=== PATIENT | female | born 1955 | race Caucasian/White ===

== ENCOUNTER 2020-06-16 14:06 | Outpatient (REF) | payer OTHER, SELFPAY | END 2020-06-16 14:07 | disposition home or self-care (01) | LOC: HO.LAB 14:06 | PROVIDERS: PCP Internal Medicine; Visit Provider Internal Medicine | DX: Z20.828 Contact with and (suspected) exposure to other viral communicable diseases (principal) | CPT/HCPCS: 36415; 87635 ==

== ENCOUNTER → 2020-08-11 10:35 | Outpatient (BNVA) | payer OTHER, SELFPAY | PROVIDERS: PCP Internal Medicine; Referring Provider Internal Medicine; Visit Provider Internal Medicine Endocrinology, Diabetes & Metabolism | DX: Z76.89 Persons encountering health services in other specified circumstances (principal) ==

== ENCOUNTER 2020-08-12 09:41 | Outpatient (REF) | payer OTHER, SELFPAY | END 2020-08-12 09:42 | disposition home or self-care (01) | LOC: HO.LAB 09:41 | PROVIDERS: Visit Provider Internal Medicine | DX: Z20.828 Contact with and (suspected) exposure to other viral communicable diseases (principal) | CPT/HCPCS: C9803; U0003 ==

== ENCOUNTER 2020-08-16 08:46 | Outpatient (REF) | payer OTHER, SELFPAY ==
[2020-08-16 09:26] LABS: MANUAL DIFF FLAG NO
[2020-08-16 09:32] LABS: Basophils Absolute Auto 0.1 X10*3/uL (0.0-0.2); Basophils Percent Auto 0.6 % (0-2); Eosinophils Absolute Auto 0.4 X10*3/uL (0.0-0.4); Eosinophils Percent Auto 4.7 % (0-4); Hematocrit 40.2 % (37-47); Hemoglobin 13.1 g/dl (12.0-16.0); Imm Gran Abs Auto 0.02 X10*3/uL (0.00-0.03); Imm Gran Pct Auto 0.2 % (0.0-0.4); Lymphocytes Absolute Auto 3.5 X10*3/uL (1.2-4.9); Lymphocytes Percent Auto 39.8 % (20-40); Mean Corpuscular HGB Conc 32.6 g/dl (31.0-35.0); Mean Corpuscular Hemoglobin 29.8 pg (27.0-33.0); Mean Corpuscular Volume 91.4 fL (80-98); Mean Platelet Volume 12.5 fL (9.4-12.3); Monocytes Absolute Auto 0.8 X10*3/uL (0.1-1.2); Monocytes Percent Auto 8.9 % (2-11); Neutrophils Absolute Auto 4.1 X10*3/uL (2.0-8.3); Neutrophils Percent Auto 45.8 % (45-73); Platelet Count 199 X10*3/uL (160-400); Red Cell Distribution Width 14.3 % (11.0-16.0); White Blood Count 8.9 X10*3/uL (4.8-10.8)
[2020-08-16 09:58] LABS: Alanine Aminotransferase 27 U/L (0-31); Albumin Level 4.1 g/dL (3.5-5.0); Alkaline Phosphatase 86 U/L (39-117); Anion Gap 13 (12-20); Aspartate Amino Transferase 28 U/L (5-31); Bilirubin Total 0.5 mg/dL (0.0-1.0); Blood Urea Nitrogen 10 mg/dL (9-16); Calcium 9.1 mg/dL (8.4-10.2); Carbon Dioxide 27 mmol/L (22-29); Chloride 106 mmol/L (96-108); Cholesterol 179 mg/dL; Estimated Glomerular Filt Rate > 60; Glucose Fasting 118 mg/dL (60-99); HDL Cholesterol 44 mg/dL; LDL Cholesterol Calculated 114 mg/dl; Potassium 4.6 mmol/l (3.3-5.1); Sodium 141 mmol/L (135-145); Total Protein 7.1 g/dL (6.5-8.0); Triglycerides 106 mg/dL
[2020-08-16 10:18] LABS: Free T4 (Free Thyroxine) 0.88 ng/dL (0.71-1.85)
[2020-08-16 10:21] LABS: TSH reflex Free T4 2.71 mIU/mL (0.32-4.0)
== END 2020-08-16 08:47 | disposition home or self-care (01) ==
LOC: HO.LAB 08:46
PROVIDERS: Absent Provider Internal Medicine Endocrinology, Diabetes & Metabolism; PCP Internal Medicine; Visit Provider Internal Medicine
DX: E78.00 Pure hypercholesterolemia, unspecified (principal); K21.9 Gastro-esophageal reflux disease without esophagitis; E06.3 Autoimmune thyroiditis; E03.8 Other specified hypothyroidism
CPT/HCPCS: 36415; 80053; 80061; 84439; 84443; 85025

== ENCOUNTER → 2020-08-21 12:40 | Outpatient (BNVA) | payer OTHER, SELFPAY | PROVIDERS: PCP Internal Medicine; Referring Provider Internal Medicine; Visit Provider Nurse Practitioner | DX: K21.9 Gastro-esophageal reflux disease without esophagitis (principal); K29.70 Gastritis, unspecified, without bleeding; R43.2 Parageusia; K59.00 Constipation, unspecified; F17.210 Nicotine dependence, cigarettes, uncomplicated; Z79.899 Other long term (current) drug therapy | CPT/HCPCS: 99212 ==

== ENCOUNTER → 2020-10-02 13:03 | Outpatient (BNVA) | payer MEDICARE, MEDICAID, SELFPAY | PROVIDERS: PCP Internal Medicine; Visit Provider Nurse Practitioner | DX: K21.9 Gastro-esophageal reflux disease without esophagitis (principal); K29.70 Gastritis, unspecified, without bleeding; R43.2 Parageusia; K59.00 Constipation, unspecified | CPT/HCPCS: Q3014 ==

== ENCOUNTER 2020-10-11 08:39 | Outpatient (REF) | payer MEDICARE, MEDICAID, SELFPAY ==
[2020-10-11 09:32] LABS: Alanine Aminotransferase 40 U/L (0-31); Albumin Level 4.4 g/dL (3.5-5.0); Alkaline Phosphatase 100 U/L (39-117); Anion Gap 14 (12-20); Aspartate Amino Transferase 34 U/L (5-31); Bilirubin Total 0.5 mg/dL (0.0-1.0); Blood Urea Nitrogen 14 mg/dL (9-16); Calcium 9.5 mg/dL (8.4-10.2); Carbon Dioxide 28 mmol/L (22-29); Chloride 104 mmol/L (96-108); Estimated Glomerular Filt Rate > 60; Glucose Fasting 123 mg/dL (60-99); Potassium 5.1 mmol/L (3.3-5.1); Sodium 141 mmol/L (135-145); Total Protein 7.6 g/dL (6.5-8.0)
== END 2020-10-11 08:40 | disposition home or self-care (01) ==
LOC: HO.LAB 08:39
PROVIDERS: Visit Provider Internal Medicine
DX: E78.00 Pure hypercholesterolemia, unspecified (principal)
CPT/HCPCS: 36415; 80053

== ENCOUNTER → 2020-10-15 14:17 | Outpatient (BNVA) | payer MEDICARE, MEDICAID, SELFPAY | PROVIDERS: PCP Internal Medicine; Visit Provider Nurse Practitioner | DX: Z13.89 Encounter for screening for other disorder (principal) | CPT/HCPCS: 99212 ==

== ENCOUNTER → 2021-01-14 13:55 | Outpatient (BNVA) | payer MEDICARE, MEDICAID, SELFPAY | PROVIDERS: PCP Internal Medicine; Referring Provider Internal Medicine; Visit Provider Nurse Practitioner | DX: K59.00 Constipation, unspecified (principal); K29.70 Gastritis, unspecified, without bleeding; K21.9 Gastro-esophageal reflux disease without esophagitis; R10.13 Epigastric pain; R68.81 Early satiety | CPT/HCPCS: 99212 ==

== ENCOUNTER 2021-01-15 10:20 | Outpatient (REF) | payer MEDICARE, MEDICAID, SELFPAY | END 2021-01-15 10:21 | disposition home or self-care (01) | LOC: HO.LNP 10:20 | PROVIDERS: Visit Provider Nurse Practitioner | DX: R10.13 Epigastric pain (principal); R68.81 Early satiety; Z11.2 Encounter for screening for other bacterial diseases | CPT/HCPCS: 87338 ==

== ENCOUNTER 2021-02-07 08:18 | Outpatient (REF) | payer MEDICARE, MEDICAID, SELFPAY ==
[2021-02-07 09:34] LABS: Alanine Aminotransferase 44 U/L (0-31); Albumin Level 4.5 g/dL (3.5-5.0); Alkaline Phosphatase 110 U/L (39-117); Anion Gap 15 (12-20); Aspartate Amino Transferase 35 U/L (5-31); Bilirubin Total 0.3 mg/dL (0.0-1.0); Blood Urea Nitrogen 11 mg/dL (9-16); Calcium 9.7 mg/dL (8.4-10.2); Carbon Dioxide 26 mmol/L (22-29); Chloride 105 mmol/L (96-108); Cholesterol 213 mg/dL; Estimated Glomerular Filt Rate > 60; Glucose Fasting 113 mg/dL (60-99); HDL Cholesterol 48 mg/dL; LDL Cholesterol Calculated 137 mg/dl; Potassium 4.8 mmol/L (3.3-5.1); Sodium 141 mmol/L (135-145); Triglycerides 142 mg/dL
[2021-02-07 09:48] LABS: Free T4 (Free Thyroxine) 0.96 ng/dL (0.71-1.85); Thyroid Stimulating Hormone 1.92 uIU/mL (0.32-4.0)
== END 2021-02-07 08:19 | disposition home or self-care (01) ==
LOC: HO.LAB 08:18
PROVIDERS: PCP Internal Medicine; Visit Provider Internal Medicine Endocrinology, Diabetes & Metabolism
DX: E03.8 Other specified hypothyroidism (principal); E06.3 Autoimmune thyroiditis; E78.5 Hyperlipidemia, unspecified; R73.02 Impaired glucose tolerance (oral)
CPT/HCPCS: 36415; 80053; 80061; 84439; 84443

== ENCOUNTER → 2021-02-10 10:01 | Outpatient (BNVA) | payer MEDICARE, MEDICAID, SELFPAY | PROVIDERS: PCP Internal Medicine; Visit Provider Internal Medicine Endocrinology, Diabetes & Metabolism | DX: E89.0 Postprocedural hypothyroidism (principal) | CPT/HCPCS: 99212 ==

== ENCOUNTER → 2021-03-31 15:14 | Outpatient (BNVA) | payer MEDICARE, MEDICAID, SELFPAY | PROVIDERS: Referring Provider Internal Medicine; Visit Provider Nurse Practitioner | DX: K21.9 Gastro-esophageal reflux disease without esophagitis (principal); R10.13 Epigastric pain; R68.81 Early satiety | CPT/HCPCS: 99212 ==

== ENCOUNTER → 2021-04-13 08:26 | Outpatient (REF) | payer MEDICARE, MEDICAID, SELFPAY ==
--- NOTE | ~2021-04-13 | NM_ITS ---
EXAMINATION: NM RADIONUCLIDE SOLID FOOD GASTRIC EMPTYING 4-HOUR STUDY CLINICAL INFORMATION: Epigastric pain COMPARISON: None TECHNIQUE: A standard meal consisting of 4 oz of Egg Beaters brand tagged with 1.0 microcuries Tc-99m Sulfur Colloid, 8 oz water and 2 slices of toast with jelly was administered orally to the patient. Images were obtained using a dual head gamma camera in the anterior and posterior projections over of the stomach immediately post ingestion and at hourly intervals up to 4 hours post ingestion. The anterior and posterior counts at each time interval were averaged using the geometric mean and expressed as percentage of the immediate post ingestion counts. FINDINGS: There is good visualization of activity in the stomach immediately post ingestion. As the study progresses, there is good clearance of activity from the stomach and visualization of progressively increasing small bowel activity. By the end of the study, there is almost no retention noted in the stomach. Retention in the stomach at each time interval was: 1 hour 66% (normal 37%-90%) 2 hours 33% (normal 30%-60%) 3 hours 10% 4 hours 4% (normal 0%-10%) NM/NM gastric emptying study IMPRESSION: Normal 4-hour solid food gastric emptying study.
== END ==
LOC: HO.NUCMED 08:26
PROVIDERS: Visit Provider Nurse Practitioner
DX: R10.13 Epigastric pain (principal); R68.81 Early satiety
CPT/HCPCS: 78264; A9541

== ENCOUNTER → 2021-04-28 11:27 | Outpatient (BNVA) | payer MEDICARE, MEDICAID, SELFPAY | PROVIDERS: PCP Internal Medicine; Referring Provider Internal Medicine; Visit Provider Nurse Practitioner | DX: K21.9 Gastro-esophageal reflux disease without esophagitis (principal); R10.13 Epigastric pain; R68.81 Early satiety; K59.00 Constipation, unspecified; R14.0 Abdominal distension (gaseous); R43.2 Parageusia; K29.70 Gastritis, unspecified, without bleeding | CPT/HCPCS: 99212 ==

== ENCOUNTER 2021-05-07 10:43 | Outpatient (REF) | payer MEDICARE, MEDICAID, SELFPAY ==
--- NOTE | ~2021-05-07 | XR_ITS ---
EXAMINATION: XR CHEST CLINICAL INFORMATION: Dyspnea COMPARISON: Previous chest x-rays most recent November 2018 TECHNIQUE: 2 views of the chest were obtained. FINDINGS: The cardiac silhouette is upper normal in size. There are increased central bronchovascular markings.. The lungs are otherwise clear. There is no pleural effusion or pneumothorax. There are degenerative changes of the spine. XR/XR chest 2V IMPRESSION: Increased central bronchovascular markings questionable for pulmonary venous redistribution versus airways disease.
== END 2021-05-07 10:44 | disposition home or self-care (01) ==
LOC: HO.XRAY 10:43
PROVIDERS: PCP Internal Medicine; Visit Provider Internal Medicine
DX: R06.00 Dyspnea, unspecified (principal)
CPT/HCPCS: 71046

== ENCOUNTER → 2021-05-26 13:55 | Outpatient (BNVA) | payer MEDICARE, MEDICAID, SELFPAY | PROVIDERS: PCP Internal Medicine; Visit Provider Nurse Practitioner | DX: K59.00 Constipation, unspecified (principal); K21.9 Gastro-esophageal reflux disease without esophagitis; R14.0 Abdominal distension (gaseous); R68.81 Early satiety; R10.13 Epigastric pain | CPT/HCPCS: Q3014 ==

== ENCOUNTER 2021-09-26 09:42 | Outpatient (REF) | payer MEDICARE, MEDICAID, SELFPAY ==
[2021-09-26 10:28] LABS: Alanine Aminotransferase 33 U/L (0-31); Albumin Level 4.2 g/dL (3.5-5.0); Alkaline Phosphatase 100 U/L (39-117); Anion Gap 11 (12-20); Aspartate Amino Transferase 25 U/L (5-31); Bilirubin Total 0.3 mg/dL (0.0-1.0); Blood Urea Nitrogen 12 mg/dL (9-16); Calcium 10.1 mg/dL (8.4-10.2); Carbon Dioxide 30 mmol/L (22-29); Chloride 104 mmol/L (96-108); Cholesterol 217 mg/dL; Estimated Glomerular Filt Rate > 60; Glucose Fasting 136 mg/dL (60-99); HDL Cholesterol 38 mg/dL; LDL Cholesterol Calculated 140 mg/dl; Sodium 140 mmol/L (135-145); Total Protein 7.8 g/dL (6.5-8.0); Triglycerides 195 mg/dL
[2021-09-26 10:50] LABS: Free T4 (Free Thyroxine) 0.85 ng/dL (0.71-1.85); Thyroid Stimulating Hormone 5.95 uIU/mL (0.32-4.0)
[2021-10-01 19:16] LABS: Vitamin D 25-OH, D2 <4 ng/mL; Vitamin D 25-OH, D3 23 ng/mL; Vitamin D 25-OH, Total 23 ng/mL (30-100)
== END 2021-09-26 09:43 | disposition home or self-care (01) ==
LOC: HO.LAB 09:42
PROVIDERS: PCP Internal Medicine; Visit Provider Internal Medicine
DX: E06.3 Autoimmune thyroiditis (principal); E55.9 Vitamin D deficiency, unspecified; E78.5 Hyperlipidemia, unspecified; R73.02 Impaired glucose tolerance (oral)
CPT/HCPCS: 36415; 80053; 80061; 82306; 84439; 84443

== ENCOUNTER 2021-09-30 13:15 | Outpatient (REF) | payer MEDICARE, MEDICAID, SELFPAY ==
--- NOTE | ~2021-09-30 | MM_ITS ---
EXAMINATION: MM SCREENING DIGITAL BREAST TOMOSYNTHESIS, BILATERAL CLINICAL INFORMATION: Screening. Asymptomatic. The lifetime risk of breast cancer based on the Tyrer-Cuzick Model is 3%. COMPARISON: Mammography: 05/24/2018, 04/06/2017, 04/02/2016 TECHNIQUE: Digital breast tomosynthesis is performed in both the craniocaudal and mediolateral oblique views along with computer-aided detection (CAD). Synthesized 2D images are generated from the tomosynthesis. Additional right MLO view is provided. FINDINGS: There are scattered areas of fibroglandular density (ACR BI-RADS breast composition Category b). There are no significant masses, abnormal calcifications, or other abnormalities. Parenchymal pattern is similar to prior studies. There is no developing density or architectural abnormality. The axilla and skin contours are unremarkable. No significant changes. MM/MM tomosynthesis screening BI IMPRESSION: No mammographic evidence of malignancy. ASSESSMENT: BI-RADS 1: Negative RECOMMENDATION: Routine annual mammography screening. This patient's information was entered into a reminder system with a target due date for their next mammogram.
--- NOTE | ~2021-09-30 | MM_ITS ---
EXAMINATION: BONE DENSITOMETRY CLINICAL INDICATION: Asymptomatic menopausal state. COMPARISON: None (current study represents initial baseline exam). TECHNIQUE: Using a Invisible Connect DXA System (software version: 13.1) manufactured by [employer], dual-energy x-ray absorptiometry was performed of the lumbar spine and left hip. The images are of good technical quality. Summary results are attached. FINDINGS: AP SPINE L2-L3 (excluding L1 and L4): The data of L1-L4 has been changed to exclude the L1 and L4 vertebral bodies, because degenerative changes at these levels may cause overestimation of lumbar spine density. BMD 1.263 g/cm2, Z-score 1.8, T-score 0.5, normal. LEFT FEMUR, NECK: BMD 0.768 g/cm2, Z-score -0.7, T-score -1.9, osteopenia. LEFT FEMUR, TOTAL: BMD 0.921 g/cm2, Z-score 0.3, T-score -0.7, normal. IDENTIFIED RISK FACTORS: Early menopause, secondary osteoporosis, hysterectomy, tobacco use (current smoker). HISTORY OF FRACTURE: None listed. MEDICATIONS: Multivitamin. MM/XR DEXA axial skeleton IMPRESSION: 1. DIAGNOSIS: Osteopenia based on the lowest T-score value of -1.9 in the femoral neck applying World Health Organization criteria. 2. 10-YEAR FRACTURE RISK PREDICTION, FRAX: Major osteoporotic fracture (clinical spine, forearm, hip or shoulder) 5.9%. Hip fracture 1.4%. 3. Treatment Recommendations: NOF guidelines recommend consideration for treatment in postmenopausal women and men age 50 and older presenting with the following: -A hip or vertebral (clinical or morphometric) fracture. -T-score less than or equal to -2.5 at the femoral neck or spine after appropriate evaluation to exclude secondary causes. -Low bone mass at the hip or spine and a 10-year fracture probability by FRAX of greater than or equal to 3% for hip fracture or greater than or equal to 20% for major osteoporotic fracture based on the [place] adapted WHO algorithm. 4. Other Recommendations: All treatment decisions require clinical judgment and consideration of individual patient factors, including patient preferences, comorbidities, previous drug use, risk factors not captured in the FRAX model (e.g. frailty, falls, vitamin D deficiency, increased bone turnover, interval significant decline in bone density) and possible under or overestimation of fracture risk by FRAX. Additional medical evaluation for secondary cause of low bone mineral density may be appropriate. FUTURE SCAN RECOMMENDATION: People with diagnosed cases of osteoporosis or at high risk for fracture should have regular bone mineral density tests. For patients eligible for Medicare, routine testing is allowed once every 2 years. The testing frequency can be increased to one year for patients who have rapidly progressing disease, those who are receiving or discontinuing medical therapy to restore bone mass, or have additional risk factors.
== END 2021-09-30 13:16 | disposition home or self-care (01) ==
LOC: HO.MAMMO 13:15
PROVIDERS: PCP Internal Medicine; Visit Provider Nurse Practitioner Family
DX: Z12.31 Encounter for screening mammogram for malignant neoplasm of breast (principal); Z13.820 Encounter for screening for osteoporosis; Z78.0 Asymptomatic menopausal state
CPT/HCPCS: 77063; 77067; 77080

== ENCOUNTER → 2021-10-30 08:01 | Outpatient (BNVA) | payer MEDICARE, MEDICAID, SELFPAY | PROVIDERS: PCP Internal Medicine; Referring Provider Internal Medicine; Visit Provider Nurse Practitioner | DX: K59.00 Constipation, unspecified (principal); K21.9 Gastro-esophageal reflux disease without esophagitis; R10.13 Epigastric pain; R68.81 Early satiety | CPT/HCPCS: 99212 ==

== ENCOUNTER 2022-01-29 07:17 | Outpatient (REF) | payer MEDICARE, MEDICAID, SELFPAY ==
--- NOTE | ~2022-01-29 | XR_ITS ---
EXAMINATION: XR PELVIS XR HIP-RIGHT CLINICAL INFORMATION: Right hip pain. COMPARISON: None TECHNIQUE: Single frontal view of the pelvis and 2 views of the right hip were obtained. FINDINGS: Pelvis: Mild diffuse osteopenia is noted. Mild osteitis pubis is seen. The visualized part of the lower lumbosacral spine shows degenerative spondylosis. The soft tissues are unremarkable. Right hip: Mild osteoarthrosis is present at the right hip. The bony alignments are intact. Mild osteopenia is noted. Soft tissues are unremarkable. XR/XR pelvis 1-2V IMPRESSION: 1. Mild diffuse osteopenia. 2. Osteitis pubis. 3. Mild osteoarthrosis of the right hip. 4. The visualized lower lumbosacral spine shows degenerative spondylosis.
--- NOTE | ~2022-01-29 | XR_ITS ---
EXAMINATION: XR PELVIS XR HIP-RIGHT CLINICAL INFORMATION: Right hip pain. COMPARISON: None TECHNIQUE: Single frontal view of the pelvis and 2 views of the right hip were obtained. FINDINGS: Pelvis: Mild diffuse osteopenia is noted. Mild osteitis pubis is seen. The visualized part of the lower lumbosacral spine shows degenerative spondylosis. The soft tissues are unremarkable. Right hip: Mild osteoarthrosis is present at the right hip. The bony alignments are intact. Mild osteopenia is noted. Soft tissues are unremarkable. XR/XR hip RT min 2V IMPRESSION: 1. Mild diffuse osteopenia. 2. Osteitis pubis. 3. Mild osteoarthrosis of the right hip. 4. The visualized lower lumbosacral spine shows degenerative spondylosis.
== END 2022-01-29 07:18 | disposition home or self-care (01) ==
LOC: HO.HOSX 07:17
PROVIDERS: Visit Provider Physician Assistant
DX: M70.61 Trochanteric bursitis, right hip (principal); M53.3 Sacrococcygeal disorders, not elsewhere classified; G89.29 Other chronic pain
CPT/HCPCS: 72170; 73502; 99202

== ENCOUNTER 2022-02-15 10:15 | Outpatient (REF) | payer MEDICARE, MEDICAID, SELFPAY ==
[2022-02-15 12:31] LABS: Thyroid Stimulating Hormone 1.82 uIU/mL (0.32-4.0)
== END 2022-02-15 10:16 | disposition home or self-care (01) ==
LOC: HO.LAB 10:15
PROVIDERS: PCP Internal Medicine; Visit Provider Internal Medicine Endocrinology, Diabetes & Metabolism
DX: E03.9 Hypothyroidism, unspecified (principal)
CPT/HCPCS: 36415; 84439; 84443

== ENCOUNTER → 2022-02-17 07:57 | Outpatient (BNVA) | payer MEDICARE, MEDICAID, SELFPAY | PROVIDERS: PCP Internal Medicine; Visit Provider Internal Medicine Endocrinology, Diabetes & Metabolism | DX: E89.0 Postprocedural hypothyroidism (principal) | CPT/HCPCS: 99212 ==

== ENCOUNTER 2022-03-02 06:51 | Outpatient (REF) | payer MEDICARE, MEDICAID, SELFPAY ==
[2022-03-02 07:55] LABS: Alanine Aminotransferase 49 U/L (0-31); Albumin Level 4.2 g/dL (3.5-5.0); Alkaline Phosphatase 88 U/L (39-117); Anion Gap 13 (12-20); Aspartate Amino Transferase 33 U/L (5-31); Bilirubin Total 0.5 mg/dL (0.0-1.0); Blood Urea Nitrogen 13 mg/dL (9-16); Calcium 9.7 mg/dL (8.4-10.2); Carbon Dioxide 28 mmol/L (22-29); Chloride 105 mmol/L (96-108); Estimated Glomerular Filt Rate 55; Glucose Fasting 127 mg/dL (60-99); Sodium 141 mmol/L (135-145); Total Protein 7.6 g/dL (6.5-8.0)
[2022-03-02 08:18] LABS: Thyroid Stimulating Hormone 1.94 uIU/mL (0.32-4.0)
== END 2022-03-02 06:52 | disposition home or self-care (01) ==
LOC: HO.LAB 06:51
PROVIDERS: PCP Internal Medicine; Visit Provider Internal Medicine
DX: R73.02 Impaired glucose tolerance (oral) (principal); E06.3 Autoimmune thyroiditis
CPT/HCPCS: 36415; 80053; 84443

== ENCOUNTER 2022-05-12 11:00 | Outpatient (RCR) | payer MEDICARE, MEDICAID, SELFPAY ==
--- NOTE | 2022-03-08 12:59 | MHC.PT.EP ---
[facility] [place] Office [place] Office [place] Office [address] Shanell Jones [address] [phone] F: [phone] F: [phone] F: [phone] F: [phone] Physical Therapy Plan of Care Date of Evaluation: Date of Surgery: N/A Diagnosis: sacrococcygeal disorder and right hip trochanteric bursitis Assessment: Diana is a 66 yo F referred to PT for sacrococcygeal disorder and right hip trochanteric bursitis. Upon exam she presents with tissue tension and posture abnormalities leading pain in her low back. She performs all ADls but with pain and modification. Her impairments include gross B limitation in hip ROM and strength, along with decrease lumbar ROM. Diana will benefit from skilled PT to treat the aforementioned impairments along with receiving postural education and soft tissue release. Frequency and Duration: The patient will be seen 2/week for 5 weeks Short Term Goals: Patient will demonstrate a 50% increase in ROM to help her dress her lower body in 3 weeks. Patient will demonstrate postural awareness to decrease tissue strain and pain in 3 weeks. 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 Patient will demonstrate an improved neuromuscluar control of B LE and lumbar stabs which will help her walk at least for 30 mins in 5 weeks Patient will demonstrate a 50% decrease in pain that will allow her to return to walking and PLOF in 5 weeks. Treatment Plan: Modalities to reduce pain, spasms and effusion. Manual therapy to restore motion and function. Therapeutic exercise to improve strength and flexibility. Neuromuscular re-education for posture and balance. Therapeutic activities to return to functional activities of daily living. Electronically signed by: Rosario Moses PT DPT Please sign and return to therapist. Thank you for your referral.
--- NOTE | 2022-06-09 08:32 | MHC.PT.DC ---
[facility] [place] Office [place] Office [place] Office [address] Shanell Jones 140 [facility] [phone] F: [phone] F: [phone] F: [phone] F: [phone] Physical Therapy Discharge Report Diagnosis: sacrococcygeal disorder and right hip trochanteric bursitis Date of Surgery: N/A Date of Evaluation: 03/08/22 Date of Discharge: 06/09/22 Treatments to Date: 9 Cancellations to Date: 1 No Shows to Date: Discharge Status: Achieved Goals Improved Function Independent with HEP Discharge Summary: Diana completed 9 PT visits and achieved all goals set for her. She is independent with her HEP as well. She is therefore being d/c from PT. Electronically signed by: Rosario Moses, PT DPT Please sign and return to therapist. Thank you for your referral.
== END 2022-06-09 08:32 | disposition home or self-care (01) ==
LOC: HO.PT 11:00
PROVIDERS: PCP Internal Medicine; Visit Provider Orthopaedic Surgery
DX: M53.3 Sacrococcygeal disorders, not elsewhere classified (principal); M70.61 Trochanteric bursitis, right hip; G89.29 Other chronic pain
CPT/HCPCS: 97110; 97140; 97161

== ENCOUNTER 2022-06-07 08:12 | Outpatient (REF) | payer MEDICARE, MEDICAID, SELFPAY ==
[2022-06-07 09:08] LABS: Alanine Aminotransferase 68 U/L (0-31); Albumin Level 4.3 g/dL (3.5-5.0); Alkaline Phosphatase 120 U/L (39-117); Anion Gap 17 (12-20); Aspartate Amino Transferase 43 U/L (5-31); Bilirubin Total 0.2 mg/dL (0.0-1.0); Blood Urea Nitrogen 10 mg/dL (9-16); Calcium 9.7 mg/dL (8.4-10.2); Carbon Dioxide 27 mmol/L (22-29); Chloride 104 mmol/L (96-108); Cholesterol 220 mg/dL; Estimated Glomerular Filt Rate > 60; Glucose Fasting 126 mg/dL (60-99); HDL Cholesterol 41 mg/dL; LDL Cholesterol Calculated 139 mg/dl; Potassium 5.5 mmol/L (3.3-5.1); Sodium 142 mmol/L (135-145); Total Protein 7.6 g/dL (6.5-8.0); Triglycerides 201 mg/dL
== END 2022-06-07 08:13 | disposition home or self-care (01) ==
LOC: HO.LAB 08:12
PROVIDERS: PCP Internal Medicine; Visit Provider Internal Medicine
DX: E78.5 Hyperlipidemia, unspecified (principal); E06.3 Autoimmune thyroiditis; R73.02 Impaired glucose tolerance (oral)
CPT/HCPCS: 36415; 80053; 80061; 84443

== ENCOUNTER 2022-07-14 | Outpatient (REF) | payer MEDICARE, MEDICAID, SELFPAY ==
--- NOTE | ~2022-07-14 | XR_ITS ---
EXAMINATION: XR knee standing BI, XR knee LT 2V, XR knee RT 2V CLINICAL INFORMATION: Reason for Exam M25.561 - Pain in right knee COMPARISON: Knee radiographs 01/05/2017 TECHNIQUE: Two views of the right knee in the left knee and one view of the bilateral knees standing FINDINGS: No acute fracture or dislocation. Advanced degenerative changes of the bilateral knees progressed from prior with tricompartmental osteophytes and near complete loss of medial compartment joint space. No joint effusion or soft tissue abnormality. XR/XR knee RT 2V IMPRESSION: Advanced degenerative changes of the bilateral knees progressed from prior with near complete loss of medial compartment joint space.
--- NOTE | ~2022-07-14 | XR_ITS ---
EXAMINATION: XR knee standing BI, XR knee LT 2V, XR knee RT 2V CLINICAL INFORMATION: Reason for Exam M25.561 - Pain in right knee COMPARISON: Knee radiographs 01/05/2017 TECHNIQUE: Two views of the right knee in the left knee and one view of the bilateral knees standing FINDINGS: No acute fracture or dislocation. Advanced degenerative changes of the bilateral knees progressed from prior with tricompartmental osteophytes and near complete loss of medial compartment joint space. No joint effusion or soft tissue abnormality. XR/XR knee LT 2V IMPRESSION: Advanced degenerative changes of the bilateral knees progressed from prior with near complete loss of medial compartment joint space.
--- NOTE | ~2022-07-14 | XR_ITS ---
EXAMINATION: XR knee standing BI, XR knee LT 2V, XR knee RT 2V CLINICAL INFORMATION: Reason for Exam M25.561 - Pain in right knee COMPARISON: Knee radiographs 01/05/2017 TECHNIQUE: Two views of the right knee in the left knee and one view of the bilateral knees standing FINDINGS: No acute fracture or dislocation. Advanced degenerative changes of the bilateral knees progressed from prior with tricompartmental osteophytes and near complete loss of medial compartment joint space. No joint effusion or soft tissue abnormality. XR/XR knee standing BI IMPRESSION: Advanced degenerative changes of the bilateral knees progressed from prior with near complete loss of medial compartment joint space.
== END 2022-07-14 00:01 | disposition home or self-care (01) ==
LOC: HO.HOSX
PROVIDERS: Visit Provider Physician Assistant
DX: M17.0 Bilateral primary osteoarthritis of knee (principal); M25.561 Pain in right knee; M25.562 Pain in left knee
CPT/HCPCS: 20610; 73560; 73565; 99212; J1020

== ENCOUNTER → 2022-08-03 13:18 | Outpatient (BNVA) | payer MEDICARE, MEDICAID, SELFPAY | PROVIDERS: PCP Internal Medicine; Visit Provider Nurse Practitioner | DX: Z01.818 Encounter for other preprocedural examination (principal); R10.13 Epigastric pain; R14.0 Abdominal distension (gaseous); K21.9 Gastro-esophageal reflux disease without esophagitis; K59.00 Constipation, unspecified; Z80.0 Family history of malignant neoplasm of digestive organs | CPT/HCPCS: 99212 ==

== ENCOUNTER 2022-08-23 08:00 | Outpatient (REF) | payer MEDICARE, MEDICAID, SELFPAY ==
[2022-08-23 09:20] LABS: Potassium 4.8 mmol/L (3.3-5.1); Thyroid Stimulating Hormone 1.44 uIU/mL (0.32-4.0)
== END 2022-08-23 08:01 | disposition home or self-care (01) ==
LOC: HO.LAB 08:00
PROVIDERS: PCP Internal Medicine; Visit Provider Internal Medicine
DX: E89.0 Postprocedural hypothyroidism (principal); E87.5 Hyperkalemia
CPT/HCPCS: 36415; 84132; 84443

== ENCOUNTER 2022-10-06 13:48 | Outpatient (REF) | payer MEDICARE, MEDICAID, SELFPAY ==
--- NOTE | ~2022-10-06 | MM_ITS ---
EXAMINATION: MM SCREENING DIGITAL BREAST TOMOSYNTHESIS, BILATERAL CLINICAL INFORMATION: Screening. Asymptomatic. The lifetime risk of breast cancer based on the Tyrer-Cuzick Model is 4%. COMPARISON: Mammography: 09/30/2021, 05/24/2018, 04/06/2017 TECHNIQUE: Digital breast tomosynthesis is performed in both the craniocaudal and mediolateral oblique views along with computer-aided detection (CAD). Synthesized 2D images are generated from the tomosynthesis. FINDINGS: There are scattered areas of fibroglandular density (ACR BI-RADS breast composition Category b). There are no significant masses, abnormal calcifications, or other abnormalities. There are no significant changes from prior studies. No developing density. Skin contours are smooth. Axillary nodes are unremarkable. MM/MM tomosynthesis screening BI IMPRESSION: No mammographic evidence of malignancy. ASSESSMENT: BI-RADS 1: Negative RECOMMENDATION: Routine annual mammography screening. This patient's information was entered into a reminder system with a target due date for their next mammogram.
== END 2022-10-06 13:49 | disposition home or self-care (01) ==
LOC: HO.MAMMO 13:48
PROVIDERS: PCP Internal Medicine; Visit Provider Internal Medicine
DX: Z12.31 Encounter for screening mammogram for malignant neoplasm of breast (principal)
CPT/HCPCS: 77063; 77067

== ENCOUNTER 2022-10-09 07:45 | Outpatient (REF) | payer MEDICARE, SELFPAY ==
[2022-10-09 09:02] LABS: Alanine Aminotransferase 65 U/L (0-31); Alkaline Phosphatase 118 U/L (39-117); Anion Gap 13 (12-20); Aspartate Amino Transferase 48 U/L (5-31); Bilirubin Total 0.3 mg/dL (0.0-1.0); Blood Urea Nitrogen 12 mg/dL (9-16); Calcium 9.7 mg/dL (8.4-10.2); Carbon Dioxide 27 mmol/L (22-29); Chloride 104 mmol/L (96-108); Cholesterol 201 mg/dL; Estimated Glomerular Filt Rate > 60; Glucose Fasting 147 mg/dL (60-99); HDL Cholesterol 40 mg/dL; LDL Cholesterol Calculated 133 mg/dl; Potassium 4.4 mmol/L (3.3-5.1); Sodium 140 mmol/L (135-145); Total Protein 7.1 g/dL (6.5-8.0); Triglycerides 142 mg/dL
== END 2022-10-09 07:46 | disposition home or self-care (01) ==
LOC: HO.LAB 07:45
PROVIDERS: PCP Internal Medicine; Visit Provider Internal Medicine
DX: E78.00 Pure hypercholesterolemia, unspecified (principal); E78.5 Hyperlipidemia, unspecified
CPT/HCPCS: 36415; 80053; 80061

== ENCOUNTER → 2022-10-14 12:48 | Outpatient (BNVA) | payer MEDICARE, MEDICAID, SELFPAY | PROVIDERS: PCP Internal Medicine; Visit Provider Orthopaedic Surgery | DX: M17.0 Bilateral primary osteoarthritis of knee (principal) | CPT/HCPCS: 99212 ==

== ENCOUNTER → 2022-11-30 13:01 | Outpatient (REF) | payer MEDICARE, MEDICAID, SELFPAY ==
--- NOTE | 2022-11-30 14:07 | ECG_ITS ---
Test Reason : PREOP Blood Pressure : / mmHG Vent. Rate : 102 BPM Atrial Rate : 102 BPM P-R Int : 210 ms QRS Dur : 072 ms QT Int : 330 ms P-R-T Axes : 026 016 015 degrees QTc Int : 430 ms Sinus tachycardia with 1st degree A-V block Otherwise normal ECG When compared with ECG of 08-MAR-2016 23:06, Vent. rate has increased BY 44 BPM Nonspecific T wave abnormality, improved in Inferior leads Nonspecific T wave abnormality no longer evident in Anterolateral leads Referred By: German Trejo Electronically Signed By:KIP MAK MD
== END ==
LOC: HO.CARD 13:01
PROVIDERS: PCP Internal Medicine; Visit Provider Orthopaedic Surgery
DX: Z01.810 Encounter for preprocedural cardiovascular examination (principal)
CPT/HCPCS: 93005

== ENCOUNTER 2022-12-13 14:16 | Outpatient (REF) | payer OTHER, SELFPAY ==
[2022-12-13 14:25] LABS: MANUAL DIFF FLAG NO
[2022-12-13 14:49] LABS: Basophils Absolute Auto 0.1 X10*3/uL (0.0-0.2); Basophils Percent Auto 0.7 % (0-2); Eosinophils Absolute Auto 0.2 X10*3/uL (0.0-0.4); Eosinophils Percent Auto 1.5 % (0-4); Hematocrit 41.1 % (37.0-47.0); Hemoglobin 13.8 g/dl (12.0-16.0); Imm Gran Abs Auto 0.05 X10*3/uL (0.00-0.03); Imm Gran Pct Auto 0.5 % (0.0-0.4); Lymphocytes Absolute Auto 3.4 X10*3/uL (1.2-4.9); Lymphocytes Percent Auto 31.9 % (20-40); Mean Corpuscular HGB Conc 33.6 g/dl (31.0-35.0); Mean Corpuscular Hemoglobin 30.6 pg (27.0-33.0); Mean Corpuscular Volume 91.1 fL (80.0-98.0); Mean Platelet Volume 12.6 fL (9.4-12.3); Monocytes Absolute Auto 1.1 X10*3/uL (0.1-1.2); Monocytes Percent Auto 10.3 % (2-11); Neutrophils Absolute Auto 5.9 x10*3/uL (2.0-8.3); Neutrophils Percent Auto 55.1 % (45-73); Platelet Count 208 X10*3/uL (160-400); Red Blood Count 4.51 X10*6/uL (4.20-5.50); Red Cell Distribution Width 13.5 % (11.0-16.0); White Blood Count 10.6 X10*3/uL (4.8-10.8)
[2022-12-13 14:53] LABS: INTERNATIONAL NORM RATIO 1.1 (0.9-1.1); Prothrombin Time 12.3 SEC (10.0-13.1)
[2022-12-13 16:50] LABS: Alanine Aminotransferase 65 U/L (0-31); Albumin Level 4.1 g/dL (3.5-5.0); Alkaline Phosphatase 97 U/L (39-117); Anion Gap 14 (12-20); Aspartate Amino Transferase 59 U/L (5-31); Bilirubin Total 0.5 mg/dL (0.0-1.0); Blood Urea Nitrogen 9 mg/dL (9-16); Calcium 9.8 mg/dL (8.4-10.2); Carbon Dioxide 25 mmol/L (22-29); Chloride 104 mmol/L (96-108); Estimated Glomerular Filt Rate > 60; Glucose Random 100 mg/dL (60-115); Potassium 4.5 mmol/L (3.3-5.1); Sodium 138 mmol/L (135-145); Total Protein 7.4 g/dL (6.5-8.0)
[2022-12-13 17:36] LABS: TSH reflex Free T4 0.47 uIU/mL (0.32-4.0)
== END 2022-12-13 14:17 | disposition home or self-care (01) ==
LOC: HO.LAB 14:16
PROVIDERS: PCP Internal Medicine; Visit Provider Nurse Practitioner Family
DX: Z01.812 Encounter for preprocedural laboratory examination (principal); Z13.29 Encounter for screening for other suspected endocrine disorder; Z13.0 Encounter for screening for diseases of the blood and blood-forming organs and certain disorders involving the immune mechanism
CPT/HCPCS: 36415; 80053; 84443; 85025; 85610

== ENCOUNTER → 2022-12-30 13:20 | Outpatient (BNVA) | payer OTHER, MEDICAID, SELFPAY | PROVIDERS: PCP Internal Medicine; Visit Provider Physician Assistant | DX: Z01.818 Encounter for other preprocedural examination (principal); M17.11 Unilateral primary osteoarthritis, right knee; M25.561 Pain in right knee | CPT/HCPCS: 99212 ==

== ENCOUNTER 2023-01-04 07:13 | Day surgery (SDC) | payer OTHER, MEDICAID, SELFPAY ==
[2022-12-21 12:23] VITALS: BP 112/59; PULSE 80; RESP 20; O2SAT 95; BMI 37.3
--- NOTE | 2022-12-21 12:56 | HO.ANESPROP2 ---
Documented by User: Soraya Braswell NP 12/23/22 13:46 HPI - Anesthesia Eval Consult details Narrative: 67yo F for Right Knee Replacement Total 01/04/23 PCP cleared PMFSH Active Problems Active Problems: All Active Problems (Updated 12/21/22 @ 12:13 by Sosa Hurt, ELAINE) Gastritis (Acute) Taste sense altered (Acute) Constipation (Acute) Epigastric pain (Acute) Early satiety (Acute) Abdominal bloating (Acute) Post-menopausal (Acute) Screening for breast cancer (Acute) Screening for diabetes mellitus (Acute) Screening for colon cancer (Acute) Adult general medical exam (Acute) Trochanteric bursitis of right hip (Acute) Chronic SI joint pain (Acute) Muscle spasm (Acute) Osteoarthritis of right hip (Acute) Hyperkalemia (Acute) Bilateral knee pain (Acute) Osteoarthritis of knees, bilateral (Acute) Family history of colon cancer (Acute) Pre-op examination (Acute) Impaired glucose tolerance (Acute) Osteoarthritis of right knee (Acute) Urge urinary incontinence (Acute) Dyspnea (Acute) Impaired glucose tolerance (Acute) Hypothyroidism (Acute) Autoimmune thyroiditis (Acute) Pure hypercholesterolemia (Acute) GERD (gastroesophageal reflux disease) (Acute) Past Medical History Medical History Autoimmune thyroiditis Difficulty swallowing Dyspnea GERD (gastroesophageal reflux disease) Hypothyroidism Impaired glucose tolerance Osteoporosis Pure hypercholesterolemia Urge urinary incontinence Family History Family History Father Prostate cancer Mother Diabetes mellitus Sister Heart problem Family history of problems with anesthesia: No Surgical History Surgical History History of appendectomy History of esophagogastroduodenoscopy (EGD) History of partial hysterectomy Hx of colonoscopy Hx of thyroidectomy Hx of tubal ligation HX: benign breast biopsy History of Problems with Anesthesia: No Social History Social History Housing: Apartment Are you a primary interior plant caretaker to a significant other at home: No Do you presently have visiting nurse or other home services: No Alcohol intake: never Patient Tobacco Use Status: Current everyday Tobacco user Tobacco use type: Cigarette Cigarette Packs Per Day: 10 Cigarettes Per Day: 10 Years Smoked: 40 e-Cigarette/Vaping Use: Never Used Patient Interested in Nicotine Replacement: Yes Second Hand Smoke Exposure: No Use of substances other than those prescribed or required for medical reasons: No Have you been hit, kicked, punched, or otherwise hurt by someone within the past year? If so, by whom?: No Are you DNR?: No Advance Directives Information Provided: Yes (states has HCP form at home-will bring in DOS) Advance Directives on File: No Recently lost weight without trying: No Nutrition Risks: No Nutritional Risk Poor oral hygiene: No (upper & lower dentures) service: No Current occupational status: unemployed Current occupational exposures/hazards: No Cognitive needs: No Hearing needs: No Vision needs: Yes Narrative Narrative: No recent illness No CP/SOB with housework, walking Meds Allergies Allergy/AdvReac Type Severity Reaction Status Date / Time adhesive tape Allergy Intermediate Blister Verified 12/30/22 13:27 Home Medications Medication Instructions Recorded Confirmed Last Taken Type dexlansoprazole 60 mg 60 mg PO QAM 12/21/22 12/30/22 01/04/23 History capsule,biphase delayed release (Dexilant) levothyroxine 100 mcg tablet 100 mcg PO QAM 12/21/22 12/30/22 01/04/23 History Exam Exam Date and Time: December 21, 2022 1256 Height,Weight and Vital Signs: Height 4 ft 11 in Weight 83.915 kg Last Vital Signs Pulse 80 12/21/22 12:23 Resp 20 12/21/22 12:23 BP 112/59 L 12/21/22 12:23 Pulse Ox 95 12/21/22 12:23 O2 Del Method Room Air 12/21/22 12:23 Pertinent Lab Results Pertinent Lab Results: Laboratory Tests 12/13/22 12/13/22 14:23 14:23 WBC 10.6 Hgb 13.8 Hct 41.1 Plt Count 208 Sodium 138 Potassium 4.5 Chloride 104 Carbon Dioxide 25 BUN 9 Creatinine 0.77 Narrative Narrative: EKG 11/2022 Vent. Rate : 102 BPM ? ? Atrial Rate : 102 BPM ?? P-R Int : 210 ms? QRS Dur : 072 ms ? ? QT Int : 330 ms ? ? ? P-R-T Axes : 026 016 015 degrees ?? QTc Int : 430 ms ? Sinus tachycardia with 1st degree A-V block Otherwise normal ECG When compared with ECG of 08-MAR-2016 23:06, Vent. rate has increased BY? 44 BPM Nonspecific T wave abnormality, improved in Inferior leads Nonspecific T wave abnormality no longer evident in Anterolateral leads Airway Mallampati Class: I TM Dist: >3cm Neck ROM: Full Denture: Upper and Lower Heart: RRR Lungs: CTAB Assessment and Plan Assessment Anesthesia Assessment: Anesthesia Plan Discussed, Smoking Cess. Discussed and PAT Visit Final Anesthetic Review Family History of Problems with Anesthesia: No History of Problems with Anesthesia: No Documented by User: Kady Silverio MD 01/04/23 09:35 PMFSH Past Medical History Medical History Autoimmune thyroiditis Difficulty swallowing Dyspnea GERD (gastroesophageal reflux disease) Hypothyroidism Impaired glucose tolerance Osteoporosis Pure hypercholesterolemia Urge urinary incontinence Family History Family History Father Prostate cancer Mother Diabetes mellitus Sister Heart problem Surgical History Surgical History History of appendectomy History of esophagogastroduodenoscopy (EGD) History of partial hysterectomy Hx of colonoscopy Hx of thyroidectomy Hx of tubal ligation HX: benign breast biopsy Social History Social History Housing: Apartment Are you a primary interior plant caretaker to a significant other at home: No Do you presently have visiting nurse or other home services: No Alcohol intake: never Patient Tobacco Use Status: Current everyday Tobacco user Tobacco use type: Cigarette Cigarette Packs Per Day: 10 Cigarettes Per Day: 10 Years Smoked: 40 e-Cigarette/Vaping Use: Never Used Patient Interested in Nicotine Replacement: Yes Second Hand Smoke Exposure: No Use of substances other than those prescribed or required for medical reasons: No Have you been hit, kicked, punched, or otherwise hurt by someone within the past year? If so, by whom?: No Are you DNR?: No Advance Directives Information Provided: Yes (states has HCP form at home-will bring in DOS) Advance Directives on File: No Recently lost weight without trying: No Nutrition Risks: No Nutritional Risk Poor oral hygiene: No (upper & lower dentures) service: No Current occupational status: unemployed Current occupational exposures/hazards: No Cognitive needs: No Hearing needs: No Vision needs: Yes Meds Allergies Allergy/AdvReac Type Severity Reaction Status Date / Time adhesive tape Allergy Intermediate Blister Verified 12/30/22 13:27 Home Medications Medication Instructions Recorded Confirmed Last Taken Type dexlansoprazole 60 mg 60 mg PO QAM 12/21/22 12/30/22 01/04/23 History capsule,biphase delayed release (Dexilant) levothyroxine 100 mcg tablet 100 mcg PO QAM 12/21/22 12/30/22 01/04/23 History Assessment and Plan Final Anesthetic Review NPO: Yes ASA Class: III Final Preanesthetic Review: No Changes in Pt Med Stat, Meds/Allgs Chart Reviewed, Consent Obtained/Reviewed and Anes Risks/Benef Reviewed Patient Risk: Intermediate Procedure Risk: Intermediate Anesthetic Plan Anesthetic Plan: Spinal and Regional Block Disposition: Standard PACU
[2022-12-21 14:45] LABS: MRSA Nasal PCR NEGATIVE (Negative); SA Nasal PCR NEGATIVE (Negative)
[2023-01-04] VITALS (13 sets, daily range): BP systolic 86–152; BP diastolic 43–70; PULSE 66–97; RESP 16–21; TEMP 36–36.6; O2SAT 93–98; BMI 42.6; BMI 41.8
--- NOTE | ~2023-01-04 | XR_ITS ---
EXAMINATION: XR KNEE, RIGHT CLINICAL INFORMATION: Postop COMPARISON: 07/14/2022 TECHNIQUE: AP and lateral views of the right knee. FINDINGS: Prosthetic components of the right total knee arthroplasty are appropriately aligned. No periprosthetic fracture. Gas from recent surgery is present in the joint and surrounding soft tissues. A joint effusion is present. XR/XR knee RT 2V IMPRESSION: Appropriate alignment of the right total knee arthroplasty.
[2023-01-04 07:53] LABS: Hematocrit 42.8 % (37.0-47.0); Hemoglobin 14.2 g/dl (12.0-16.0)
[2023-01-04 07:56] LABS: COVID-19 Test Negative (Negative); IDNOW Serial# BCCEAD1C
[2023-01-04] MEDS: Lactated Ringers 1,000 ML 100 ML IVCONT ×3 (08:05→20:44)
--- NOTE | 2023-01-04 08:46 | MHC.SHP ---
Pre-Procedural Eval Section A Date of Service: 01/04/23 The patient is an INPATIENT: No Changes since office visit: No Cold of Flu in the past 2 weeks, No New Medical Problems, No Changes in Medication and No Patient answered all questions The History & Physical has been completed within 30 days and I have reviewed it.: Yes Section B Chief Complaint: Unilateral primary osteoarthritis, right knee Allergies: Allergies Allergy/AdvReac Type Severity Reaction Status Date / Time adhesive tape Allergy Intermediate Blister Verified 12/30/22 13:27 Plan I have reviewed the history and physical and performed a pertinent physical examination on my patient. No changes have occurred unless specified. Time Spent With Patient Time: Total time managing care of this patient today ____ minutes.
--- NOTE | 2023-01-04 10:18 | PM.OP ---
Brief Operative Note Date of Service: 01/04/23 Pre-op diagnosis: Right knee OA Procedure: Right TKA Implants: Stephen Triathlon press fit cruciate retaining 10/15/09 Surgeon: German Trejo MD Anesthesia: regional and spinal Was an Maintenance Of Way Clerk used for this Procedure?: Yes Maintenance Of Way Clerk: Shital Rdz Estimated blood loss (mL): 150 IV fluids (mL): 1,000 Pathology: other Condition: stable Disposition: PACU
--- NOTE | 2023-01-04 10:29 | PHA.MEDREC ---
Pharmacy Consult ? Medication Reconciliation Pharmacy has completed the medication reconciliation. Reviewed med rec done by nursing
[2023-01-04] MEDS: ceFAZolin Sodium/Dextrose,Iso 2 GM/50 ML PIGGYBACK IV (14:40)
[2023-01-04] MEDS: oxyCODONE HCl Immed Release 5 MG TABLET 10 MG PO ×2 (14:45→23:45)
--- NOTE | 2023-01-04 18:02 | HO.PM.IMCN ---
History of Present Illness Data of Consult Service Date: 01/04/23 Primary Care Provider: Christina Lara MD HPI 67 female with pat medical history as noted below who underwent elective right TKR today and is doing welll post operatively, she has already participated in physical therapy today. Her pain is reasonably Review of Systems Review of Systems: Gen: no fever Resp: no sob, no cough CV: no chest, no FINK, no leg edema GI: No n/v, no abd pain Neuro: No confusion mild knee pain Yes all other systems are reviewed and are negative [facility] Medical History Autoimmune thyroiditis Difficulty swallowing Dyspnea GERD (gastroesophageal reflux disease) Hypothyroidism Impaired glucose tolerance Osteoporosis Pure hypercholesterolemia Urge urinary incontinence Family History Father Prostate cancer Mother Diabetes mellitus Sister Heart problem Surgical History History of appendectomy History of esophagogastroduodenoscopy (EGD) History of partial hysterectomy Hx of colonoscopy Hx of thyroidectomy Hx of tubal ligation HX: benign breast biopsy Social History Household Members: Children Housing: Apartment Are you a primary director of home care hospice to a significant other at home: No Do you presently have visiting nurse or other home services: No Alcohol intake: never Patient Tobacco Use Status: Current everyday Tobacco user Tobacco use type: Cigarette Cigarette Packs Per Day: 10 Cigarettes Per Day: 10 Years Smoked: 40 e-Cigarette/Vaping Use: Never Used Patient Interested in Nicotine Replacement: Yes Second Hand Smoke Exposure: No Use of substances other than those prescribed or required for medical reasons: No Currently Displaying Signs/Symptoms of Drug Intoxication Withdrawal: No Have you been hit, kicked, punched, or otherwise hurt by someone within the past year? If so, by whom?: No Do you feel safe in your current relationship?: No Current Relationship Is there a partner from a previous relationship who is making you feel unsafe now?: No Are you made to feel afraid or neglected: No Are you DNR?: No Advance Directives Information Provided: Yes (states has HCP form at home-will bring in DOS) Advance Directives on File: No Do you have thoughts of harming others: None Do you have a plan to hurt others: No Plan Recently lost weight without trying: No Eating poorly because of decreased appetite: No Nutrition Risks: No Nutritional Risk Patient : No : No Poor oral hygiene: No service: No Current occupational status: unemployed Current occupational exposures/hazards: No Cognitive needs: No Hearing needs: No Vision needs: Yes Meds Allergies Allergy/AdvReac Type Severity Reaction Status Date / Time adhesive tape Allergy Intermediate Blister Verified 12/30/22 13:27 Active Medications: Current Medications Acetaminophen (Acetaminophen 325 Mg Tablet) 650 mg PO Q6H PRN PRN Reason: Pain, Mild (Pain Scale 1-3) Aspirin (Aspirin 325 Mg Tablet) 325 mg PO BID [facility] Celecoxib (Celecoxib 200 Mg Capsule) 200 mg PO BID [facility] Docusate Sodium (Docusate Sodium 100 Mg Capsule) 100 mg PO BID [facility] Hydromorphone HCl (Hydromorphone Hcl 0.5 Mg/0.5 Ml Syringe) 0.25 mg IVPUSH Q4H PRN; Protocol PRN Reason: Pain, Severe (Pain Scale 7-10) Lactated Ringer's (Lr) 1,000 mls @ 100 mls/hr IVCONT .Q10H [facility] Stop: 01/05/23 10:54 Last Admin: 01/04/23 11:01 Dose: 100 mls/hr Levothyroxine Sodium (Levothyroxine Sodium 100 Mcg Tablet) 100 mcg PO DAILY@0600 [facility] Omeprazole (Omeprazole 40 Mg Capsule.Dr) 40 mg PO DAILY@0630 [facility] Ondansetron HCl (Ondansetron Hcl 4 Mg/2 Ml Vial) 4 mg IVPUSH Q8H PRN PRN Reason: Nausea and Vomiting Oxycodone HCl (Oxycodone Hcl Immed Release 5 Mg Tablet) 10 mg PO Q4H PRN PRN Reason: Pain, Moderate (Pain Scale 4-6 Last Admin: 01/04/23 14:45 Dose: 10 mg Oxycodone HCl (Oxycodone Hcl Er 10 Mg Tab.Er.12h) 10 mg PO BID [facility] Sodium Chloride (0.9 % Sodium Chloride Flush 3 Ml Syringe) 3 ml IVFLUSH QSHIFT [facility] Last Admin: 01/04/23 15:45 Dose: Not Given Home Medications Medication Instructions Recorded Confirmed Last Taken Type dexlansoprazole 60 mg 60 mg PO QAM 12/21/22 12/30/22 01/04/23 History capsule,biphase delayed release (Dexilant) levothyroxine 100 mcg tablet 100 mcg PO DAILY@0600 12/21/22 01/04/23 01/04/23 History Physical Exam Vital Signs and Narrative: Vital Signs: Last Vital Signs Temp 96.8 F 01/04/23 15:38 Pulse 67 01/04/23 15:38 Resp 18 01/04/23 15:38 BP 152/70 H 01/04/23 15:38 Pulse Ox 97 01/04/23 15:38 O2 Del Method Room Air 01/04/23 15:38 O2 Flow Rate 2 01/04/23 12:54 BMI result Body Mass Index 41.8 Const: Other: General: AO X 3, no acute distress Resp: CTA bilateral CVS: S1,S2,RRR GI: +BS, NT, no distention Skin: No rash, knee dressing in place Neuro: motor grossly intact Psych: appropriate affect Results Labs 01/04/23 07:46 Labs: Laboratory Results - last 24 hr 01/04/23 07:36 COVID-19 ([facility]) Negative COVID-19 Clin Com See Note Imaging Radiologist's Impressions: Impressions Knee X-Ray 01/04/23 15:44 IMPRESSION: Appropriate alignment of the right total knee arthroplasty. Assessment and Plan (1) Bilateral knee pain: Status: Acute (2) Hypothyroidism: Qualifiers: Hypothyroidism type: postablative Qualified Code(s): E89.0 - Postprocedural hypothyroidism Status: Acute (3) GERD (gastroesophageal reflux disease): Qualifiers: Esophagitis presence: esophagitis presence not specified Qualified Code(s): K21.9 - Gastro-esophageal reflux disease without esophagitis Status: Acute Plan s/p right TKR management per ortho Hypothyroidism, GERD, continue home meds. Given no acute issue, will sign off and follow on PRN basis Time Spent With Patient Time: Total time managing care of this patient today ____ minutes.
[2023-01-04] MEDS: oxyCODONE HCl ER 10 MG TAB.ER.12H PO (20:43)
[2023-01-04] MEDS: Celecoxib 200 MG CAPSULE PO (20:43)
[2023-01-04] MEDS: Docusate Sodium 100 MG CAPSULE PO (20:43)
[2023-01-04] MEDS: 0.9 % Sodium Chloride Flush 3 ML SYRINGE IVFLUSH (20:44)
[2023-01-05 03:05] VITALS: BP 140/65; PULSE 83; RESP 16; TEMP 36.4; O2SAT 93
--- NOTE | 2023-01-05 05:52 | P.PNOP_ITS ---
Subjective Subjective Date of Service: 01/05/23 Interval history: POD 1 s/p RT TKA Physical Exam Vital Signs: Vital Signs: Last Vital Signs Temp 97.6 F 01/05/23 03:05 Pulse 83 01/05/23 03:05 Resp 16 01/05/23 03:05 BP 140/65 H 01/05/23 03:05 Pulse Ox 93 01/05/23 03:05 O2 Del Method Room Air 01/05/23 03:05 O2 Flow Rate 2 01/04/23 12:54 BMI result Body Mass Index 41.8 Const: General: cooperative, healthy appearing and no acute distress Resp: Effort & Inspection: normal respiratory effort and able to speak in complete sentences Cardio: Rate: regular rate Peripheral pulses: Peripheral pulses 2+ throughout GI: Palpation (GI): Soft to palpation Skin: General skin exam: no rashes or lesions noted Extrem: Other: bandage clean dry and intact. [place] intact. No erythema or joint effusion. Calf supple nontender. Ankle and Foot ROM intact. Neurovascularly intact. Progress Note: A&P Assessment and plan (1) Status post total right knee replacement: Status: Acute Assessment and Plan: * Continue pain mgmnt * Begin Aspirin for dvt ppx * begin PT for RT TKA * Dispo planning-Pending PT eval, pain mgmnt Time Spent With Patient Time: Total time managing care of this patient today ____ minutes.
[2023-01-05] MEDS: Omeprazole 40 MG CAPSULE.DR PO (05:58)
[2023-01-05] MEDS: Levothyroxine Sodium 100 MCG TABLET PO (05:58)
[2023-01-05] MEDS: Lactated Ringers 1,000 ML 100 ML IVCONT (05:59)
--- NOTE | 2023-01-05 07:14 | PM.PNORT ---
Subjective Subjective Date of Service: 01/05/23 Interval history: POD1 s/p RTKA. Patient sleeping in bed comfortably. No overnight events. Pain appears to be managed. Allowed to sleep Physical Exam Vital Signs: Vital Signs: Last Vital Signs Temp 97.6 F 01/05/23 03:05 Pulse 83 01/05/23 03:05 Resp 16 01/05/23 03:05 BP 140/65 H 01/05/23 03:05 Pulse Ox 93 01/05/23 03:05 O2 Del Method Room Air 01/05/23 03:05 O2 Flow Rate 2 01/04/23 12:54 BMI result Body Mass Index 41.8 Const: General: cooperative, healthy appearing and no acute distress Resp: Effort & Inspection: normal respiratory effort and able to speak in complete sentences Cardio: Rate: regular rate Peripheral pulses: Peripheral pulses 2+ throughout GI: Palpation (GI): Soft to palpation Skin: Lesions: no lesions Rashes: no rashes Extrem: Other: Right knee Aquacel is c/d/i. Procedures Date of Service Date of Service: 01/05/23 Progress Note: A&P Assessment and plan (1) Status post total right knee replacement: Status: Acute Assessment and Plan: Continue pain mgmnt Begin Lovenox for dvt ppx begin PT for RTKA Dispo planning-Pending PT eval, pain mgmnt Time Spent With Patient Time: Total time managing care of this patient today ____ minutes. Quality Stroke Does the patient have a stroke diagnosis?: No VTE Prior VTE?: No VTE Risk Level:: Medical - moderate - high VTE Device Contraindication: N/A - Device Ordered VTE Drug Contraindication: N/A - Med Ordered
[2023-01-05 07:21] LABS: Anion Gap 11 (12-20); Blood Urea Nitrogen 9 mg/dL (9-16); Carbon Dioxide 31 mmol/L (22-29); Chloride 104 mmol/L (96-108); Creatinine Clr Calc Pharmacy 79.3; Estimated Glomerular Filt Rate > 60; Glucose Fasting 136 mg/dL (60-99); Potassium 4.9 mmol/L (3.3-5.1); Sodium 141 mmol/L (135-145)
[2023-01-05 07:22] LABS: Basophils Percent Auto 0.2 % (0-2); Eosinophils Percent Auto 0.1 % (0-4); Hematocrit 39.1 % (37.0-47.0); Hemoglobin 13.6 g/dl (12.0-16.0); Imm Gran Abs Auto 0.07 X10*3/uL (0.00-0.03); Imm Gran Pct Auto 0.4 % (0.0-0.4); Lymphocytes Absolute Auto 2.9 X10*3/uL (1.2-4.9); Lymphocytes Percent Auto 15.2 % (20-40); MANUAL DIFF FLAG SCAN; Mean Corpuscular HGB Conc 34.8 g/dl (31.0-35.0); Mean Corpuscular Hemoglobin 31.6 pg (27.0-33.0); Mean Corpuscular Volume 90.9 fL (80.0-98.0); Mean Platelet Volume 12.4 fL (9.4-12.3); Monocytes Absolute Auto 1.9 X10*3/uL (0.1-1.2); Monocytes Percent Auto 9.8 % (2-11); Neutrophils Absolute Auto 14.1 x10*3/uL (2.0-8.3); Neutrophils Percent Auto 74.3 % (45-73); Platelet Count 180 X10*3/uL (160-400); Red Cell Distribution Width 13.9 % (11.0-16.0); SCAN SMEAR FLAG 1
[2023-01-05] MEDS: Docusate Sodium 100 MG CAPSULE PO ×2 (07:45→20:09)
[2023-01-05] MEDS: Celecoxib 200 MG CAPSULE PO ×2 (07:45→20:10)
[2023-01-05] MEDS: Aspirin 325 MG TABLET PO ×2 (07:45→20:09)
[2023-01-05 07:51] VITALS: BP 140/65; PULSE 83; RESP 16; TEMP 36.7; O2SAT 95
[2023-01-05 08:33] LABS: SLIDE REVIEW VERIFIED
[2023-01-05] MEDS: oxyCODONE HCl ER 10 MG TAB.ER.12H PO ×2 (09:00→20:09)
[2023-01-05] MEDS: oxyCODONE HCl Immed Release 5 MG TABLET 10 MG PO ×4 (10:26→23:55)
[2023-01-05] MEDS: Acetaminophen 325 MG TABLET 650 MG PO (10:26)
[2023-01-05 11:00] VITALS: BP 164/72; PULSE 80; RESP 18; TEMP 36.4; O2SAT 95
--- NOTE | 2023-01-05 11:44 | MHC.CM.PN ---
pt lives w/ 3children has no services pt is zackary odomx x 5 physical therapy has recommended home pt referral made has own ride home
--- NOTE | 2023-01-05 12:40 | HO.POSTANES ---
Post Anesthesia Evaluation Post Anesthesia Evaluation Vital Signs: Vital Signs Temp Pulse Resp BP Pulse Ox O2 Del Method 01/05/23 11:00 97.5 F 80 18 164/72 H 95 Room Air 01/05/23 07:51 98.1 F 83 16 140/65 H 95 Room Air 01/05/23 03:05 97.6 F 83 16 140/65 H 93 Room Air Anesthesia: Spinal and Nerve Block Mental Status: Awake Pain Control: Satisfactory Nausea/Vomiting: None Hydration: Adequate Anesthesia-Related Issues: No Anes. Related Issues
[2023-01-05 15:00] VITALS: BP 173/74; PULSE 85; RESP 18; TEMP 36.2; O2SAT 98
[2023-01-05 19:00] VITALS: BP 157/72; PULSE 88; RESP 18; TEMP 36.2; O2SAT 98
[2023-01-05 23:32] VITALS: BP 111/55; PULSE 89; RESP 16; TEMP 36.7; O2SAT 97
[2023-01-05] MEDS: 0.9 % Sodium Chloride Flush 3 ML SYRINGE IVFLUSH (23:33)
[2023-01-06 04:10] VITALS: BP 112/55; PULSE 92; RESP 16; TEMP 36.1; O2SAT 93
[2023-01-06] MEDS: Omeprazole 40 MG CAPSULE.DR PO (05:52)
[2023-01-06] MEDS: Levothyroxine Sodium 100 MCG TABLET PO (05:52)
[2023-01-06 07:02] LABS: Basophils Absolute Auto 0.1 X10*3/uL (0.0-0.2); Basophils Percent Auto 0.5 % (0-2); Eosinophils Absolute Auto 0.3 X10*3/uL (0.0-0.4); Imm Gran Abs Auto 0.05 X10*3/uL (0.00-0.03); Imm Gran Pct Auto 0.3 % (0.0-0.4); Lymphocytes Absolute Auto 4.7 X10*3/uL (1.2-4.9); MANUAL DIFF FLAG SCAN; Mean Corpuscular HGB Conc 32.5 g/dl (31.0-35.0); Mean Corpuscular Hemoglobin 30.2 pg (27.0-33.0); Mean Corpuscular Volume 92.8 fL (80.0-98.0); Mean Platelet Volume 12.9 fL (9.4-12.3); Monocytes Absolute Auto 1.5 X10*3/uL (0.1-1.2); Neutrophils Absolute Auto 8.6 x10*3/uL (2.0-8.3); Neutrophils Percent Auto 56.2 % (45-73); Platelet Count 178 X10*3/uL (160-400); Red Blood Count 4.31 X10*6/uL (4.20-5.50); Red Cell Distribution Width 14.3 % (11.0-16.0); SCAN SMEAR FLAG 1; White Blood Count 15.3 X10*3/uL (4.8-10.8)
[2023-01-06 07:18] LABS: Anion Gap 15 (12-20); Blood Urea Nitrogen 10 mg/dL (9-16); Calcium 9.2 mg/dL (8.4-10.2); Carbon Dioxide 30 mmol/L (22-29); Chloride 103 mmol/L (96-108); Creatinine Clr Calc Pharmacy 78.2; Estimated Glomerular Filt Rate > 60; Glucose Fasting 116 mg/dL (60-99); Potassium 4.9 mmol/L (3.3-5.1); Sodium 143 mmol/L (135-145)
[2023-01-06 07:41] VITALS: BP 103/53; PULSE 84; RESP 16; TEMP 36.1; O2SAT 95
[2023-01-06 07:49] LABS: SLIDE REVIEW VERIFIED
--- NOTE | 2023-01-06 08:57 | P.DS_ITS ---
DS: Providers Provider Date of Service: 01/06/23 Primary care physician: Christina Lara MD Consults: 01/04/23 12:54 Consult to Hospitalist Routine Comment: Consulting Provider: Hospitalist Reason For Exam: medical managment DS: Diagnosis Discharge Diagnosis (1) Status post total right knee replacement: Status: Acute DS: Summary Hospital Course Hospital Course: POD2 s/p RTKA. Patient resting in bed comfortably eating breakfast. No overnight events. Pain is well managed. No additional complaints. Time Spent with Patient Time attestation: Total time managing care of this patient today ____ minutes. Discharge coordination time: Less than 30 minutes Quality: Safe Use of Opioids Does Pt have an Active Cancer Diagnosis on the Problem List?: No Quality: Stroke Does the patient have a stroke diagnosis?: No Physical Exam Vital Signs: Vital Signs: Last Vital Signs Temp 96.9 F 01/06/23 07:41 Pulse 84 01/06/23 07:41 Resp 16 01/06/23 07:41 BP 103/53 L 01/06/23 07:41 Pulse Ox 95 01/06/23 07:41 O2 Del Method Room Air 01/06/23 07:41 O2 Flow Rate 2 01/04/23 12:54 BMI result Body Mass Index 41.8 Const: General: cooperative, healthy appearing and no acute distress Resp: Effort & Inspection: normal respiratory effort and able to speak in complete sentences Cardio: Rate: regular rate Peripheral pulses: Peripheral pulses 2+ throughout GI: Palpation (GI): Soft to palpation Skin: Lesions: no lesions Rashes: no rashes Extrem: Other: Right knee Aquacel is c/d/i. Able to dorsi/ plantar flex. [place] intact. No signs of infection. NVI. DS: Data Data Completed and Pending Pending studies at discharge: Pending at discharge 01/04/23 10:02 Surgical [PTH] Routine Labs on day of discharge: Laboratory Results - last 24 hr 01/06/23 01/06/23 06:05 06:05 WBC 15.3 H RBC 4.31 Hgb 13.0 Hct 40.0 MCV 92.8 MCH 30.2 MCHC 32.5 RDW 14.3 Plt Count 178 MPV 12.9 H Immature Gran % (Auto) 0.3 Neut % (Auto) 56.2 Lymph % (Auto) 31.0 [place] % (Auto) 10.0 Eos % (Auto) 2.0 Baso % (Auto) 0.5 Lymph # (Auto) 4.7 [place] # (Auto) 1.5 H Eos # (Auto) 0.3 Baso # (Auto) 0.1 Abs Immat Gran (auto) 0.05 H Absolute Neuts (auto) 8.6 H Absolute Nucleated RBC 0.000 Nucleated RBC % (auto) 0.0 Smear Tech's Comments VERIFIED Sodium 143 Potassium 4.9 Chloride 103 Carbon Dioxide 30 H Anion Gap 15 BUN 10 Creatinine 0.70 Estim Creat Clear Calc 78.2 Estimated GFR > 60 Fasting Glucose 116 H Calcium 9.2 Discharge Plan Discharge Patient Disposition: Home, Self-Care Referrals: Christina Fischer MD [Primary Care Provider] - 1 Week Discharge Medications: New celecoxib 200 mg Capsule 200 mg PO BID 30 Days Qty: 60 0RF acetaminophen 325 mg Tablet 650 mg PO Q6H PRN (Reason: Pain, Mild (Pain Scale 1-3)) 30 Days Qty: 240 0RF aspirin 325 mg Tablet 325 mg PO BID 42 Days Qty: 84 0RF docusate sodium 100 mg Capsule 100 mg PO BID 30 Days Qty: 60 0RF oxycodone 5 mg Tablet 10 mg PO Q4H PRN (Reason: Pain, Moderate (Pain Scale 4-6) 7 Days Qty: 42 0RF Rx Instructions: Partial Fill upon patient request. Continued Tab-A-Mana Multivitamin w-iron 15 mg iron- 400 mcg tablet 1 tab PO DAILY Qty: 30 0RF cholecalciferol (vitamin D3) 25 mcg (1,000 unit) capsule 25 mcg PO DAILY 90 Days Qty: 90 3RF (DME) walker Misc See Rx Instructions .MEDSUPPLY Qty: 1 0RF Rx Instructions: Folding Front wheeled walker levothyroxine 100 mcg tablet 100 mcg PO DAILY@0600 dexlansoprazole [Dexilant] 60 mg capsule,biphase delayed releas 60 mg PO QAM Discharge Orders: Discharge Order (Routine); Ordered 01/06/23 Ordered By: Joelle Penaloza Diet: Advance to usual diet Activity on Discharge: Use cane or walker Activity Restrictions/Additional Instructions: Physical Therapy for ROM 0-120, quad strength, gait training. Use walker for ambulation Limit stair climbing, No shower, No tub bath, No driving Continue anticoagulant Keep Aquacel dressing clean, dry and intact. Follow up with orthopedics in 2 weeks
--- NOTE | 2023-01-06 09:07 | MHC.CM.PN ---
Addendum entered by Jocelin Torres 01/06/23 10:57: CORRECTION: PT WILL GO HOME WITH [facility] FOR HOME PT REFERRAL MADE TO [facility] CONFIRMED THEY WILL PROVIDE SERVICES DAUGHTER TO TRANSPORT Original Note: PT WILL DC HOME TODAY WITH NO SERVICES VIA PRIVATE TRANSPORT
[2023-01-06] MEDS: 0.9 % Sodium Chloride Flush 3 ML SYRINGE IVFLUSH (09:19)
[2023-01-06] MEDS: Docusate Sodium 100 MG CAPSULE PO (09:20)
[2023-01-06] MEDS: Celecoxib 200 MG CAPSULE PO (09:20)
[2023-01-06] MEDS: Aspirin 325 MG TABLET PO (09:20)
[2023-01-06] MEDS: oxyCODONE HCl ER 10 MG TAB.ER.12H PO (09:20)
--- NOTE | 2023-01-11 07:34 | W.PM.OPN ---
Operative Note Operative Note Date of Service: 01/04/23 Narrative: Date of Service: 01/04/23 Pre-op diagnosis: Right knee OA Procedure: Right TKA Implants: Frederick Triathlon press fit cruciate retaining 10/15/09 Surgeon: German Trejo MD Anesthesia: regional and spinal Was an Tubular Stock Glass Bulb Machine Former used for this Procedure?: Yes Tubular Stock Glass Bulb Machine Former: Shital Rdz Estimated blood loss (mL): 150 IV fluids (mL): 1,000 Pathology: other Condition: stable Disposition: PACU Procedure in detail: The patient was brought to the operating room and prepped and draped in standard sterile fashion. A time-out was called to identify proper site proper procedure proper surgeon and IV antibiotics were administered. 1 g of IV tranexamic acid was administered. I began by making a midline incision to the retinaculum and performed a medial parapatellar arthrotomy. The patella was translated laterally and the knee was flexed up. There was tricompartmental disease. I performed a small medial peel and resected the infrapatellar fat pad. [place]'s line was then used to drill my intramedullary femoral guide and my distal femur cut of 10mm was made in 5 degrees of valgus while protecting the soft tissues. I then measured a # 2 femur and placed my cutting guide in 3 deg of ER and made my anterior posterior and chamfer cuts protecting the soft tissues at all times. Once I was satisfied with my cuts I turned my attention to the tibia. I removed the meniscus medially and laterally and , using an external cutting guide, in line with the tibial crest and the third ray, I made my distal tibial cut in 3 deg slope of while protecting the PCL the posterior soft tissues at all times. An extension block was used to confirm appropriate amount of bony resection. I then sized a #3 tibia and once I was satisfied that there was complete tibial coverage I placed my trial and with the trial femur in place took the knee through range of motion. I was satisfied with the extension and flexion as well as the stability and balance at 0, 30 and 90 degrees. I then turned my attention to the patella where I removed 1 cm from the undersurface of the patella and then trialed a 32a patellar button. Again the knee was taken through range of motion I was satisfied with the tracking. I then returned to the femur and drilled my femoral lug holes and prepared the tibia. A femoral bone plug was placed and the knee was irrigated copiously. I then press fit the patella, tibia and femur in standard fashion. I trialed different inserts until I selected a #10 insert. The final insert was placed and a 3 minutes iodine soak with local TXA was performed. A Werewolf cautery wand was used to maintain hemostasis over the capsule and meniscal beds, the gutters and peripatellar soft tissues. The knee was then closed with a running Quill suture, a 3 0 Vicryl and christian on the skin. Patient was then placed in sterile dressing and brought to recovery room in stable condition there were no known complications.
== END 2023-01-06 11:49 | disposition home health service (06) ==
LOC: HO.SSS 07:13 → HO.S3 12:23
PROVIDERS: Physician Assistant; PCP Internal Medicine; Visit Provider Orthopaedic Surgery
PROC: (CPT 27447; principal; 2023-01-04 09:40)
DX: M25.561 Pain in right knee (principal); M17.11 Unilateral primary osteoarthritis, right knee; R26.2 Difficulty in walking, not elsewhere classified; R26.89 Other abnormalities of gait and mobility; E06.3 Autoimmune thyroiditis; E89.0 Postprocedural hypothyroidism; R73.02 Impaired glucose tolerance (oral); E78.00 Pure hypercholesterolemia, unspecified; M81.0 Age-related osteoporosis without current pathological fracture; K21.9 Gastro-esophageal reflux disease without esophagitis; Z79.899 Other long term (current) drug therapy; Z91.040 Latex allergy status; F17.210 Nicotine dependence, cigarettes, uncomplicated
CPT/HCPCS: 27447; 36415; 73560; 80048; 85014; 85018; 85025; 86850; 86900; 86901; 87635; 87640; 87641; 88305; 88311; 97110; 97116; 97161; C1776; J0690; J1100; J2250; J2370; J2405

== ENCOUNTER → 2023-01-10 15:53 | Outpatient (BNVA) | payer OTHER, MEDICAID, SELFPAY | PROVIDERS: PCP Internal Medicine; Visit Provider Orthopaedic Surgery ==

== ENCOUNTER 2023-01-13 20:46 | Emergency (ER) | payer OTHER, MEDICAID, SELFPAY ==
[2023-01-13 20:56] VITALS: BP 132/60; PULSE 80; RESP 18; TEMP 36.4; O2SAT 94; BMI 36.4
--- NOTE | 2023-01-13 22:07 | ED_ITS ---
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 Patient had a recent total right knee replacement with Dr. German Bernal 01/04/2023 patient was seen at the office in follow-up 3 days ago and had been is trained because it was draining quite a bit the daughter states that it seemed to be bloody discharge they do not have another follow-up with Orthopedics until next the patient is currently undergoing home physical therapy she presents to ER today for worsening drainage from the wound that is beginning to seep out of the bandage that was applied denies any fevers, chills Related Data Home Medications Medication Instructions Recorded Confirmed dexlansoprazole 60 mg 60 mg PO QAM 12/21/22 01/12/23 capsule,biphase delayed release (Dexilant) levothyroxine 100 mcg tablet 100 mcg PO DAILY@0600 12/21/22 01/12/23 Previous Rx's Medication Instructions Recorded multivitamin-iron sulfate 15 1 tab PO DAILY #30 tabs 07/09/22 mg-folic acid 400 mcg tablet (Tab-A-Mana Multivitamin w-iron) cholecalciferol (vitamin D3) 25 25 mcg PO DAILY 90 days #90 caps 09/07/22 mcg (1,000 unit) capsule acetaminophen 325 mg tablet 650 mg PO Q6H PRN Pain, Mild (Pain 01/06/23 Scale 1-3) 30 days #240 tabs aspirin 325 mg tablet 325 mg PO BID 42 days #84 tabs 01/06/23 celecoxib 200 mg capsule 200 mg PO BID 30 days #60 caps 01/06/23 docusate sodium 100 mg capsule 100 mg PO BID 30 days #60 caps 01/06/23 oxycodone 5 mg tablet 10 mg PO Q4H PRN Pain, Moderate 01/06/23 (Pain Scale 4-6 7 days #42 tabs walker #1 ea 01/06/23 Shower Chair #1 ea 01/12/23 Allergies Allergy/AdvReac Type Severity Reaction Status Date / Time adhesive tape Allergy Intermediate Blister Verified 01/13/23 21:02 Review of Systems Constitutional: Constitutional: Reports as per HPI, Denies chills, Denies fatigue and Denies fever(s) Cardiovascular: Cardiovascular: Denies chest pain and Denies dyspnea Respiratory: Respiratory: Denies cough and Denies dyspnea Musculoskeletal: Musculoskeletal: Reports arthralgias and Reports joint swelling Neurologic: Denies focal weakness Endocrine: Endocrine: Denies fatigue PMFSH Past Medical History Medical History Autoimmune thyroiditis Bilateral knee pain Difficulty swallowing Dyspnea GERD (gastroesophageal reflux disease) Hypothyroidism Impaired glucose tolerance Osteoporosis Pure hypercholesterolemia Urge urinary incontinence Surgical History History of appendectomy History of esophagogastroduodenoscopy (EGD) History of partial hysterectomy History of right knee surgery Hx of colonoscopy Hx of thyroidectomy Hx of tubal ligation HX: benign breast biopsy Family History Family History Father Prostate cancer Mother Diabetes mellitus Sister Heart problem Social History Social History Household Members: Children Housing: Apartment Are you a primary career agent to a significant other at home: No Do you presently have visiting nurse or other home services: No Alcohol intake: never Patient Tobacco Use Status: Former Tobacco user Tobacco use type: Cigarette Cigarette Packs Per Day: 10 Cigarettes Per Day: 10 Years Smoked: 40 e-Cigarette/Vaping Use: Never Used Second Hand Smoke Exposure: Yes Advance Directives: No Advance Directives Information Provided: Yes service: No Current occupational status: unemployed Current occupational exposures/hazards: No Cognitive needs: No Hearing needs: No Vision needs: Yes Physical Exam ED Vital Signs: Vital Signs - 24 hr 01/13/23 20:56 Temperature 97.6 F Pulse Rate 80 Respiratory Rate 18 Blood Pressure 132/60 Pulse Oximetry 94 Oxygen Delivery Method Room Air BMI result Body Mass Index 36.4 Const General: healthy appearing, comfortable, no acute distress, alert and awake Nutritional Appearance: well nourished Orientation/consciousness: patient oriented x3 Resp Effort & Inspection: normal respiratory effort, able to speak in complete sentences and not labored Skin General skin exam: no rashes or lesions noted and elasticity normal Neuro General: patient oriented x3 Cranial nerves: Yes CN's II-XII intact bilaterally and Yes Bilaterally intact EOM present Cognition (Neuro): normal cognition Extrem Other: patient has a bandage in place to the right anterior knee. There is a significant amount of reddish brown drainage beginning to seep out of the dressing. I removed the dressing to evaluate the wound. [facility] surgical christian remain in place, there is trace surrounding erythematous skin changes but no significant increased warmth. No purulence. The drainage is serosanguineous Medical Decision Making Medical Decision Making MDM Narrative: 67-year-old female presents for evaluation of a postop wound check. Given the amount of drainage I removed the wound to assess for signs of infection. There is no significant beefy red erythema, the patient denies fevers, and the drainage is serosanguineous. This is consistent with postop changes. The surgical christian remain in place, no significant gaping wounds or dehiscence. Will reapply sterile dressing and the patient can be discharged home to follow- up with orthopedics Differential Diagnosis wound check Knee replacement Postop abscess Cellulitis Discharge Plan Discharge Clinical Impression: Visit for wound check Patient Disposition: Home, Self-Care Instructions: Precautions after Total Joint Replacement Surgery (ED) Additional Instructions: on exam, the wound appears to be healing appropriately. there is no evidence of infection you may continue taking the aspirin follow-up with your orthopedic provider at your next scheduled appointment return if he develops severe pain, fevers or foul-smelling drainage Prescriptions: No Action Tab-A-Mana Multivitamin w-iron 15 mg iron- 400 mcg tablet 1 tab PO DAILY Qty: 30 0RF cholecalciferol (vitamin D3) 25 mcg (1,000 unit) capsule 25 mcg PO DAILY 90 Days Qty: 90 3RF (DME) walker Misc See Rx Instructions .MEDSUPPLY Qty: 1 0RF Rx Instructions: Folding Front wheeled walker levothyroxine 100 mcg tablet 100 mcg PO DAILY@0600 dexlansoprazole [Dexilant] 60 mg capsule,biphase delayed releas 60 mg PO QAM celecoxib 200 mg Capsule 200 mg PO BID 30 Days Qty: 60 0RF acetaminophen 325 mg Tablet 650 mg PO Q6H PRN (Reason: Pain, Mild (Pain Scale 1-3)) 30 Days Qty: 240 0RF aspirin 325 mg Tablet 325 mg PO BID 42 Days Qty: 84 0RF docusate sodium 100 mg Capsule 100 mg PO BID 30 Days Qty: 60 0RF oxycodone 5 mg Tablet 10 mg PO Q4H PRN (Reason: Pain, Moderate (Pain Scale 4-6) 7 Days Qty: 42 0RF Rx Instructions: Partial Fill upon patient request. (DME) Shower Chair Misc See Rx Instructions .Route Qty: 1 0RF Rx Instructions: As directed Referrals: German Trejo MD [Physician] -
== END 2023-01-13 23:11 | disposition home or self-care (01) ==
PROVIDERS: Emergency Provider Student in an Organized Health Care Education/Training Program; PCP Internal Medicine
DX: M25.561 Pain in right knee (principal); Z48.01 Encounter for change or removal of surgical wound dressing; Z96.651 Presence of right artificial knee joint; E78.00 Pure hypercholesterolemia, unspecified; Z79.82 Long term (current) use of aspirin; Z79.899 Other long term (current) drug therapy; Z87.891 Personal history of nicotine dependence
CPT/HCPCS: 99282

== ENCOUNTER → 2023-01-14 10:43 | Outpatient (BNVA) | payer OTHER, MEDICAID, SELFPAY | PROVIDERS: PCP Internal Medicine; Visit Provider Orthopaedic Surgery | DX: Z09 Encounter for follow-up examination after completed treatment for conditions other than malignant neoplasm (principal); E06.3 Autoimmune thyroiditis; E78.00 Pure hypercholesterolemia, unspecified; E55.9 Vitamin D deficiency, unspecified; Z96.651 Presence of right artificial knee joint | CPT/HCPCS: 99212 ==

== ENCOUNTER → 2023-01-20 12:59 | Outpatient (BNVA) | payer OTHER, SELFPAY | PROVIDERS: PCP Internal Medicine; Visit Provider Physician Assistant | DX: Z96.651 Presence of right artificial knee joint (principal) | CPT/HCPCS: 99212 ==

== ENCOUNTER 2023-02-10 08:42 | Outpatient (REF) | payer OTHER, SELFPAY ==
[2023-02-10 10:52] LABS: Alanine Aminotransferase 38 U/L (0-31); Alkaline Phosphatase 153 U/L (39-117); Anion Gap 14 (12-20); Aspartate Amino Transferase 31 U/L (5-31); Bilirubin Total 0.4 mg/dL (0.0-1.0); Blood Urea Nitrogen 16 mg/dL (9-16); Calcium 9.8 mg/dL (8.4-10.2); Carbon Dioxide 28 mmol/L (22-29); Chloride 104 mmol/L (96-108); Cholesterol 188 mg/dL; Estimated Glomerular Filt Rate > 60; Glucose Fasting 143 mg/dL (60-99); HDL Cholesterol 41 mg/dL; LDL Cholesterol Calculated 115 mg/dl; Potassium 4.9 mmol/L (3.3-5.1); Sodium 141 mmol/L (135-145); Total Protein 7.6 g/dL (6.5-8.0); Triglycerides 162 mg/dL
[2023-02-10 10:53] LABS: Thyroid Stimulating Hormone 0.07 uIU/mL (0.32-4.0); Vitamin D 25-OH Total 28.4 ng/mL (>30)
== END 2023-02-10 08:43 | disposition home or self-care (01) ==
LOC: HO.LAB 08:42
PROVIDERS: PCP Internal Medicine; Visit Provider Internal Medicine
DX: E06.3 Autoimmune thyroiditis (principal); E78.00 Pure hypercholesterolemia, unspecified; E55.9 Vitamin D deficiency, unspecified; E78.5 Hyperlipidemia, unspecified
CPT/HCPCS: 36415; 80053; 80061; 82306; 84443

== ENCOUNTER → 2023-02-17 15:21 | Outpatient (BNVA) | payer OTHER, SELFPAY | PROVIDERS: PCP Internal Medicine; Visit Provider Physician Assistant | DX: Z47.1 Aftercare following joint replacement surgery (principal); Z96.651 Presence of right artificial knee joint | CPT/HCPCS: 99212 ==

== ENCOUNTER 2023-03-11 10:11 | Outpatient (REF) | payer OTHER, SELFPAY ==
[2023-03-11 10:23] LABS: MANUAL DIFF FLAG NO
[2023-03-11 10:52] LABS: Basophils Absolute Auto 0.1 X10*3/uL (0.0-0.2); Basophils Percent Auto 0.6 % (0-2); Eosinophils Absolute Auto 0.4 X10*3/uL (0.0-0.4); Eosinophils Percent Auto 3.4 % (0-4); Hematocrit 42.6 % (37.0-47.0); Hemoglobin 13.9 g/dl (12.0-16.0); Imm Gran Abs Auto 0.03 X10*3/uL (0.00-0.03); Imm Gran Pct Auto 0.3 % (0.0-0.4); Lymphocytes Absolute Auto 3.9 X10*3/uL (1.2-4.9); Lymphocytes Percent Auto 37.8 % (20-40); Mean Corpuscular HGB Conc 32.6 g/dl (31.0-35.0); Mean Corpuscular Hemoglobin 29.5 pg (27.0-33.0); Mean Corpuscular Volume 90.4 fL (80.0-98.0); Mean Platelet Volume 12.6 fL (9.4-12.3); Monocytes Absolute Auto 1.1 X10*3/uL (0.1-1.2); Monocytes Percent Auto 10.4 % (2-11); Neutrophils Absolute Auto 4.9 x10*3/uL (2.0-8.3); Neutrophils Percent Auto 47.5 % (45-73); Platelet Count 207 X10*3/uL (160-400); Red Blood Count 4.71 X10*6/uL (4.20-5.50); Red Cell Distribution Width 13.9 % (11.0-16.0); White Blood Count 10.3 X10*3/uL (4.8-10.8)
[2023-03-11 12:33] LABS: Alanine Aminotransferase 28 U/L (0-31); Alkaline Phosphatase 110 U/L (39-117); Anion Gap 15 (12-20); Aspartate Amino Transferase 27 U/L (5-31); Bilirubin Total 0.4 mg/dL (0.0-1.0); Blood Urea Nitrogen 16 mg/dL (9-16); Calcium 9.9 mg/dL (8.4-10.2); Carbon Dioxide 25 mmol/L (22-29); Chloride 102 mmol/L (96-108); Cholesterol 192 mg/dL; Estimated Glomerular Filt Rate > 60; Glucose Fasting 128 mg/dL (60-99); Glucose Random 128 mg/dL (60-115); HDL Cholesterol 42 mg/dL; LDL Cholesterol Calculated 123 mg/dl; Potassium 3.6 mmol/L (3.3-5.1); Sodium 138 mmol/L (135-145); Total Protein 7.9 g/dL (6.5-8.0); Triglycerides 135 mg/dL
[2023-03-11 12:39] LABS: Thyroid Stimulating Hormone 3.57 uIU/mL (0.32-4.0)
== END 2023-03-11 10:12 | disposition home or self-care (01) ==
LOC: HO.LAB 10:11
PROVIDERS: Orthopaedic Surgery; PCP Internal Medicine; Visit Provider Internal Medicine
DX: Z01.812 Encounter for preprocedural laboratory examination (principal); E06.3 Autoimmune thyroiditis; K29.70 Gastritis, unspecified, without bleeding; E78.5 Hyperlipidemia, unspecified
CPT/HCPCS: 36415; 80048; 80053; 80061; 84443; 85025

== ENCOUNTER 2023-03-31 11:00 | Outpatient (REF) | payer OTHER, SELFPAY ==
--- NOTE | ~2023-03-31 | XR_ITS ---
Examination: Right knee AP weightbearing bilateral knees COMPARISON: 01/04/2023 INDICATIONS: Pain TECHNIQUE: AP bilateral weightbearing and right knee lateral the uterus. FINDINGS: There is status post total knee replacement on the right with patellar resurfacing and with well positioned prosthesis. There is no joint effusion. There is no loosening of prosthesis. Left knee single view revealed narrowing of the medial compartment of left knee joint with varus deformity XR/XR knee RT 2V IMPRESSION: Well-positioned right knee prosthesis.
--- NOTE | ~2023-03-31 | XR_ITS ---
Examination: Right knee AP weightbearing bilateral knees COMPARISON: 01/04/2023 INDICATIONS: Pain TECHNIQUE: AP bilateral weightbearing and right knee lateral the uterus. FINDINGS: There is status post total knee replacement on the right with patellar resurfacing and with well positioned prosthesis. There is no joint effusion. There is no loosening of prosthesis. Left knee single view revealed narrowing of the medial compartment of left knee joint with varus deformity XR/XR knee standing BI IMPRESSION: Well-positioned right knee prosthesis.
== END 2023-03-31 11:01 | disposition home or self-care (01) ==
LOC: HO.HOSX 11:00
PROVIDERS: Visit Provider Orthopaedic Surgery
DX: Z47.1 Aftercare following joint replacement surgery (principal); Z96.651 Presence of right artificial knee joint
CPT/HCPCS: 73560; 73565

== ENCOUNTER 2023-03-31 13:30 | Outpatient (AMB) | payer OTHER, SELFPAY ==
--- NOTE | 2023-03-31 13:39 | A.OFFVIS_ITS ---
Intake Intake Visit Reasons: PO - RT TKA 01/04/23 Intake Note: Diana is a 67 year old female who presents today for a post operative right TKA, 01/04/23 NE Allergies adhesive tape Allergy (Intermediate, Verified 02/17/23 15:26) Blister HPI PO - RT TKA 01/04/23 HPI Details Diana is a 67 year old woman who presents ~3 months S/P right TKA She says she is doing better than she was before. She has been working with PT. She continues to take Percocets BID and walks with a cane [facility] Medical History Autoimmune thyroiditis Bilateral knee pain Difficulty swallowing Dyspnea GERD (gastroesophageal reflux disease) Hypothyroidism Impaired glucose tolerance Osteoporosis Pure hypercholesterolemia Urge urinary incontinence Surgical History History of appendectomy History of esophagogastroduodenoscopy (EGD) History of partial hysterectomy History of right knee surgery Hx of colonoscopy Hx of thyroidectomy Hx of tubal ligation HX: benign breast biopsy Family History Father Prostate cancer Mother Diabetes mellitus Sister Heart problem Social History Household Members: Children Housing: Apartment Are you a primary child care center assistant director to a significant other at home: No Do you presently have visiting nurse or other home services: No Alcohol intake: never Patient Tobacco Use Status: Former Tobacco user Tobacco use type: Cigarette Cigarettes Per Day: 5 Years Smoked: 40 e-Cigarette/Vaping Use: Never Used Second Hand Smoke Exposure: Yes service: No Current occupational status: unemployed Current occupational exposures/hazards: No Cognitive needs: No Hearing needs: No Vision needs: Yes Review of Systems Const All systems reviewed & are unremarkable except as noted in HPI and below Physical Exam Const General: no acute distress and alert Orientation/consciousness: patient oriented x3 Neuro General: patient oriented x3 Extrem Other: Right Knee: Well-healed incision 0-120 degrees ROM Psych Appearance: grossly normal Affect: normal affect Attitude: cooperative Results Reviewed Results Reviewed: I personally reviewed relevant radiographs. Right total knee arthroplasty in expected post operative position with no hardware complications or evidence of loosening Assessment & Plan Assessment & Plan (1) Status post total right knee replacement: Code(s): Z96.651 - Presence of right artificial knee joint Plan: This is a 67 year old woman S/P right TKA, DOS: 01/04/23. She says she is doing well and has been improving with PT. She continues to take Percocets BID and ambulates with an assistive cane. She is going to discontinue her PT at this time, and continue with at-home strengthening exercises. I provided a refill of her oxycodone. We are weeaning her down to one/day. This is her last rx. She will follow up in 3 months. Plan Scribed for German Trejo MD by Rafa Chacko, coroner/medical examiner, on 03/31/23 at 1:45 PM, EST. Orders: Orders XR knee RT 2V Today M25.569 - Pain in unspecified knee XR knee standing BI Today M25.569 - Pain in unspecified knee Medications: Changed From oxycodone-acetaminophen 5-325 mg (Percocet) Partial Fill upon patient request. 1 tab PO Q12H 7 days PRN 14 tabs 0RF pain Z96.651 - Presence of right artificial knee joint To oxycodone-acetaminophen 5-325 mg (Percocet) Partial Fill upon patient request. 1 tab PO DAILY 30 days PRN 30 tabs 0RF pain Z96.651 - Presence of right artificial knee joint Discontinued levothyroxine 100 mcg PO DAILY 90 days 90 tabs 1RF E06.3 - Autoimmune thyroiditis simethicone 180 mg PO TID 90 caps 6RF R14.0 - Abdominal distension (gaseous) dexlansoprazole 60 mg PO DAILY 30 caps 6RF Coding Level of Care Code Global (06991) Diagnoses Status post total right knee replacement Z96.651
== END 2023-03-31 16:32 | disposition home or self-care (01) ==
PROVIDERS: PCP Internal Medicine; Visit Provider Orthopaedic Surgery
DX: Z96.651 Presence of right artificial knee joint (principal)
CPT/HCPCS: 99024

== ENCOUNTER 2023-04-04 09:00 | Outpatient (RCR) | payer OTHER, SELFPAY ==
--- NOTE | 2023-01-20 14:05 | MHC.PT.EP ---
[facility] [place] Office [place] Office [place] Office [address] Shanell Jones [address] [phone] F: [phone] F: [phone] F: [phone] F: [phone] Physical Therapy Plan of Care Date of Evaluation: Date of Surgery: 01/04/23 Diagnosis: S/P Rt TKA Assessment: 67 YO FEMALE REF TO PT S/P Rt TKR ON 01/04/23 - SHE RESIDES W HER SPOUSE IN AN APARTMENT AND IS CURRENTLY AMB W A W/WALKER . OBJECTIVE FINDINGS: LIMITED AROM Rt KNEE, TIGHT PSOAS MM ELISA AND DECR ANKLE DF ELISA; DECR STRENGTH IN PROX / LUMBOPELVIC AND Rt LE, POST-OP PAIN IN RIGHT KNEE ,AND HEALING ANT Rt KNEE INCISION. FUNCTIONALLY, Pt IS AMB W A W/WALKER- SHE HAS COMPENSATORY GAIT, MODIFIED STAIR MGMT, DECR STANDING, SLEEPING, AND DECR KESHA TO ADLs REQ Rt KNEE FLEX. Pt IS A GOOD PT CANDIDATE TO GUIDE HER IN HER POST-OP TKR COURSE, ADDRESSING THE ABOVE FINDINGS, PAIN MGMT, AND MAXIMIZING FUNCTIONAL INDEPENDENCE. Frequency and Duration: The patient will be seen 2 x WK x 10 WKS Short Term Goals: *Pt'S RIGHT KNEE PAIN DECR TO 2-3/10 *Pt INCREASE Rt KNEE ROM -> 0* EXTEN AND PROGRESSIVELY TO 120* FLEX *INCR FLEXINB IN PSOAS/ CALF MM TO IMPROVE EFFICIENCY OF GAIT ON LEVEL AND STAIRS *REDUCE Rt LE EDEMA AND MONITOR/ ADDRESS SCAR MOB NEEDED Jumpbasting Armhole Baster Goals: Pt INDEP W HEP PROGRESSION AND SELF-SX MGMT STRATEGIES IN 10 WKS Pt RESUME REG ADLs EVIDENT W IMPROVED LEFI SCORE BY 8-10 POINTS (AT EVAL ) IN 10 WKS Pt INCR Rt LE/ LUMBOPELVIC STRENGTH BY 1 GRADE IN 10 WKS Treatment Plan: Modalities to reduce pain, spasms and effusion. Manual therapy to restore motion and function. Therapeutic exercise to improve strength and flexibility. Neuromuscular re-education for posture and balance. Therapeutic activities to return to functional activities of daily living. Electronically signed by: RICHARD HASTINGS,PT Please sign and return to therapist. Thank you for your referral.
--- NOTE | 2023-05-12 07:40 | MHC.PT.DC ---
[facility] [place] Office [place] Office [place] Office [address] Shanell Jones 140 [facility] [phone] F: [phone] F: [phone] F: [phone] F: [phone] Physical Therapy Discharge Report Diagnosis: S/P Rt TKA Date of Surgery: 01/04/23 Date of Evaluation: 01/20/23 Date of Discharge: 05/12/23 Treatments to Date: 20 Cancellations to Date: 1 No Shows to Date: 0 Discharge Status: Achieved Goals Improved Function Independent with HEP Patient Elected to Stop Discharge Summary: THE Pt PROGRESSED WELL IN PT- SHE HAS A THOROUGH HEP TO FURTHER ADDRESS STRENGTH AND FUNCTION- HER PT GOALS HAVE BEEN MET AT THIS TIME- Electronically signed by: RICHARD HASTINGS,PT Please sign and return to therapist. Thank you for your referral.
== END 2023-05-12 07:40 | disposition home or self-care (01) ==
LOC: HO.PT 09:00
PROVIDERS: Visit Provider Physician Assistant
DX: M17.0 Bilateral primary osteoarthritis of knee (principal); Z96.651 Presence of right artificial knee joint
CPT/HCPCS: 97110; 97116; 97140; 97162; 97530

== ENCOUNTER 2023-06-07 12:17 | Outpatient (AMB) | payer OTHER, SELFPAY ==
--- NOTE | 2023-06-07 12:21 | A.OFFVIS_ITS ---
Intake Vital Signs 06/07/23 12:22 Height 4 ft 11 in Weight 179 lb 7.3 oz BMI 36.2 BP 123/53 L Blood Pressure Location Rt brachial Position Sitting Pulse 76 Intake Visit Reasons: Gastroesophageal reflux disease (GERD) Intake Note: Patient presents to in office visit today in follow up of GERD. CC: Patient c/o epigastric burning sensation. She continues to take Dexilant but states it helps a little bit . Denies other GI concerns today. Inspector Sheet Metal Parts Required: Yes Accompanied by: Self / Same As Patient Allergies adhesive tape Allergy (Intermediate, Verified 02/17/23 15:26) Blister HPI Gastroesophageal reflux disease (GERD) HPI Details Assessment & Plan (1) Epigastric pain: Code(s): R10.13 - Epigastric pain Plan: Indian #[id number] She continues to do well on her Dexilant and simethicone. She is quite happy with this regimen. She says [place] and she has a family history of colon cancer in her sister. With this information she should not be going more than 5 years without a colonoscopy so I tell her she is due for re- screening and she is agreeable to this. There are no prior problems with anesthesia or sedation. She denies any cardiac or respiratory problems. There are no infectious disease problems. Her sister had colorectal cancer. I will see her back after the colonoscopy (2) GERD (gastroesophageal reflux diseas e): Code(s): K21.9 - Gastro-esophageal reflux disease without esophagitis Qualifiers: Esophagitis presence: esophagitis presence not specified Qualified Code(s): K21.9 - Gastro-esophageal reflux disease without esophagitis (3) Constipation: Code(s): K59.00 - Constipation, unspecified (4) Family history of colon cancer: Comment: sister Code(s): Z80.0 - Family history of malignant neoplasm of digestive organs (5) Pre-op examination: Code(s): Z01.818 - Encounter for other preprocedural examination Medications: New peg 3350-electroly pj 236-22.74-6.74 -5.86 gram (Golyt janice) until feca l effluent is dora r; do not exceed a total volume of 2 ,000 mL 240 mL PO Q10M 1 day 4,000 mL 0RF Z12.11 - Encounter for screening for malignant neoplas m of colon Refilled dexlansoprazole (D exilant) 60 mg PO DAILY 30 caps 6RF simethicone 180 mg PO TID 90 caps 6RF R14.0 - Abdominal distension (gaseou COLONOSCOPY SHe is on a wait list for this. BIOPSY TODAY'S VISIT Indian #Lynn Live She ran out of her Dexilant a couple of weeks ago, puzzling to me as I had refilled it 05/19. ? if we need to do a PA via insurance. She is no longer taking simethicone and does not feel she needs it. I will have my staff check into the PA status. She is apparently on a wait list for colonoscopy. I will send a note to the schedulers to verify that this is the case to make sure there actually is a plan to get her scheduled. ROV 6 mos. [facility] Medical History (Updated 06/07/23 @ 15:45 by GABE Haddad) GERD (gastroesophageal reflux disease) Osteoporosis Difficulty swallowing Bilateral knee pain Urge urinary incontinence Dyspnea Impaired glucose tolerance Hypothyroidism Autoimmune thyroiditis Pure hypercholesterolemia Surgical History History of right knee surgery History of esophagogastroduodenoscopy (EGD) Hx of colonoscopy History of appendectomy History of partial hysterectomy Hx of tubal ligation HX: benign breast biopsy Hx of thyroidectomy Family History Father Prostate cancer Mother Diabetes mellitus Sister Heart problem Social History Household Members: Children Housing: Apartment Are you a primary care director to a significant other at home: No Do you presently have visiting nurse or other home services: No Alcohol intake: never Patient Tobacco Use Status: Former Tobacco user Tobacco use type: Cigarette Cigarettes Per Day: 5 Years Smoked: 40 e-Cigarette/Vaping Use: Never Used Second Hand Smoke Exposure: Yes service: No Current occupational status: unemployed Current occupational exposures/hazards: No Cognitive needs: No Hearing needs: No Vision needs: Yes Review of Systems Const Details: glasses Denies fatigue, Denies fever(s), Denies night sweats, Denies poor appetite and Denies weight loss ENT Reports Normal hearing present, Denies dental pain, Denies dysphagia, Denies hearing loss, Denies mouth pain, Denies odynophagia, Denies throat swelling, Denies tongue swelling and Reports other (Dentition adequate) Card Reports no additional complaints Resp Reports no additional complaints GI Denies abdominal pain, Denies melena, Denies bloating, Denies hematochezia, Denies constipation, Denies GI cramping, Denies dysphagia, Denies excessive flatus, Denies early satiety, Reports heartburn, Denies diarrhea, Denies nausea, Denies odynophagia, Denies vomiting and Denies hematemesis Skin/Breast Denies pruritus, Denies lesions, Denies rash and Denies jaundice Neuro Reports Normal hearing present and Denies Abnormal speech present Endo Denies fatigue Aller/Immun Denies throat swelling and Denies tongue swelling Physical Exam Vital Signs: Last Vital Signs Pulse 76 06/07/23 12:22 BP 123/53 L 06/07/23 12:22 BMI result Body Mass Index 36.2 Const General: cooperative, no acute distress, well developed and well groomed Nutritional Appearance: well nourished and obese Orientation/consciousness: oriented to person, oriented to place and oriented to time Limitations: language barrier HEENT Head: Yes normocephalic and Yes atraumatic Eyes General: appearance normal, both eyes and all related structures Pupils: Equal, round and reactive pupils present Neck Neck: Yes normal visual inspection and Yes no lymphadenopathy Thyroid: Thyroid normal Resp Effort & Inspection: normal respiratory effort and able to speak in complete sentences Auscultation: clear to auscultation bilaterally Cardio Rate: regular rate Rhythm: regular rhythm Heart sounds: Normal, physiologic split S2 sound present Peripheral pulses: radial pulses present and posterior tibial pulses present GI Inspection: No distended, Yes Abdominal panniculus present and Yes obesity Palpation (GI): Soft to palpation, nontender, no guarding, not rigid and No hepatosplenomegaly present Percussion: Yes normal to percussion Auscultation: normal bowel sounds Rectal Exam - Female: deferred Skin General skin exam: no rashes or lesions noted, turgor normal, skin not dry, no jaundice, No spider nevi and no striae Rashes: no rashes Nails: normal Neuro General: oriented to person, oriented to place and oriented to time Cranial nerves: Yes Equal, round and reactive pupils present and Yes Normal hearing present Speech: No Abnormal speech present Extrem General: Yes normal to inspection, No clubbing, No cyanosis and No edema Psych Appearance: grossly normal and well kempt Mental Status: mental status grossly normal Speech and movement: Normal speech and movement present Affect: normal affect Attitude: cooperative Thought process: Normal thought process present and not confabulating Thought content: Normal thought content present Insight: Limited insight present (Psych) Judgement: Limited judgement present (Psych) Assessment & Plan Assessment & Plan (1) GERD (gastroesophageal reflux disease): Code(s): K21.9 - Gastro-esophageal reflux disease without esophagitis Qualifiers: Esophagitis presence: esophagitis presence not specified Qualified Code(s): K21.9 - Gastro-esophageal reflux disease without esophagitis Plan: Indian #Lynn Live She ran out of her Dexilant a couple of weeks ago, puzzling to me as I had refilled it 05/19. ? if we need to do a PA via insurance. She is no longer taking simethicone and does not feel she needs it. I will have my staff check into the PA status. She is apparently on a wait list for colonoscopy. I will send a note to the schedulers to verify that this is the case to make sure there actually is a plan to get her scheduled. ROV 6 mos. COLONOSCOPY SHe is on a wait list for this. BIOPSY (2) Epigastric pain: Code(s): R10.13 - Epigastric pain (3) Early satiety: Comment: 2020-gastric emptying study normal but she was taking Reglan at the time., this seems to have resolved Code(s): R68.81 - Early satiety (4) Constipation: Comment: Received to have resolved Code(s): K59.00 - Constipation, unspecified Medications: Changed From dexlansoprazole (Dexilant) 60 mg PO QAM 30 caps 2RF K59.00 - Constipation, unspecified To dexlansoprazole (Dexilant) 60 mg PO QAM 90 days 90 caps 1RF K59.00 - Constipation, unspecified Coding Level of Care Code Est Pt Level 3 (54901) Diagnoses Gastroesophageal reflux disease, unspecified whether esophagitis present K21.9 Esophagitis presence: esophagitis presence not specified Epigastric pain R10.13 Early satiety R68.81 Constipation K59.00
[2023-06-07 12:22] VITALS: BP 123/53; PULSE 76; BMI 36.2
== END 2023-06-07 13:18 | disposition home or self-care (01) ==
PROVIDERS: PCP Internal Medicine; Visit Provider Nurse Practitioner
DX: K21.9 Gastro-esophageal reflux disease without esophagitis (principal); R10.13 Epigastric pain; R68.81 Early satiety; K59.00 Constipation, unspecified
CPT/HCPCS: 99213

== ENCOUNTER → 2023-06-07 12:17 | Outpatient (BNVA) | payer OTHER, SELFPAY | PROVIDERS: PCP Internal Medicine; Visit Provider Nurse Practitioner | DX: K21.9 Gastro-esophageal reflux disease without esophagitis (principal); K59.00 Constipation, unspecified; R10.13 Epigastric pain; R68.81 Early satiety | CPT/HCPCS: 99212 ==

== ENCOUNTER 2023-06-20 09:02 | Outpatient (REF) | payer OTHER, SELFPAY ==
[2023-06-20 10:08] LABS: Alanine Aminotransferase 33 U/L (0-31); Alkaline Phosphatase 102 U/L (39-117); Anion Gap 16 (12-20); Aspartate Amino Transferase 29 U/L (5-31); Bilirubin Total 0.4 mg/dL (0.0-1.0); Blood Urea Nitrogen 12 mg/dL (9-16); Calcium 9.8 mg/dL (8.4-10.2); Carbon Dioxide 26 mmol/L (22-29); Chloride 104 mmol/L (96-108); Cholesterol 183 mg/dL (<200); Estimated Glomerular Filt Rate > 60; Glucose Fasting 143 mg/dL (60-99); HDL Cholesterol 43 mg/dL (>40); LDL Cholesterol Calculated 115 mg/dL (<100); Potassium 4.6 mmol/L (3.3-5.1); Sodium 141 mmol/L (135-145); Total Protein 7.7 g/dL (6.5-8.0); Triglycerides 129 mg/dL (<150)
[2023-06-20 10:24] LABS: Thyroid Stimulating Hormone 1.96 uIU/mL (0.32-4.0); Vitamin D 25-OH Total 37.2 ng/mL (>30)
== END 2023-06-20 09:03 | disposition home or self-care (01) ==
LOC: HO.LAB 09:02
PROVIDERS: PCP Internal Medicine; Visit Provider Internal Medicine
DX: E78.00 Pure hypercholesterolemia, unspecified (principal); E55.9 Vitamin D deficiency, unspecified; E06.3 Autoimmune thyroiditis
CPT/HCPCS: 36415; 80053; 80061; 82306; 84443

== ENCOUNTER 2023-06-22 16:21 | Outpatient (AMB) | payer OTHER, SELFPAY ==
[2023-06-22 16:30] VITALS: BP 108/60; PULSE 85; O2SAT 95; BMI 35.7
--- NOTE | 2023-06-22 16:30 | A.OFFPC_ITS ---
Vital Signs 06/22/23 16:30 Height 4 ft 11 in Weight 177 lb BMI 35.7 BP 108/60 Blood Pressure Location Lt brachial Position Sitting Pulse 85 Pulse Source Pulse Oximeter Pulse Oximetry (%) 95 Oxygen Delivery Method Room Air Intake Visit Reasons: dm,thyroid Intake Note: Patient here for a follow up DM, thyroid [employer] Required: No Accompanied by: Self / Same As Patient Allergies adhesive tape Allergy (Intermediate, Verified 06/22/23 16:47) Blister Medication List - Last Reconciled 06/22/23 by Christina Lara MD acetaminophen 650 mg (2 x 325 mg) PO Q6H PRN 30 days aspirin 325 mg PO BID 42 days blood sugar diagnostic As directed Once per day blood sugar diagnostic (Beat.noTouch Ultra Test strips) test daily blood-glucose meter (ImageBriefuch Ultra2 Meter) test daily blood-glucose meter As directed celecoxib 200 mg PO BID 30 days cholecalciferol (vitamin D3) (Vitamin D3) 25 mcg PO DAILY dexlansoprazole (Dexilant) 60 mg PO QAM 90 days lancets (ImageBriefuch UltraSoft 2 Lancet) test daily lancets As directed Once per day levothyroxine 88 mcg PO DAILY 90 days Shower Chair As directed walker Folding Front wheeled walker Tobacco use date assessed: 02/14/23 Fall risk assessment: No Falls in past year Last assessed Fall Risk: 06/22/23 Dental Screening Dental Screen Date: 06/22/23 Did you have a dental visit in the last 12 months?: No Did you have a dental problem in the last 6 months where you did not have access to dental care?: No Was dental information given to patient?: Patient has dentist HPI HPI Comments History of Present Illness Details This is a 67-year-old female with diabetes mellitus type 2, GERD, autoimmune thyroiditis and hyperlipidemia comes today for follow-up on recent labs. A1c elevated and I will start her on metformin. Patient was advised and metformin can cause abdominal discomfort and diarrhea. GERD stable with Dexilant. TSH normal. LDL not on goal and I will start her on statins at bedtime. No chest pain or shortness of breath. [facility] Medical History (Updated 06/22/23 @ 19:42 by Christina Lara MD) GERD (gastroesophageal reflux disease) Osteoporosis Difficulty swallowing Bilateral knee pain Urge urinary incontinence Dyspnea Impaired glucose tolerance Hypothyroidism Autoimmune thyroiditis Pure hypercholesterolemia Surgical History History of right knee surgery History of esophagogastroduodenoscopy (EGD) Hx of colonoscopy History of appendectomy History of partial hysterectomy Hx of tubal ligation HX: benign breast biopsy Hx of thyroidectomy Family History Father Prostate cancer Mother Diabetes mellitus Sister Heart problem Social History Household Members: Children Housing: Apartment Are you a primary personal care home administrator to a significant other at home: No Do you presently have visiting nurse or other home services: No Alcohol intake: never Patient Tobacco Use Status: Former Tobacco user Tobacco use type: Cigarette Cigarettes Per Day: 5 Years Smoked: 40 Packs per year/per ci.00 e-Cigarette/Vaping Use: Never Used Second Hand Smoke Exposure: Yes service: No Current occupational status: unemployed Current occupational exposures/hazards: No Cognitive needs: No Hearing needs: No Vision needs: Yes Questionnaire Thrive Questionnaire Date Thrive assessed: 10/12/22 JUAN-7 AMB Questionnaire JUAN-7 Date JUAN - 7 assessed: 10/12/22 Source: Developed by Drs. Jermaine Yanes, Xenia Monsivais, Pan Liu and colleagues, with an educational claude from [employer]. Review of Systems Const All systems reviewed & are unremarkable except as noted in HPI and below Eyes Reports no additional complaints, Denies change in vision and Denies other visual disturbances Card Denies chest pain at rest, Denies chest pain with activity, Denies edema, Denies irregular heart rhythm, Denies claudication, Denies dyspnea, Denies dyspnea on exertion, Denies orthopnea, Denies paroxysmal nocturnal dyspnea and Denies slow heart rate Resp Denies cough, Denies dyspnea and Denies dyspnea on exertion GI Denies abdominal pain, Denies change in bowel habits, Denies excessive flatus, Denies nausea and Denies vomiting Denies urinary incontinence, Denies urinary hesitancy and Denies urinary urgency Musc Denies abnormal gait, Denies atrophy, Denies deformity and Denies limited range of motion Skin/Breast Denies bleeding lesions, Denies changing lesions and Denies rash Neuro Denies abnormal gait and Denies lack of coordination Physical exam (Primary Care) Vital Signs: Last Vital Signs Pulse 85 06/22/23 16:30 BP 108/60 06/22/23 16:30 Pulse Ox 95 06/22/23 16:30 Oxygen Delivery Method Room Air 06/22/23 16:30 BMI result Body Mass Index 35.7 Tobacco/Smoking Status: Tobacco use Status Tobacco use date assessed 02/14/23 06/22/23 16:37 Patient Tobacco Use Status Former Tobacco user 06/22/23 16:37 Tobacco use type Cigarette 06/22/23 16:37 e-Cigarette/Vaping Use Never Used 06/22/23 16:37 Thrive Assessment: Date of Thrive Assessment Date Thrive assessed 10/12/22 06/22/23 16:37 Eyes General: appearance normal, both eyes and all related structures Eyelids: Yes eyelids normal Conjunctivae: conjunctivae normal Neck Neck: Yes normal visual inspection and Yes supple Resp Effort & Inspection: normal respiratory effort Auscultation: clear to auscultation bilaterally Cardio Jugular venous distension: no JVD Rate: regular rate Rhythm: regular rhythm Heart sounds: S1 normal heart sound present and S2 normal heart sound present Extrem General: Yes full ROM Office Procedures Flu Questionnaire Does the patient have a severe egg allergy?: No Results AMB Hemoglobin A1c AMB Hemoglobin A1c 7.2 % Last Edit by CORINNA Sales on 06/22/23 16:3 8 Immunizations flu vacc [id number] 6mos up(PF) 60 mcg(15 mcgx4)/0.5 mL IM syringe Performing Provider: Christina Lara MD [facility] Documented (not given) by: CORINNA Sales on 06/22/23 16:58 Reason Not Given: Not Given Results Reviewed Results Reviewed: Laboratory Last Values Hgb A1c (Clinic) 7.2 % (4.0-6.0) H 06/22/23 16:38 Assessment and Plan Assessment & Plan (1) Diabetes mellitus: Code(s): E11.9 - Type 2 diabetes mellitus without complications Plan: Start metformin. A1c goal is equal or less than 7%. (2) GERD (gastroesophageal reflux disease): Code(s): K21.9 - Gastro-esophageal reflux disease without esophagitis Qualifiers: Esophagitis presence: esophagitis presence not specified Qualified Code(s): K21.9 - Gastro-esophageal reflux disease without esophagitis Plan: Continue Dexilant. (3) Autoimmune thyroiditis: Code(s): E06.3 - Autoimmune thyroiditis Plan: Continue levothyroxine (4) Hyperlipidemia LDL goal <70: Code(s): E78.5 - Hyperlipidemia, unspecified Plan: Start statins. LDL goal is less than 70. Orders: Orders Influenza [id number] Immunization Today Z23 - Encounter for immunization XR chest 2V Today R05.9 - Cough, unspecified AMB Hemoglobin A1c Today E11.9 - Type 2 diabetes mellitus without complications T Spot TB Today Z11.1 - Encounter for screening for respiratory tuberculosis Medications: New metformin 500 mg PO BID 180 tabs 1RF 90 days E11.9 - Type 2 diabetes mellitus without complications rosuvastatin 10 mg PO DAILY 90 tabs 0RF 90 days Ventolin HFA 90 mcg/actuation (albuterol sulfate) 2 puffs inhalation Q6H PRN 18 grams 1RF shortness of breath or wheezing 30 days NS Refilled blood sugar diagnostic (OneTouch Ultra Test strips) test daily 100 ea 3RF E11.9 - Type 2 diabetes mellitus without complications blood-glucose meter (OneTouch Ultra2 Meter) test daily 1 ea 0RF E11.9 - Type 2 diabetes mellitus without complications lancets (Beat.noTouch UltraSoft 2 Lancet) test daily 100 ea 3RF E11.9 - Type 2 diabetes mellitus without complications Coding Level of Care Code Est Pt Level 4 (82911) Diagnoses Diabetes mellitus E11.9 Gastroesophageal reflux disease, unspecified whether esophagitis present K21.9 Esophagitis presence: esophagitis presence not specified Autoimmune thyroiditis E06.3 Hyperlipidemia LDL goal <70 E78.5 Time Spent (min) 24
== END 2023-06-22 16:57 | disposition home or self-care (01) ==
PROVIDERS: PCP Internal Medicine; Visit Provider Internal Medicine
DX: E11.9 Type 2 diabetes mellitus without complications (principal); K21.9 Gastro-esophageal reflux disease without esophagitis; E06.3 Autoimmune thyroiditis; E78.5 Hyperlipidemia, unspecified
CPT/HCPCS: 83036; 99214

== ENCOUNTER 2023-07-18 12:45 | Outpatient (AMB) | payer OTHER, SELFPAY ==
--- NOTE | 2023-07-18 12:46 | A.OFFVIS_ITS ---
Intake Intake Visit Reasons: ov- S/p - RT TKA 01/04/23 Intake Note: Diana is a 67 year old female who presents today for a follow up of her right knee s/p Right TKA 01/04/23. Patient reports that she has continued pain in the right knee. She reports that she is dong home exercises with no changes in her symptoms Allergies adhesive tape Allergy (Intermediate, Verified 06/22/23 16:47) Blister HPI ov- S/p - RT TKA 01/04/23 HPI Details Diana is a 67 year old woman who presents ~6 months S/P right TKA She states that she still has some right knee pain. There is some numbness over the lateral aspect of her knee and some soreness in her distal thigh. She walks regularly and she uses the stairs. She does use a cane. She denies fevers chills. [facility] Medical History GERD (gastroesophageal reflux disease) Osteoporosis Difficulty swallowing Bilateral knee pain Urge urinary incontinence Dyspnea Impaired glucose tolerance Hypothyroidism Autoimmune thyroiditis Pure hypercholesterolemia Surgical History History of right knee surgery History of esophagogastroduodenoscopy (EGD) Hx of colonoscopy History of appendectomy History of partial hysterectomy Hx of tubal ligation HX: benign breast biopsy Hx of thyroidectomy Family History Father Prostate cancer Mother Diabetes mellitus Sister Heart problem Social History Household Members: Children Housing: Apartment Are you a primary patient care provider to a significant other at home: No Do you presently have visiting nurse or other home services: No Alcohol intake: never Patient Tobacco Use Status: Former Tobacco user Tobacco use type: Cigarette Cigarettes Per Day: 5 Years Smoked: 40 e-Cigarette/Vaping Use: Never Used Second Hand Smoke Exposure: Yes service: No Current occupational status: unemployed Current occupational exposures/hazards: No Cognitive needs: No Hearing needs: No Vision needs: Yes Review of Systems Const All systems reviewed & are unremarkable except as noted in HPI and below Physical Exam Const General: no acute distress and alert Orientation/consciousness: patient oriented x3 HEENT Head: Yes normocephalic and Yes atraumatic Eyes EOM: EOMs intact bilaterally Resp Effort & Inspection: normal respiratory effort and able to speak in complete sentences Cardio Jugular venous distension: no JVD Skin General skin exam: turgor normal Rashes: no rashes Neuro General: patient oriented x3 Extrem Other: Right Knee: Well-healed incision 0-130 degrees ROM No effusion stable to varus and stress Psych Appearance: grossly normal Affect: normal affect Attitude: cooperative Assessment & Plan Assessment & Plan (1) Status post total right knee replacement: Code(s): Z96.651 - Presence of right artificial knee joint Plan: This is a 67 year old woman S/P right TKA, DOS: 01/04/23. Overall her motion is excellent and looks good and she has minimal effusion no pain. I described some of the numbness is pretty normal after the surgery and recommendation is that she focus strengthening. She is pretty hesitant to do this but I did show par ticular quad strengthening exercises such straight leg raise and wall sits which I think she would benefit. She can follow-up her year time she is doing. Plan Scribed for German Trejo MD by Rafa Chacko, medical detail representative, on 07/18/23 at 12:55 PM, EST. Coding Level of Care Code Est Pt Level 3 (71557) Diagnoses Status post total right knee replacement Z96.651
== END 2023-07-18 13:13 | disposition home or self-care (01) ==
PROVIDERS: PCP Internal Medicine; Visit Provider Orthopaedic Surgery
DX: Z47.1 Aftercare following joint replacement surgery (principal); Z96.651 Presence of right artificial knee joint
CPT/HCPCS: 99213

== ENCOUNTER → 2023-07-18 12:45 | Outpatient (BNVA) | payer OTHER, SELFPAY | PROVIDERS: PCP Internal Medicine; Visit Provider Orthopaedic Surgery | DX: Z47.1 Aftercare following joint replacement surgery (principal); Z96.651 Presence of right artificial knee joint | CPT/HCPCS: 99212 ==

== ENCOUNTER 2023-07-26 09:07 | Day surgery (SDC) | payer OTHER, SELFPAY ==
[2023-07-22 14:52] VITALS: BMI 35.7
--- NOTE | 2023-07-25 11:45 | P.CONAN_ITS ---
Documented by User: Soraya Braswell NP 07/25/23 11:48 HPI - Anesthesia Eval Consult details Narrative: 67yo F for Colonoscopy s/p TKA 12/2022 with spinal / block PMFSH Active Problems Active Problems: All Active Problems (Updated 07/22/23 @ 14:54 by Sosa Hurt RN) Mild persistent asthma in adult without complication (Acute) Hyperlipidemia LDL goal <70 (Acute) Cough (Acute) Diabetes mellitus (Acute) Leukocytosis (Acute) Status post total right knee replacement (Acute) Osteoarthritis of right knee (Acute) Pre-op examination (Acute) Family history of colon cancer (Acute) Osteoarthritis of knees, bilateral (Acute) Hyperkalemia (Acute) Osteoarthritis of right hip (Acute) Muscle spasm (Acute) Chronic SI joint pain (Acute) Trochanteric bursitis of right hip (Acute) Adult general medical exam (Acute) Screening for colon cancer (Acute) Screening for diabetes mellitus (Acute) Screening for breast cancer (Acute) Post-menopausal (Acute) Abdominal bloating (Acute) Early satiety (Acute) Epigastric pain (Acute) Constipation (Acute) Taste sense altered (Acute) Gastritis (Acute) GERD (gastroesophageal reflux disease) (Acute) Urge urinary incontinence (Acute) Dyspnea (Acute) Autoimmune thyroiditis (Acute) Pure hypercholesterolemia (Acute) Past Medical History Medical History Diabetes Osteoporosis Difficulty swallowing Bilateral knee pain Urge urinary incontinence Dyspnea Impaired glucose tolerance Hypothyroidism Autoimmune thyroiditis Pure hypercholesterolemia GERD (gastroesophageal reflux disease) Family History Family History Father Prostate cancer Mother Diabetes mellitus Sister Heart problem Family history of problems with anesthesia: No Surgical History Surgical History History of right knee surgery History of esophagogastroduodenoscopy (EGD) Hx of colonoscopy History of appendectomy History of partial hysterectomy Hx of tubal ligation HX: benign breast biopsy Hx of thyroidectomy History of Problems with Anesthesia: No Social History Social History Household Members: Children Housing: Apartment Are you a primary vocational childcare teacher to a significant other at home: No Do you presently have visiting nurse or other home services: No Alcohol intake: never Patient Tobacco Use Status: Former Tobacco user Tobacco use type: Cigarette Cigarettes Per Day: 5 Years Smoked: 40 e-Cigarette/Vaping Use: Never Used Second Hand Smoke Exposure: Yes Advance Directives: No Advance Directives Information Provided: Yes service: No Current occupational status: unemployed Current occupational exposures/hazards: No Cognitive needs: No Hearing needs: No Vision needs: Yes Meds Allergies Allergy/AdvReac Type Severity Reaction Status Date / Time adhesive tape Allergy Intermediate Blister Verified 06/22/23 16:47 Home Medications Medication Instructions Recorded Confirmed Last Taken Type cholecalciferol (vitamin D3) 25 25 mcg PO DAILY 06/07/23 07/22/23 Unknown History mcg (1,000 unit) capsule (Vitamin D3) Exam Exam Date and Time: July 25, 2023 1145 Height,Weight and Vital Signs: Height 4 ft 11 in Weight 80.286 kg Pertinent Lab Results Pertinent Lab Results: Laboratory Tests 03/11/23 06/20/23 10:22 09:22 WBC 10.3 Hgb 13.9 Hct 42.6 Plt Count 207 Sodium 141 Potassium 4.6 D Chloride 104 Carbon Dioxide 26 BUN 12 Creatinine 0.73 Narrative Narrative: EKG 12/2022 Vent. Rate : 102 BPM Atrial Rate : 102 BPM P-R Int : 210 ms QRS Dur : 072 ms QT Int : 330 ms P-R-T Axes : 026 016 015 degrees QTc Int : 430 ms Sinus tachycardia with 1st degree A-V block Otherwise normal ECG When compared with ECG of 08-MAR-2016 23:06, Vent. rate has increased BY 44 BPM Nonspecific T wave abnormality, improved in Inferior leads Nonspecific T wave abnormality no longer evident in Anterolateral leads Assessment and Plan Assessment Anesthesia Assessment: Chart Reviewed Final Anesthetic Review Family History of Problems with Anesthesia: No History of Problems with Anesthesia: No Documented by User: Nury Owens MD 07/26/23 10:12 [facility] Past Medical History Medical History Diabetes Osteoporosis Difficulty swallowing Bilateral knee pain Urge urinary incontinence Dyspnea Impaired glucose tolerance Hypothyroidism Autoimmune thyroiditis Pure hypercholesterolemia GERD (gastroesophageal reflux disease) Family History Family History Father Prostate cancer Mother Diabetes mellitus Sister Heart problem Surgical History Surgical History History of right knee surgery History of esophagogastroduodenoscopy (EGD) Hx of colonoscopy History of appendectomy History of partial hysterectomy Hx of tubal ligation HX: benign breast biopsy Hx of thyroidectomy Social History Social History Household Members: Children Housing: Apartment Are you a primary vocational childcare teacher to a significant other at home: No Do you presently have visiting nurse or other home services: No Alcohol intake: never Patient Tobacco Use Status: Former Tobacco user Tobacco use type: Cigarette Cigarettes Per Day: 5 Years Smoked: 40 e-Cigarette/Vaping Use: Never Used Second Hand Smoke Exposure: Yes Advance Directives: No Advance Directives Information Provided: Yes service: No Current occupational status: unemployed Current occupational exposures/hazards: No Cognitive needs: No Hearing needs: No Vision needs: Yes Meds Allergies Allergy/AdvReac Type Severity Reaction Status Date / Time adhesive tape Allergy Intermediate Blister Verified 06/22/23 16:47 Home Medications Medication Instructions Recorded Confirmed Last Taken Type cholecalciferol (vitamin D3) 25 25 mcg PO DAILY 06/07/23 07/22/23 Unknown History mcg (1,000 unit) capsule (Vitamin D3) Exam Airway Mallampati Class: II (edentulous) TM Dist: >3cm Neck ROM: Full Denture: Upper and Lower Loose/Missing/Broken Teeth: Yes, Upper and Lower Heart: RRR Lungs: CTA Assessment and Plan Assessment Anesthesia Assessment: Anesthesia Plan Discussed Final Anesthetic Review NPO: Yes ASA Class: III Final Preanesthetic Review: Meds/Allgs Chart Reviewed, Consent Obtained/Reviewed and Anes Risks/Benef Reviewed Patient Risk: Intermediate Procedure Risk: Low Anesthetic Plan Anesthetic Plan: MAC: Disposition: Standard PACU
[2023-07-26 09:33] VITALS: BP 117/71; PULSE 113; RESP 20; TEMP 36.6; O2SAT 93
[2023-07-26 09:34] LABS: Glucose, Whole Blood 152 mg/dL (60-115)
--- NOTE | 2023-07-26 10:06 | MHC.SHP ---
Pre-Procedural Eval Section A Date of Service: 07/26/23 Section B Chief Complaint: Constipation, Relevant Family History (Specify if Yes): Yes Relevant Social History: Tobacco Use Present Medications: see Short Stay Collaborative assessment Medical History: Significant History (GERD (gastroesophageal reflux disease) Osteoporosis Difficulty swallowing Bilateral knee pain Urge urinary incontinence Dyspnea Impaired glucose tolerance Hypothyroidism Autoimmune thyroiditis Pure hypercholesterolemia) History of Previous Operations: Relevant previous surgery/procedure and date(s) (History of right knee surgery History of esophagogastroduodenoscopy (EGD) Hx of colonoscopy History of appendectomy History of partial hysterectomy Hx of tubal ligation HX: benign breast biopsy Hx of thyroidectomy) Allergies: Allergies Allergy/AdvReac Type Severity Reaction Status Date / Time adhesive tape Allergy Intermediate Blister Verified 06/22/23 16:47 Review of Systems Sugical H&P ROS: Negative: Constitution, Cardiovascular, Respiratory, Neurological, Psychiatric, Hem-Onc, Allergic/Immunologic, Gastrointestinal, Genitourinary, Musculoskeletal, Integumentary, Endocrine and Eyes/Ears/Nose/Throat Exam Surgical H&P Exam: Normal: HEENT, Normal: Heart, Normal: Lungs, Normal: Extremities, Normal: Abdomen, Normal: Skin and Normal: Neurological Plan Diagnosis/Plan: Unchanged I have reviewed the history and physical and performed a pertinent physical examination on my patient. No changes have occurred unless specified. Time Spent With Patient Time: Total time managing care of this patient today ____ minutes.
--- NOTE | 2023-07-26 10:20 | W.PM.OPN ---
Operative Note Operative Note Date of Service: 07/26/23 Narrative: Operative Information Procedure Description: Colonoscopy Indication: screening Anesthesia: MAC COLONOSCOPY Instrument: Olympus variable stiffness pediatric scope 190L Colonoscopy Monitoring: Vital signs and clinical assessment, continuous EKG monitoring, Pulse oximetry, Carbon Dioxide monitoring and blood pressure monitoring were done throughout the procedure. Colon withdrawal time was 7 minutes. Procedure: The patient was placed in the left lateral decubitis position and pre-procedure medications were administered. After a digital rectal examination of the ano-rectum, the video colonoscope was inserted into the rectum and advanced through the colon to the cecum/TI. The colonoscope was slowly withdrawn in a retrograde panoramic fashion and the colon mucosa was carefully examined including a retroflexed view of the rectum. Findings and interventions are described below. Procedure Difficulty: moderate Findings: Terminal Ileum- superficially intubated and normal Cecum: 5-6 mm sessile polyp removed with cold forceps Ascending Colon: normal Transverse Colon -normal Descending Colon:normal Sigmoid Colon: normal Rectum: Retroflexion with small internal hemorrhoids, grade I Anorectum - normal Colon preparation: [place] Bowel Preparation Scale Right colon; 1-2 Transverse colon: 2 Left colon; 1-2 (0 = Unprepared colon segment with mucosa not seen due to solid stool that cannot be cleared. 1 = Portion of mucosa of the colon segment seen, but other areas of the colon segment not well seen due to staining, residual stool and/or opaque liquid. 2 = Minor amount of residual staining, small fragments of stool and/or opaque liquid, but mucosa of colon segment seen well. 3 = Entire mucosa of colon segment seen well with no residual staining, small fragments of stool or opaque liquid) Impression and Post Procedure Diagnosis: polyp internal hemorrhoids Plan: High fiber diet leaflet Avoid straining at stool, epsom salts and sitz bath, anusol supps or cream Repeat Colonoscopy in 2-3 years due to fair prep in some areas or earlier if clinically indicated Above findings were reviewed with the patient and relevant handouts were provided if indicated.
[2023-07-26 10:40] VITALS: BP 91/58; PULSE 79; RESP 18; TEMP 37.2; O2SAT 97
[2023-07-26 10:55] VITALS: BP 118/73; PULSE 86; RESP 18; TEMP 37.2; O2SAT 97
== END 2023-07-26 11:34 | disposition home or self-care (01) ==
PROVIDERS: PCP Internal Medicine; Visit Provider Internal Medicine Gastroenterology
PROC: 0DJD8ZZ Inspection of Lower Intestinal Tract, Via Natural or Artificial Opening Endoscopic (ICD-10-PCS; CPT 45378; principal; 2023-07-26 10:30)
DX: Z12.11 Encounter for screening for malignant neoplasm of colon (principal); Z80.0 Family history of malignant neoplasm of digestive organs; D12.0 Benign neoplasm of cecum; K64.0 First degree hemorrhoids; K59.00 Constipation, unspecified; K21.9 Gastro-esophageal reflux disease without esophagitis; E78.00 Pure hypercholesterolemia, unspecified; M81.0 Age-related osteoporosis without current pathological fracture; E06.3 Autoimmune thyroiditis; E03.9 Hypothyroidism, unspecified; E11.9 Type 2 diabetes mellitus without complications; R10.13 Epigastric pain; J45.30 Mild persistent asthma, uncomplicated; Z79.899 Other long term (current) drug therapy; L23.1 Allergic contact dermatitis due to adhesives; Z98.890 Other specified postprocedural states; Z87.891 Personal history of nicotine dependence
CPT/HCPCS: 45380; 82947; 88305; J2704

== ENCOUNTER → 2023-07-26 09:07 | Outpatient (BNV) | payer OTHER, SELFPAY | PROVIDERS: PCP Internal Medicine; Visit Provider Internal Medicine Gastroenterology | DX: Z12.11 Encounter for screening for malignant neoplasm of colon (principal); D12.0 Benign neoplasm of cecum; K64.0 First degree hemorrhoids | CPT/HCPCS: 45380 ==

== ENCOUNTER 2023-08-22 08:32 | Outpatient (REF) | payer OTHER, SELFPAY ==
--- NOTE | ~2023-08-22 | XR_ITS ---
EXAMINATION: XR CHEST CLINICAL INFORMATION: Reason for Exam R05.9 - Cough, unspecified COMPARISON: Chest radiograph 05/07/2021 TECHNIQUE: 2 views of the chest FINDINGS: Lines and tubes: None. Clear lungs. No pleural effusion. No pneumothorax. Unchanged cardiomediastinal silhouette. XR/XR chest 2V IMPRESSION: * Clear lungs.
[2023-08-22 09:14] LABS: MANUAL DIFF FLAG NO
[2023-08-22 10:05] LABS: Basophils Absolute Auto 0.1 X10*3/uL (0.0-0.2); Basophils Percent Auto 0.6 % (0-2); Eosinophils Absolute Auto 0.5 X10*3/uL (0.0-0.4); Eosinophils Percent Auto 3.9 % (0-4); Hematocrit 42.5 % (37.0-47.0); Hemoglobin 13.7 g/dl (12.0-16.0); Imm Gran Abs Auto 0.03 X10*3/uL (0.00-0.03); Imm Gran Pct Auto 0.2 % (0.0-0.4); Lymphocytes Absolute Auto 4.5 X10*3/uL (1.2-4.9); Lymphocytes Percent Auto 35.8 % (20-40); Mean Corpuscular HGB Conc 32.2 g/dl (31.0-35.0); Mean Corpuscular Hemoglobin 30.2 pg (27.0-33.0); Mean Corpuscular Volume 93.6 fL (80.0-98.0); Mean Platelet Volume 12.8 fL (9.4-12.3); Monocytes Percent Auto 8.3 % (2-11); Neutrophils Absolute Auto 6.4 x10*3/uL (2.0-8.3); Neutrophils Percent Auto 51.2 % (45-73); Platelet Count 188 X10*3/uL (160-400); Red Blood Count 4.54 X10*6/uL (4.20-5.50); Red Cell Distribution Width 14.2 % (11.0-16.0); White Blood Count 12.5 X10*3/uL (4.8-10.8)
[2023-08-25 07:54] LABS: TS Negative Control Passed; TS Panel A 0; TS Panel B 0; TS Positive Control Passed; TSpotTB Negative (Negative)
== END 2023-08-22 08:33 | disposition home or self-care (01) ==
LOC: HO.XRAY 08:32
PROVIDERS: PCP Internal Medicine; Visit Provider Internal Medicine
DX: Z11.1 Encounter for screening for respiratory tuberculosis (principal); R05.9 Cough, unspecified; D72.829 Elevated white blood cell count, unspecified
CPT/HCPCS: 36415; 71046; 85025; 86481

== ENCOUNTER 2023-08-24 08:17 | Outpatient (AMB) | payer OTHER, MEDICAID, SELFPAY ==
--- NOTE | 2023-08-24 08:34 | A.OFFVIS_ITS ---
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 Accompanied by: Self / Same As Patient Allergies adhesive tape Allergy (Intermediate, Verified 08/24/23 08:50) Blister Medication List - Last Reconciled 08/24/23 by Christina Lara MD blood sugar diagnostic As directed Once per day blood sugar diagnostic (OneTouch Ultra Test strips) test daily blood-glucose meter As directed blood-glucose meter (OneTouch Ultra2 Meter) test daily cholecalciferol (vitamin D3) (Vitamin D3) 25 mcg PO DAILY dexlansoprazole (Dexilant) 60 mg PO QAM 90 days lancets As directed Once per day lancets (OneTouch UltraSoft 2 Lancet) test daily levothyroxine 88 mcg PO DAILY 90 days metformin 500 mg PO BID 90 days rosuvastatin 10 mg PO DAILY 90 days Shower Chair As directed walker Folding Front wheeled walker HPI HPI Comments History of Present Illness Details This is a 67-year-old female with diabetes mellitus type 2 that comes for her Medicare wellness exam. Last A1c was not on goal and I will increase metformin. Colonoscopy done 2022. Mammogram done September 2022. Diabetic eye exam up-to-date. PPP handed to patient. Walks with a cane for gait stability. Needs to hold amrest to stand up from chair. Pneumonia vaccine done at 65 years old. MOLST completed today. [facility] Medical History (Updated 08/24/23 @ 09:20 by Christina Lara MD) Diabetes Osteoporosis Difficulty swallowing Bilateral knee pain Urge urinary incontinence Dyspnea Impaired glucose tolerance Hypothyroidism Autoimmune thyroiditis Pure hypercholesterolemia GERD (gastroesophageal reflux disease) Surgical History History of right knee surgery History of esophagogastroduodenoscopy (EGD) Hx of colonoscopy History of appendectomy History of partial hysterectomy Hx of tubal ligation HX: benign breast biopsy Hx of thyroidectomy Family History Father Prostate cancer Mother Diabetes mellitus Sister Heart problem Social History (Updated 12/13/23 @ 08:55 by Christina Lara MD) Household Members: Children Housing: Apartment Are you a primary health care / medical job titles to a significant other at home: No Do you presently have visiting nurse or other home services: No Alcohol intake: never Patient Tobacco Use Status: Current everyday Tobacco user Tobacco use type: Cigarette Cigarettes Per Day: 10 Years Smoked: 40 e-Cigarette/Vaping Use: Never Used Second Hand Smoke Exposure: Yes service: No Current occupational status: unemployed Current occupational exposures/hazards: No Cognitive needs: No Hearing needs: No Vision needs: Yes Questionnaire Medicare Wellness Checkup What [age] 65-69 What gender do you identify with?: female During the past 4 weeks, how much have you been bothered by emotional problems such as feeling anxious, depressed, irritable, sad or downhearted, and blue?: slightly During the past 4 weeks, has your physical & emotional health limited your social activities with family, friends, neighbors, or groups?: not at all During the past 4 weeks, how much bodily pain have you generally had?: moderate pain During the past 4 weeks, was someone available to help you if you needed & wanted help?: yes, some During the past 4 weeks, what was the hardest physical activity you could do for at least 2 minutes?: moderate Can you get to places out of walking distance without help? (For eg., can you travel alone on buses, taxis or drive your car?): No Can you go shopping for groceries or clothes without someone's help?: No Can you prepare your own meals?: Yes Can you do your housework without help?: Yes Because of any health problems, do you need the help of another person with your personal care needs such as eating, bathing, dressing or getting around the house?: No Can you handle your own money without help?: Yes During the past 4 weeks, how would you rate your health in general?: fair During the past 4 weeks how have things been going for you?: good & bad parts about equal Are you having difficulties driving your car?: not applicable, I don't use a car Do you always fasten your seat belt when you are in a car?: yes, usually During past 4 weeks, have you been bothered by the following: never: Sexual problems?, Trouble eating well?, Teeth or denture problems? and Problems using the telephone? and sometimes: Falling or dizzy when standing up and Tiredness or fatigue? Have you fallen 2 or more times in the past year?: No Are you afraid of falling?: Yes Are you a smoker?: yes, and I might quit During the past 4 weeks, how many drinks of wine, beer, or other alcoholic beverages did you have?: no alcohol at all Do you exercise for about 20 minutes 3 or more times a week?: yes, all the time Have you been given information to help with the following?: yes: Keeping track of your medications? and no: Hazards in your house that might hurt you? How often do you have trouble taking medicines the way you have been told to take them?: I always take medicine as prescribed How confident are you that you can control & manage most of your health problems?: very confident What is your race?: or origin or descent Mini Mental State Exam (MMSE) Orientation What is the (year) (season) (date) (day) (month)?: year, season, date, day and month Where are we (state) (county) (town or city) (hospital) (floor)?: state, county, town or city, hospital/clinic and floor Registration Name of 3 unrelated objects clearly and slowly, then ask patient to repeat all 3 of them. (1st repeat determines score. Make sure they can repeat all three): object 1, object 2 and object 3 Attention & Calculation (CHOOSE ONE) Spell WORLD backwards (DLROW): 5 letters Recall Ask patient to repeat the 3 items from question #3.: object 1, object 2 and object 3 Language Show patient a wristwatch & ask what it is. Repeat for pencil.: watch and pencil Ask the patient to repeat the phrase 'No ifs, ands, or buts' after you.: correct Ask the patient to 'take a piece of paper with their right hand' 'fold paper in half' 'place paper on floor': take paper in right hand, fold paper in half and place paper on floor Print the sentence 'CLOSE YOUR EYES' on a piece. If patient actually closes eyes then score.: followed written direction Give patient a blank piece of paper & ask to write a sentence. Score if it contains a noun & verb.: sentence contains subject and verb Ask patient to copy figure of intersecting pentagons exactly. Score if all 10 angles & 2 intersects are included.: all 10 angles present & 2 are intersected Score Score: 30 Activity of Daily Living Bathing - sponge bath, tub bath or shower: receives no assistance (gets in/out by self, if usual bathing means Dressing - getting clothes from closets & drawers, including inner/outer garments & fasteners.: gets clothes & gets completely dressed without help Toileting - going to the 'toilet room' for urine/bowel elimination & cleaning self/arranging clothes: goes to toilet room, cleans self, arranges clothes without help Transfer: moves in & out of bed and chair without help (may use support object) Continence: has occasional 'accidents' Feeding: feeds self without help Total Score: 0 Information obtained from: patient Using telephone: independent Traveling: dependent Shopping: dependent Preparing meals: independent Housework: dependent Taking medicine: independent Managing money: independent PHQ-9 Over the last 2 weeks, how often have you been bothered by any of the following problems? 1. Little interest or pleasure in doing things: several days 2. Feeling down, depressed, or hopeless: not at all 3. Trouble falling or staying asleep, or sleeping too much: several days 4. Feeling tired or having little energy: not at all 5. Poor appetite or overeating: more than half the days 6. Feeling bad about yourself - or that you are a failure or have let yourself or your family down: several days 7. Trouble concentrating on things, such as reading the newspaper or watching television: several days 8. Moving or speaking so slowly that other people could have noticed. Or the opposite - being so fidgety or restless that you have been moving around a lot more than usual: not at all 9. Thoughts that you would be better off or of hurting yourself in some way: not at all Total score: 6 Depression Screening Interpretation: Positive Depression Screening Follow-up: Existing condition Depression Screening Done: Yes 30750 - PHQ-9 Billing: Yes Source: Developed by Drs. Jermaine Yanes, Xenia Monsivais, Pan Liu and colleagues, with an educational claude from [employer]. JUAN-7 AMB Questionnaire JUAN-7 Date JUAN - 7 assessed: 08/24/23 Feeling nervous, anxious, or on edge: 2 = More than half the days Not being able to stop or control worryin = Several days Worrying too much about different things: 1 = Several days Trouble relaxin = Several days Being so restless that it is hard to sit still: 1 = Several days Becoming easily annoyed or irritable: 1 = Several days Feeling afraid as if something awful might happen: 3 = Nearly every day Total JUAN-7 score (0-4 normal; 5-9 mild; 10-14 moderate; 15-21 severe): 10 Source: Developed by Drs. Jermaine Yanes, Xenia Monsivais, Pan Liu and colleagues, with an educational claude from [employer]. JUAN-7 Assessment Billing JUAN-7 Assessment Tool: JUAN-7 Assessment 73678 Review of Systems Const All systems reviewed & are unremarkable except as noted in HPI and below Eyes Reports no additional complaints, Denies change in vision and Denies other visual disturbances ENT Reports Normal hearing present Card Denies chest pain at rest, Denies chest pain with activity, Denies edema, Denies irregular heart rhythm, Denies claudication, Denies dyspnea, Denies dyspnea on exertion, Denies orthopnea, Denies paroxysmal nocturnal dyspnea and Denies slow heart rate Resp Denies cough, Denies dyspnea and Denies dyspnea on exertion GI Denies abdominal pain, Denies change in bowel habits, Denies excessive flatus, Denies nausea and Denies vomiting Denies urinary incontinence, Denies urinary hesitancy and Denies urinary urgency Musc Denies abnormal gait, Denies atrophy, Denies deformity and Denies limited range of motion Skin/Breast Denies bleeding lesions, Denies changing lesions and Denies rash Neuro Reports Normal hearing present, Denies abnormal gait, Denies behavioral changes and Denies confusion Psych Denies behavioral changes and Denies confusion Physical Exam Vital Signs: Last Vital Signs BP 120/82 08/24/23 08:41 BMI result Body Mass Index 35.3 Const General: No confusion Orientation/consciousness: No confusion Limitations: ambulation with cane Resp Auscultation: clear to auscultation bilaterally Cardio Heart sounds: S1 normal heart sound present and S2 normal heart sound present Neuro General: No confusion Cranial nerves: Yes Normal hearing present Gait exam (Neuro): Normal gait present Romberg Test: Negative Office Procedures Flu Questionnaire Does the patient have a severe egg allergy?: No Does the patient have severe life threatening allergies?: No Does the patient have a fever or illness today?: No Has the patient ever had Guillain-Mylo Syndrome?: No Has the patient ever had any past reaction to a flu shot?: No Immunizations flu vacc [id number] 6mos up(PF) 60 mcg(15 mcgx4)/0.5 mL IM syringe Performing Provider: Christina Lara MD Performing Location: [facility] Administered by: CORINNA Sales on 08/24/23 09:15 Dose Route Admin Location Dispensed Lot Number Expiration Date [employer] Managing Director 0.5 mL IM Left Deltoid 0.5 mL [id number] 03/11/24 32309-456-61 [email or web address] VIS Given Date VIS Provided VIS Publication Date 08/24/23 Single Vaccine 21 Eligibility Eligibility Date Funding Source Not [facility] Eligible 08/24/23 Private Assessment & Plan Assessment & Plan (1) Encounter for Medicare annual wellness exam: Code(s): Z00.00 - Encounter for general adult medical examination without abnormal findings Plan: Repeat in a year. (2) Diabetes mellitus: Code(s): E11.9 - Type 2 diabetes mellitus without complications Qualifiers: Diabetes mellitus type: type 2 Diabetes mellitus intermodal customer service insulin use: without intermodal customer service use Diabetes mellitus complication status: with hyperglycemia Qualified Code(s): E11.65 - Type 2 diabetes mellitus with hyperglycemia Plan: Increase metformin. A1c goal is equal or less than 7%. Orders: Orders Vitamin B12 and Folate 4 Months E53.8 - Deficiency of other specified B group vitamins Comprehensive Olds. Panel Fast 4 Months E11.9 - Type 2 diabetes mellitus without complications Lipid Panel 4 Months E78.5 - Hyperlipidemia, unspecified Microalbumin, Random (w Creat) 4 Months E11.9 - Type 2 diabetes mellitus without complications Vitamin D 25-OH Total 4 Months E55.9 - Vitamin D deficiency, unspecified Thyroid Stimulating Hormone 4 Months E06.3 - Autoimmune thyroiditis Influenza [id number] Immunization Today Z23 - Encounter for immunization Medications: New metformin 850 mg PO BID 90 days 180 tabs 2RF E11.9 - Type 2 diabetes mellitus without complications Discontinued metformin Discontinued Reason: Patient Completed Course 500 mg PO BID 90 days 180 tabs 1RF E11.9 - Type 2 diabetes mellitus without complications Quality Reporting (2019) Depression/Bipolar (159/160/161/177) PHQ-9: Total score: 6 Coding Level of Care Code Medicare Subsequent (G0439) Diagnoses Encounter for Medicare annual wellness exam Z00.00 Type 2 diabetes mellitus with hyperglycemia, without long-term current use of insulin E11.65 Diabetes mellitus type: type 2 Diabetes mellitus intermodal customer service insulin use: without senior care use Diabetes mellitus complication status: with hyperglycemia CPT Codes Advance Care Planning - Time spent: 1-15 minutes, on File ([id number]) Additional Codes JUAN-7 Assessment Billing - JUAN-7 Assessment Tool: JUAN-7 Assessment [id number] ([id number]) Time Spent (min) 38 Advance Care Planning Advance Care Planning discussion: Completed/Scanned Date of discussion: 08/24/23 Who was present: patient and me Forms completed: MOLST Time spent: 1-15 minutes, on File Actual minutes spent: 5
[2023-08-24 08:41] VITALS: BP 120/82; BMI 35.3
== END 2023-08-24 09:13 | disposition home or self-care (01) ==
PROVIDERS: Visit Provider Internal Medicine
DX: Z00.00 Encounter for general adult medical examination without abnormal findings (principal); E11.65 Type 2 diabetes mellitus with hyperglycemia; Z23 Encounter for immunization
CPT/HCPCS: 1123F; 90471; 90686; G0439

== ENCOUNTER 2023-10-12 13:52 | Outpatient (REF) | payer OTHER, SELFPAY ==
--- NOTE | ~2023-10-12 | MM_ITS ---
EXAMINATION: MM SCREENING DIGITAL BREAST TOMOSYNTHESIS, BILATERAL CLINICAL INFORMATION: Screening. Asymptomatic. COMPARISON: Mammography: This study is compared with prior exams dating back to 2018. TECHNIQUE: Digital breast tomosynthesis is performed in both the craniocaudal and mediolateral oblique views along with computer-aided detection (CAD). Synthesized 2D images are generated from the tomosynthesis. FINDINGS: There are scattered areas of fibroglandular density (ACR BI-RADS breast composition Category b). There are no significant masses, abnormal calcifications, or other abnormalities. There are left periareolar changes of scarring from prior benign percutaneous biopsy. MM/MM tomosynthesis screening BI IMPRESSION: No mammographic evidence of malignancy. ASSESSMENT: BI-RADS BI-RADS 2 - Benign Findings RECOMMENDATION: Routine annual mammography screening. 1 year F/U This examination should not preclude the clinical evaluation of a suspicious palpable abnormality. This patient's information was entered into a reminder system with a target due date for their next mammogram.
== END 2023-10-12 13:53 | disposition home or self-care (01) ==
LOC: HO.MAMMO 13:52
PROVIDERS: PCP Internal Medicine; Visit Provider Internal Medicine
DX: Z12.31 Encounter for screening mammogram for malignant neoplasm of breast (principal)
CPT/HCPCS: 77063; 77067

== ENCOUNTER → 2023-10-12 14:00 | Outpatient (BNV) | payer OTHER, SELFPAY | PROVIDERS: PCP Internal Medicine; Visit Provider Radiology Diagnostic Radiology | DX: Z12.31 Encounter for screening mammogram for malignant neoplasm of breast (principal) | CPT/HCPCS: 77063; 77067 ==

== ENCOUNTER 2023-11-10 08:40 | Outpatient (REF) | payer OTHER, SELFPAY ==
[2023-11-10 10:14] LABS: Influenza A PCR NEGATIVE (Negative); Influenza B PCR NEGATIVE (Negative); Resp Syncy Virus RNA Qual PCR NEGATIVE (Negative); SARS COV2 PCR INHOUSE NEGATIVE (Negative)
== END 2023-11-10 08:41 | disposition home or self-care (01) ==
LOC: HO.LAB 08:40
PROVIDERS: Visit Provider Internal Medicine
DX: Z11.52 Encounter for screening for COVID-19 (principal); Z20.822 Contact with and (suspected) exposure to COVID-19; R09.89 Other specified symptoms and signs involving the circulatory and respiratory systems
CPT/HCPCS: 0241U

== ENCOUNTER 2023-12-16 14:53 | Outpatient (AMB) | payer OTHER, SELFPAY ==
[2023-12-16 14:54] VITALS: BP 138/71; PULSE 86; BMI 35.2
--- NOTE | 2023-12-16 14:54 | A.OFFVIS_ITS ---
Intake Vital Signs 12/16/23 14:54 Height 4 ft 11 in Weight 174 lb 2.643 oz BMI 35.2 BP 138/71 Blood Pressure Location Rt brachial Position Sitting Pulse 86 Intake Visit Reasons: s/p colonosocopy Intake Note: Patient in office today in follow up s/p colonoscopy. CC: Patient reports epigastric burning and would like to try a different medication. Denies other GI symptoms today. 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 Accompanied by: Self / Same As Patient Allergies adhesive tape Allergy (Intermediate, Verified 12/16/23 14:57) Blister No Known Drug Allergies Allergy (Unknown, Verified 12/16/23 14:57) none HPI s/p colonosocopy HPI Details Assessment & Plan (1) GERD (gastroesophageal reflux diseas e): Code(s): K21.9 - Gastro-esophageal reflux disease without esophagitis Qualifiers: Esophagitis presence: esophagitis presence not specified Qualified Code(s): K21.9 - Gastro-esophageal reflux disease without esophagitis Plan: Jordanian #Lynn Carrasquillo She ran out of her Dexilant a couple of weeks ago, puzzling to me as I had refil led it 05/19. ? if we need to do a PA via insurance. She is no longer taking simethicone and does not feel she needs it. I will have my staff check into the PA status. She is apparently on a wait list for colonoscopy. I will send a note to the schedulers to verify that this is the case to make sure there actually is a plan to get her scheduled. ROV 6 mos. (2) Epigastric pain: Code(s): R10.13 - Epigastric pain (3) Early satiety: Comment: 2020-gastric emptying study normal but s he was taking Reglan at the time., this seems to have resolved Code(s): R68.81 - Early satiety (4) Constipation: Comment: Received to have resolved Code(s): K59.00 - Constipation, unspecified Medications: Changed From dexlansoprazole (D exilant) 60 mg PO QAM 30 c aps 2RF K59.00 - Constipat ion, unspecified To dexlansoprazole (D exilant) 60 mg PO QAM 90 d ays 90 caps 1RF K59.00 - Constipat ion, unspecified COLONOSCOPY 07/26/23 Findings: Terminal Ileum- superficially intubated and normal Cecum: 5-6 mm sessile polyp removed with cold forceps Ascending Colon: normal Transverse Colon -normal Descending Colon:normal Sigmoid Colon: normal Rectum: Retroflexion with small internal hemorrhoids, grade I Anorectum - normal Impression and Post Procedure Diagnosis: polyp internal hemorrhoids Plan: High fiber diet leaflet Avoid straining at stool, epsom salts and sitz bath, anusol supps or cream Repeat Colonoscopy in 2-3 years due to fair prep in some areas or earlier if clinically indicated BIOPSY Received: 07/26/23 Diagnosis Cecum, polypectomy: Fragments of sessile serrated lesion/polyp; negative for cytologic dysplasia CORRESPONDENCE On 06/07/23 @ 15:30 Nu Baez Wrote To Bear Per pharmacy Pt picked up her Dexilant on 05/27/23. On 06/07/23 @ 13:11 ChemaVelia Wrote To Nu Baez She has not been getting her Dexilant please see if it needs a PA. Th TODAY'S VISIT Jordanian #[id number] Jose E. She is agreeable to a 3 year recall. She denies eating or having any difficulty with the prep. The procedure was well tolerated. The results were explained and the patient is agreeable to the follow-up interval as stated. The bowel pattern has returned to normal. Education was provided to tell any 1st degree relatives about their findings to be sure that they are screened by age 45. Educated that they will be put on a recall list when it is time for their repeat scope but should they move out of state or away from the hospital they will need to remember along with their primary to repeat the procedure in a timely fashion to avoid any adverse complications. She feels that her Dexilant is no longer working well to control her GERD. She denies any other medication changes, weight gain, illness or big diet changes preceding this change in her status. I think will try putting her on the generic for Nexium and go from there with twice a day 40 mg dosing. This of course will also depend on insurance coverage. Return office visit in 8 weeks to evaluate the medication change. [facility] Medical History Gastritis Dyspnea Encounter for Medicare annual wellness exam Hyperlipidemia LDL goal <70 Cough Leukocytosis Osteoarthritis of right knee Hyperkalemia Muscle spasm Adult general medical exam Screening for colon cancer Screening for diabetes mellitus Screening for breast cancer Epigastric pain Constipation Pre-op examination Diabetes Osteoporosis Difficulty swallowing Bilateral knee pain Urge urinary incontinence Impaired glucose tolerance Hypothyroidism Autoimmune thyroiditis Pure hypercholesterolemia GERD (gastroesophageal reflux disease) Surgical History Status post total right knee replacement History of right knee surgery History of esophagogastroduodenoscopy (EGD) Hx of colonoscopy History of appendectomy History of partial hysterectomy Hx of tubal ligation HX: benign breast biopsy Hx of thyroidectomy Family History Father Prostate cancer Mother Diabetes mellitus Sister Heart problem Social History Household Members: Children Housing: Apartment Are you a primary manager wound care to a significant other at home: No Do you presently have visiting nurse or other home services: No Alcohol intake: never Patient Tobacco Use Status: Current everyday Tobacco user Tobacco use type: Cigarette Cigarettes Per Day: 10 Years Smoked: 40 e-Cigarette/Vaping Use: Never Used Second Hand Smoke Exposure: Yes service: No Current occupational status: unemployed Current occupational exposures/hazards: No Cognitive needs: No Hearing needs: No Vision needs: Yes Review of Systems Const Denies fatigue, Denies fever(s), Denies night sweats, Denies poor appetite and Denies weight loss Eyes Details: glasses Reports requires corrective lenses ENT Reports Normal hearing present, Denies dental pain, Denies dysphagia, Denies hearing loss, Denies mouth pain, Denies odynophagia, Denies throat swelling, Denies tongue swelling and Reports other (Dentition adequate) Card Reports no additional complaints Resp Reports no additional complaints GI Details: Denies abdominal pain, Denies melena, Denies bloating, Denies hematochezia, Denies constipation, Denies GI cramping, Denies dysphagia, Denies excessive flatus, Denies early satiety, Reports heartburn, Denies diarrhea, Denies nausea, Denies odynophagia, Denies vomiting and Denies hematemesis Skin/Breast Denies pruritus, Denies lesions, Denies rash and Denies jaundice Neuro Reports Normal hearing present and Denies Abnormal speech present Endo Denies fatigue Aller/Immun Denies throat swelling and Denies tongue swelling Physical Exam Vital Signs: Last Vital Signs Pulse 86 12/16/23 14:54 BP 138/71 12/16/23 14:54 BMI result Body Mass Index 35.2 Const General: cooperative, no acute distress, well developed and well groomed Nutritional Appearance: well nourished and obese Orientation/consciousness: oriented to person, oriented to place and oriented to time Limitations: language barrier and ambulation with cane HEENT Head: Yes normocephalic and Yes atraumatic Eyes General: appearance normal, both eyes and all related structures Pupils: Equal, round and reactive pupils present Neck Neck: Yes normal visual inspection and Yes no lymphadenopathy Thyroid: Thyroid normal Resp Effort & Inspection: normal respiratory effort and able to speak in complete sentences Auscultation: clear to auscultation bilaterally Cardio Rate: regular rate Rhythm: regular rhythm Heart sounds: Normal, physiologic split S2 sound present Peripheral pulses: radial pulses present and posterior tibial pulses present GI Inspection: No distended, Yes Abdominal panniculus present and Yes obesity Palpation (GI): Soft to palpation, nontender, no guarding, not rigid and No hepatosplenomegaly present Percussion: Yes normal to percussion Auscultation: normal bowel sounds Rectal Exam - Female: deferred Skin General skin exam: no rashes or lesions noted, turgor normal, skin not dry, no jaundice, No spider nevi and no striae Rashes: no rashes Nails: normal Neuro General: oriented to person, oriented to place and oriented to time Cranial nerves: Yes Equal, round and reactive pupils present and Yes Normal hearing present Speech: No Abnormal speech present Extrem General: Yes normal to inspection, No clubbing, No cyanosis and No edema Psych Appearance: grossly normal and well kempt Mental Status: mental status grossly normal Speech and movement: Normal speech and movement present Affect: normal affect Attitude: cooperative Thought process: Normal thought process present and not confabulating Thought content: Normal thought content present Insight: Limited insight present (Psych) Judgement: Limited judgement present (Psych) Results Reviewed Results Reviewed: COLONOSCOPY 07/26/23 Findings: Terminal Ileum- superficially intubated and normal Cecum: 5-6 mm sessile polyp removed with cold forceps Ascending Colon: normal Transverse Colon -normal Descending Colon:normal Sigmoid Colon: normal Rectum: Retroflexion with small internal hemorrhoids, grade I Anorectum - normal Impression and Post Procedure Diagnosis: polyp internal hemorrhoids Plan: High fiber diet leaflet Avoid straining at stool, epsom salts and sitz bath, anusol supps or cream Repeat Colonoscopy in 2-3 years due to fair prep in some areas or earlier if clinically indicated BIOPSY Received: 07/26/23 Diagnosis Cecum, polypectomy: Fragments of sessile serrated lesion/polyp; negative for cytologic dysplasia Assessment & Plan Assessment & Plan (1) Family history of colon cancer: Comment: sister 2023 SCOPE= SESSILE SERRATED POLYP REPEAT IN 2-3 YEARS DUE TO FAIR PREP Code(s): Z80.0 - Family history of malignant neoplasm of digestive organs (2) GERD (gastroesophageal reflux disease): Code(s): K21.9 - Gastro-esophageal reflux disease without esophagitis Qualifiers: Esophagitis presence: esophagitis presence not specified Qualified Code(s): K21.9 - Gastro-esophageal reflux disease without esophagitis (3) Tubular adenoma of colon: Comment: 2023 SCOPE= SESSILE SERRATED POLYP REPEAT IN 2-3 YEARS DUE TO FAIR PREP Code(s): D12.6 - Benign neoplasm of colon, unspecified Plan Jordanian #[id number] Jose E. She is agreeable to a 3 year recall. She denies eating or having any difficulty with the prep. The procedure was well tolerated. The results were explained and the patient is agreeable to the follow-up interval as stated. The bowel pattern has returned to normal. Education was provided to tell any 1st degree relatives about their findings to be sure that they are screened by age 45. Educated that they will be put on a recall list when it is time for their repeat scope but should they move out of state or away from the hospital they will need to remember along with their primary to repeat the procedure in a timely fashion to avoid any adverse complications. She feels that her Dexilant is no longer working well to control her GERD. She denies any other medication changes, weight gain, illness or big diet changes preceding this change in her status. I think will try putting her on the generic for Nexium and go from there with twice a day 40 mg dosing. This of course will also depend on insurance coverage. Return office visit in 8 weeks to evaluate the medication change. Medications: New esomeprazole magnesium 40 mg PO BID 60 caps 6RF K21.9 - Gastro-esophageal reflux disease without esophagitis Discontinued dexlansoprazole (Dexilant) Discontinued Reason: Doctor's Order 60 mg PO QAM 90 days 90 caps 1RF K59.00 - Constipation, unspecified Coding Level of Care Code Est Pt Level 3 (01644) Diagnoses Family history of colon cancer Z80.0 Gastroesophageal reflux disease, unspecified whether esophagitis present K21.9 Esophagitis presence: esophagitis presence not specified Tubular adenoma of colon D12.6
== END 2023-12-16 15:42 | disposition home or self-care (01) ==
PROVIDERS: PCP Internal Medicine; Visit Provider Nurse Practitioner
DX: Z80.0 Family history of malignant neoplasm of digestive organs (principal); K21.9 Gastro-esophageal reflux disease without esophagitis; D12.6 Benign neoplasm of colon, unspecified
CPT/HCPCS: 99213

== ENCOUNTER → 2023-12-16 14:53 | Outpatient (BNVA) | payer OTHER, SELFPAY | PROVIDERS: PCP Internal Medicine; Visit Provider Nurse Practitioner | DX: K21.9 Gastro-esophageal reflux disease without esophagitis (principal); D12.6 Benign neoplasm of colon, unspecified; Z80.0 Family history of malignant neoplasm of digestive organs | CPT/HCPCS: 99212 ==

== ENCOUNTER 2023-12-24 08:53 | Outpatient (REF) | payer OTHER, SELFPAY ==
[2023-12-24 10:04] LABS: Alanine Aminotransferase 36 U/L (0-31); Albumin Level 4.2 g/dL (3.5-5.0); Alkaline Phosphatase 91 U/L (39-117); Anion Gap 14 (12-20); Aspartate Amino Transferase 28 U/L (5-31); Bilirubin Total 0.3 mg/dL (0.0-1.0); Blood Urea Nitrogen 23 mg/dL (9-16); Calcium 10.4 mg/dL (8.4-10.2); Carbon Dioxide 27 mmol/L (22-29); Chloride 105 mmol/L (96-108); Cholesterol 141 mg/dL (<200); Estimated Glomerular Filt Rate > 60; Glucose Fasting 132 mg/dL (60-99); HDL Cholesterol 44 mg/dL (>40); LDL Cholesterol Calculated 78 mg/dL (<100); Potassium 4.6 mmol/L (3.3-5.1); Sodium 141 mmol/L (135-145); Total Protein 7.7 g/dL (6.5-8.0); Triglycerides 98 mg/dL (<150)
[2023-12-24 10:20] LABS: Thyroid Stimulating Hormone 2.62 uIU/mL (0.32-4.0); Vitamin D 25-OH Total 42.1 ng/mL (>30)
[2023-12-24 10:24] LABS: Creatinine Urine 153.12 mg/dL; Microalbum/Creatinine Ratio Ur 17.6 ug/mg cr (<30)
[2023-12-24 10:33] LABS: Folate 9.6 ng/mL (> or = 4.0); Vitamin B12 242 pg/mL (200-900)
== END 2023-12-24 08:54 | disposition home or self-care (01) ==
LOC: HO.LAB 08:53
PROVIDERS: PCP Internal Medicine; Visit Provider Internal Medicine
DX: E53.8 Deficiency of other specified B group vitamins (principal); E11.9 Type 2 diabetes mellitus without complications; E06.3 Autoimmune thyroiditis; E55.9 Vitamin D deficiency, unspecified; E78.5 Hyperlipidemia, unspecified
CPT/HCPCS: 36415; 80053; 80061; 82043; 82306; 82570; 82607; 82746; 84443

== ENCOUNTER 2023-12-27 14:02 | Outpatient (AMB) | payer OTHER, MEDICAID, SELFPAY ==
[2023-12-27 14:08] VITALS: BP 130/70; BMI 34.9
--- NOTE | 2023-12-27 14:08 | A.OFFPC_ITS ---
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 Accompanied by: Self / Same As Patient Allergies adhesive tape Allergy (Intermediate, Verified 12/27/23 14:20) Blister No Known Drug Allergies Allergy (Unknown, Verified 12/27/23 14:20) none Medication List - Last Reconciled 12/27/23 by Christina Lara MD albuterol sulfate 90 mcg/actuation (Ventolin HFA) 2 puffs inhalation Q6H PRN 30 days blood sugar diagnostic As directed Once per day blood sugar diagnostic (OneTouch Ultra Test strips) test daily blood-glucose meter (OxagenTouch Ultra2 Meter) test daily blood-glucose meter As directed cholecalciferol (vitamin D3) (Vitamin D3) 25 mcg PO DAILY esomeprazole magnesium 40 mg PO BID Grab bar As directed lancets As directed Once per day lancets (OxagenTouch UltraSoft 2 Lancet) test daily levothyroxine 88 mcg PO DAILY 90 days metformin 850 mg PO BID 90 days rosuvastatin 10 mg PO DAILY 90 days Shower Chair As directed walker Folding Front wheeled walker Tobacco use date assessed: 12/27/23 Fall risk assessment: No Falls in past year Last assessed Fall Risk: 12/27/23 Dental Screening Dental Screen Date: 12/27/23 Did you have a dental visit in the last 12 months?: No Did you have a dental problem in the last 6 months where you did not have access to dental care?: No Was dental information given to patient?: Patient declined HPI HPI Comments History of Present Illness Details This is a 68-year-old female with diabetes mellitus type 2, GERD, autoimmune thyroiditis and pure hypercholesterolemia that comes today complaining of numbness and tingling of feet more prominent at bedtime that has been bothering her for few months. Also complains of persistent headaches which sometimes are on the right side or left side and last few hours. No neurological deficit associated with it. Has some blurry vision when headaches happen. Will order MRI of the brain. Headaches started over a month ago. Frequency is about every other day. A1c within goal. GERD stable. TSH is normal. LDL not on goal but close to. I will increase rosuvastatin from 10 mg to 20 mg. [facility] Medical History (Updated 12/27/23 @ 14:26 by Christina Lara MD) Gastritis Dyspnea Encounter for Medicare annual wellness exam Hyperlipidemia LDL goal <70 Cough Leukocytosis Osteoarthritis of right knee Hyperkalemia Muscle spasm Adult general medical exam Screening for colon cancer Screening for diabetes mellitus Screening for breast cancer Epigastric pain Constipation Pre-op examination Diabetes Osteoporosis Difficulty swallowing Bilateral knee pain Urge urinary incontinence Impaired glucose tolerance Hypothyroidism Autoimmune thyroiditis Pure hypercholesterolemia GERD (gastroesophageal reflux disease) Surgical History Status post total right knee replacement History of right knee surgery History of esophagogastroduodenoscopy (EGD) Hx of colonoscopy History of appendectomy History of partial hysterectomy Hx of tubal ligation HX: benign breast biopsy Hx of thyroidectomy Family History Father Prostate cancer Mother Diabetes mellitus Sister Heart problem Social History Household Members: Children Housing: Apartment Are you a primary healthcare prof to a significant other at home: No Do you presently have visiting nurse or other home services: No Alcohol intake: never Patient Tobacco Use Status: Current everyday Tobacco user Tobacco use type: Cigarette Cigarettes Per Day: 6 Years Smoked: 40 e-Cigarette/Vaping Use: Never Used Second Hand Smoke Exposure: Yes service: No Current occupational status: unemployed Current occupational exposures/hazards: No Cognitive needs: No Hearing needs: No Vision needs: Yes Questionnaire PHQ-9 Over the last 2 weeks, how often have you been bothered by any of the following problems? 1. Little interest or pleasure in doing things: not at all 2. Feeling down, depressed, or hopeless: not at all 3. Trouble falling or staying asleep, or sleeping too much: not at all 4. Feeling tired or having little energy: not at all 5. Poor appetite or overeating: not at all 6. Feeling bad about yourself - or that you are a failure or have let yourself or your family down: not at all 7. Trouble concentrating on things, such as reading the newspaper or watching television: not at all 8. Moving or speaking so slowly that other people could have noticed. Or the opposite - being so fidgety or restless that you have been moving around a lot more than usual: not at all 9. Thoughts that you would be better off or of hurting yourself in some way: not at all Total score: 0 Depression Screening Interpretation: Negative Depression Screening Done: Yes 04953 - PHQ-9 Billing: Yes Source: Developed by Drs. Jermaine Yanes, Xenia Monsivais, Pan Liu and colleagues, with an educational claude from [employer]. Thrive Questionnaire Date Thrive assessed: 12/27/23 I am a: Patient What is your living situation today?: I have a steady place to live Within the past 12 months, did the food you bought not last and you didn't have the money to get more?: Never true Within the past 12 months, did you worry whether your food would run out before you got money to buy more?: Never true Do you have trouble paying for medicines?: No Do you have trouble getting transportation to medical appointments?: No Do you have trouble paying your heating and electricity bill?: No Do you have trouble taking care of your child, family member or friend?: No Do you have trouble with day-to-day activities such as bathing, preparing meals, shopping, managing finances, etc.?: Yes Are you currently unemployed and looking for a job?: No Are you interested in more education?: No Please select the resources that you would like help with: None Currently or been in a relationship where the following occur: no concerns reported THRIVE Score: 0 AUDIT C Alcohol Use Questionnaire (AUDIT-C) 1. How often do you have a drink containing alcohol?: Never Total Score: 0 JUAN-7 AMB Questionnaire JUAN-7 Date JUAN - 7 assessed: 12/27/23 Feeling nervous, anxious, or on edge: 0 = Not at all Not being able to stop or control worryin = Not at all Worrying too much about different things: 0 = Not at all Trouble relaxin = Not at all Being so restless that it is hard to sit still: 0 = Not at all Becoming easily annoyed or irritable: 0 = Not at all Feeling afraid as if something awful might happen: 0 = Not at all Total JUAN-7 score (0-4 normal; 5-9 mild; 10-14 moderate; 15-21 severe): 0 Source: Developed by Drs. Jermaine Yanes, Xenia Monsivais, Pan Liu and colleagues, with an educational claude from [employer]. JUAN-7 Assessment Billing JUAN-7 Assessment Tool: JUAN-7 Assessment 58918 Review of Systems Const All systems reviewed & are unremarkable except as noted in HPI and below Eyes Reports no additional complaints, Denies change in vision and Denies other visual disturbances Card Denies chest pain at rest, Denies chest pain with activity, Denies edema, Denies irregular heart rhythm, Denies claudication, Denies dyspnea, Denies dyspnea on exertion, Denies orthopnea, Denies paroxysmal nocturnal dyspnea and Denies slow heart rate Resp Denies cough, Denies dyspnea and Denies dyspnea on exertion Physical exam (Primary Care) Vital Signs: Last Vital Signs BP 130/70 12/27/23 14:08 BMI result Body Mass Index 34.9 Tobacco/Smoking Status: Tobacco use Status Tobacco use date assessed 12/27/23 12/27/23 14:13 Patient Tobacco Use Status Current everyday Tobacco 12/27/23 14:13 Tobacco use type Cigarette 12/27/23 14:13 e-Cigarette/Vaping Use Never Used 12/27/23 14:13 PHQ-9: PHQ-9 Score PHQ-9: Total score 0 12/27/23 14:21 Depression Screening Interpretation: Negative Thrive Assessment: Date of Thrive Assessment Date Thrive assessed 12/27/23 12/27/23 14:13 Currently or been in a relationship where the following occur: no concerns reported Const Orientation/consciousness: patient oriented x3 Resp Effort & Inspection: normal respiratory effort Auscultation: clear to auscultation bilaterally Cardio Jugular venous distension: no JVD Rate: regular rate Rhythm: regular rhythm Heart sounds: S1 normal heart sound present and S2 normal heart sound present Neuro General: patient oriented x3 and no focal motor deficits Extrem General: Yes full ROM Results AMB Hemoglobin A1c AMB Hemoglobin A1c 6.4 % Last Edit by CORINNA Sales on 12/27/23 14:1 4 Results Reviewed Results Reviewed: Laboratory Last Values Hgb A1c (Clinic) 6.4 % (4.0-6.0) H 12/27/23 14:07 Assessment and Plan Assessment & Plan (1) Diabetes mellitus: Code(s): E11.9 - Type 2 diabetes mellitus without complications Qualifiers: Diabetes mellitus type: type 2 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 A1c goal is equal or less than 7%. (2) Autoimmune thyroiditis: Code(s): E06.3 - Autoimmune thyroiditis Plan: Continue levothyroxine. Monitor TSH. (3) Pure hypercholesterolemia: Code(s): E78.00 - Pure hypercholesterolemia, unspecified Plan: Increase rosuvastatin from 10 mg to 20 mg. LDL goal is less than 70. (4) GERD (gastroesophageal reflux disease): Code(s): K21.9 - Gastro-esophageal reflux disease without esophagitis Qualifiers: Esophagitis presence: esophagitis presence not specified Qualified Code(s): K21.9 - Gastro-esophageal reflux disease without esophagitis Plan: Continue PPIs as needed. (5) Persistent headaches: Code(s): R51.9 - Headache, unspecified Plan: MRI of the brain ordered. (6) Paresthesia of both feet: Code(s): R20.2 - Paresthesia of skin Plan: Nerve conduction study ordered. Start gabapentin. Patient is aware that gabapentin can cause sleepiness and dizziness. Orders: Orders Microalbumin, Random (w Creat) 5 Months E11.9 - Type 2 diabetes mellitus without complications Vitamin D 25-OH Total 5 Months E55.9 - Vitamin D deficiency, unspecified Thyroid Stimulating Hormone 5 Months E06.3 - Autoimmune thyroiditis AMB Hemoglobin A1c Today E11.65 - Type 2 diabetes mellitus with hyperglycemia MR head/brain wo con Today R51.9 - Headache, unspecified NE nerve conduction velocity Today R20.2 - Paresthesia of skin Lipid Panel 5 Months E78.5 - Hyperlipidemia, unspecified Comprehensive [place]. 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
== END 2023-12-27 14:31 | disposition home or self-care (01) ==
PROVIDERS: PCP Internal Medicine; Visit Provider Internal Medicine
DX: E11.65 Type 2 diabetes mellitus with hyperglycemia (principal); E06.3 Autoimmune thyroiditis; E78.00 Pure hypercholesterolemia, unspecified; K21.9 Gastro-esophageal reflux disease without esophagitis; R51.9 Headache, unspecified; R20.2 Paresthesia of skin
CPT/HCPCS: 83036; 99214

== ENCOUNTER 2024-01-10 08:34 | Outpatient (REF) | payer OTHER, SELFPAY ==
--- NOTE | 2024-01-10 08:39 | EMG_ITS ---
Bilateral tibial and peroneal motor studies were performed. Bilateral superficial peroneal, sural and median and lateral plantar mixed studies were performed. Paraspinal muscles were tested with a needle. 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 MD LONNIE Lo/JULEE / [phone]
== END 2024-01-10 08:35 | disposition home or self-care (01) ==
LOC: HO.NEURO 08:34
PROVIDERS: PCP Internal Medicine; Visit Provider Internal Medicine
DX: R20.2 Paresthesia of skin (principal)
CPT/HCPCS: 95886; 95913

== ENCOUNTER 2024-01-11 18:54 | Outpatient (REF) | payer OTHER, SELFPAY ==
--- NOTE | ~2024-01-11 | MR_ITS ---
EXAMINATION: MR BRAIN WITHOUT CONTRAST CLINICAL INFORMATION: Headache COMPARISON: None. TECHNIQUE: MRI of the brain was obtained using routine sequences without contrast. FINDINGS: No acute infarct. No acute intracranial hemorrhage or extra-axial fluid collection. Moderate global cerebral volume loss. Patchy T2 FLAIR hyperintense foci in the subcortical and periventricular white matter, nonspecific but presumably mild chronic microangiopathy. No mass lesion, mass effect, or herniation pattern. Normal intracranial arterial and dural venous sinus flow voids. Normal appearance of the midline structures. The orbits are grossly unremarkable. Dependent retention cyst in the left sphenoid sinus. Trace ethmoid air cell mucosal thickening and mild left maxillary sinus mucosal disease. No mastoid effusion. Incompletely imaged cervical spondylosis. MR/MR head/brain wo con IMPRESSION: No acute intracranial abnormality. Moderate global cerebral volume loss and supratentorial white matter disease likely reflective of mild chronic microangiopathy.
== END 2024-01-11 18:55 | disposition home or self-care (01) ==
LOC: HO.MRI 18:54
PROVIDERS: PCP Internal Medicine; Visit Provider Internal Medicine
DX: R51.9 Headache, unspecified (principal)
CPT/HCPCS: 70551

== ENCOUNTER 2024-01-21 17:09 | Emergency (ER) | payer OTHER, SELFPAY ==
--- NOTE | ~2024-01-21 | XR_ITS ---
EXAMINATION: XR CHEST CLINICAL INFORMATION: Cough for one month COMPARISON: Chest radiograph 08/22/2023. TECHNIQUE: 2 views of the chest were obtained. FINDINGS: Clear lungs. No pleural effusion or pneumothorax. Cardiomediastinal silhouette is unchanged. XR/XR chest 2V IMPRESSION: No acute cardiopulmonary abnormality.
[2024-01-21 18:04] VITALS: BP 168/90; PULSE 90; RESP 20; TEMP 36.8; O2SAT 97; BMI 32.2
--- NOTE | 2024-01-21 18:05 | ED.URI ---
HPI - URI/Sore Throat General Chief Complaint: Upper Respiratory Symptoms Stated Complaint: headache,cough eye drainage Time Seen by Provider: 01/21/24 19:12 Source: patient and family Mode of arrival: ambulatory Limitations: no limitations History of Present Illness HPI Narrative: 68-year-old female with a past medical history of diabetes, asthma presents to the emergency department, with family, frequency urgency 1 month history of cough. She reports over the last 3 days she is also noted sore throat, nasal congestion, headache, and eye drainage. She states she was recently evaluated in her primary care office, just for COVID which was negative, and discharged home. She reports symptoms have not resolved. She denies any fevers, chills, shortness of breath chest pain, abdominal pain, nausea vomiting, diarrhea Pertinent positives and negatives discussed in HPI Related Data Home Medications ?Medication ?Instructions ?Recorded ?Confirmed cholecalciferol (vitamin D3) 25 25 mcg PO DAILY 06/07/23 12/27/23 mcg (1,000 unit) capsule (Vitamin D3) Previous Rx's ?Medication ?Instructions ?Recorded walker #1 ea 01/06/23 Shower Chair #1 ea 01/12/23 blood sugar diagnostic #100 ea 02/25/23 blood-glucose meter #1 ea 02/25/23 lancets 33 gauge #100 ea 02/25/23 blood sugar diagnostic (OneTouch #100 ea 06/22/23 Ultra Test strips) lancets 30 gauge (OneTouch #100 ea 06/22/23 UltraSoft 2 Lancet) levothyroxine 88 mcg tablet 88 mcg PO DAILY 90 days #90 tabs 08/12/23 metformin 850 mg tablet 850 mg PO BID 90 days #180 tabs 08/24/23 albuterol sulfate 90 mcg/actuation 2 puff inhalation Q6H PRN 09/14/23 aerosol inhaler (Ventolin HFA) shortness of breath or wheezing 30 days #8.5 grams Grab bar #1 ea 11/29/23 blood-glucose meter (OneTouch #1 ea 11/29/23 Ultra2 Meter) esomeprazole magnesium 40 mg 40 mg PO BID #60 caps 12/16/23 capsule,delayed release gabapentin 100 mg capsule 100 mg PO BEDTIME 90 days #90 caps 12/27/23 rosuvastatin 20 mg tablet 20 mg PO DAILY 90 days #90 tabs 12/27/23 benzocaine 15 mg-menthol 2.6 mg 1 krystina mucous membrane Q2-4H PRN 01/21/24 lozenges (Cepacol Sore Throat sore throat #16 ea (benzocaine-menthol)) benzocaine 15 mg-menthol 2.6 mg 1 krystina mucous membrane Q2-4H PRN 01/21/24 lozenges (Cepacol Sore Throat sore throat #16 ea (benzocaine-menthol)) erythromycin 5 mg/gram (0.5 %) eye 1 appl ophthalmic (eye) DAILY #3.5 01/21/24 ointment grams guaifenesin 600 mg tablet, 600 mg PO Q12H PRN cough #30 tabs 01/21/24 extended release 12 hr (Mucinex) guaifenesin 600 mg tablet, 600 mg PO Q12H PRN cough #30 tabs 01/21/24 extended release 12 hr (Mucinex) polymyxin B sulfate 10,000 1 drp ophthalmic (eye) Q3H 7 days 01/21/24 unit-trimethoprim 1 mg/mL eye drops #10 mL Allergies Allergy/AdvReac Type Severity Reaction Status Date / Time No Known Drug Allergies Allergy Unknown none Verified 01/21/24 18:06 Review of Systems Review of Systems: Yes all other systems are reviewed and are negative PMFSH Past Medical History Medical History Gastritis Dyspnea Encounter for Medicare annual wellness exam Hyperlipidemia LDL goal <70 Cough Leukocytosis Osteoarthritis of right knee Hyperkalemia Muscle spasm Adult general medical exam Screening for colon cancer Screening for diabetes mellitus Screening for breast cancer Epigastric pain Constipation Pre-op examination Diabetes Osteoporosis Difficulty swallowing Bilateral knee pain Urge urinary incontinence Impaired glucose tolerance Hypothyroidism Autoimmune thyroiditis Pure hypercholesterolemia GERD (gastroesophageal reflux disease) Surgical History Status post total right knee replacement History of right knee surgery History of esophagogastroduodenoscopy (EGD) Hx of colonoscopy History of appendectomy History of partial hysterectomy Hx of tubal ligation HX: benign breast biopsy Hx of thyroidectomy Family History Family History Father Prostate cancer Mother Diabetes mellitus Sister Heart problem Social History Social History Household Members: Children Housing: Apartment Are you a primary child care center assistant director to a significant other at home: No Do you presently have visiting nurse or other home services: No Alcohol intake: never Patient Tobacco Use Status: Current everyday Tobacco user Tobacco use type: Cigarette Cigarettes Per Day: 6 Years Smoked: 40 e-Cigarette/Vaping Use: Never Used Second Hand Smoke Exposure: Yes Advance Directives: No Advance Directives Information Provided: No Do you have a plan to hurt others: No Plan service: No Current occupational status: unemployed Current occupational exposures/hazards: No Cognitive needs: No Hearing needs: No Vision needs: Yes Physical Exam Vital Signs: Vital Signs: Last Vital Signs Temp 98.3 F 01/21/24 18:04 Pulse 90 01/21/24 18:04 Resp 20 01/21/24 18:04 BP 168/90 H 01/21/24 18:04 Pulse Ox 97 01/21/24 18:04 O2 Del Method Room Air 01/21/24 18:04 BMI result Body Mass Index 32.2 Nursing notes and vital signs reviewed. GENERAL APPEARANCE: A&0 x 4, generally well appearing, no acute distress HENMT: Normal to inspection, atraumatic, face symmetrical. Normal external ears, nose, and oropharynx clear. EYE: PERRLA, EOM intact, structures appear normal NECK: Supple without lymphadenopathy. No stiffness or restricted ROM. CHEST: Normal to inspection HEART: Normal rate and regular rhythm, normal S1/S2, no M/R/G LUNGS: LS CTA, moving air well. Able to speak in complete sentences. No crackles, wheezes, or rhonchi auscultated ABDOMEN: Soft, nontender, nondistended. Normal bowel sounds noted BACK: No CVAT, no obvious deformity EXTREMITIES: Moving all extremities without difficulty. No cyanosis, clubbing, or edema. Normal capillary refill. NEUROLOGICAL: Alert and oriented, moving all 4 extremities with equal strength. CN not formally tested but appearing grossly intact. Observed to ambulate with normal gait. Cognition normal SKIN: Warm and dry without any lesions, rash, or visible sores PSYCH: Cooperative, normal affect, normal thought process Medical Decision Making Medical Decision Making MDM Narrative: Old records reviewed for previous imaging, lab studies, ECGs, and notes any additional HPI obtained from family. Patient was assessed the emergency department with no acute distress or toxicity noted. Chest x-ray showing no evidence of acute interpretation. Nasal serology positive for COVID which is consistent with patient's symptoms. Patient's eyes injected with discharge consistent with bacterial conjunctivitis and ointment and eye drops intubation preferred pharmacy for further management in addition to Mucinex and Cepacol for management of sore throat. Patient educated to increase her fluid intake to prevent dehydration. Patient is safe for discharge at this time with plan for [id number] Tylenol and/or NSAID such as ibuprofen or naproxen for fever/discomfort with dosing as per packaging. HPI, PE, diagnostics, and plan discussed with patient and family with no unanswered questions at this time. Strict return precautions given to return to the emergency department with new, worsening, or concerning emergent symptoms. Recommended to follow-up with there primary care provider in 24-48 hours for further treatment and management. Differential Diagnosis Differential Diagnoses: The differential diagnosis associated with the presentation includes But not limited to ACS, PE, CVA, pneumonia, viral syndrome, IO/allergic/bacterial conjunctivitis, sepsis, malignancy Lab Data MDM Lab Attestation statement: I reviewed the patient's lab results. Labs: Lab Results 01/21/24 Range/Units 18:17 Influenza Type A (PCR) NEGATIVE (Negative) Influenza Type B (PCR) NEGATIVE (Negative) RSV RNA Qual (PCR) NEGATIVE (Negative) SARS-CoV-2 RNA (RT-PCR) POSITIVE A (Negative) Independent Interpretation I performed an independent interpretation of an: Plain X-Ray Independent Historian Clinical information obtained from an independent historian. History obtained from or confirmed by: Other family External Record Review External record reviewed: Outpatient record, Prior outpatient labs and Prior outpatient radiology Chronic Conditions Patient?s care impacted by: Diabetes and Hypertension Discharge Plan Discharge Clinical Impression: COVID-19, Conjunctivitis Patient Disposition: Home, Self-Care Instructions: Pharyngitis (ED), Upper Respiratory Infection (DC), COVID-19 (Coronavirus Disease 2019) (ED) Prescriptions: New guaifenesin [Mucinex] 600 mg tablet extended release 12hr 600 mg PO Q12H PRN (Reason: cough) Qty: 30 0RF Cepacol Sore Throat (kiet-men) 15-2.6 mg lozenge 1 krystina mucous membrane Q2-4H PRN (Reason: sore throat) Qty: 16 0RF Cepacol Sore Throat (kiet-men) 15-2.6 mg lozenge 1 krystina mucous membrane Q2-4H PRN (Reason: sore throat) Qty: 16 0RF guaifenesin [Mucinex] 600 mg tablet extended release 12hr 600 mg PO Q12H PRN (Reason: cough) Qty: 30 0RF erythromycin 5 mg/gram (0.5 %) ointment 1 appl ophthalmic (eye) DAILY Qty: 3.5 0RF Rx Instructions: Before bed polymyxin B sulf-trimethoprim 10,000 unit- 1 mg/mL drops 1 drp ophthalmic (eye) Q3H 7 Days Qty: 10 0RF Rx Instructions: while awake; do not exceed 6 doses in 24 hours No Action (DME) walker Misc See Rx Instructions .MEDSUPPLY Qty: 1 0RF Rx Instructions: Folding Front wheeled walker (DME) lancets 33 gauge misc See Rx Instructions .Route Qty: 100 0RF Rx Instructions: As directed Once per day (DME) blood-glucose meter Kit See Rx Instructions .Route Qty: 1 0RF Rx Instructions: As directed (DME) blood sugar diagnostic Strip See Rx Instructions .Route Qty: 100 2RF Rx Instructions: As directed Once per day levothyroxine 88 mcg tablet 88 mcg PO DAILY 90 Days Qty: 90 1RF albuterol sulfate [Ventolin HFA] 90 mcg/actuation HFA aerosol inhaler 2 puff inhalation Q6H PRN (Reason: shortness of breath or wheezing) 30 Days Qty: 8.5 2RF (DME) blood-glucose meter [OneTouch Ultra2 Meter] Misc See Rx Instructions .Route Qty: 1 0RF Rx Instructions: test daily (DME) Grab bar Misc See Rx Instructions .Route Qty: 1 0RF Rx Instructions: As directed (DME) OneTouch Ultra Test Strip See Rx Instructions .Route Qty: 100 3RF Rx Instructions: test daily (DME) lancets [OneTouch UltraSoft 2 Lancet] 30 gauge misc See Rx Instructions .Route Qty: 100 3RF Rx Instructions: test daily metformin 850 mg tablet 850 mg PO BID 90 Days Qty: 180 2RF (DME) Shower Chair Misc See Rx Instructions .Route Qty: 1 0RF Rx Instructions: As directed gabapentin 100 mg capsule 100 mg PO BEDTIME 90 Days Qty: 90 0RF rosuvastatin 20 mg tablet 20 mg PO DAILY 90 Days Qty: 90 1RF cholecalciferol (vitamin D3) [Vitamin D3] 25 mcg (1,000 unit) capsule 25 mcg PO DAILY esomeprazole magnesium 40 mg capsule,delayed release(DR/EC) 40 mg PO BID Qty: 60 6RF Referrals: Christina Fischer MD [Primary Care Provider] - Print Language: Frisian
[2024-01-21 19:06] LABS: Influenza A PCR NEGATIVE (Negative); Influenza B PCR NEGATIVE (Negative); Resp Syncy Virus RNA Qual PCR NEGATIVE (Negative); SARS COV2 PCR INHOUSE POSITIVE (Negative)
[2024-01-21 19:49] VITALS: BP 158/88; PULSE 90; RESP 20; TEMP 37; O2SAT 97
[2024-01-21] MEDS: Lidocaine HCl Viscous 2 % 15 ML SOLUTION MUCOUS MEM (20:00)
[2024-01-21] MEDS: guaiFENesin LA 600 MG TAB.ER.12H PO (20:00)
[2024-01-21 20:03] VITALS: BP 158/88; PULSE 90; RESP 20; TEMP 37; O2SAT 97
== END 2024-01-21 20:04 | disposition home or self-care (01) ==
PROVIDERS: Nurse Practitioner Family; Emergency Provider Emergency Medicine; PCP Internal Medicine
DX: U07.1 COVID-19 (principal); H10.9 Unspecified conjunctivitis; R05.9 Cough, unspecified; J02.9 Acute pharyngitis, unspecified; R09.81 Nasal congestion; R51.9 Headache, unspecified
CPT/HCPCS: 0241U; 71046; 99282; 99284

== ENCOUNTER 2024-02-17 10:23 | Outpatient (AMB) | payer OTHER, SELFPAY ==
[2024-02-17 11:07] VITALS: BP 136/65; PULSE 85; BMI 32.3
--- NOTE | 2024-02-17 11:07 | A.OFFVIS_ITS ---
Vital Signs 02/17/24 11:07 Height 5 ft 1 in Weight 171 lb 1.259 oz BMI 32.3 BP 136/65 Blood Pressure Location Lt brachial Position Sitting Pulse 85 Intake Visit Reasons: Follow up 8 weeks Intake Note: Patient here to f/u GERD. Reports improvement. Taking omeprazole twice daily at 9am and 7pm. Patient c/o: gas, constant burping. Acid reflux before eating. Senior Genetic Counselor Required: Yes Accompanied by: Self / Same As Patient Allergies No Known Drug Allergies Allergy (Unknown, Verified 02/17/24 11:15) none HPI HPI Follow up 8 weeks: Details: Assessment & Plan (1) Family history of colon cancer: Comment: sister 2023 SCOPE= SESSILE SERRATED POLYP REPEAT IN 2-3 YEARS DUE TO FAIR PREP Code(s): Z80.0 - Family history of malignant neoplasm of digestive organs (2) GERD (gastroesophageal reflux disease): Code(s): K21.9 - Gastro-esophageal reflux disease without esophagitis Qualifiers: Esophagitis presence: esophagitis presence not specified Qualified Code(s): K21.9 - Gastro-esophageal reflux disease without esophagitis (3) Tubular adenoma of colon: Comment: 2023 SCOPE= SESSILE SERRATED POLYP REPEAT IN 2-3 YEARS DUE TO FAIR PREP Code(s): D12.6 - Benign neoplasm of colon, unspecified Plan [place] #[id number] Jose E. She is agreeable to a 3 year recall. She denies eating or having any difficulty with the prep. The procedure was well tolerated. The results were explained and the patient is agreeable to the follow-up interval as stated. The bowel pattern has returned to normal. Education was provided to tell any 1st degree relatives about their findings to be sure that they are screened by age 45. Educated that they will be put on a recall list when it is time for their repeat scope but should they move out of state or away from the hospital they will need to remember along with their primary to repeat the procedure in a timely fashion to avoid any adverse complications. She feels that her Dexilant is no longer working well to control her GERD. She denies any other medication changes, weight gain, illness or big diet changes preceding this change in her status. I think will try putting her on the generic for Nexium and go from there with twice a day 40 mg dosing. This of course will also depend on insurance coverage. Return office visit in 8 weeks to evaluate the medication change. Medications: New esomeprazole magnesium 40 mg PO BID 60 caps 6RF K21.9 - Gastro-esophageal reflux disease without esophagitis Discontinued dexlansoprazole (Dexilant) Discontinued Reason: Doctor's Order 60 mg PO QAM 90 days 90 caps 1RF K59.00 - Constipation, unspecified TODAY'S VISIT [place] #[facility] Live She feels she is doing much better on the generic Nexium then she was on the Dexilant. However now she is complaining of having a great deal of gas and bloating. She denies any constipation or diarrhea. Will start her on a trial of Creon and see how this manage his the symptoms. Return office visit in 6 weeks to evaluate her response. [facility] Medical History Gastritis Dyspnea Encounter for Medicare annual wellness exam Hyperlipidemia LDL goal <70 Cough Leukocytosis Osteoarthritis of right knee Hyperkalemia Muscle spasm Adult general medical exam Screening for colon cancer Screening for diabetes mellitus Screening for breast cancer Epigastric pain Constipation Pre-op examination Diabetes Osteoporosis Difficulty swallowing Bilateral knee pain Urge urinary incontinence Impaired glucose tolerance Hypothyroidism Autoimmune thyroiditis Pure hypercholesterolemia GERD (gastroesophageal reflux disease) Surgical History Status post total right knee replacement History of right knee surgery History of esophagogastroduodenoscopy (EGD) Hx of colonoscopy History of appendectomy History of partial hysterectomy Hx of tubal ligation HX: benign breast biopsy Hx of thyroidectomy Family History Father Prostate cancer Mother Diabetes mellitus Sister Heart problem Social History Household Members: Children Housing: Apartment Are you a primary residential caregiver to a significant other at home: No Do you presently have visiting nurse or other home services: No Alcohol intake: never Patient Tobacco Use Status: Current everyday Tobacco user Tobacco use type: Cigarette Cigarettes Per Day: 6 Years Smoked: 40 e-Cigarette/Vaping Use: Never Used Second Hand Smoke Exposure: Yes service: No Current occupational status: unemployed Current occupational exposures/hazards: No Cognitive needs: No Hearing needs: No Vision needs: Yes Review of Systems Const Denies fatigue, Denies fever(s), Denies night sweats, Denies poor appetite and Denies weight loss Eyes Details: glasses Reports requires corrective lenses ENT Reports Normal hearing present, Denies dysphagia, Denies odynophagia, Denies throat swelling and Denies tongue swelling Card Reports no additional complaints Resp Reports no additional complaints GI Details: Denies abdominal pain, Denies melena, Reports bloating, Denies hematochezia, Denies constipation, Denies GI cramping, Denies dysphagia, Reports excessive flatus, Denies early satiety, Reports heartburn, Denies diarrhea, Denies nausea, Denies odynophagia, Denies vomiting and Denies hematemesis Skin/Breast Denies pruritus, Denies lesions, Denies rash and Denies jaundice Neuro Reports Normal hearing present and Denies Abnormal speech present Endo Denies fatigue Aller/Immun Denies throat swelling and Denies tongue swelling Physical Exam Vital Signs: Last Vital Signs Pulse 85 02/17/24 11:07 BP 136/65 02/17/24 11:07 BMI result Body Mass Index 32.3 Const General: cooperative, no acute distress, well developed and well groomed Nutritional Appearance: well nourished and obese Orientation/consciousness: oriented to person, oriented to place and oriented to time Limitations: language barrier and ambulation with cane HEENT Head: Yes normocephalic and Yes atraumatic Eyes General: appearance normal, both eyes and all related structures Pupils: Equal, round and reactive pupils present Neck Neck: Yes normal visual inspection and Yes no lymphadenopathy Thyroid: Thyroid normal Resp Effort & Inspection: normal respiratory effort and able to speak in complete sentences Auscultation: clear to auscultation bilaterally Cardio Rate: regular rate Rhythm: regular rhythm Heart sounds: Normal, physiologic split S2 sound present Peripheral pulses: radial pulses present and posterior tibial pulses present GI Inspection: No distended, Yes Abdominal panniculus present and Yes obesity Palpation (GI): Soft to palpation, nontender, no guarding, not rigid and No hepatosplenomegaly present Percussion: Yes normal to percussion Auscultation: normal bowel sounds Rectal Exam - Female: deferred Skin General skin exam: no rashes or lesions noted, turgor normal, skin not dry, no jaundice, No spider nevi and no striae Rashes: no rashes Nails: normal Neuro General: oriented to person, oriented to place and oriented to time Cranial nerves: Yes Equal, round and reactive pupils present and Yes Normal hearing present Speech: No Abnormal speech present Extrem General: Yes normal to inspection, No clubbing, No cyanosis and No edema Psych Appearance: grossly normal and well kempt Mental Status: mental status grossly normal Speech and movement: Normal speech and movement present Affect: Irritable affect present Attitude: cooperative Thought process: Circumstantial thought process present and not confabulating Thought content: Normal thought content present Insight: Limited insight present (Psych) Judgement: Limited judgement present (Psych) Assessment & Plan Assessment & Plan (1) Abdominal bloating: Code(s): R14.0 - Abdominal distension (gaseous) Category: Medical (2) GERD (gastroesophageal reflux disease): Code(s): K21.9 - Gastro-esophageal reflux disease without esophagitis Category: Medical Qualifiers: Esophagitis presence: esophagitis presence not specified Qualified Code(s): K21.9 - Gastro-esophageal reflux disease without esophagitis Plan [place] #Danial Live She feels she is doing much better on the generic Nexium then she was on the Dexilant. However now she is complaining of having a great deal of gas and bloating. She denies any constipation or diarrhea. Will start her on a trial of Creon and see how this manage his the symptoms. Return office visit in 6 weeks to evaluate her response. Medications: New [id number] 36,000-114,000- 180,000 unit (Creon) administer with meals and/or snacks 2 caps PO BID 120 caps 6RF R14.0 - Abdominal distension (gaseous) Coding Level of Care Code Est Pt Level 3 (38973) Diagnoses Abdominal bloating R14.0 Gastroesophageal reflux disease, unspecified whether esophagitis present K21.9 Esophagitis presence: esophagitis presence not specified
== END 2024-02-17 12:24 | disposition home or self-care (01) ==
LOC: HO.HGI 10:23
PROVIDERS: PCP Internal Medicine; Visit Provider Nurse Practitioner
DX: R14.0 Abdominal distension (gaseous) (principal); K21.9 Gastro-esophageal reflux disease without esophagitis
CPT/HCPCS: 99213

== ENCOUNTER → 2024-02-17 10:23 | Outpatient (BNVA) | payer OTHER, SELFPAY | PROVIDERS: PCP Internal Medicine; Visit Provider Nurse Practitioner | DX: K21.9 Gastro-esophageal reflux disease without esophagitis (principal); R14.0 Abdominal distension (gaseous) | CPT/HCPCS: 99212 ==

== ENCOUNTER 2024-04-06 12:15 | Outpatient (AMB) | payer OTHER, SELFPAY ==
--- NOTE | 2024-04-06 12:26 | A.OFFVIS_ITS ---
Vital Signs 04/06/24 12:40 Height 5 ft 1 in Weight 170 lb BMI 32.1 BP 101/53 L Blood Pressure Location Lt brachial Position Sitting Pulse 77 Intake Visit Reasons: 6 week follow up Intake Note: Patient follow up for GERD. Patient cc: abdominal pain, GERD with burning sensation and some difficulty swallowing, some diarrhea. Medication for gasses is not working for her. Denies any other GI issues. Food Service Hotel Runner Required: Yes Food Service Hotel Runner [place] [facility] [place] Accompanied by: Self / Same As Patient Allergies No Known Drug Allergies Allergy (Unknown, Verified 06/01/24 12:41) none HPI HPI 6 week follow up: Details: Assessment & Plan (1) Abdominal bloating: Code(s): R14.0 - Abdominal distension (gaseous) Category: Medical (2) GERD (gastroesophageal reflux disease): Code(s): K21.9 - Gastro-esophageal reflux disease without esophagitis Category: Medical Qualifiers: Esophagitis presence: esophagitis presence not specified Qualified Code(s): K21.9 - Gastro-esophageal reflux disease without esophagitis Plan [place] #Danial Foreign She feels she is doing much better on the generic Nexium then she was on the Dexilant. However now she is complaining of having a great deal of gas and bloating. She denies any constipation or diarrhea. Will start her on a trial of Creon and see how this manage his the symptoms. Return office visit in 6 weeks to evaluate her response. Medications: New nbribf-wbodtaln-trruwqg 36,000-114,000- 180,000 unit (Creon) administer with meals and/or snacks 2 caps PO BID 120 caps 6RF R14.0 - Abd ominal distension (gaseous) TODAY'S VISIT [place] #Lana lino She has been going for a day program. She continues on her generic Nexium. We stated Creon at the last visit, Despite being at the highest dose and taking it correctly the Creon has not helped. She still has long, loud flatulence that is embarrassing to her. This was of sudden onset about 8 weeks ago and she can not ID any medication changes preceding this including her metformin. She has never tried simthicone so I will send this and give her the FODMAP diet in [place] for her consideration. ROV 8 weeks. PFSH Medical History Gastritis Dyspnea Encounter for Medicare annual wellness exam Hyperlipidemia LDL goal <70 Cough Leukocytosis Osteoarthritis of right knee Hyperkalemia Muscle spasm Adult general medical exam Screening for colon cancer Screening for diabetes mellitus Screening for breast cancer Epigastric pain Constipation Pre-op examination Diabetes Osteoporosis Difficulty swallowing Bilateral knee pain Urge urinary incontinence Impaired glucose tolerance Hypothyroidism Autoimmune thyroiditis Pure hypercholesterolemia GERD (gastroesophageal reflux disease) Surgical History Status post total right knee replacement History of right knee surgery History of esophagogastroduodenoscopy (EGD) Hx of colonoscopy History of appendectomy History of partial hysterectomy Hx of tubal ligation HX: benign breast biopsy Hx of thyroidectomy Family History Father Prostate cancer Mother Diabetes mellitus Sister Heart problem Social History Household Members: Children Housing: Apartment Are you a primary child caregiver private home to a significant other at home: No Do you presently have visiting nurse or other home services: No Alcohol intake: never Patient Tobacco Use Status: Current everyday Tobacco user Tobacco use type: Cigarette Cigarettes Per Day: 6 Years Smoked: 40 e-Cigarette/Vaping Use: Never Used Second Hand Smoke Exposure: Yes service: No Current occupational status: unemployed Current occupational exposures/hazards: No Cognitive needs: No Hearing needs: No Vision needs: Yes Review of Systems Const Denies fatigue, Denies fever(s), Denies night sweats, Denies poor appetite and Denies weight loss Eyes Details: glassees Reports requires corrective lenses ENT Reports Normal hearing present, Denies dental pain, Denies dysphagia, Denies hearing loss, Denies mouth pain, Denies odynophagia, Denies throat swelling, Denies tongue swelling and Reports other (Dentition adequate) Card Reports no additional complaints Resp Reports no additional complaints GI Details: Denies abdominal pain, Denies melena, Reports bloating, Denies hematochezia, Denies constipation, Denies GI cramping, Denies dysphagia, Reports excessive flatus, Denies early satiety, Reports heartburn, Denies diarrhea, Denies nausea, Denies odynophagia, Denies vomiting and Denies hematemesis Skin/Breast Denies pruritus, Denies lesions, Denies rash and Denies jaundice Neuro Reports Normal hearing present and Denies Abnormal speech present Endo Denies fatigue Aller/Immun Denies throat swelling and Denies tongue swelling Physical Exam Vital Signs: Last Vital Signs Pulse 77 04/06/24 12:40 BP 101/53 L 04/06/24 12:40 BMI result Body Mass Index 32.1 Const General: cooperative, no acute distress, well developed and well groomed Nutritional Appearance: well nourished and obese Orientation/consciousness: oriented to person, oriented to place and oriented to time Limitations: language barrier and ambulation with cane HEENT Head: Yes normocephalic and Yes atraumatic Eyes General: appearance normal, both eyes and all related structures Pupils: Equal, round and reactive pupils present Neck Neck: Yes normal visual inspection and Yes no lymphadenopathy Thyroid: Thyroid normal Resp Effort & Inspection: normal respiratory effort and able to speak in complete sentences Auscultation: clear to auscultation bilaterally Cardio Rate: regular rate Rhythm: regular rhythm Heart sounds: Normal, physiologic split S2 sound present Peripheral pulses: radial pulses present and posterior tibial pulses present GI Inspection: No distended, Yes Abdominal panniculus present and Yes obesity Palpation (GI): Soft to palpation, nontender, no guarding, not rigid and No hepatosplenomegaly present Percussion: Yes normal to percussion Auscultation: normal bowel sounds Rectal Exam - Female: deferred Skin General skin exam: no rashes or lesions noted, turgor normal, skin not dry, no jaundice, No spider nevi and no striae Rashes: no rashes Nails: normal Neuro General: oriented to person, oriented to place and oriented to time Cranial nerves: Yes Equal, round and reactive pupils present and Yes Normal hearing present Speech: No Abnormal speech present Extrem General: Yes normal to inspection, No clubbing, No cyanosis and No edema Psych Appearance: grossly normal and well kempt Mental Status: mental status grossly normal Speech and movement: Normal speech and movement present Affect: normal affect Attitude: cooperative Thought process: Normal thought process present and not confabulating Thought content: Normal thought content present Insight: Limited insight present (Psych) Judgement: Limited judgement present (Psych) Assessment & Plan Assessment & Plan (1) Abdominal bloating: Code(s): R14.0 - Abdominal distension (gaseous) Category: Medical (2) GERD (gastroesophageal reflux disease): Code(s): K21.9 - Gastro-esophageal reflux disease without esophagitis Category: Medical Qualifiers: Esophagitis presence: esophagitis presence not specified Qualified Code(s): K21.9 - Gastro-esophageal reflux disease without esophagitis Plan [place] #Lana lino She has been going for a day program. She continues on her generic Nexium. We stated Creon at the last visit, Despite being at the highest dose and taking it correctly the Creon has not helped. She still has long, loud flatulence that is embarrassing to her. This was of sudden onset about 8 weeks ago and she can not ID any medication changes preceding this including her metformin. She has never tried simthicone so I will send this and give her the FODMAP diet in [place] for her co nsideration. ROV 8 weeks. Medications: New simethicone after meals 180 mg PO QID 120 caps 3RF 30 days Discontinued benzocaine-menthol 15-2.6 mg Discontinued Reason: Duplicate 1 krystina mucous membrane Q2-4H PRN 16 ea 0RF sore throat guaifenesin ER Discontinued Reason: Duplicate 600 mg PO Q12H PRN 30 tabs 0RF cough psthei-amjvomke-zzgordc 36,000-114,000- 180,000 unit administer with meals and/or snacks Discontinued Reason: Doctor's Order 2 caps PO BID 120 caps 6RF R14.0 - Abdominal distension (gaseous) Coding Level of Care Code Est Pt Level 3 (18087) Diagnoses Abdominal bloating R14.0 Gastroesophageal reflux disease, unspecified whether esophagitis present K21.9 Esophagitis presence: esophagitis presence not specified
[2024-04-06 12:40] VITALS: BP 101/53; PULSE 77; BMI 32.1
== END 2024-04-06 13:01 | disposition home or self-care (01) ==
PROVIDERS: PCP Internal Medicine; Visit Provider Nurse Practitioner
DX: R14.0 Abdominal distension (gaseous) (principal); K21.9 Gastro-esophageal reflux disease without esophagitis
CPT/HCPCS: 99213

== ENCOUNTER → 2024-04-06 12:15 | Outpatient (BNVA) | payer OTHER, SELFPAY | PROVIDERS: PCP Internal Medicine; Visit Provider Nurse Practitioner | DX: K21.9 Gastro-esophageal reflux disease without esophagitis (principal); R14.0 Abdominal distension (gaseous) | CPT/HCPCS: 99212 ==

== ENCOUNTER 2024-05-25 08:18 | Outpatient (REF) | payer OTHER, SELFPAY ==
[2024-05-25 09:30] LABS: Alanine Aminotransferase 25 U/L (0-31); Albumin Level 4.3 g/dL (3.5-5.0); Alkaline Phosphatase 69 U/L (39-117); Anion Gap 14 (12-20); Aspartate Amino Transferase 23 U/L (5-31); Bilirubin Total 0.2 mg/dL (0.0-1.0); Blood Urea Nitrogen 16 mg/dL (9-16); Calcium 11.2 mg/dL (8.4-10.2); Carbon Dioxide 29 mmol/L (22-29); Chloride 103 mmol/L (96-108); Cholesterol 131 mg/dL (<200); Estimated Glomerular Filt Rate > 60; Glucose Fasting 123 mg/dL (60-99); HDL Cholesterol 46 mg/dL (>40); LDL Cholesterol Calculated 65 mg/dL (<100); Sodium 141 mmol/L (135-145); Total Protein 7.7 g/dL (6.5-8.0); Triglycerides 102 mg/dL (<150)
[2024-05-25 09:47] LABS: Thyroid Stimulating Hormone 0.94 uIU/mL (0.32-4.0); Vitamin D 25-OH Total 38.3 ng/mL (>30)
[2024-05-25 10:05] LABS: Creatinine Urine 106.17 mg/dL; Microalbum/Creatinine Ratio Ur 28.2 ug/mg cr (<30)
[2024-05-28 22:28] LABS: TS Negative Control Passed; TS Panel A 0; TS Panel B 0; TS Positive Control Passed; TSpotTB Negative (Negative)
== END 2024-05-25 08:19 | disposition home or self-care (01) ==
LOC: HO.LAB 08:18
PROVIDERS: PCP Internal Medicine; Visit Provider Internal Medicine
DX: E06.3 Autoimmune thyroiditis (principal); Z11.1 Encounter for screening for respiratory tuberculosis; E11.9 Type 2 diabetes mellitus without complications; E55.9 Vitamin D deficiency, unspecified; E78.5 Hyperlipidemia, unspecified; E11.65 Type 2 diabetes mellitus with hyperglycemia
CPT/HCPCS: 36415; 80053; 80061; 82043; 82306; 82570; 84443; 86481

== ENCOUNTER 2024-05-28 15:05 | Outpatient (AMB) | payer OTHER, SELFPAY ==
--- NOTE | 2024-05-28 15:09 | MHC.PC.OV ---
Vital Signs 05/28/24 15:10 Height 5 ft 1 in Weight 167 lb BMI 31.6 BP 132/70 Blood Pressure Location Lt brachial Position Sitting Intake Visit Reasons: dm Intake Note: Patient here for a follow up DM Data Consultant Required: No Accompanied by: Self / Same As Patient Allergies No Known Drug Allergies Allergy (Unknown, Verified 05/28/24 15:26) none Medication List - Last Reconciled 05/28/24 by Christina Lara MD albuterol sulfate 90 mcg/actuation (Ventolin HFA) 2 puffs inhalation Q6H PRN 30 days blood sugar diagnostic As directed Once per day blood sugar diagnostic (OneTouch Ultra Test strips) test daily blood-glucose meter (DistractifyTouch Ultra2 Meter) test daily blood-glucose meter As directed cholecalciferol (vitamin D3) (Vitamin D3) 25 mcg PO DAILY esomeprazole magnesium 40 mg PO BID gabapentin 100 mg PO BEDTIME 90 days Grab bar As directed lancets As directed Once per day lancets (DistractifyTouch UltraSoft 2 Lancet) test daily levothyroxine 88 mcg PO DAILY 90 days metformin 850 mg PO BID 90 days rosuvastatin 20 mg PO DAILY 90 days Shower Chair As directed simethicone 180 mg PO QID 30 days walker Folding Front wheeled walker Tobacco use date assessed: 12/27/23 Fall risk assessment: No Falls in past year Last assessed Fall Risk: 05/28/24 Dental Screening Dental Screen Date: 12/27/23 HPI HPI Comments History of Present Illness Details This is a 68-year-old female with diabetes mellitus type 2, autoimmune thyroiditis and pure hypercholesterolemia that comes today complaining of left elbow pain and right hip pain that has been present for few weeks. No previous trauma. She also has hypercalcemia and this will be repeated. Was told to hold calcium with vitamin-D for 3 weeks. A1c within goal. Last TSH was normal. And cholesterol well controlled. LDL goal is less than 70. No chest pain or shortness on breath. She is a smoker and would like to quit. Will prescribe patches. [facility] Medical History (Updated 05/28/24 @ 15:37 by Christina Lara MD) Gastritis Dyspnea Encounter for Medicare annual wellness exam Hyperlipidemia LDL goal <70 Cough Leukocytosis Osteoarthritis of right knee Hyperkalemia Muscle spasm Adult general medical exam Screening for colon cancer Screening for diabetes mellitus Screening for breast cancer Epigastric pain Constipation Pre-op examination Diabetes Osteoporosis Difficulty swallowing Bilateral knee pain Urge urinary incontinence Impaired glucose tolerance Hypothyroidism Autoimmune thyroiditis Pure hypercholesterolemia GERD (gastroesophageal reflux disease) Surgical History Status post total right knee replacement History of right knee surgery History of esophagogastroduodenoscopy (EGD) Hx of colonoscopy History of appendectomy History of partial hysterectomy Hx of tubal ligation HX: benign breast biopsy Hx of thyroidectomy Family History Father Prostate cancer Mother Diabetes mellitus Sister Heart problem Social History Household Members: Children Housing: Apartment Are you a primary rn transitional care to a significant other at home: No Do you presently have visiting nurse or other home services: No Alcohol intake: never Patient Tobacco Use Status: Current everyday Tobacco user Tobacco use type: Cigarette Cigarettes Per Day: 6 Years Smoked: 40 e-Cigarette/Vaping Use: Never Used Second Hand Smoke Exposure: Yes service: No Current occupational status: unemployed Current occupational exposures/hazards: No Cognitive needs: No Hearing needs: No Vision needs: Yes Questionnaire Thrive Questionnaire Date Thrive assessed: 12/27/23 Are you currently unemployed and looking for a job?: No JUAN-7 AMB Questionnaire JUAN-7 Date JUAN - 7 assessed: 12/27/23 Source: Developed by Drs. Jermanie Yanes, Xenia Monsivais, Pan Liu and colleagues, with an educational claude from [employer]. Review of Systems Const All systems reviewed & are unremarkable except as noted in HPI and below Card Denies chest pain at rest, Denies chest pain with activity, Denies edema, Denies irregular heart rhythm, Denies claudication, Denies dyspnea, Denies dyspnea on exertion, Denies orthopnea, Denies paroxysmal nocturnal dyspnea and Denies slow heart rate Resp Denies cough, Denies dyspnea and Denies dyspnea on exertion GI Denies abdominal pain, Denies change in bowel habits, Denies excessive flatus, Denies nausea and Denies vomiting Physical exam (Primary Care) Vital Signs: Last Vital Signs BP 132/70 05/28/24 15:10 BMI result Body Mass Index 31.6 BMI Assessment/Plan discussion: High BMI High, discussed plan: lifestyle, weight reduction, dietary and physical activity Tobacco/Smoking Status: Tobacco use Status Tobacco use date assessed 12/27/23 05/28/24 15:18 Patient Tobacco Use Status Current everyday Tobacco 05/28/24 15:18 Tobacco use type Cigarette 05/28/24 15:18 e-Cigarette/Vaping Use Never Used 05/28/24 15:18 Are you ready to quit: Yes Tobacco cessation counseling provided: Yes Items discussed: Nicotine replacement and QuitWorks Relapse Prevention: discussed the importance of a supportive environment, discussed extending NRT, discussed negative mood or depression after quitting, weight gain after smoking is common and discussed dietary, exercise and/or lifestyle changes Number of minutes spent counselin CPT code: 38464 - 4-10 Minutes Thrive Assessment: Date of Thrive Assessment Date Thrive assessed 12/27/23 05/28/24 15:18 Resp Effort & Inspection: normal respiratory effort Auscultation: clear to auscultation bilaterally Cardio Jugular venous distension: no JVD Rate: regular rate Rhythm: regular rhythm Heart sounds: S1 normal heart sound present and S2 normal heart sound present Extrem General: Yes full ROM Results AMB Hemoglobin A1c AMB Hemoglobin A1c 6.7 % Last Edit by CORINNA Sales on 05/28/24 15:32 Results Reviewed Results Reviewed: Laboratory Last Values Hgb A1c (Clinic) 6.7 % (4.0-6.0) H 05/28/24 15:09 Assessment and Plan Assessment & Plan (1) Diabetes mellitus: Code(s): E11.9 - Type 2 diabetes mellitus without complications Qualifiers: Diabetes mellitus type: type 2 Diabetes mellitus detention insulin use: without extermination supervisor use Diabetes mellitus complication status: with hyperglycemia Qualified Code(s): E11.65 - Type 2 diabetes mellitus with hyperglycemia Plan: Continue metformin. A1c goal is equal or less than 7%. (2) Autoimmune thyroiditis: Code(s): E06.3 - Autoimmune thyroiditis Plan: Continue levothyroxine. Monitor TSH. (3) Pure hypercholesterolemia: Code(s): E78.00 - Pure hypercholesterolemia, unspecified Plan: Continue statins. Repeat lipid panel. LDL goal is less than 70. (4) Hypercalcemia: Code(s): E83.52 - Hypercalcemia Plan: Labs ordered. (5) Left elbow pain: Code(s): M25.522 - Pain in left elbow Plan: X-ray ordered. Orders: Orders XR elbow LT 2V Today M25.522 - Pain in left elbow Calcium, Ionized Today E83.52 - Hypercalcemia Calcium, Random Urine Today E83.52 - Hypercalcemia Parathyroid Hormone Intact Today E83.52 - Hypercalcemia Vitamin D 1,25 dihydroxy Today E83.52 - Hypercalcemia AMB Hemoglobin A1c Today E11.65 - Type 2 diabetes mellitus with hyperglycemia XR hip RT min 2V Today M70.61 - Trochanteric bursitis, right hip Phosphorus Today E83.52 - Hypercalcemia Medications: New nicotine 1 patch transdermal DAILY 28 ea 0RF 28 days Changed From gabapentin 100 mg PO BEDTIME 90 days 90 caps 0RF To gabapentin 200 mg (2 x 100 mg) PO BEDTIME 180 caps 1RF 90 days Coding Level of Care Code Est Pt Level 4 (16026) Complex EM visit Add On G2211 Diagnoses Type 2 diabetes mellitus with hyperglycemia, without long-term current use of insulin E11.65 Diabetes mellitus type: type 2 Diabetes mellitus extermination supervisor insulin use: without extermination supervisor use Diabetes mellitus complication status: with hyperglycemia Autoimmune thyroiditis E06.3 Pure hypercholesterolemia E78.00 Hypercalcemia E83.52 Left elbow pain M25.522 Additional Codes Vital Signs *Quality* - CPT code: 15060 - 4-10 Minutes ([id number]) Time Spent (min) 25
[2024-05-28 15:10] VITALS: BP 132/70; BMI 31.6
== END 2024-05-28 15:37 | disposition home or self-care (01) ==
PROVIDERS: PCP Internal Medicine; Visit Provider Internal Medicine
DX: E11.65 Type 2 diabetes mellitus with hyperglycemia (principal); E06.3 Autoimmune thyroiditis; E78.00 Pure hypercholesterolemia, unspecified; E83.52 Hypercalcemia; M25.522 Pain in left elbow

== ENCOUNTER → 2024-05-28 15:05 | Outpatient (BNVA) | payer OTHER, SELFPAY | PROVIDERS: PCP Internal Medicine; Visit Provider Internal Medicine | DX: E11.65 Type 2 diabetes mellitus with hyperglycemia (principal); E06.3 Autoimmune thyroiditis; E78.00 Pure hypercholesterolemia, unspecified; E83.52 Hypercalcemia; M25.522 Pain in left elbow; Z79.84 Long term (current) use of oral hypoglycemic drugs | CPT/HCPCS: 83036; 99212 ==

== ENCOUNTER 2024-06-01 12:33 | Outpatient (AMB) | payer OTHER, SELFPAY ==
[2024-06-01 12:41] VITALS: BP 114/57; PULSE 82; BMI 32.6
--- NOTE | 2024-06-01 12:41 | MHC.OFFVIS ---
Vital Signs 06/01/24 12:41 Height 5 ft Weight 167 lb BMI 32.6 BP 114/57 L Blood Pressure Location Lt brachial Position Sitting Pulse 82 Intake Visit Reasons: 8 week follow up Intake Note: Patient follow up for diarrhea Patient cc: diarrhea, abdominal cramps, gassy, acid reflex with burning sensation and some difficulty swallowing. 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 She continues on her generic Nexium. We stated Creon at the last visit, Despite being at the highest dose and taking it correctly the Creon has not helped. She still has long, loud flatulence that is embarrassing to her. This was of sudden onset about 8 weeks ago and she can not ID any medication changes preceding this including her metformin. She has never tried simthicone so I will send this and give her the FODMAP diet in [place]oc[place] for her consideration. ROV 8 weeks. Assessment & Plan (1) Abdominal bloating: Code(s): R14.0 - Abdominal distension (gaseous) Category: Medical (2) GERD (gastroesophageal reflux disease): Code(s): K21.9 - Gastro-esophageal reflux disease without esophagitis Category: Medical Qualifiers: Esophagitis presence: esophagitis presence not specified Qualified Code(s): K21.9 - Gastro-esophageal reflux disease without esophagitis Medications: New simethicone after meals 180 mg PO QID 30 days 120 caps 3RF Discontinued benzocaine-menthol 15-2.6 mg (Cepacol Sore Throat (benzocaine-menthol)) Discontinued Reason: Duplicate 1 krystina mucous membrane Q2-4H PRN 16 ea 0RF sore throat guaifenesin ER (Mucinex) Discontinued Reason: Duplicate 600 mg PO Q12H PRN 30 tabs 0RF cough utzfqg-jmlweftd-cktnjck 36,000-114,000- 180,000 unit (Creon) administer with meals and/or snacks Discontinued Reason: Doctor's Order 2 caps PO BID 120 caps 6RF R14.0 - Abdominal distension (gaseous) TODAYS VISIT [place] #[place] She has the simethicone and is taking it qid, but her gassiness and flatulence is the same. However, she also developed sudden onset of diarrhea. While there are no known sick contacts, and she has not changed her diet, she did have a recent increase in her gabapentin for her diabetic neuropathy. This can cause diarrhea as a side effect and it could be that her body needs to adjust. I offer her the option of just watching and waiting or doing stool studies and she is not sufficiently bothered by this to do stool studies at this time. It is difficult to tell if we should change any therapy given this new development so will just continue as is for now. She continues on her as omeprazole twice a day as well. Return office visit in 8 weeks. [facility] Medical History Gastritis Dyspnea Encounter for Medicare annual wellness exam Hyperlipidemia LDL goal <70 Cough Leukocytosis Osteoarthritis of right knee Hyperkalemia Muscle spasm Adult general medical exam Screening for colon cancer Screening for diabetes mellitus Screening for breast cancer Epigastric pain Constipation Pre-op examination Diabetes Osteoporosis Difficulty swallowing Bilateral knee pain Urge urinary incontinence Impaired glucose tolerance Hypothyroidism Autoimmune thyroiditis Pure hypercholesterolemia GERD (gastroesophageal reflux disease) Surgical History Status post total right knee replacement History of right knee surgery History of esophagogastroduodenoscopy (EGD) Hx of colonoscopy History of appendectomy History of partial hysterectomy Hx of tubal ligation HX: benign breast biopsy Hx of thyroidectomy Family History Father Prostate cancer Mother Diabetes mellitus Sister Heart problem Social History Household Members: Children Housing: Apartment Are you a primary healthcare economics consultant to a significant other at home: No Do you presently have visiting nurse or other home services: No Alcohol intake: never Patient Tobacco Use Status: Current everyday Tobacco user Tobacco use type: Cigarette Cigarettes Per Day: 6 Years Smoked: 40 e-Cigarette/Vaping Use: Never Used Second Hand Smoke Exposure: Yes service: No Current occupational status: unemployed Current occupational exposures/hazards: No Cognitive needs: No Hearing needs: No Vision needs: Yes Review of Systems Const Denies fatigue, Denies fever(s), Denies night sweats, Denies poor appetite and Denies weight loss Eyes Details: Glasses Reports requires corrective lenses ENT Reports Normal hearing present, Denies dental pain, Denies dysphagia, Denies hearing loss, Denies mouth pain, Denies odynophagia, Denies throat swelling, Denies tongue swelling and Reports other (Dentition adequate) Card Reports no additional complaints Resp Reports no additional complaints GI Details: Denies abdominal pain, Denies melena, Reports bloating, Denies hematochezia, Denies constipation, Denies GI cramping, Denies dysphagia, Reports excessive flatus, Denies early satiety, Reports heartburn, Reports diarrhea, Denies nausea, Denies odynophagia, Denies vomiting and Denies hematemesis Skin/Breast Denies pruritus, Denies lesions, Denies rash and Denies jaundice Neuro Reports Normal hearing present, Denies Abnormal speech present and Reports paresthesias Endo Denies fatigue Aller/Immun Denies throat swelling and Denies tongue swelling Physical Exam Vital Signs: BMI result Body Mass Index 32.6 Const General: cooperative, no acute distress, well developed and well groomed Nutritional Appearance: well nourished and obese morbidly obese Orientation/consciousness: oriented to person, oriented to place and oriented to time Limitations: language barrier HEENT Head: Yes normocephalic and Yes atraumatic Eyes General: appearance normal, both eyes and all related structures Pupils: Equal, round and reactive pupils present Neck Neck: Yes normal visual inspection and Yes no lymphadenopathy Thyroid: Thyroid normal Resp Effort & Inspection: normal respiratory effort and able to speak in complete sentences Auscultation: clear to auscultation bilaterally Cardio Rate: regular rate Rhythm: regular rhythm Heart sounds: Normal, physiologic split S2 sound present Peripheral pulses: radial pulses present and posterior tibial pulses present GI Inspection: No distended, No Abdominal panniculus present and Yes obesity Palpation (GI): Soft to palpation, nontender, no guarding, not rigid and No hepatosplenomegaly present Percussion: Yes normal to percussion Auscultation: normal bowel sounds Rectal Exam - Female: deferred Skin General skin exam: no rashes or lesions noted, turgor normal, skin not dry, no jaundice, No spider nevi and no striae Rashes: no rashes Nails: normal Neuro General: oriented to person, oriented to place and oriented to time Cranial nerves: Yes Equal, round and reactive pupils present and Yes Normal hearing present Speech: No Abnormal speech present Extrem General: Yes normal to inspection, No clubbing, No cyanosis and No edema Psych Appearance: grossly normal and well kempt Mental Status: mental status grossly normal Speech and movement: Normal speech and movement present Affect: normal affect Attitude: cooperative Thought process: Normal thought process present and not confabulating Thought content: Normal thought content present Insight: Limited insight present (Psych) Judgement: Limited judgement present (Psych) Assessment & Plan Assessment & Plan (1) GERD (gastroesophageal reflux disease): Code(s): K21.9 - Gastro-esophageal reflux disease without esophagitis Category: Medical Qualifiers: Esophagitis presence: esophagitis presence not specified Qualified Code(s): K21.9 - Gastro-esophageal reflux disease without esophagitis (2) Abdominal bloating: Code(s): R14.0 - Abdominal distension (gaseous) Category: Medical (3) Acute diarrhea: Code(s): R19.7 - Diarrhea, unspecified Category: Medical Plan [place] #Danial and Flori She has the simethicone and is taking it qid, but her gassiness and flatulence is the same. However, she also developed sudden onset of diarrhea. While there are no known sick contacts, and she has not changed her diet, she did have a recent increase in her gabapentin for her diabetic neuropathy. This can cause diarrhea as a side effect and it could be that her body needs to adjust. I offer her the option of just watching and waiting or doing stool studies and she is not sufficiently bothered by this to do stool studies at this time. It is difficult to tell if we should change any therapy given this new development so will just continue as is for now. She continues on her as omeprazole twice a day as well. Return office visit in 8 weeks. Coding Level of Care Code Est Pt Level 3 (14070) Diagnoses Gastroesophageal reflux disease, unspecified whether esophagitis present K21.9 Esophagitis presence: esophagitis presence not specified Abdominal bloating R14.0 Acute diarrhea R19.7
== END 2024-06-01 13:43 | disposition home or self-care (01) ==
PROVIDERS: PCP Internal Medicine; Visit Provider Nurse Practitioner
DX: K21.9 Gastro-esophageal reflux disease without esophagitis (principal); R14.0 Abdominal distension (gaseous); R19.7 Diarrhea, unspecified
CPT/HCPCS: 99213

== ENCOUNTER → 2024-06-01 12:33 | Outpatient (BNVA) | payer OTHER, SELFPAY | PROVIDERS: PCP Internal Medicine; Visit Provider Nurse Practitioner | DX: K21.9 Gastro-esophageal reflux disease without esophagitis (principal); R14.0 Abdominal distension (gaseous); R19.7 Diarrhea, unspecified | CPT/HCPCS: 99212 ==

== ENCOUNTER 2024-07-26 12:39 | Outpatient (AMB) | payer OTHER, SELFPAY ==
[2024-07-26 12:47] VITALS: BP 138/66; PULSE 72; BMI 32.8
--- NOTE | 2024-07-26 12:47 | A.OFFVIS_ITS ---
Vital Signs 07/26/24 12:47 Height 5 ft Weight 168 lb BMI 32.8 BP 138/66 Blood Pressure Location Rt brachial Position Sitting Pulse 72 Intake Visit Reasons: 8 week follow up Intake Note: Patient presents in follow up of abdominal cramps. CC: Patient states that she stopped the simethicone because it was not helping her with her gas. She c/o loose stools and seeing blood when she wipes and having irritation. She also reports fecal incontinence. 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 Accompanied by: Self / Same As Patient Allergies No Known Drug Allergies Allergy (Unknown, Verified 10/01/24 08:43) none HPI HPI 8 week follow up: Details: Assessment & Plan (1) GERD (gastroesophageal reflux disease): Code(s): K21.9 - Gastro-esophageal reflux disease without esophagitis Category: Medical Qualifiers: Esophagitis presence: esophagitis presence not specified Qualified Code(s): K21.9 - Gastro-esophageal reflux disease without esophagitis (2) Abdominal bloating: Code(s): R14.0 - Abdominal distension (gaseous) Category: Medical (3) Acute diarrhea: Code(s): R19.7 - Diarrhea, unspecified Category: Medical Plan [place] #Danial and Flori She has the simethicone and is taking it qid, but her gassiness and flatulence is the same. However, she also developed sudden onset of diarrhea. While there are no known sick contacts, and she has not changed her diet, she did have a recent increase in her gabapentin for her diabetic neuropathy. This can cause diarrhea as a side effect and it could be that her body needs to adjust. I offer her the option of just watching and waiting or doing stool studies and she is not sufficiently bothered by this to do stool studies at this time. It is difficult to tell if we should change any therapy given this new development so will just continue as is for now. She continues on her as omeprazole twice a day as well. Return office visit in 8 weeks. TODAY'S VISIT [place] #[id number], José Luis She has not been taking the simethicone as it did not work for her, but she is taking an herbal preparation that is helping her somewhat. She continues on her Nexium SHe is experiencing urinary frequency with some leaking. Return office visit in 6 months [facility] Medical History (Updated 10/04/24 @ 12:04 by Christina Lara MD) Pre-op examination COVID-19 Gastritis Dyspnea Encounter for Medicare annual wellness exam Hyperlipidemia LDL goal <70 Cough Leukocytosis Osteoarthritis of right knee Hyperkalemia Muscle spasm Adult general medical exam Screening for colon cancer Screening for diabetes mellitus Screening for breast cancer Epigastric pain Constipation Diabetes Osteoporosis Difficulty swallowing Bilateral knee pain Urge urinary incontinence Impaired glucose tolerance Hypothyroidism Autoimmune thyroiditis Pure hypercholesterolemia GERD (gastroesophageal reflux disease) Surgical History Status post total right knee replacement History of right knee surgery History of esophagogastroduodenoscopy (EGD) Hx of colonoscopy History of appendectomy History of partial hysterectomy Hx of tubal ligation HX: benign breast biopsy Hx of thyroidectomy Family History Father Prostate cancer Mother Diabetes mellitus Sister Heart problem Social History Household Members: Children Housing: Apartment Are you a primary acute care registered nurse to a significant other at home: No Do you presently have visiting nurse or other home services: No Alcohol intake: never Patient Tobacco Use Status: Former Tobacco user Tobacco use type: Cigarette Cigarettes Per Day: 6 Years Smoked: 40 e-Cigarette/Vaping Use: Never Used Second Hand Smoke Exposure: Yes service: No Current occupational status: unemployed Current occupational exposures/hazards: No Cognitive needs: No Hearing needs: No Vision needs: Yes Review of Systems Const Denies fatigue, Denies fever(s), Denies night sweats, Denies poor appetite and Denies weight loss Eyes Details: glasses Reports requires corrective lenses ENT Reports Normal hearing present, Denies dental pain, Denies dysphagia, Denies hearing loss, Denies mouth pain, Denies odynophagia, Denies throat swelling, Denies tongue swelling and Reports other (Dentition adequate) Card Reports no additional complaints Resp Reports no additional complaints GI Details: Denies abdominal pain, Denies melena, Reports bloating, Denies hematochezia, Denies constipation, Denies GI cramping, Denies dysphagia, Denies excessive flatus, Denies early satiety, Reports heartburn, Denies diarrhea, Denies nausea, Denies odynophagia, Denies vomiting and Denies hematemesis Reports urinary incontinence Skin/Breast Denies pruritus, Denies lesions, Denies rash and Denies jaundice Neuro Reports Normal hearing present and Denies Abnormal speech present Endo Denies fatigue Aller/Immun Denies throat swelling and Denies tongue swelling Physical Exam Vital Signs: Last Vital Signs Pulse 72 07/26/24 12:47 BP 138/66 07/26/24 12:47 BMI result Body Mass Index 32.8 Const General: cooperative, no acute distress, well developed and well groomed Nutritional Appearance: well nourished and obese Orientation/consciousness: oriented to person, oriented to place and oriented to time Limitations: language barrier HEENT Head: Yes normocephalic and Yes atraumatic Eyes General: appearance normal, both eyes and all related structures Pupils: Equal, round and reactive pupils present Neck Neck: Yes normal visual inspection and Yes no lymphadenopathy Thyroid: Thyroid normal Resp Effort & Inspection: normal respiratory effort and able to speak in complete sentences Auscultation: clear to auscultation bilaterally Cardio Rate: regular rate Rhythm: regular rhythm Heart sounds: Normal, physiologic split S2 sound present Peripheral pulses: radial pulses present and posterior tibial pulses present GI Inspection: No distended, No Abdominal panniculus present and Yes obesity Palpation (GI): Soft to palpation, nontender, no guarding, not rigid and No hepatosplenomegaly present Percussion: Yes normal to percussion Auscultation: normal bowel sounds Rectal Exam - Female: deferred Skin General skin exam: no rashes or lesions noted, turgor normal, skin not dry, no j aundice, No spider nevi and no striae Rashes: no rashes Nails: normal Neuro General: oriented to person, oriented to place and oriented to time Cranial nerves: Yes Equal, round and reactive pupils present and Yes Normal hearing present Speech: No Abnormal speech present Extrem General: Yes normal to inspection, No clubbing, No cyanosis and No edema Psych Thought process: Normal thought process present and not confabulating Thought content: Normal thought content present Insight: Good insight present (Psych) Judgement: Good judgement present (Psych) Assessment & Plan Assessment & Plan (1) GERD (gastroesophageal reflux disease): Code(s): K21.9 - Gastro-esophageal reflux disease without esophagitis Category: Medical Qualifiers: Esophagitis presence: esophagitis presence not specified Qualified Code(s): K21.9 - Gastro-esophageal reflux disease without esophagitis (2) Dysuria: Code(s): R30.0 - Dysuria Category: Medical Plan [place] #[id number], José Luis She has not been taking the simethicone as it did not work for her, but she is taking an herbal preparation that is helping her somewhat. She continues on her Nexium SHe is experiencing urinary frequency with some leaking. Return office visit in 6 months Orders: Orders UA CC w/rflx Micro + Cult 07/26/24 R30.0 - Dysuria Medications: Refilled esomeprazole magnesium 40 mg PO BID 60 caps 6RF K21.9 - Gastro-esophageal reflux disease without esophagitis Discontinued simethicone after meals Discontinued Reason: Doctor's Order 180 mg PO QID 30 days 120 caps 3RF Coding Level of Care Code Est Pt Level 3 (33344) Diagnoses Gastroesophageal reflux disease, unspecified whether esophagitis present K21.9 Esophagitis presence: esophagitis presence not specified Dysuria R30.0
== END 2024-07-26 13:36 | disposition home or self-care (01) ==
PROVIDERS: PCP Internal Medicine; Visit Provider Nurse Practitioner
DX: K21.9 Gastro-esophageal reflux disease without esophagitis (principal); R30.0 Dysuria
CPT/HCPCS: 99499

== ENCOUNTER 2024-07-26 12:39 | Outpatient (REF) | payer OTHER, SELFPAY ==
[2024-07-26 14:44] LABS: Appearance Urine Clear; Color Urine Yellow; Glucose Urine UA Negative (Negative); Leukocyte Esterase Urine Negative (Negative); Nitrite Urine Negative (Negative); Specific Gravity - Urine 1.015 (1.005-1.025); Urine Blood Negative (Negative); Urine Ketones Negative (Negative); Urine Protein Trace mg/dL (Neg-Trace)
== END 2024-07-26 12:40 | disposition home or self-care (01) ==
LOC: HO.LAB 12:39
PROVIDERS: PCP Internal Medicine; Visit Provider Nurse Practitioner
DX: R30.0 Dysuria (principal)
CPT/HCPCS: 81003

== ENCOUNTER 2024-08-02 13:53 | Outpatient (REF) | payer OTHER, SELFPAY | END 2024-08-02 13:54 | disposition home or self-care (01) | LOC: HO.US 13:53 | PROVIDERS: PCP Internal Medicine; Visit Provider Nurse Practitioner | DX: R32 Unspecified urinary incontinence (principal) | CPT/HCPCS: 76857 ==

== ENCOUNTER 2024-10-01 07:17 | Outpatient (AMB) | payer OTHER, SELFPAY ==
--- NOTE | 2024-10-01 08:27 | A.OFFPC_ITS ---
Vital Signs 10/01/24 08:30 Height 5 ft Weight 170 lb BMI 33.2 BP 130/80 Blood Pressure Location Lt brachial Position Sitting Pulse 88 Pulse Source Pulse Oximeter Pulse Oximetry (%) 96 Oxygen Delivery Method Room Air Intake Visit Reasons: [facility] 10/19 RT eye cataract surgery Histotechnologist Required: Yes Histotechnologist Language: Superintendent Stations Name: Christina Lara MD Information Interpreted: non-clinical & clinical Accompanied by: Self / Same As Patient Allergies No Known Drug Allergies Allergy (Unknown, Verified 10/01/24 08:43) none Medication List - Last Reconciled 10/01/24 by Christina Lara MD albuterol sulfate 90 mcg/actuation (Ventolin HFA) 2 puffs inhalation Q6H PRN 30 days blood sugar diagnostic As directed Once per day blood sugar diagnostic (OneTouch Ultra Test strips) test daily blood-glucose meter (Make It WorkTouch Ultra2 Meter) test daily blood-glucose meter As directed cholecalciferol (vitamin D3) (Vitamin D3) 25 mcg PO DAILY esomeprazole magnesium 40 mg PO BID gabapentin 200 mg (2 x 100 mg) PO BEDTIME 90 days Grab bar As directed lancets As directed Once per day lancets (OneTouch UltraSoft 2 Lancet) test daily levothyroxine 88 mcg PO DAILY 90 days metformin 850 mg PO BID 90 days rosuvastatin 20 mg PO DAILY 90 days Shower Chair As directed walker Folding Front wheeled walker Tobacco use date assessed: 10/01/24 Fall risk assessment: No Falls in past year Last assessed Fall Risk: 10/01/24 Dental Screening Dental Screen Date: 10/01/24 Did you have a dental visit in the last 12 months?: No Did you have a dental problem in the last 6 months where you did not have access to dental care?: No Was dental information given to patient?: Patient has dentist HPI HPI Comments History of Present Illness Details The patient is a 68-year-old female presenting with a need for pre- operative evaluation and clearance for a pending surgical procedure of cataract extraction and intraocular lens implant schedule for October 19. Her relevant medical history includes hypothyroidism, for which she is on Levothyroxine 88 mcg daily following a thyroidectomy performed at the age of 16. She also has a history of Type 2 Diabetes Mellitus, managed with Metformin 850 two times a day, with a well-controlled recent HbA1c level of 6.4%. Additionally, she takes Rosuvastatin for hyperlipidemia and Omeprazole for gastroesophageal reflux disease. She has a previous surgical history of appendectomy, hysterectomy, and bilateral tubal ligation. A prior breast biopsy from the right side was benign. She quit smoking and does not consume alcohol. The patient denies depression, anxiety, chest pain, or dyspnea. The evaluation includes planning for laboratory work and an electrocardiogram to ensure cardiac health pre-operatively. [facility] Medical History COVID-19 Gastritis Dyspnea Encounter for Medicare annual wellness exam Hyperlipidemia LDL goal <70 Cough Leukocytosis Osteoarthritis of right knee Hyperkalemia Muscle spasm Adult general medical exam Screening for colon cancer Screening for diabetes mellitus Screening for breast cancer Epigastric pain Constipation Pre-op examination Diabetes Osteoporosis Difficulty swallowing Bilateral knee pain Urge urinary incontinence Impaired glucose tolerance Hypothyroidism Autoimmune thyroiditis Pure hypercholesterolemia GERD (gastroesophageal reflux disease) Surgical History Status post total right knee replacement History of right knee surgery History of esophagogastroduodenoscopy (EGD) Hx of colonoscopy History of appendectomy History of partial hysterectomy Hx of tubal ligation HX: benign breast biopsy Hx of thyroidectomy Family History Father Prostate cancer Mother Diabetes mellitus Sister Heart problem Social History Household Members: Children Housing: Apartment Are you a primary women's health care nurse practitioner to a significant other at home: No Do you presently have visiting nurse or other home services: No Alcohol intake: never Patient Tobacco Use Status: Former Tobacco user Tobacco use type: Cigarette Cigarettes Per Day: 6 Years Smoked: 40 Packs per year/per ci.00 Smoked in Last 30 Days: No e-Cigarette/Vaping Use: Never Used Second Hand Smoke Exposure: Yes service: No Current occupational status: unemployed Current occupational exposures/hazards: No Cognitive needs: No Hearing needs: No Vision needs: Yes Questionnaire PHQ-9 Over the last 2 weeks, how often have you been bothered by any of the following problems? 1. Little interest or pleasure in doing things: not at all 2. Feeling down, depressed, or hopeless: not at all 3. Trouble falling or staying asleep, or sleeping too much: not at all 4. Feeling tired or having little energy: not at all 5. Poor appetite or overeating: not at all 6. Feeling bad about yourself - or that you are a failure or have let yourself or your family down: not at all 7. Trouble concentrating on things, such as reading the newspaper or watching television: not at all 8. Moving or speaking so slowly that other people could have noticed. Or the opposite - being so fidgety or restless that you have been moving around a lot more than usual: not at all 9. Thoughts that you would be better off or of hurting yourself in some way: not at all Total score: 0 Depression Screening Interpretation: Negative Depression Screening Done: Yes 94506 - PHQ-9 Billing: Yes Source: Developed by Drs. Jermaine Yanes, Xenia Monsivais, Pan Liu and colleagues, with an educational claude from [employer]. Thrive Questionnaire Date Thrive assessed: 10/01/24 I am a: Patient What is your living situation today?: I have a steady place to live Within the past 12 months, did the food you bought not last and you didn't have the money to get more?: Never true Within the past 12 months, did you worry whether your food would run out before you got money to buy more?: Never true Do you have trouble paying for medicines?: No Do you have trouble getting transportation to medical appointments?: No Do you have trouble paying your heating and electricity bill?: No Do you have trouble taking care of your child, family member or friend?: No Do you have trouble with day-to-day activities such as bathing, preparing meals, shopping, managing finances, etc.?: Yes Are you currently unemployed and looking for a job?: No Are you interested in more education?: No Please select the resources that you would like help with: None Currently or been in a relationship where the following occur: No concerns reported THRIVE Score: 0 AUDIT C Alcohol Use Questionnaire (AUDIT-C) 1. How often do you have a drink containing alcohol?: Never Total Score: 0 Score Reviewed/Action Taken: No JUAN-7 AMB Questionnaire JUAN-7 Date JUAN - 7 assessed: 10/01/24 Feeling nervous, anxious, or on edge: 0 = Not at all Not being able to stop or control worryin = Not at all Worrying too much about different things: 0 = Not at all Trouble relaxin = Not at all Being so restless that it is hard to sit still: 0 = Not at all Becoming easily annoyed or irritable: 0 = Not at all Feeling afraid as if something awful might happen: 0 = Not at all Total JUAN-7 score (0-4 normal; 5-9 mild; 10-14 moderate; 15-21 severe): 0 Source: Developed by Drs. Jermaine Yanes, Xenia Monsivais, Pan Liu and colleagues, with an educational claude from [employer]. JUAN-7 Assessment Billing JUAN-7 Assessment Tool: JUAN-7 Assessment 91021 Review of Systems Const All systems reviewed & are unremarkable except as noted in HPI and below Card Denies chest pain at rest, Denies chest pain with activity, Denies edema, Denies irregular heart rhythm, Denies claudication, Denies dyspnea, Denies dyspnea on exertion, Denies orthopnea, Denies paroxysmal nocturnal dyspnea and Denies slow heart rate Resp Denies cough, Denies dyspnea and Denies dyspnea on exertion GI Denies abdominal pain, Denies change in bowel habits, Denies excessive flatus, Denies nausea and Denies vomiting Physical exam (Primary Care) Vital Signs: Last Vital Signs Pulse 88 10/01/24 08:30 BP 130/80 10/01/24 08:30 Pulse Ox 96 10/01/24 08:30 Oxygen Delivery Method Room Air 10/01/24 08:30 BMI result Body Mass Index 33.2 BMI Assessment/Plan discussion: High BMI High, discussed plan: lifestyle, weight reduction, dietary and physical activity Tobacco/Smoking Status: Tobacco use Status Tobacco use date assessed 10/01/24 10/01/24 08:39 Patient Tobacco Use Status Former Tobacco user 10/01/24 08:39 Tobacco use type Cigarette 10/01/24 08:36 e-Cigarette/Vaping Use Never Used 10/01/24 08:36 PHQ-9: PHQ-9 Score PHQ-9: Total score 0 10/01/24 08:29 Depression Screening Interpretation: Negative Thrive Assessment: Date of Thrive Assessment Date Thrive assessed 10/01/24 10/01/24 08:29 Currently or been in a relationship where the following occur: No concerns reported Const General: cooperative and comfortable Limitations: ambulation with cane Resp Effort & Inspection: normal respiratory effort Auscultation: clear to auscultation bilaterally Cardio Jugular venous distension: no JVD Rate: regular rate Rhythm: regular rhythm Heart sounds: S1 normal heart sound present and S2 normal heart sound present Extrem General: Yes full ROM Results AMB Hemoglobin A1c AMB Hemoglobin A1c 6.4 % Last Edit by CORINNA Sales on 10/01/24 08:4 0 Results Reviewed Results Reviewed: Laboratory Last Values Hgb A1c (Clinic) 6.4 % (4.0-6.0) H 10/01/24 08:26 Coding Level of Care Code Est Pt Level 4 (60493) Complex EM visit Add On G2211 Diagnoses Pre-op examination Z01.818 Type 2 diabetes mellitus with hyperglycemia, without long-term current use of insulin E11.65 Diabetes mellitus type: type 2 Diabetes mellitus long term care pharmacist insulin use: without shelter use Diabetes mellitus complication status: with hyperglycemia Gastroesophageal reflux disease, unspecified whether esophagitis present K21.9 Esophagitis presence: esophagitis presence not specified Pure hypercholesterolemia E78.00 Autoimmune thyroiditis E06.3 Additional Codes JUAN-7 Assessment Billing - JUAN-7 Assessment Tool: JUAN-7 Assessment 43882 ([id number]) PHQ-9 - 69294 - PHQ-9 Billing: Yes ([id number]) Time Spent (min) 23 Assessment & Plan Assessment & Plan (1) Pre-op examination: Code(s): Z01.818 - Encounter for other preprocedural examination Category: Medical (2) Diabetes mellitus: Code(s): E11.9 - Type 2 diabetes mellitus without complications Category: Medical Qualifiers: Diabetes mellitus type: type 2 Diabetes mellitus long term care pharmacist insulin use: without long term care pharmacist use Diabetes mellitus complication status: with hyperglycemia Qualified Code(s): E11.65 - Type 2 diabetes mellitus with hyperglycemia (3) GERD (gastroesophageal reflux disease): Code(s): K21.9 - Gastro-esophageal reflux disease without esophagitis Category: Medical Qualifiers: Esophagitis presence: esophagitis presence not specified Qualified Code(s): K21.9 - Gastro-esophageal reflux disease without esophagitis (4) Pure hypercholesterolemia: Code(s): E78.00 - Pure hypercholesterolemia, unspecified Category: Medical (5) Autoimmune thyroiditis: Code(s): E06.3 - Autoimmune thyroiditis Category: Medical Plan - Continue current medication regimen for hypothyroidism, diabetes, hyperlipidemia, and gastroesophageal reflux disease. - Arrange laboratory tests and electrocardiogram to assess cardiac status before surgery. - Ensure fasting state prior to laboratory work. Patient was informed and verbally consented to the use of an ambient scribe for clinic note documentation during this visit. I discussed with the patient the necessity of conducting laboratory tests and an electrocardiogram to evaluate her suitability for the upcoming surgical procedure. The importance of maintaining good control of diabetes and continued management of her current medications was emphasized. No current symptoms indicated additional immediate intervention, and a pre-operative clearance process was initiated. The patient consented to the recommended plan and understands the need for fasting before the laboratory tests. Orders: Orders ECG 12 lead EKG Today Z01.818 - Encounter for other preprocedural examination Vitamin D 25-OH Total Today E55.9 - Vitamin D deficiency, unspecified Comprehensive [place]. Panel Fast Today E11.65 - Type 2 diabetes mellitus with hyperglycemia AMB Hemoglobin A1c Today E11.65 - Type 2 diabetes mellitus with hyperglycemia Lipid Panel Today E78.5 - Hyperlipidemia, unspecified Microalbumin, Random (w Creat) Today E11.65 - Type 2 diabetes mellitus with hyperglycemia, R80.9 - Proteinuria, unspecified Thyroid Stimulating Hormone Today E06.3 - Autoimmune thyroiditis Complete Blood Count Auto Diff Today D72.829 - Elevated white blood cell count, unspecified Patient Instructions: - Continue all current prescribed medications as usual. - Prepare for laboratory tests and EKG by fasting. - Keep a consistent monitoring of blood glucose levels. - Use a cane as required for mobility safety. - Follow up on any new symptoms or concerns immediately.
[2024-10-01 08:30] VITALS: BP 130/80; PULSE 88; O2SAT 96; BMI 33.2
== END 2024-10-01 08:51 | disposition home or self-care (01) ==
PROVIDERS: PCP Internal Medicine; Visit Provider Internal Medicine
DX: Z01.818 Encounter for other preprocedural examination (principal); E11.65 Type 2 diabetes mellitus with hyperglycemia; K21.9 Gastro-esophageal reflux disease without esophagitis; E78.00 Pure hypercholesterolemia, unspecified; E06.3 Autoimmune thyroiditis

== ENCOUNTER → 2024-10-01 07:17 | Outpatient (BNVA) | payer OTHER, SELFPAY | PROVIDERS: PCP Internal Medicine; Visit Provider Internal Medicine | DX: Z01.818 Encounter for other preprocedural examination (principal); E11.65 Type 2 diabetes mellitus with hyperglycemia; K21.9 Gastro-esophageal reflux disease without esophagitis; E78.00 Pure hypercholesterolemia, unspecified; E06.3 Autoimmune thyroiditis | CPT/HCPCS: 83036; 96127; 99212 ==

== ENCOUNTER 2024-10-04 07:39 | Outpatient (REF) | payer OTHER, SELFPAY ==
--- NOTE | 2024-10-04 07:44 | ECG_ITS ---
Test Reason : PRE OP Blood Pressure : */* mmHG Vent. Rate : 79 BPM Atrial Rate : 79 BPM P-R Int : 178 ms QRS Dur : 80 ms QT Int : 366 ms P-R-T Axes : 15 11 21 degrees QTcB Int : 419 ms Sinus rhythm with marked sinus arrhythmia Otherwise normal ECG When compared with ECG of 30-Nov-2022 14:09, ME interval has decreased Referred By: Christina Lara Electronically Signed By: KIP MAK MD
[2024-10-04 07:51] LABS: MANUAL DIFF FLAG NO
[2024-10-04 08:12] LABS: Basophils Absolute Auto 0.1 X10*3/uL (0.0-0.2); Basophils Percent Auto 0.8 % (0-2); Eosinophils Absolute Auto 0.8 X10*3/uL (0.0-0.4); Eosinophils Percent Auto 7.3 % (0-4); Hematocrit 38.1 % (37.0-47.0); Hemoglobin 12.3 g/dl (12.0-16.0); Imm Gran Abs Auto 0.04 X10*3/uL (0.00-0.03); Imm Gran Pct Auto 0.4 % (0.0-0.4); Lymphocytes Absolute Auto 3.6 X10*3/uL (1.2-4.9); Lymphocytes Percent Auto 34.6 % (20-40); Mean Corpuscular HGB Conc 32.3 g/dl (31.0-35.0); Mean Corpuscular Volume 89.9 fL (80.0-98.0); Mean Platelet Volume 12.1 fL (9.4-12.3); Monocytes Percent Auto 9.4 % (2-11); Neutrophils Percent Auto 47.5 % (45-73); Platelet Count 218 X10*3/uL (160-400); Red Blood Count 4.24 X10*6/uL (4.20-5.50); Red Cell Distribution Width 14.3 % (11.0-16.0); White Blood Count 10.5 X10*3/uL (4.8-10.8)
[2024-10-04 08:43] LABS: Alanine Aminotransferase 35 U/L (0-31); Albumin Level 4.2 g/dL (3.5-5.0); Alkaline Phosphatase 67 U/L (39-117); Anion Gap 11 (12-20); Aspartate Amino Transferase 28 U/L (5-31); Bilirubin Total 0.3 mg/dL (0.0-1.0); Blood Urea Nitrogen 13 mg/dL (9-16); Calcium 9.9 mg/dL (8.4-10.2); Carbon Dioxide 30 mmol/L (22-29); Chloride 106 mmol/L (96-108); Cholesterol 127 mg/dL (<200); Estimated Glomerular Filt Rate > 60; Glucose Fasting 134 mg/dL (60-99); HDL Cholesterol 46 mg/dL (>40); LDL Cholesterol Calculated 56 mg/dL (<100); Potassium 4.5 mmol/L (3.3-5.1); Sodium 142 mmol/L (135-145); Total Protein 7.8 g/dL (6.5-8.0); Triglycerides 125 mg/dL (<150)
[2024-10-04 08:58] LABS: Thyroid Stimulating Hormone 1.29 uIU/mL (0.32-4.0); Vitamin D 25-OH Total 31.6 ng/mL (>30)
[2024-10-04 09:14] LABS: Creatinine Urine 128.01 mg/dL; Microalbum/Creatinine Ratio Ur 25.7 ug/mg cr (<30)
== END 2024-10-04 07:40 | disposition home or self-care (01) ==
LOC: HO.LAB 07:39
PROVIDERS: PCP Internal Medicine; Visit Provider Internal Medicine
DX: Z01.818 Encounter for other preprocedural examination (principal); E55.9 Vitamin D deficiency, unspecified; E11.65 Type 2 diabetes mellitus with hyperglycemia; E78.5 Hyperlipidemia, unspecified; R80.9 Proteinuria, unspecified; E06.3 Autoimmune thyroiditis; D72.829 Elevated white blood cell count, unspecified
CPT/HCPCS: 36415; 80053; 80061; 82043; 82306; 82570; 84443; 85025; 93005

== ENCOUNTER → 2024-10-04 07:44 | Outpatient (BNV) | payer OTHER, SELFPAY | PROVIDERS: PCP Internal Medicine; Visit Provider Internal Medicine Cardiovascular Disease | DX: Z01.810 Encounter for preprocedural cardiovascular examination (principal) | CPT/HCPCS: 93010 ==

== ENCOUNTER 2024-10-24 13:58 | Outpatient (REF) | payer OTHER, SELFPAY | END 2024-10-24 13:59 | disposition home or self-care (01) | LOC: HO.MAMMO 13:58 | PROVIDERS: PCP Internal Medicine; Visit Provider Internal Medicine | DX: Z12.31 Encounter for screening mammogram for malignant neoplasm of breast (principal) | CPT/HCPCS: 77063; 77067 ==

== ENCOUNTER → 2024-10-24 14:00 | Outpatient (BNV) | payer OTHER, SELFPAY | PROVIDERS: PCP Internal Medicine; Visit Provider Internal Medicine | DX: Z12.31 Encounter for screening mammogram for malignant neoplasm of breast (principal) | CPT/HCPCS: 77063; 77067 ==

== ENCOUNTER 2024-12-04 11:41 | Outpatient (REF) | payer OTHER, SELFPAY ==
--- NOTE | ~2024-12-04 | MM_ITS ---
EXAMINATION: MM DIAGNOSTIC DIGITAL BREAST TOMOSYNTHESIS, LEFT CLINICAL INFORMATION: Call back from screening for asymmetry in the lateral left breast on CC view. COMPARISON: Mammography: [facility] on PACS. TECHNIQUE: Digital breast tomosynthesis is performed in both the craniocaudal and mediolateral oblique views along with computer-aided detection (CAD). Synthesized 2D images are generated from the tomosynthesis. FINDINGS: There are scattered areas of fibroglandular density (ACR BI-RADS breast composition Category b). The previously seen asymmetry in the lateral left breast on CC view does not persist on additional imaging projections and likely represented overlapping breast tissue. There are no significant masses, abnormal calcifications, or other abnormalities. MM/MM tomosynthesis added views L IMPRESSION: No mammographic evidence of malignancy. ASSESSMENT: BI-RADS BI-RADS 1 - Negative RECOMMENDATION: 1 year F/U Results were provided to the patient at time of visit by the technologist. This patient's information was entered into a reminder system with a target due date for their next mammogram. Electronically signed by: Bhavani Green DO 12/04/2024 12:07 PM EDT
== END 2024-12-04 11:42 | disposition home or self-care (01) ==
LOC: HO.MAMMO 11:41
PROVIDERS: PCP Internal Medicine; Visit Provider Internal Medicine
DX: N64.89 Other specified disorders of breast (principal)
CPT/HCPCS: 77061; 77065

== ENCOUNTER → 2024-12-04 12:00 | Outpatient (BNV) | payer OTHER, SELFPAY | PROVIDERS: PCP Internal Medicine; Visit Provider Internal Medicine | DX: R92.8 Other abnormal and inconclusive findings on diagnostic imaging of breast (principal) | CPT/HCPCS: 77065; G0279 ==

== ENCOUNTER 2025-01-24 12:41 | Outpatient (AMB) | payer OTHER, SELFPAY ==
--- NOTE | 2025-01-24 12:49 | MHC.OFFVIS ---
Vital Signs 01/24/25 12:50 Height 5 ft Weight 171 lb 15.369 oz BMI 33.6 BP 118/55 L Blood Pressure Location Lt brachial Position Sitting Pulse 73 Intake Visit Reasons: 6 month follow up Intake Note: Diana presents in the office as a 6 month follow up. CC: She states that she is not having any new concerns - states she is having some issues with gas. She is having more frequent episodes than she was before. Alternative Medicine Practitioner Required: Yes Allergies No Known Drug Allergies Allergy (Unknown, Verified 01/24/25 12:58) none HPI HPI 6 month follow up: Details: Assessment & Plan (1) GERD (gastroesophageal reflux disease): Code(s): K21.9 - Gastro-esophageal reflux disease without esophagitis Category: Medical Qualifiers: Esophagitis presence: esophagitis presence not specified Qualified Code(s): K21.9 - Gastro-esophageal reflux disease without esophagitis (2) Dysuria: Code(s): R30.0 - Dysuria Category: Medical Plan Palestinian #[id number], José Luis She has not been taking the simethicone as it did not work for her, but she is taking an herbal preparation that is helping her somewhat. She continues on her Nexium SHe is experiencing urinary frequency with some leaking. Return office visit in 6 months Orders: Orders UA CC w/rflx Micro + Cult 07/26/24 R30.0 - Dysuria Medications: Refilled esomeprazole magnesium 40 mg PO BID 60 caps 6RF K21.9 - Gastro-esophageal reflux disease without esophagitis Discontinued simethicone after meals Discontinued Reason: Doctor's Order 180 mg PO QID 30 days 120 caps 3RF LABS 07/26/24-[address]: Christina Fischer MD ORDERED: Ua Clean Catch QUERIES: Source: Urine, Clean Catch Test Result Flag Reference Ur Color Yellow Ur Appear Clear PH 6.0 5.0-9.0 Ur Glu Negative Negative mg/dL Urine Blood Negative Negative Spec [place] Ur 1.015 1.005-1.025 Urine Protein Trace Neg-Trace mg/dL Urine Ketones Negative Negative mg/dL Ur Nitrite Negative Negative Ur Alysha Esterase Negative Negative TODA[facility] VISIT Palestinian #Joe Live She says that her herbal preparation is no longer working for her extreme flatulence. At time this causes rectal smearing. This may be SIBO, so we will try a round of augmentin with a probiotic. She is agreeable to this. She continues on her generic Nexium. ROV 6 weeks. [facility] Medical History Acute diarrhea Dysuria Urinary leakage Pre-op examination COVID-19 Gastritis Dyspnea Encounter for Medicare annual wellness exam Hyperlipidemia LDL goal <70 Cough Leukocytosis Osteoarthritis of right knee Hyperkalemia Muscle spasm Adult general medical exam Screening for colon cancer Screening for diabetes mellitus Screening for breast cancer Epigastric pain Constipation Diabetes Osteoporosis Difficulty swallowing Bilateral knee pain Urge urinary incontinence Impaired glucose tolerance Hypothyroidism Autoimmune thyroiditis Pure hypercholesterolemia GERD (gastroesophageal reflux disease) Surgical History Status post total right knee replacement History of right knee surgery History of esophagogastroduodenoscopy (EGD) Hx of colonoscopy History of appendectomy History of partial hysterectomy Hx of tubal ligation HX: benign breast biopsy Hx of thyroidectomy Family History Father Prostate cancer Mother Diabetes mellitus Sister Heart problem Social History Household Members: Children Housing: Apartment Are you a primary care worker to a significant other at home: No Do you presently have visiting nurse or other home services: No Alcohol intake: never Patient Tobacco Use Status: Former Tobacco user Tobacco use type: Cigarette Cigarettes Per Day: 6 Years Smoked: 40 e-Cigarette/Vaping Use: Never Used Second Hand Smoke Exposure: Yes service: No Current occupational status: unemployed Current occupational exposures/hazards: No Cognitive needs: No Hearing needs: No Vision needs: Yes Review of Systems Const Denies fatigue, Denies fever(s), Denies night sweats, Denies poor appetite and Denies weight loss ENT Reports Normal hearing present, Denies dental pain, Denies dysphagia, Denies hearing loss, Denies mouth pain, Denies odynophagia, Denies throat swelling, Denies tongue swelling and Reports other (Dentition adequate) Card Reports no additional complaints Resp Reports no additional complaints GI Details: Denies abdominal pain, Denies melena, Reports bloating, Denies hematochezia, Denies constipation, Denies GI cramping, Denies dysphagia, Reports excessive flatus, Denies early satiety, Reports heartburn, Denies diarrhea, Denies nausea, Denies odynophagia, Denies vomiting and Denies hematemesis Skin/Breast Denies pruritus, Denies lesions, Denies rash and Denies jaundice Neuro Reports Normal hearing present and Denies Abnormal speech present Endo Denies fatigue Aller/Immun Denies throat swelling and Denies tongue swelling Physical Exam Vital Signs: Last Vital Signs Pulse 73 01/24/25 12:50 BP 118/55 L 01/24/25 12:50 BMI result Body Mass Index 33.6 Const General: cooperative, no acute distress, well developed and well groomed Nutritional Appearance: well nourished and obese Orientation/consciousness: oriented to person, oriented to place and oriented to time Limitations: language barrier HEENT Head: Yes normocephalic and Yes atraumatic Eyes General: appearance normal, both eyes and all related structures Pupils: Equal, round and reactive pupils present Neck Neck: Yes normal visual inspection and Yes no lymphadenopathy Thyroid: Thyroid normal Resp Effort & Inspection: normal respiratory effort and able to speak in complete sentences Auscultation: clear to auscultation bilaterally Cardio Rate: regular rate Rhythm: regular rhythm Heart sounds: Normal, physiologic split S2 sound present Peripheral pulses: radial pulses present and posterior tibial pulses present GI Inspection: Yes distended, Yes Abdominal panniculus present and Yes obesity Palpation (GI): Soft to palpation, nontender, no guarding, not rigid and No hepatosplenomegaly present Percussion: Yes normal to percussion Auscultation: normal bowel sounds Rectal Exam - Female: deferred Skin General skin exam: no rashes or lesions noted, turgor normal, skin not dry, no jaundice, No spider nevi and no striae Rashes: no rashes Nails: normal Neuro General: oriented to person, oriented to place and oriented to time Cranial nerves: Yes Equal, round and reactive pupils present and Yes Normal hearing present Speech: No Abnormal speech present Extrem General: Yes normal to inspection, No clubbing, No cyanosis and No edema Psych Appearance: grossly normal and well kempt Mental Status: mental status grossly normal Speech and movement: Normal speech and movement present Affect: normal affect Attitude: cooperative Thought process: Normal thought process present and not confabulating Thought content: Normal thought content present Insight: Fair insight present (Psych) Judgement: Fair judgement present (Psych) Assessment & Plan Assessment & Plan (1) Small intestinal bacterial overgrowth (SIBO), hydrogen subtype: Code(s): K63.8211 - Small intestinal bacterial overgrowth, hydrogen-subtype Category: Medical (2) GERD (gastroesophageal reflux disease): Code(s): K21.9 - Gastro-esophageal reflux disease without esophagitis Category: Medical Qualifiers: Esophagitis presence: esophagitis presence not specified Qualified Code(s): K21.9 - Gastro-esophageal reflux disease without esophagitis (3) Abdominal bloating: Code(s): R14.0 - Abdominal distension (gaseous) Category: Medical Plan Palestinian #Joe Live She says that her herbal preparation is no longer working for her extreme flatulence. At time this causes rectal smearing. This may be SIBO, so we will try a round of augmentin with a probiotic. She is agreeable to this. She continues on her generic Nexium. ROV 6 weeks. Medications: New amoxicillin-pot clavulanate 875-125 mg 1 tab PO BID 20 tabs 0RF 10 days K63.8211 - Small intestinal bacterial overgrowth, hydrogen-subtype amoxicillin-pot clavulanate 875-125 mg 1 tab PO BID 10 days 20 tabs 0RF K63.8211 - Small intestinal bacterial overgrowth, hydrogen-subtype Refilled esomeprazole magnesium 40 mg PO BID 60 caps 6RF K21.9 - Gastro-esophageal reflux disease without esophagitis Coding Level of Care Code Est Pt Level 3 (26245) Diagnoses Small intestinal bacterial overgrowth (SIBO), hydrogen subtype K63.8211 Gastroesophageal reflux disease, unspecified whether esophagitis present K21.9 Esophagitis presence: esophagitis presence not specified Abdominal bloating R14.0
[2025-01-24 12:50] VITALS: BP 118/55; PULSE 73; BMI 33.6
== END 2025-01-24 13:17 | disposition home or self-care (01) ==
LOC: HO.HGI 12:42
PROVIDERS: PCP Internal Medicine; Visit Provider Nurse Practitioner
DX: K63.8211 Small intestinal bacterial overgrowth, hydrogen-subtype (principal); K21.9 Gastro-esophageal reflux disease without esophagitis; R14.0 Abdominal distension (gaseous)
CPT/HCPCS: 99213

== ENCOUNTER → 2025-01-24 12:41 | Outpatient (BNVA) | payer OTHER, SELFPAY | PROVIDERS: PCP Internal Medicine; Visit Provider Nurse Practitioner | DX: K63.8211 Small intestinal bacterial overgrowth, hydrogen-subtype (principal); K21.9 Gastro-esophageal reflux disease without esophagitis; R14.0 Abdominal distension (gaseous) | CPT/HCPCS: 99212 ==

== ENCOUNTER 2025-02-12 16:06 | Outpatient (AMB) | payer OTHER, SELFPAY ==
--- NOTE | 2025-02-12 16:11 | A.OFFPC_ITS ---
Vital Signs 02/12/25 16:13 Height 5 ft Weight 171 lb BMI 33.4 BP 132/70 Blood Pressure Location Lt brachial Position Sitting Intake Visit Reasons: Annual PE- A1C needed. 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 Accompanied by: Self / Same As Patient Allergies No Known Drug Allergies Allergy (Unknown, Verified 02/12/25 16:25) none Medication List - Last Reconciled 02/12/25 by Christina Lara MD albuterol sulfate 90 mcg/actuation (Ventolin HFA) 2 puffs inhalation Q6H PRN 30 days blood sugar diagnostic As directed Once per day blood sugar diagnostic (OneTouch Ultra Test strips) test daily blood-glucose meter (OneTouch Ultra2 Meter) test daily blood-glucose meter As directed esomeprazole magnesium 40 mg PO BID gabapentin 200 mg (2 x 100 mg) PO BEDTIME 90 days Grab bar As directed lancets (OneTouch UltraSoft 2 Lancet) test daily lancets As directed Once per day levothyroxine 88 mcg PO DAILY 90 days metformin 850 mg PO BID 90 days rosuvastatin 20 mg PO DAILY 90 days Shower Chair As directed walker Folding Front wheeled walker Tobacco use date assessed: 10/01/24 Fall risk assessment: No Falls in past year Last assessed Fall Risk: 02/12/25 Dental Screening Dental Screen Date: 10/01/24 HPI HPI Comments History of Present Illness Details The patient is a 69-year-old female presenting for an annual physical examination with chronic conditions review. She has a history of essential hypertension, monitored regularly with current readings at 132/70 mmHg. Her Type 2 Diabetes Mellitus is well managed with current A1c at 6.6. Hyperlipidemia control is achieved with rosuvastatin, with favorable cholesterol levels remarked in September labs. Additional management includes esomeprazole for Gastroesophageal Reflux Disease and levothyroxine for Hypothyroidism. Previously identified sinus arrhythmia with prolonged MD interval will be further evaluated by cardiology on February 25. Musculoskeletal pain is predominantly noticeable when engaged in routine movements; pharmacological options like muscle relaxants are being considered for relief. The patient is non-alcoholic and a former smoker, having stopped smoking about seven to eight months ago. Her surgical history includes a right knee replacement, appendiceal removal, hysterectomy, thyroid resection, and right breast biopsy. - Recent mammography this year indicated normal results. - Bone densitometry last performed in 20 22, due again next year. - Pneumonia vaccine administered at age 65, not currently needed. - Blood pressure managed at a recent [facility] surement of 132/70. - Diabetes management reflected in A1c o f 6.6. - Thyroid function stated as satisfactor y in recent testing. - Cholesterol levels consistently within desirable range. [facility] Medical History (Updated 02/12/25 @ 19:53 by Christina Lara MD) Muscle spasm Acute diarrhea Dysuria Urinary leakage Pre-op examination COVID-19 Gastritis Dyspnea Encounter for Medicare annual wellness exam Hyperlipidemia LDL goal <70 Cough Leukocytosis Osteoarthritis of right knee Hyperkalemia Adult general medical exam Screening for colon cancer Screening for diabetes mellitus Screening for breast cancer Epigastric pain Constipation Diabetes Osteoporosis Difficulty swallowing Bilateral knee pain Urge urinary incontinence Impaired glucose tolerance Hypothyroidism Autoimmune thyroiditis Pure hypercholesterolemia GERD (gastroesophageal reflux disease) Surgical History Status post total right knee replacement History of right knee surgery History of esophagogastroduodenoscopy (EGD) Hx of colonoscopy History of appendectomy History of partial hysterectomy Hx of tubal ligation HX: benign breast biopsy Hx of thyroidectomy Family History Father Prostate cancer Mother Diabetes mellitus Sister Heart problem Social History Household Members: Children Housing: Apartment Are you a primary care transitions nurse to a significant other at home: No Do you presently have visiting nurse or other home services: No Alcohol intake: never Patient Tobacco Use Status: Former Tobacco user Tobacco use type: Cigarette Cigarettes Per Day: 6 Years Smoked: 40 e-Cigarette/Vaping Use: Never Used Second Hand Smoke Exposure: Yes service: No Current occupational status: unemployed Current occupational exposures/hazards: No Cognitive needs: No Hearing needs: No Vision needs: Yes Questionnaire PHQ-9 Over the last 2 weeks, how often have you been bothered by any of the following problems? 1. Little interest or pleasure in doing things: several days 2. Feeling down, depressed, or hopeless: not at all 3. Trouble falling or staying asleep, or sleeping too much: not at all 4. Feeling tired or having little energy: not at all 5. Poor appetite or overeating: not at all 6. Feeling bad about yourself - or that you are a failure or have let yourself or your family down: not at all 7. Trouble concentrating on things, such as reading the newspaper or watching television: not at all 8. Moving or speaking so slowly that other people could have noticed. Or the opposite - being so fidgety or restless that you have been moving around a lot more than usual: not at all 9. Thoughts that you would be better off or of hurting yourself in some way: not at all Total score: 1 Depression Screening Interpretation: Negative Depression Screening Done: Yes 92010 - PHQ-9 Billing: Yes Source: Developed by Drs. Jermaine Yanes, Xenia Monsivais, Pan Liu and colleagues, with an educational claude from [employer]. Thrive Questionnaire Date Thrive assessed: 02/12/25 I am a: Patient What is your living situation today?: I have a steady place to live Within the past 12 months, did the food you bought not last and you didn't have the money to get more?: I choose not to answer this question Within the past 12 months, did you worry whether your food would run out before you got money to buy more?: I choose not to answer this question Do you have trouble paying for medicines?: I choose not to answer this question Do you have trouble getting transportation to medical appointments?: I choose not to answer this question Do you have trouble paying your heating and electricity bill?: I choose not to answer this question Do you have trouble taking care of your child, family member or friend?: I choose not to answer this question Do you have trouble with day-to-day activities such as bathing, preparing meals, shopping, managing finances, etc.?: I choose not to answer this question Are you currently unemployed and looking for a job?: I choose not to answer this question Are you interested in more education?: I choose not to answer this question Please select the resources that you would like help with: None Currently or been in a relationship where the following occur: I choose not to answer THRIVE Score: 0 AUDIT C Alcohol Use Questionnaire (AUDIT-C) 1. How often do you have a drink containing alcohol?: Never Total Score: 0 Score Reviewed/Action Taken: No JUAN-7 AMB Questionnaire JUAN-7 Date JUAN - 7 assessed: 02/12/25 Feeling nervous, anxious, or on edge: 0 = Not at all Not being able to stop or control worryin = Not at all Worrying too much about different things: 0 = Not at all Trouble relaxin = Not at all Being so restless that it is hard to sit still: 0 = Not at all Becoming easily annoyed or irritable: 0 = Not at all Feeling afraid as if something awful might happen: 0 = Not at all Total JUAN-7 score (0-4 normal; 5-9 mild; 10-14 moderate; 15-21 severe): 0 Source: Developed by Drs. Jermaine Yanes, Xenia Monsivais, Pan Liu and colleagues, with an educational claude from [employer]. JUAN-7 Assessment Billing JUAN-7 Assessment Tool: JUAN-7 Assessment 57470 Review of Systems Const All systems reviewed & are unremarkable except as noted in HPI and below Card Denies chest pain at rest, Denies chest pain with activity, Denies edema, Denies irregular heart rhythm, Denies claudication, Denies dyspnea, Denies dyspnea on exertion, Denies orthopnea, Denies paroxysmal nocturnal dyspnea and Denies slow heart rate Resp Denies cough, Denies dyspnea and Denies dyspnea on exertion GI Denies abdominal pain, Denies change in bowel habits, Denies excessive flatus, Denies nausea and Denies vomiting Denies urinary incontinence, Denies urinary hesitancy and Denies urinary urgency Neuro Denies lack of coordination Physical exam (Primary Care) Vital Signs: Last Vital Signs BP 132/70 02/12/25 16:13 BMI result Body Mass Index 33.4 Tobacco/Smoking Status: Tobacco use Status Tobacco use date assessed 10/01/24 02/12/25 16:20 Patient Tobacco Use Status Former Tobacco user 02/12/25 16:20 Tobacco use type Cigarette 02/12/25 16:20 e-Cigarette/Vaping Use Never Used 02/12/25 16:20 PHQ-9: PHQ-9 Score PHQ-9: Total score 1 02/12/25 16:28 Depression Screening Interpretation: Negative Thrive Assessment: Date of Thrive Assessment Date Thrive assessed 02/12/25 02/12/25 16:20 Currently or been in a relationship where the following occur: I choose not to answer HENMT Head: Yes normal to inspection, Yes normocephalic and Yes atraumatic Ears: external ears normal Eyes General: appearance normal, both eyes and all related structures Eyelids: Yes eyelids normal Conjunctivae: conjunctivae normal Neck Neck: Yes normal visual inspection and Yes supple Resp Effort & Inspection: normal respiratory effort Auscultation: clear to auscultation bilaterally Cardio Jugular venous distension: no JVD Rate: regular rate Rhythm: regular rhythm Heart sounds: S1 normal heart sound present and S2 normal heart sound present GI Inspection: Yes normal to inspection Palpation (GI): Soft to palpation and nontender Auscultation: normal bowel sounds Skin General skin exam: no rashes or lesions noted Neuro General: no focal motor deficits Extrem General: Yes full ROM Psych Appearance: grossly normal Results AMB Hemoglobin A1c AMB Hemoglobin A1c 6.6 % Last Edit by CORINNA Sales on 02/12/25 16:2 3 Results Reviewed Results Reviewed: Laboratory Last Values Hgb A1c (Clinic) 6.6 % (4.0-6.0) H 02/12/25 16:11 Coding Level of Care Code Est Pt Level 3 (03240) Est Pt Prev Care >65y(32353) Diagnoses Physical exam Z00.00 Muscle spasm M62.838 Ear itch L29.9 Type 2 diabetes mellitus with hyperglycemia, without long-term current use of insulin E11.65 Diabetes mellitus type: type 2 Diabetes mellitus buttermaker helper insulin use: without buttermaker helper use Diabetes mellitus complication status: with hyperglycemia Additional Codes JUAN-7 Assessment Billing - JUAN-7 Assessment Tool: JUAN-7 Assessment 12750 ([id number]) PHQ-9 - 23583 - PHQ-9 Billing: Yes ([id number]) Time Spent (min) 34 Assessment & Plan Assessment & Plan (1) Physical exam: Code(s): Z00.00 - Encounter for general adult medical examination without abnormal findings Category: Medical (2) Muscle spasm: Code(s): M62.838 - Other muscle spasm Category: Medical (3) Ear itch: Code(s): L29.9 - Pruritus, unspecified Category: Medical (4) Diabetes mellitus: Code(s): E11.9 - Type 2 diabetes mellitus without complications Category: Medical Qualifiers: Diabetes mellitus type: type 2 Diabetes mellitus buttermaker helper insulin use: without buttermaker helper use Diabetes mellitus complication status: with hyperglycemia Qualified Code(s): E11.65 - Type 2 diabetes mellitus with hyperglycemia Plan Management of the chronic conditions continues as before, with the patient remaining on prescribed medication for her hypertension, hyperlipidemia, Type 2 Diabetes Mellitus, Gastroesophageal Reflux Disease, and Hypothyroidism. The not ed sinus arrhythmia will be further reviewed with a special education aide, and introduction of a muscle relaxant is under consideration for her activity- related pain. Pneumonia vaccination is acknowledged as up-to-date, with evaluation for bone densitometry planned. Smoking cessation is reinforced with continued abstinence encouraged. Patient was informed and verbally consented to the use of an ambient scribe for clinic note documentation during this visit. I discussed with the patient her management of hypertension, diabetes, and hyperlipidemia, noting the efficacy of her current medications. We reviewed her sinus arrhythmia and the significance of her prolonged MD interval on ECG, with a follow-up cardiology appointment scheduled to address these findings. The benefits and potential side effects of muscle relaxants for her musculoskeletal pain were covered. Health maintenance steps such as bone density screening and an achieved normal mammography result were addressed. We acknowledged her successful smoking cessation with no current alcohol use, reinforcing continued lifestyle changes. Orders: Orders AMB Hemoglobin A1c Today E11.65 - Type 2 diabetes mellitus with hyperglycemia Comprehensive [place]. Panel Fast 4 Months E11.65 - Type 2 diabetes mellitus with hyperglycemia Lipid Panel 4 Months E78.5 - Hyperlipidemia, unspecified Microalbumin, Random (w Creat) 4 Months R80.9 - Proteinuria, unspecified Vitamin D 25-OH Total 4 Months E55.9 - Vitamin D deficiency, unspecified Thyroid Stimulating Hormone 4 Months E06.3 - Autoimmune thyroiditis Medications: New semaglutide (Ozempic) for 4 weeks 0.25 mg (0.368 mL) subcut QWEEK 1.472 mL 0RF 4 weeks E11.65 - Type 2 diabetes mellitus with hyperglycemia baclofen 10 mg PO BID PRN 60 tabs 1RF muscle spasm 30 days M62.838 - Other muscle spasm fluocinolone acetonide oil 0.01% (DermOtic Oil) 5 drps otic (ears) BID 20 mL 0RF 7 days L29.9 - Pruritus, unspecified Patient Instructions: - Continue with current medications including Esomeprazole, Gabapentin, Levothyroxine, Metformin, and Rosuvastatin. - Follow up with special education aide on February 25 for continued evaluation of heart rhythm. - Consider starting a muscle relaxant for muscle pain as discussed. - Schedule and complete bone densitometry screening next year. - Maintain lifestyle changes including staying smoke-free and no alcohol use. - Report any new symptoms or worsening of current conditions promptly.
[2025-02-12 16:13] VITALS: BP 132/70; BMI 33.4
== END 2025-02-12 16:39 | disposition home or self-care (01) ==
LOC: HO.HMCH 16:07
PROVIDERS: PCP Internal Medicine; Visit Provider Internal Medicine
DX: Z00.00 Encounter for general adult medical examination without abnormal findings (principal); M62.838 Other muscle spasm; L29.9 Pruritus, unspecified; E11.65 Type 2 diabetes mellitus with hyperglycemia

== ENCOUNTER → 2025-02-12 16:06 | Outpatient (BNVA) | payer OTHER, SELFPAY | PROVIDERS: PCP Internal Medicine; Visit Provider Internal Medicine | DX: Z00.00 Encounter for general adult medical examination without abnormal findings (principal); E11.65 Type 2 diabetes mellitus with hyperglycemia; K21.9 Gastro-esophageal reflux disease without esophagitis; E03.9 Hypothyroidism, unspecified; M62.838 Other muscle spasm; L29.9 Pruritus, unspecified; E78.5 Hyperlipidemia, unspecified; R80.9 Proteinuria, unspecified; E55.9 Vitamin D deficiency, unspecified; E06.3 Autoimmune thyroiditis | CPT/HCPCS: 83036; 96127; 99212; 99397 ==

== ENCOUNTER 2025-02-25 13:58 | Outpatient (AMB) | payer OTHER, SELFPAY ==
[2025-02-25 14:01] VITALS: BP 116/78; PULSE 74; BMI 33.1
--- NOTE | 2025-02-25 14:01 | MHC.OFFVIS ---
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 Intake Note: New patient abnormal ekg feeling good Cigar Head Piercer Required: Yes Cigar Head Piercer Services: Cigar Head Piercer Present Cigar Head Piercer Name: aurea Mello Allergies No Known Drug Allergies Allergy (Unknown, Verified 02/12/25 16:25) none Medication List - Last Reconciled 02/25/25 by Fernando Fields MD albuterol sulfate 90 mcg/actuation (Ventolin HFA) 2 puffs inhalation Q6H PRN 30 days baclofen 10 mg PO BID PRN 30 days blood sugar diagnostic As directed Once per day blood sugar diagnostic (BrainLABTouch Ultra Test strips) test daily blood-glucose meter (BrainLABTouch Ultra2 Meter) test daily blood-glucose meter As directed esomeprazole magnesium 40 mg PO BID fluocinolone acetonide oil 0.01% (DermOtic Oil) 5 drps otic (ears) BID 7 days gabapentin 200 mg (2 x 100 mg) PO BEDTIME 90 days Grab bar As directed lancets (BrainLABTouch UltraSoft 2 Lancet) test daily lancets As directed Once per day levothyroxine 88 mcg PO DAILY 90 days metformin 850 mg PO BID 90 days rosuvastatin 20 mg PO DAILY 90 days semaglutide (Ozempic) 0.25 mg (0.368 mL) subcut QWEEK 4 weeks Shower Chair As directed walker Folding Front wheeled walker HPI Comments Details: Diana was referred here for abnormal EKG that was done before. I reviewed the to EKGs is 1 done in September of 2024 and 1 in November of 2022 both of which look like normal sinus rhythm normal EKG with sinus arrhythmia. Patient has prior history of diabetes and hyperlipidemia. Patient has no obvious cardiac symptoms. No symptoms of palpitations. Patient describes intermittent episodes of sharp chest pain that last for a couple of sec happens randomly without any exercise activity. Symptoms are not bothersome. No associated symptoms associated with it. She denies any exertional chest pain or shortness of breath. She says she has pretty active lifestyle. [facility] Medical History (Updated 02/12/25 @ 19:53 by Christina Lara MD) Muscle spasm Acute diarrhea Dysuria Urinary leakage Pre-op examination COVID-19 Gastritis Dyspnea Encounter for Medicare annual wellness exam Hyperlipidemia LDL goal <70 Cough Leukocytosis Osteoarthritis of right knee Hyperkalemia Adult general medical exam Screening for colon cancer Screening for diabetes mellitus Screening for breast cancer Epigastric pain Constipation Diabetes Osteoporosis Difficulty swallowing Bilateral knee pain Urge urinary incontinence Impaired glucose tolerance Hypothyroidism Autoimmune thyroiditis Pure hypercholesterolemia GERD (gastroesophageal reflux disease) Surgical History Status post total right knee replacement History of right knee surgery History of esophagogastroduodenoscopy (EGD) Hx of colonoscopy History of appendectomy History of partial hysterectomy Hx of tubal ligation HX: benign breast biopsy Hx of thyroidectomy Family History Father Prostate cancer Mother Diabetes mellitus Sister Heart problem Social History Household Members: Children Housing: Apartment Are you a primary career development specialist to a significant other at home: No Do you presently have visiting nurse or other home services: No Alcohol intake: never Patient Tobacco Use Status: Former Tobacco user Tobacco use type: Cigarette Cigarettes Per Day: 6 Years Smoked: 40 e-Cigarette/Vaping Use: Never Used Second Hand Smoke Exposure: Yes service: No Current occupational status: unemployed Current occupational exposures/hazards: No Cognitive needs: No Hearing needs: No Vision needs: Yes Review of Systems Const Denies chills, Denies daytime sleepiness, Denies fatigue, Denies fever(s), Denies frequent falls, Denies poor appetite, Denies snoring, Denies stops breathing during sleep, Denies weakness, Denies weight gain and Denies weight loss Eyes Denies loss of vision ENT Denies dizziness and Denies hearing loss Card Denies chest pain, Denies claudication, Denies leg edema, Denies lightheadedness, Denies palpitations, Denies dyspnea, Denies dyspnea on exertion and Denies orthopnea Resp Denies cough, Denies excessive phlegm production, Denies dyspnea, Denies dyspnea on exertion, Denies snoring and Denies wheezing GI Denies abdominal pain, Denies hematochezia, Denies change in bowel habits, Denies nausea and Denies vomiting Denies urinary frequency and Denies dysuria Musc Denies arthralgias, Denies muscle weakness, Denies numbness and Denies other (frequent falls) Skin/Breast Denies nail changes and Denies rash Neuro Denies Abnormal speech present, Denies dizziness, Denies frequent falls, Denies loss of vision, Denies memory loss, Denies numbness and Denies weakness Psych Denies depression and Denies memory loss Endo Denies fatigue and Denies palpitations Heron/Lymph Reports easy bruising and Reports other (anemia) Aller/Immun Denies wheezing Physical Exam Vital Signs: Last Vital Signs Pulse 74 02/25/25 14:01 BP 116/78 02/25/25 14:01 BMI result Body Mass Index 33.1 Const General: cooperative, comfortable, no acute distress, alert and awake Nutritional Appearance: obese Orientation/consciousness: patient oriented x3 Limitations: no limitations HEENT Head: Yes normocephalic and Yes atraumatic Neck Neck: Yes trachea midline, Yes supple and Yes no JVD Resp Effort & Inspection: normal respiratory effort Auscultation: clear to auscultation bilaterally Cardio Jugular venous distension: no JVD Palpation: normal PMI Rate: regular rate Rhythm: regular rhythm Heart sounds: S1 normal heart sound present, S2 normal heart sound present, no click, no gallops and no murmurs GI Auscultation: normal bowel sounds Skin General skin exam: no rashes or lesions noted Neuro General: patient oriented x3 and no focal motor deficits Speech: No Abnormal speech present Extrem General: Yes no clubbing, cyanosis or edema Psych Appearance: grossly normal Office Procedures EKG Details: EKG shows normal sinus rhythm with PACs otherwise normal EKG 31012-[id number], Complete Assessment & Plan Assessment & Plan (1) Non-cardiac chest pain: Code(s): R07.89 - Other chest pain Plan: Patient with intermittent episodes of chest pain which are very sharp in nature nonexertional and last for few sec. The pain symptoms are not suggestive of underlying cardiac issues. This was explained to her in details. She is encouraged to continue to participate in aggressive sugar control goal hemoglobin A1c less than 7%. Also consider statin therapy with goal LDL less than 70 mg/dL. Her EKGs does not show any significant abnormality except for isolated PACs which is benign. This was discussed with her. She does not require any additional cardiac workup at this point time. Will follow up in the clinic if need be. Thank you for allowing me to partake in her care Coding Level of Care Code New Pt Level 3 (47500) Complex EM visit Add On G2211 Diagnoses Non-cardiac chest pain R07.89 CPT Codes EKG - CPT: 25515-[id number], Complete ([id number])
== END 2025-02-25 14:31 | disposition home or self-care (01) ==
LOC: HO.HCS 13:58
PROVIDERS: PCP Internal Medicine; Visit Provider Internal Medicine Cardiovascular Disease
DX: R07.89 Other chest pain (principal); I49.1 Atrial premature depolarization
CPT/HCPCS: 93010; 99203; G2211

== ENCOUNTER → 2025-02-25 13:58 | Outpatient (BNVA) | payer OTHER, SELFPAY | PROVIDERS: PCP Internal Medicine; Visit Provider Internal Medicine Cardiovascular Disease | DX: E11.9 Type 2 diabetes mellitus without complications (principal); E78.5 Hyperlipidemia, unspecified; R07.89 Other chest pain | CPT/HCPCS: 93005; 99202 ==

== ENCOUNTER 2025-03-13 11:40 | Outpatient (AMB) | payer OTHER, SELFPAY ==
--- NOTE | 2025-03-13 11:43 | A.OFFVIS_ITS ---
Vital Signs 03/13/25 11:45 Height 5 ft Weight 172 lb 4 oz BMI 33.6 BP 119/68 Blood Pressure Location Lt brachial Position Sitting Pulse 66 Pulse Oximetry (%) 98 Oxygen Delivery Method Room Air Intake Visit Reasons: ? SIBO, GERD Intake Note: Patient follow up for ? SIBO, GERD Patient cc: gasses, abdominal pain with bloating/fullness, GERD, soft stool and shocking sensation and is worse at bedtime Manager Energy Required: Yes Manager Energy Name: [facility] Interpeter Accompanied by: Self / Same As Patient Allergies No Known Drug Allergies Allergy (Unknown, Verified 03/13/25 11:42) none HPI HPI ? SIBO, GERD: Details: Assessment & Plan (1) Small intestinal bacterial overgrowth (SIBO), hydrogen subtype: Code(s): K63.8211 - Small intestinal bacterial overgrowth, hydrogen-subtype Category: Medical (2) GERD (gastroesophageal reflux disease): Code(s): K21.9 - Gastro-esophageal reflux disease without esophagitis Category: Medical Qualifiers: Esophagitis presence: esophagitis presence not specified Qualified Code(s): K21.9 - Gastro-esophageal reflux disease without esophagitis (3) Abdominal bloating: Code(s): R14.0 - Abdominal distension (gaseous) Category: Medical Plan [place] #[employer] She says that her herbal preparation is no longer working for her extreme flatulence. At time this causes rectal smearing. This may be SIBO, so we will try a round of augmentin with a probiotic. She is agreeable to this. She continues on her generic Nexium. ROV 6 weeks. Medications: New amoxicillin-pot clavulanate 875-125 mg 1 tab PO BID 20 tabs 0RF 10 days K63.8211 - Small intestinal bacterial overgrowth, hydrogen-subtype amoxicillin-pot clavulanate 875-125 mg 1 tab PO BID 10 days 20 tabs 0RF K63.8211 - Small intestinal bacterial overgrowth, hydrogen-subtype Refilled esomeprazole magnesium 40 mg PO BID 60 caps 6RF K21.9 - Gastro-esophageal reflux disease without esophagitis TODASYS VISIT [place] #Kaylene Live She is doing much better, the augmentin worked so SIBO. She continues on her esomeprazole 40 mg twice a day. Just started Ozempic, having noc regurg that interferes with her sleep, discussed blocks/risers under HOB. She is at lowest dose now so this will likely increase. ROV 6 mos. PFSH Medical History Muscle spasm Acute diarrhea Dysuria Urinary leakage Pre-op examination COVID-19 Gastritis Dyspnea Encounter for Medicare annual wellness exam Hyperlipidemia LDL goal <70 Cough Leukocytosis Osteoarthritis of right knee Hyperkalemia Adult general medical exam Screening for colon cancer Screening for diabetes mellitus Screening for breast cancer Epigastric pain Constipation Diabetes Osteoporosis Difficulty swallowing Bilateral knee pain Urge urinary incontinence Impaired glucose tolerance Hypothyroidism Autoimmune thyroiditis Pure hypercholesterolemia GERD (gastroesophageal reflux disease) Surgical History Status post total right knee replacement History of right knee surgery History of esophagogastroduodenoscopy (EGD) Hx of colonoscopy History of appendectomy History of partial hysterectomy Hx of tubal ligation HX: benign breast biopsy Hx of thyroidectomy Family History Father Prostate cancer Mother Diabetes mellitus Sister Heart problem Social History Household Members: Children Housing: Apartment Are you a primary rehab care assistant to a significant other at home: No Do you presently have visiting nurse or other home services: No Alcohol intake: never Patient Tobacco Use Status: Former Tobacco user Tobacco use type: Cigarette Cigarettes Per Day: 6 Years Smoked: 40 e-Cigarette/Vaping Use: Never Used Second Hand Smoke Exposure: Yes service: No Current occupational status: unemployed Current occupational exposures/hazards: No Cognitive needs: No Hearing needs: No Vision needs: Yes Review of Systems Const Denies fatigue, Denies fever(s), Denies night sweats, Denies poor appetite and Denies weight loss ENT Reports Normal hearing present, Denies dental pain, Denies dysphagia, Denies hearing loss, Denies mouth pain, Denies odynophagia, Denies throat swelling, Denies tongue swelling and Reports other (Dentition adequate) Card Reports no additional complaints Resp Reports no additional complaints GI Details: Denies abdominal pain, Denies melena, Denies bloating, Denies hematochezia, Denies constipation, Denies GI cramping, Denies dysphagia, Denies excessive flatus, Denies early satiety, Reports heartburn, Denies diarrhea, Denies nausea, Denies odynophagia, Denies vomiting and Denies hematemesis Skin/Breast Denies pruritus, Denies lesions, Denies rash and Denies jaundice Neuro Reports Normal hearing present and Denies Abnormal speech present Endo Denies fatigue Aller/Immun Denies throat swelling and Denies tongue swelling Physical Exam Vital Signs: Last Vital Signs Pulse 66 03/13/25 11:45 BP 119/68 03/13/25 11:45 Pulse Ox 98 03/13/25 11:45 Oxygen Delivery Method Room Air 03/13/25 11:45 BMI result Body Mass Index 33.6 Const General: cooperative, no acute distress, well developed and well groomed Nutritional Appearance: well nourished and obese Orientation/consciousness: oriented to person, oriented to place and oriented to time Limitations: No language barrier HEENT Head: Yes normocephalic and Yes atraumatic Eyes General: appearance normal, both eyes and all related structures Pupils: Equal, round and reactive pupils present Neck Neck: Yes normal visual inspection and Yes no lymphadenopathy Thyroid: Thyroid normal Resp Effort & Inspection: normal respiratory effort and able to speak in complete sentences Auscultation: clear to auscultation bilaterally Cardio Rate: regular rate Rhythm: regular rhythm Heart sounds: Normal, physiologic split S2 sound present Peripheral pulses: radial pulses present and posterior tibial pulses present GI Inspection: No distended, No Abdominal panniculus present and Yes obesity Palpation (GI): Soft to palpation, nontender, no guarding, not rigid and No hepatosplenomegaly present Percussion: Yes normal to percussion Auscultation: normal bowel sounds Rectal Exam - Female: deferred Skin General skin exam: no rashes or lesions noted, turgor normal, skin not dry, no jaundice, No spider nevi and no striae Rashes: no rashes Nails: normal Neuro General: oriented to person, oriented to place and oriented to time Cranial nerves: Yes Equal, round and reactive pupils present and Yes Normal hearing present Speech: No Abnormal speech present Extrem General: Yes normal to inspection, No clubbing, No cyanosis and No edema Psych Appearance: grossly normal and well kempt Mental Status: mental status grossly normal Speech and movement: Normal speech and movement present Affect: normal affect Attitude: cooperative Thought process: Normal thought process present and not confabulating Thought content: Normal thought content present Insight: Fair insight present (Psych) Judgement: Fair judgement present (Psych) Assessment & Plan Assessment & Plan (1) Small intestinal bacterial overgrowth (SIBO), hydrogen subtype: Code(s): K63.8211 - Small intestinal bacterial overgrowth, hydrogen-subtype Category: Medical (2) GERD (gastroesophageal reflux disease): Code(s): K21.9 - Gastro-esophageal reflux disease without esophagitis Category: Medical Qualifiers: Esophagitis presence: esophagitis presence not specified Qualified Code(s): K21.9 - Gastro-esophageal reflux disease without esophagitis (3) Tubular adenoma of colon: Comment: 2023 SCOPE= SESSILE SERRATED POLYP REPEAT IN 2-3 YEARS DUE TO FAIR PREP Code(s): D12.6 - Benign neoplasm of colon, unspecified Category: Medical Plan [place] #Kaylene Live She is doing much better, the augmentin worked so SIBO. She continues on her esomeprazole 40 mg twice a day. Just started Ozempic, having noc regurg that interferes with her sleep, discussed blocks/risers under HOB. She is at lowest dose now so this will likely increase. ROV 6 mos. Coding Level of Care Code Est Pt Level 3 (06393) Diagnoses Small intestinal bacterial overgrowth (SIBO), hydrogen subtype K63.8211 Gastroesophageal reflux disease, unspecified whether esophagitis present K21.9 Esophagitis presence: esophagitis presence not specified Tubular adenoma of colon D12.6
[2025-03-13 11:45] VITALS: BP 119/68; PULSE 66; O2SAT 98; BMI 33.6
== END 2025-03-13 12:15 | disposition home or self-care (01) ==
LOC: HO.HGI 11:41
PROVIDERS: PCP Internal Medicine; Visit Provider Nurse Practitioner
DX: K63.8211 Small intestinal bacterial overgrowth, hydrogen-subtype (principal); K21.9 Gastro-esophageal reflux disease without esophagitis; D12.6 Benign neoplasm of colon, unspecified
CPT/HCPCS: 99213

== ENCOUNTER → 2025-03-13 11:40 | Outpatient (BNVA) | payer OTHER, SELFPAY | PROVIDERS: PCP Internal Medicine; Visit Provider Nurse Practitioner | DX: K63.8211 Small intestinal bacterial overgrowth, hydrogen-subtype (principal); K21.9 Gastro-esophageal reflux disease without esophagitis; D12.6 Benign neoplasm of colon, unspecified; R14.0 Abdominal distension (gaseous); M62.838 Other muscle spasm; R19.7 Diarrhea, unspecified; E78.5 Hyperlipidemia, unspecified; D72.829 Elevated white blood cell count, unspecified; E87.5 Hyperkalemia; M81.0 Age-related osteoporosis without current pathological fracture; E03.9 Hypothyroidism, unspecified; E06.3 Autoimmune thyroiditis; Z79.891 Long term (current) use of opiate analgesic | CPT/HCPCS: 99212 ==

== ENCOUNTER 2025-05-09 08:35 | Outpatient (REF) | payer OTHER, SELFPAY ==
--- NOTE | ~2025-05-09 | XR_ITS ---
EXAMINATION: XR KNEE 3 VIEWS RIGHT HISTORY: M17.11 - Unilateral primary osteoarthritis, right knee COMPARISON: Comparison is made with the prior examination dated 03/31/2023. FINDINGS: Standing AP views of both knees and additional lateral and sunrise patellar views of the right knee are submitted. The patient is again noted to be status post right total knee arthroplasty. The orthopedic elements are in anatomic alignment. There is no radiographic evidence of loosening. There is no fracture or dislocation. The soft tissues are unremarkable. There is no joint effusion. XR/XR knee RT 3V IMPRESSION: Status post right total knee arthroplasty. Electronically signed by: Jermaine Sweeney MD 05/09/2025 09:25 AM EDT
== END 2025-05-09 08:36 | disposition home or self-care (01) ==
LOC: HO.HOSX 08:35
PROVIDERS: Visit Provider Physician Assistant
DX: M17.11 Unilateral primary osteoarthritis, right knee (principal); Z96.651 Presence of right artificial knee joint
CPT/HCPCS: 73562; 99212

== ENCOUNTER 2025-05-09 09:00 | Outpatient (AMB) | payer OTHER, SELFPAY ==
--- NOTE | 2025-05-09 09:16 | A.OFFVIS_ITS ---
Vital Signs 05/09/25 09:19 Height 5 ft Weight 172 lb BMI 33.6 Intake Visit Reasons: OV-Pain in the right knee-limited weight bearing Intake Note: Diana is a 69 year old woman who presents today with her daughter for a follow up of her right knee with complaints of pain status post right TKA w/ Dr Trejo DOS: 01/04/23. Patient reports having pain in her right hip that radiates down to her knee. States her symptoms have been present for 2 months. Denies any injury. 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 She is status post right total knee arthroplasty on 01/04/[address] Trejo. She states she has been having some discomfort in the right knee ever since surgery. She has done physical therapy but continues to have pain along the anterior portion of the knee. She denies injury. Denies fever or chills. Denies instability. [facility] Medical History Muscle spasm Acute diarrhea Dysuria Urinary leakage Pre-op examination COVID-19 Gastritis Dyspnea Encounter for Medicare annual wellness exam Hyperlipidemia LDL goal <70 Cough Leukocytosis Osteoarthritis of right knee Hyperkalemia Adult general medical exam Screening for colon cancer Screening for diabetes mellitus Screening for breast cancer Epigastric pain Constipation Diabetes Osteoporosis Difficulty swallowing Bilateral knee pain Urge urinary incontinence Impaired glucose tolerance Hypothyroidism Autoimmune thyroiditis Pure hypercholesterolemia GERD (gastroesophageal reflux disease) Surgical History Status post total right knee replacement History of right knee surgery History of esophagogastroduodenoscopy (EGD) Hx of colonoscopy History of appendectomy History of partial hysterectomy Hx of tubal ligation HX: benign breast biopsy Hx of thyroidectomy Family History Father Prostate cancer Mother Diabetes mellitus Sister Heart problem Social History Household Members: Children Housing: Apartment Are you a primary infant caregiver to a significant other at home: No Do you presently have visiting nurse or other home services: No Alcohol intake: never Patient Tobacco Use Status: Former Tobacco user Tobacco use type: Cigarette Cigarettes Per Day: 6 Years Smoked: 40 e-Cigarette/Vaping Use: Never Used Second Hand Smoke Exposure: Yes service: No Current occupational status: unemployed Current occupational exposures/hazards: No Cognitive needs: No Hearing needs: No Vision needs: Yes Review of Systems Const All systems reviewed & are unremarkable except as noted in HPI and below Physical Exam Vital Signs: BMI result Body Mass Index 33.6 Extrem Other: Right knee surgical scar well healed. No erythema or swelling. She has full extension and can flex to approximately 100 degrees. She does have a palpable defect along the distal end of the quad tendon however no functional deficits. No ligamentous laxity. Calf is supple and nontender neurovascularly intact. Results Reviewed Results Reviewed: X-rays of the right knee obtained in the office today and reviewed by me show intact orthopedic prosthesis without any acute abnormalities. Assessment & Plan Assessment & Plan (1) History of total right knee replacement: Code(s): Z96.651 - Presence of right artificial knee joint Category: Surgical Plan: I reassured the patient the quad is intact and her prosthesis is in good condition. I did encourage her to work with physical therapy to restrain the quad and hip muscles to improve her strength and hopefully take some of the load off the patella. I did place an order for Celebrex to take twice a day for 2 weeks to help with her inflammation and we will refer her to pain management to see if she is a candidate for geniculate injections. The patient is content with this plan and will follow up as needed. Orders: Orders XR knee RT 3V Today M17.11 - Unilateral primary osteoarthritis, right knee Coding Level of Care Code Est Pt Level 3 (39998) Complex EM visit Add On G2211 Diagnoses History of total right knee replacement Z96.651
[2025-05-09 09:19] VITALS: BMI 33.6
== END 2025-05-09 09:54 | disposition home or self-care (01) ==
LOC: HO.HOS 09:01
PROVIDERS: PCP Internal Medicine; Visit Provider Physician Assistant
DX: M25.561 Pain in right knee (principal); Z96.651 Presence of right artificial knee joint
CPT/HCPCS: 99213; G2211

== ENCOUNTER → 2025-05-09 09:08 | Outpatient (BNV) | payer OTHER, SELFPAY | PROVIDERS: Visit Provider Radiology Diagnostic Radiology | DX: M17.11 Unilateral primary osteoarthritis, right knee (principal); Z96.651 Presence of right artificial knee joint | CPT/HCPCS: 73562 ==

== ENCOUNTER 2025-05-10 12:03 | Outpatient (REF) | payer OTHER, SELFPAY ==
[2025-05-10 15:06] LABS: Amylase 86 U/L (28-100); Lipase 35 U/L (8-78)
== END 2025-05-10 12:04 | disposition home or self-care (01) ==
LOC: HO.LAB 12:03
PROVIDERS: PCP Internal Medicine; Visit Provider Nurse Practitioner
DX: K63.8211 Small intestinal bacterial overgrowth, hydrogen-subtype (principal); K21.9 Gastro-esophageal reflux disease without esophagitis
CPT/HCPCS: 36415; 82150; 83690; 84443; 99212

== ENCOUNTER 2025-05-10 12:03 | Outpatient (AMB) | payer OTHER, SELFPAY ==
--- NOTE | 2025-05-10 12:05 | A.OFFVIS_ITS ---
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 Services: Shale Planer Operator Present (in person) Shale Planer Operator Name: Milla WEINSTEIN Information Interpreted: non-clinical & clinical Accompanied by: Self / Same As Patient Allergies No Known Drug Allergies Allergy (Unknown, Verified 05/10/25 12:11) none Post menopausal: Yes HPI HPI Nausea/vomiting/abd pain: Details: Assessment & Plan (1) Small intestinal bacterial overgrowth (SIBO), hydrogen subtype: Code(s): K63.8211 - Small intestinal bacterial overgrowth, hydrogen-subtype Category: Medical (2) GERD (gastroesophageal reflux disease): Code(s): K21.9 - Gastro-esophageal reflux disease without esophagitis Category: Medical Qualifiers: Esophagitis presence: esophagitis presence not specified Qualified Code(s): K21.9 - Gastro-esophageal reflux disease without esophagitis (3) Tubular adenoma of colon: Comment: 2023 SCOPE= SESSILE SERRATED POLYP REPEAT IN 2-3 YEARS DUE TO FAIR PREP Code(s): D12.6 - Benign neoplasm of colon, unspecified Category: Medical Plan [place] #Kaylene Carrasquillo She is doing much better, the augmentin worked so SIBO. She continues on her esomeprazole 40 mg twice a day. Just started Ozempic, having noc regurg that interferes with her sleep, discussed blocks/risers under HOB. She is at lowest dose now so this will likely increase. ROV 6 mos. TODAY'S VISIT [place] Alejandra Foreign [facility] Medical History Muscle spasm Acute diarrhea Dysuria Urinary leakage Pre-op examination COVID-19 Gastritis Dyspnea Encounter for Medicare annual wellness exam Hyperlipidemia LDL goal <70 Cough Leukocytosis Osteoarthritis of right knee Hyperkalemia Adult general medical exam Screening for colon cancer Screening for diabetes mellitus Screening for breast cancer Epigastric pain Constipation Diabetes Osteoporosis Difficulty swallowing Bilateral knee pain Urge urinary incontinence Impaired glucose tolerance Hypothyroidism Autoimmune thyroiditis Pure hypercholesterolemia GERD (gastroesophageal reflux disease) Surgical History Status post total right knee replacement History of right knee surgery History of esophagogastroduodenoscopy (EGD) Hx of colonoscopy History of appendectomy History of partial hysterectomy Hx of tubal ligation HX: benign breast biopsy Hx of thyroidectomy Family History Father Prostate cancer Mother Diabetes mellitus Sister Heart problem Social History Household Members: Children Housing: Apartment Are you a primary memory care program director to a significant other at home: No Do you presently have visiting nurse or other home services: No Alcohol intake: never Patient Tobacco Use Status: Former Tobacco user Tobacco use type: Cigarette Cigarettes Per Day: 6 Years Smoked: 40 e-Cigarette/Vaping Use: Never Used Second Hand Smoke Exposure: Yes service: No Current occupational status: unemployed Current occupational exposures/hazards: No Cognitive needs: No Hearing needs: No Vision needs: Yes Review of Systems Const Denies fatigue, Denies fever(s), Denies night sweats, Reports poor appetite and Reports weight loss Eyes Details: glasses Reports requires corrective lenses ENT Reports Normal hearing present, Denies dental pain, Denies dysphagia, Denies hearing loss, Denies mouth pain, Denies odynophagia, Denies throat swelling, Denies tongue swelling and Reports other (Dentition adequate) Card Reports no additional complaints Resp Reports no additional complaints GI Details: Reports abdominal pain, Reports belching, Denies melena, Reports bloating, Denies hematochezia, Denies constipation, Denies GI cramping, Denies dysphagia, Denies excessive flatus, Reports early satiety, Reports heartburn, Denies diarrhea, Reports nausea, Denies odynophagia, Reports vomiting and Denies hematemesis Skin/Breast Denies pruritus, Denies lesions, Denies rash and Denies jaundice Neuro Reports Normal hearing present and Denies Abnormal speech present Endo Denies fatigue Aller/Immun Denies throat swelling and Denies tongue swelling Physical Exam Vital Signs: Last Vital Signs Pulse 86 05/10/25 12:09 Resp 15 05/10/25 12:09 BMI result Body Mass Index 33.4 Const General: cooperative, no acute distress, well developed and well groomed Nutritional Appearance: well nourished and obese Orientation/consciousness: oriented to person, oriented to place and oriented to time Limitations: language barrier HEENT Head: Yes normocephalic and Yes atraumatic Eyes General: appearance normal, both eyes and all related structures Pupils: Equal, round and reactive pupils present Neck Neck: Yes normal visual inspection and Yes no lymphadenopathy Thyroid: Thyroid normal Resp Effort & Inspection: normal respiratory effort and able to speak in complete sentences Auscultation: clear to auscultation bilaterally Cardio Rate: regular rate Rhythm: regular rhythm Heart sounds: Normal, physiologic split S2 sound present Peripheral pulses: radial pulses present and posterior tibial pulses present GI Inspection: No distended, No Abdominal panniculus present and Yes obesity Palpation (GI): Soft to palpation, nontender, no guarding, not rigid and No hepatosplenomegaly present Percussion: Yes normal to percussion Auscultation: normal bowel sounds Rectal Exam - Female: deferred Skin General skin exam: no rashes or lesions noted, turgor normal, skin not dry, no jaundice, No spider nevi and no striae Rashes: no rashes Nails: normal Neuro General: oriented to person, oriented to place and oriented to time Cranial nerves: Yes Equal, round and reactive pupils present and Yes Normal hearing present Speech: No Abnormal speech present Extrem General: Yes normal to inspection, No clubbing, No cyanosis and No edema Psych Appearance: grossly normal and well kempt Mental Status: mental status grossly normal Speech and movement: Normal speech and movement present Affect: Anxious affect present Attitude: cooperative Thought process: Normal thought process present and not confabulating Thought content: Normal thought content present Insight: Limited insight present (Psych) Judgement: Limited judgement present (Psych) Assessment & Plan Assessment & Plan (1) Small intestinal bacterial overgrowth (SIBO), hydrogen subtype: Code(s): K63.8211 - Small intestinal bacterial overgrowth, hydrogen-subtype Category: Medical (2) GERD (gastroesophageal reflux disease): Code(s): K21.9 - Gastro-esophageal reflux disease without esophagitis Category: Medical Qualifiers: Esophagitis presence: esophagitis presence not specified Qualified Code(s): K21.9 - Gastro-esophageal reflux disease without esophagitis (3) Nausea and vomiting: Code(s): R11.2 - Nausea with vomiting, unspecified Category: Medical (4) Medication side effect: Comment: sx coincide with initiation of Ozempic Code(s): T88.7XXA - Unspecified adverse effect of drug or medicament, initial encounter Category: Medical Plan [place] #Milla Carrasquillo She continues on her esomeprazole 40 mg daily. - The patient is a 69-year-old female presenting with adverse gastrointestinal symptoms potentially related to medication use (Ozempic). - The patient has experienced nausea and vomiting, primarily following meals at a daycare program, occurring over the past two months, which coincides with her start date of Ozempic. - Describes the symptoms as resembling morning sickness, with aversions to smells and unpleasant taste sensations. - Reports increased burping and belching without a change in medications or dose. - The onset of symptoms correlates with the use of Semaglutide (Ozempic) for the management of type 2 diabetes, initiated two months ago. - Experiences symptom relief with meals at home compared to food consumed at the program. -I advise her that she may need to contact her PCP to either lower/modify be Ozempic dose or consider alternative diabetes medications. What I propose is that we have a trial off of the medication to see if the symptoms resolve, if they do not then we need to do further testing to uncover any other pathologies. However, this symptom says extremely common with Ozempic and while some people can adjust over time there are some who never tolerate the medication. I have sent a workload note her primary care provider who is in our system to advise her of what is happening and to ask if we can do a trial cessation of the Ozempic. Return office visit in 3 weeks. After the patient leaves I receive a return workload as follows: On 05/10/25 @ 12:31 Crissy Lorenzo Wrote To Bear noted [facility] Agnieszka Nurses removed from item. On 05/10/25 @ 12:28 Christina Fischer Wrote To (2) Yes she can. On 05/10/25 @ 12:26 ChemaDecember Wrote To Christina Fischer I just saw Diana and she is c/o severer N/V and belching coinciding with the initiation of her Ozempic. Can she hold her next dose? I will get pancreatic enzymes to check. I advised her to stop her Ozempic in the short term. Orders: Orders TSH reflex Free T4 05/10/25 R11.2 - Nausea with vomiting, unspecified, T88.7XXA - Unspecified adverse effect of drug or medicament, initial encounter Amylase 05/10/25 R11.2 - Nausea with vomiting, unspecified, T88.7XXA - Unspecified adverse effect of drug or medicament, initial encounter Lipase 05/10/25 R11.2 - Nausea with vomiting, unspecified, T88.7XXA - Unspecified adverse effect of drug or medicament, initial encounter Coding Level of Care Code Est Pt Level 4 (02352) Diagnoses Small intestinal bacterial overgrowth (SIBO), hydrogen subtype K63.8211 Gastroesophageal reflux disease, unspecified whether esophagitis present K21.9 Esophagitis presence: esophagitis presence not specified Nausea and vomiting R11.2 Medication side effect T88.7XXA Time Spent (min) 36
[2025-05-10 12:09] VITALS: PULSE 86; RESP 15; BMI 33.4
== END 2025-05-10 12:29 | disposition home or self-care (01) ==
LOC: HO.HGI 12:04
PROVIDERS: PCP Internal Medicine; Visit Provider Nurse Practitioner
DX: K63.8211 Small intestinal bacterial overgrowth, hydrogen-subtype (principal); K21.9 Gastro-esophageal reflux disease without esophagitis; R11.2 Nausea with vomiting, unspecified
CPT/HCPCS: 99214

== ENCOUNTER 2025-05-23 16:04 | Inpatient (IN) | payer OTHER, SELFPAY ==
[2025-05-23] VITALS (19 sets, daily range): BP systolic 126–198; BP diastolic 57–96; PULSE 76–111; RESP 12–23; TEMP 36.4–36.6; O2SAT 88–100; BMI 33.3
--- NOTE | ~2025-05-23 | CT_ITS ---
EXAMINATION: CT ANGIOGRAM HEAD AND NECK CLINICAL INFORMATION: CVA COMPARISON: None available. TECHNIQUE: Noncontrast axial imaging of the head was performed. This was followed by test bolus sequences and head and neck intravenous bolus administration 70mL of Omnipaque 350. Helical imaging was performed in the axial plane from the aortic arch to the skull vertex. The data was processed at the optometric technologist's workstation for generation of MIP sequences. Angled MIPs and volume rendered reformatted images were also generated at an offline 3D workstation. Stenoses are assessed in accordance with NASCET criteria unless otherwise indicated. This CT examination was performed using dose optimization techniques as appropriate, variously including the following: *Automated exposure control *Adjustment of mA and/or kV according to patient size (this includes techniques or standardized protocols for targeted exams where dose is matched to indication/reason for exam; i.e. extremities or head) *Use of iterative reconstruction technique DLP: 611 mGy*cm FINDINGS: NECK CTA: -AORTIC ARCH: Normal in caliber. Mild atheromatous calcification. Three-vessel branching pattern. There is a 6 mm linear filling defect in the anterior origin brachycephalic artery noted anteriorly. -GREAT VESSEL ORIGINS: Widely patent. No stenosis. -RIGHT COMMON CAROTID ARTERY: It is tortuous at the base of the neck. Where the vessel deviates toward the midline, there is 43% lumen narrowing. -CERVICAL RIGHT INTERNAL CAROTID ARTERY: There is moderate atherosclerotic calcification at the carotid bulb with 28% short focal narrowing of the origin. -LEFT COMMON CAROTID ARTERY: Being hardening artifact mildly decreased visualization of the origin. 9 mm from the origin, the lumen diameter decreases to 3.4 mm. The more distal vessel diameter is 6.0 mm consistent with 43% focal stenosis. -CERVICAL LEFT INTERNAL CAROTID ARTERY: Mild calcific atherosclerotic disease of the carotid bulb and proximal internal carotid artery without significant stenosis. -CERVICAL RIGHT VERTEBRAL ARTERY: Codominant. Normal in course and caliber into the skull base. -CERVICAL LEFT VERTEBRAL ARTERY: Codominant. Normal in course and caliber into the skull base. OTHER, SOFT TISSUES: -There are shotty pretracheal lymph nodes.. No abnormal fluid collection or soft tissue swelling. -Thyroid gland is not identified and may be surgically absent.. -Imaged superior mediastinal structures normal. -Imaged lung apices clear. CTA OF THE BRAIN: -INTRACRANIAL INTERNAL CAROTID ARTERIES: No focal stenosis or occlusion. Multifocal atherosclerotic calcifications are present in the carotid siphons. -RIGHT ANTERIOR CEREBRAL ARTERY: Normal A1 segment.. Normal arborization of the distal segments. -LEFT ANTERIOR CEREBRAL ARTERY: Normal A1 segment.. Normal arborization of the distal segments. -ANTERIOR COMMUNICATING ARTERY: Normal. -RIGHT MIDDLE CEREBRAL ARTERY: Normal M1 segment of the MCA without focal stenosis or occlusion. Normal bifurcation. Normal arborization of the distal segments. -LEFT MIDDLE CEREBRAL ARTERY: Normal M1 segment of the MCA without focal stenosis or occlusion. Normal bifurcation. Normal arborization of the distal segments. -RIGHT VERTEBRAL ARTERY V4: Normal in course and caliber. Normal PICA branch. -LEFT VERTEBRAL ARTERY V4: Normal in course and caliber. Normal PICA branch. -BASILAR ARTERY: Normal without focal stenosis or occlusion. Normal appearance of the proximal superior cerebellar arteries. Normal basilar tip. -RIGHT POSTERIOR CEREBRAL ARTERY: Normal P1 segment. Normal opacification of the distal CREDIT INVESTIGATOR segments. -LEFT POSTERIOR CEREBRAL ARTERY: Normal P1 segment. Normal opacification of the distal CREDIT INVESTIGATOR segments. -POSTERIOR COMMUNICATING ARTERIES: Not clearly seen. CT/CT angio head neck STROKE IMPRESSION: CTA NECK: 6 mm linear filling defect is noted in the anterior wall of the brachial cephalic artery at its origin. This could represent thrombus or soft plaque. It does not result in hemodynamically significant stenosis. There is apparent decreased opacification at the origin of the left common carotid artery. This is likely in part due to beam hardening artifact, but could also be related to decreased flow in that portion of the vessel. There is a focal 43% stenosis 9 mm from the origin which is not hemodynamically significant. More distal portions of the vessel are well-opacified. The right common carotid artery is tortuous of at the base of the neck. There is a kink in the vessel resulting in the short focal 43% narrowing of the lumen which is not hemodynamically significant. CTA HEAD: No hemodynamically significant stenosis. Notification of report delivered to Dr Vinson at 5:03 PM eastern time. Electronically signed by: Cristiano Blevins MD 05/23/2025 05:04 PM EDT
--- NOTE | ~2025-05-23 | CT_ITS ---
EXAMINATION: CT HEAD WITHOUT CONTRAST CLINICAL INFORMATION: Stroke protocol COMPARISON: None available. TECHNIQUE: Contiguous axial imaging was performed from the skull base to vertex without intravenous administration of contrast. This CT examination was performed using dose optimization techniques as appropriate, variously including the following: *Automated exposure control *Adjustment of mA and/or kV according to patient size (this includes techniques or standardized protocols for targeted exams where dose is matched to indication/reason for exam; i.e. extremities or head) *Use of iterative reconstruction technique DLP: 571 mGY*cm FINDINGS: There is no acute ischemic change. Periventricular white matter hypodensities are present. There is no intracranial hemorrhage. There is no mass-effect or midline shift. Basal cisterns and ventricles are within normal limits for age/cerebral volume. Orbits are symmetrical and unremarkable. Paranasal sinuses and mastoid air cells are pneumatized. There are no bony abnormalities. CT/CT head for STROKE IMPRESSION: No acute intracranial abnormality. Mild periventricular white matter hypodensities are nonspecific but probably related to small vessel angiopathy. Dr Noemi Vinson: message delivered via [employer] at 4:18 pm ET Electronically signed by: Cristiano Blevins MD 05/23/2025 04:20 PM EDT
--- NOTE | ~2025-05-23 | MR_ITS ---
CLINICAL HISTORY: stroke post tpa MRI Brain Without Contrast: Comparison: 05/23/2025 Findings: No restricted diffusion or signs of acute infarction. Few scattered focal periventricular areas of white matter degeneration are due to microangiopathy. Basal ganglia are unremarkable Mass effect: No shift in midline structures Intracranial bleeding: No intraparenchymal bleeding or abnormal extra axial blood fluid collections Pituitary: Normal in size Visualized sinuses: Clear . Middle ear cavities are clear. Few small peripheral fluid levels are present in the right mastoid air cells due to recent or remote infection. Orbital structures: Unremarkable Calvarium: There is no abnormal meningeal thickening or nodularity Impression: Unremarkable MRI of the brain. This document has been electronically signed by: Gary Almaraz MD on 05/24/2025 19:47:49
--- NOTE | ~2025-05-23 | XR_ITS ---
CLINICAL HISTORY: New O2 requirement, ?aspiration 1 view chest Comparison: None Findings: Low inspiration. Resultant mild vascular crowding centrally with subsegmental atelectasis. No consolidation or pneumothorax/effusion. Heart size normal. No evidence of heart failure. No acute fractures. Impression: 1. Low inspiration with central vascular crowding and subsegmental atelectasis. 2. No acute cardiopulmonary disease. This document has been electronically signed by: Giovany Lorenz MD on 05/25/2025 10:21:04
--- NOTE | ~2025-05-23 | CT_ITS ---
CLINICAL HISTORY: intracranial bleed CT head without contrast Comparison: CT/TN/SR - CT HEAD NECK ANGIOGRAPHY WITH IV CONTRAST STROKE - 05/23/25 16:14 EDT Findings: No intra-axial mass, midline shift, hydrocephalus, or acute hemorrhage. Moderate atrophy like needs. There is no sinus or mastoid fluid. The orbits are within normal limits. There is no acute fracture. IMPRESSION: 1. No acute intracranial findings. This document has been electronically signed by: Mickey Hanks MD on 05/23/2025 22:57:31
--- NOTE | 2025-05-23 16:10 | ECG_ITS ---
Test Reason : STROKE PROTOCOL Blood Pressure : */* mmHG Vent. Rate : 106 BPM Atrial Rate : 106 BPM P-R Int : 202 ms QRS Dur : 72 ms QT Int : 344 ms P-R-T Axes : * -2 31 degrees QTcB Int : 456 ms Sinus tachycardia Nonspecific ST abnormality Abnormal ECG When compared with ECG of 04-Oct-2024 08:05, No significant change was found Referred By: Noemi Vinson Electronically Signed By: KIP MAK MD
--- NOTE | 2025-05-23 16:14 | PC.NURSE ---
69 F presents to D with L side weakness/numbness LKW 6892. RR even and unlabored, denies CP or SOB. Pt is A+Ox4, anxious, cooperative and following commands. No facial droop. in CT.
[2025-05-23 16:16] LABS: Prothrombin Time Whole Bld POC 11.9 sec (11.1-13.5); ~PT, ~INR - Anti Coag Clinic 1.0 (0.9-1.1)
[2025-05-23] MEDS: iohexoL 350 MG/ML 100 ML INFUS..BTL IV (16:34)
[2025-05-23 16:39] LABS: MANUAL DIFF FLAG NO
--- NOTE | 2025-05-23 16:41 | PC.NURSE ---
Provider reaching out to neurologist. Pt is A+Ox3-4(thought it was june) c/o vision issues, slight facial droop to L face. Pt c/o blurred vision, balance issues, L side weakness/numbness since 3p. RR even and unlabored, pt denies any pain or discomfort at this time.
[2025-05-23 16:44] LABS: Hematocrit 38.6 % (37.0-47.0); Hemoglobin 12.8 g/dl (12.0-16.0); Imm Gran Abs Auto 0.02 X10*3/uL (0.00-0.03); Imm Gran Pct Auto 0.2 % (0.0-0.4); Lymphocytes Absolute Auto 3.5 X10*3/uL (1.2-4.9); Mean Corpuscular HGB Conc 33.2 g/dl (31.0-35.0); Mean Corpuscular Hemoglobin 28.5 pg (27.0-33.0); Mean Corpuscular Volume 86.0 fL (80.0-98.0); NRBC Abs Auto 0.000 X10*3/uL (0.0-0.012); NRBC Pct Auto 0.0 /100WBC (0.0-0.2); Platelet Count 185 X10*3/uL (160-400); Red Blood Count 4.49 X10*6/uL (4.20-5.50); White Blood Count 9.1 X10*3/uL (4.8-10.8)
--- NOTE | 2025-05-23 16:48 | ED_ITS ---
HPI - Neuro Symptoms/Deficit General Chief Complaint: Stroke Stated Complaint: Stroke alert Time Seen by Provider: 05/23/25 16:08 Source: patient Mode of arrival: ambulatory Limitations: no limitations History of Present Illness ED Provider: Dr. Vinson HPI Narrative: 69-year-old female history of hypertension diabetes presented hospital today for sudden onset of left-sided numbness and weakness. Patient stated that this started around 1522 today. She has some feeling of sleepiness in her left upper extremity and left lower extremity. Patient denies any dysarthria or aphasia. Patient stated that she was watching TV when this all started. translator/interpreter was used for this encounter Related Data Previous Rx's ?Medication ?Instructions ?Recorded walker #1 ea 01/06/23 Shower Chair #1 ea 01/12/23 blood sugar diagnostic #100 ea 02/25/23 blood-glucose meter #1 ea 02/25/23 Grab bar #1 ea 11/29/23 blood-glucose meter (OneTouch #1 ea 11/29/23 Ultra2 Meter) albuterol sulfate 90 mcg/actuation 2 puff inhalation Q 6H PRN 02/09/24 aerosol inhaler (Ventolin HFA) shortness of breath or wheezing 30 days #8.5 grams blood sugar diagnostic (OneTouch #100 ea 06/04/24 Ultra Test strips) lancets 30 gauge (OneTouch #100 ea 10/22/24 UltraSoft 2 Lancet) lancets 33 gauge #100 ea 10/22/24 gabapentin 100 mg capsule 200 mg (2 x 100 mg) PO BEDTI ME 90 12/19/24 days #180 caps levothyroxine 88 mcg tablet 88 mcg PO DAILY 90 days #9 0 tabs 02/05/25 esomeprazole magnesium 40 mg 40 mg PO BID #60 caps capsule,delayed release fluocinolone acetonide oil 0.01 % 5 drp otic (ears) BI D 7 days #20 mL 02/12/25 ear drops (DermOtic Oil) rosuvastatin 20 mg tablet 20 mg PO DAILY 90 days #90 t abs 02/22/25 metformin 850 mg tablet 850 mg PO BID 90 days #180 t abs 03/20/25 semaglutide 0.25 mg or 0.5 mg (2 0.25 mg (0.368 mL) gan bcut QWEEK 4 04/18/25 mg/3 mL) subcutaneous pen injector weeks #1.472 mL (Ozempic) baclofen 10 mg tablet 10 mg PO BID PRN muscle spas m 30 04/25/25 days #60 tabs celecoxib 200 mg capsule (Celebrex) 200 mg PO BID 30 d ays #60 caps 05/09/25 Allergies Allergy/AdvReac Type Severity Reaction Status Date / Time No Known Drug Allergies Allergy Unknown none Verified 05/23/25 16:27 Review of Systems 2 Review of Systems: Pertinent review of systems as mentioned in HPI. All other system otherwise negative. [facility] Past Medical History [facility] Narrative: Medical history as mentioned in HPI Medical History Muscle spasm Acute diarrhea Dysuria Urinary leakage Pre-op examination COVID-19 Gastritis Dyspnea Encounter for Medicare annual wellness exam Hyperlipidemia LDL goal <70 Cough Leukocytosis Osteoarthritis of right knee Hyperkalemia Adult general medical exam Screening for colon cancer Screening for diabetes mellitus Screening for breast cancer Epigastric pain Constipation Diabetes Osteoporosis Difficulty swallowing Bilateral knee pain Urge urinary incontinence Impaired glucose tolerance Hypothyroidism Autoimmune thyroiditis Pure hypercholesterolemia GERD (gastroesophageal reflux disease) Surgical History Status post total right knee replacement History of right knee surgery History of esophagogastroduodenoscopy (EGD) Hx of colonoscopy History of appendectomy History of partial hysterectomy Hx of tubal ligation HX: benign breast biopsy Hx of thyroidectomy Family History Family History Father Prostate cancer Mother Diabetes mellitus Sister Heart problem Social History Social History Household Members: Children Housing: Apartment Are you a primary rn progressive care unit to a significant other at home: No Do you presently have visiting nurse or other home services: No Alcohol intake: never Patient Tobacco Use Status: Former Tobacco user Tobacco use type: Cigarette Cigarettes Per Day: 6 Years Smoked: 40 Smoked in Last 30 Days: No e-Cigarette/Vaping Use: Never Used Second Hand Smoke Exposure: Yes Use of substances other than those prescribed or required for medical reasons: No Advance Directives: Yes Advance Directives on File: Yes Advance Directives Date on File: 01/11/24 Do you have a plan to hurt others: No Plan service: No Current occupational status: unemployed Current occupational exposures/hazards: No Cognitive needs: No Hearing needs: No Vision needs: Yes Physical Exam 2 Exam: Exam: General: Pleasant, no distress, interacting appropriately Head: Normacephalic, atraumatic ENT: oral mucosa moist, neck supple, no tracheal deviation Cardiovascular: regular rate, regular rhythm, no murmurs, rubbing, gallops Respiratory: CTAB, no wheeze, rales, rhonchi Gastrointestinal: Soft, non distended, non tender, non guarding Extremities: No limb pain or swelling, no calf tenderness Neurological: Awake and alert, slight facial droop appreciated on the left side. Left upper extremity and left lower extremity weakness appreciate on exam. Patient has numbness on the left side on exam. NIH of 10 Skin: Warm and dry Psychiatric: Appropriate mood and thoughts Vital Signs: Vital Signs: Last Vital Signs Temp 97.8 F 05/23/25 16:29 Pulse 107 H 05/23/25 18:00 Resp 22 H 05/23/25 18:00 BP 135/77 05/23/25 18:00 Pulse Ox 97 05/23/25 18:00 O2 Del Method Nasal Cannula 05/23/25 18:00 O2 Flow Rate 2 05/23/25 18:00 BMI result Body Mass Index 33.3 Medications Administered Discontinued Medications Generic Name Dose Route Start Last Admin Trade Name Freq PRN Reason Stop Dose Admin Iohexol 100 ml 05/23/25 16:34 05/23/25 16:34 Iohexol 350 Mg/Ml 100 Ml Infus..Btl IV 05/23/25 16:35 70 ml ONCE ONE Administration Tenecteplase 19 mg 05/23/25 16:58 05/23/25 17:05 Tenecteplase 50 Mg/10 Ml Kit IVPUSH 05/23/25 16:59 19 mg ONCE ONE Administration Medical Decision Making Medical Decision Making MDM Narrative: This is a 69-year-old female history of hypertension diabetes presented hospital today for evaluation of left upper extremity weakness, left lower extremity weakness and numbness. Differential diagnosis includes CVA, TIA, CAD, hypomagnesemia Patient is within the time window for TNK. She denies any GI bleed, denies any recent intracranial surgery or spinal surgery denies any recent stroke or intracranial bleed. She is not anticoagulated. No history of cancer no history of intracranial mass. I went through the contraindication with the patient. She does not have any contraindication for TNK. I discussed the case with the neurologist on-call. Patient is appropriate candidate for TNK. Discussed the risks and benefit of TNK with the patient. She would like to pursue the TNK for her symptoms. TNK was given at 17:10. Patient will be watched closely. Stroke lab has been sent off for the patient as well. Patient lab work shows slight hypercalcemia likely secondary to dehydration. CBC is unremarkable, patient's UA did shows trace leuk esterase. However she is asymptomatic at this time. Given the fact that patient has received TNK. Patient will be admitted to ICU for further watch. Differential Diagnosis Differential Diagnoses: The differential diagnosis associated with the presentation includes CVA, TIA, intracranial bleed, intracranial mass Consult Healthcare Provider Management of the patient was discussed with: Electrical Mechanical Technician ICU, Neurologist Lab Data MDM Lab Attestation statement: I reviewed the patient's lab results. 05/23/25 16:36 05/23/25 16:36 Labs: Lab Results 05/23/25 05/23/25 05/23/25 Range/Units 16:10 16:36 17:32 WBC 9.1 (4.8-10.8) X10*3/uL RBC 4.49 (4.20-5.50) X10*6/uL Hgb 12.8 (12.0-16.0) g/dl Hct 38.6 (37.0-47.0) % MCV 86.0 (80.0-98.0) fL MCH 28.5 (27.0-33.0) pg MCHC 33.2 (31.0-35.0) g/dl RDW 13.9 (11.0-16.0) % Plt Count 185 (160-400) X10*3/uL MPV 12.3 (9.4-12.3) fL Immature Gran % (Auto) 0.2 (0.0-0.4) % Neut % (Auto) 45.7 (45-73) % Lymph % (Auto) 38.4 (20-40) % [place] % (Auto) 12.1 H (2-11) % Eos % (Auto) 3.1 (0-4) % Baso % (Auto) 0.5 (0-2) % Lymph # (Auto) 3.5 (1.2-4.9) X10*3/uL [place] # (Auto) 1.1 (0.1-1.2) X10*3/uL Eos # (Auto) 0.3 (0.0-0.4) X10*3/uL Baso # (Auto) 0.1 (0.0-0.2) X10*3/uL Abs Immat Gran (auto) 0.02 (0.00-0.03) X10*3/uL Absolute Neuts (auto) 4.2 (2.0-8.3) x10*3/uL Absolute Nucleated RBC 0.000 (0.0-0.012) X10*3/uL Nucleated RBC % (auto) 0.0 (0.0-0.2) /100WBC PT 11.5 (10.9-12.4) SEC Whole Blood PT 11.9 (11.1-13.5) sec INR 1.0 (0.9-1.1) Whole Blood INR 1.0 (0.9-1.1) APTT 27.5 (26.7-34.1) SEC Sodium 140 (135-145) mmol/L Potassium 4.8 (3.3-5.1) mmol/L Chloride 104 (96-108) mmol/L Carbon Dioxide 28 (22-29) mmol/L Anion Gap 13 (12-20) BUN 9 (9-16) mg/dL Creatinine 0.79 (0.5-1.4) mg/dL Estim Creat Clear Calc 61.8 Estimated GFR > 60 Random Glucose 90 (60-115) mg/dL Calcium 10.3 H (8.4-10.2) mg/dL Troponin I High Sens < 2.7 (<3.5-17.0) ng/L Triglycerides 116 (<150) mg/dL Cholesterol 118 (<200) mg/dL LDL Cholesterol, Calc 45 (<100) mg/dL HDL Cholesterol 50 (>40) mg/dL Urine Color Yellow Urine Appearance Clear Urine pH 7.5 (5.0-9.0) Ur Specific [place] <= 1.005 (1.005-1.025) Urine Protein Negative (Neg-Trace) mg/dL Urine Glucose (UA) Negative (Negative) mg/dL Urine Ketones Negative (Negative) mg/dL Urine Blood Negative (Negative) Urine Nitrite Negative (Negative) Ur Leukocyte Esterase Trace H (Negative) Urine RBC 0-2 (0-2) /HPF Urine WBC 0-5 (0-5) /HPF Ur Squamous Epith Cells 6-10 (0-2) /HPF Urine Bacteria 1+ (None Seen) Hyaline Casts 0-2 (0-2) /LPF Independent Interpretation I performed an independent interpretation of an: EKG and CT Scan Radiology Impression Discussion of test interpretation with radiology: I have reviewed the radiologist's reading. Chronic Conditions Patient?s care impacted by: Diabetes and Hypertension NIH Stroke Scale Internal: Initial- Upon Arrival Time: 17:12 Level of Consciousness: Alert Level of Consciousness Questions: Answers one question correctly Level of Consciousness Commands: Performs both tasks correctly Best Gaze: Normal Visual: No visual loss Facial Palsy: Minor paralyis Motor Arm (Right): No drift Motor Arm (Left): Some effort against gravity Motor Leg (Right): No drift Motor Leg (Left): No effort against gravity Limb Ataxia: Present in two limbs Sensory: Mild to moderate sensory loss Best Language: No aphasia Dysarthia: Normal Extinction and Inattention: No abnormality Score: 10 Critical Care Time Critical Care Time Critical Care Time: Yes Total Critical Care Time: 50 Attestation: Time is exclusive of separately billable procedures. Time includes: direct patient care, patient reassessment, coordination of patient care, interpretation of data (laboratory data, pulse oximetry, arterial blood gases and chest xrays), review of patient's medical records, medical consultation and documentation of patient care. Procedures excluded from critical care time: central intravenous line placement and electrocardiography. Discharge Plan Discharge Clinical Impression: Numbness and tingling of left arm and leg, Weakness of left upper extremity, Suspected cerebrovascular accident Patient Disposition: Admitted As Inpatient Print Language: Algerian
[2025-05-23 16:51] LABS: INTERNATIONAL NORM RATIO 1.0 (0.9-1.1); Prothrombin Time 11.5 SEC (10.9-12.4)
[2025-05-23 16:54] LABS: Partial Thromboplastin Time 27.5 SEC (26.7-34.1)
[2025-05-23 16:56] LABS: Stroke Lab Use COMPLETE
[2025-05-23 16:57] LABS: Anion Gap 13 (12-20); Blood Urea Nitrogen 9 mg/dL (9-16); Calcium 10.3 mg/dL (8.4-10.2); Carbon Dioxide 28 mmol/L (22-29); Chloride 104 mmol/L (96-108); Cholesterol 118 mg/dL (<200); Creatinine Clr Calc Pharmacy 61.8; Estimated Glomerular Filt Rate > 60; HDL Cholesterol 50 mg/dL (>40); Potassium 4.8 mmol/L (3.3-5.1); Sodium 140 mmol/L (135-145); Triglycerides 116 mg/dL (<150)
[2025-05-23 17:05] LABS: Troponin-I High Sensitivity < 2.7 ng/L (<3.5-17.0)
--- NOTE | 2025-05-23 17:39 | PC.NURSE ---
pt is now able to move her left arm and left leg, slight decrease in strength on left side but has improved.
[2025-05-23 17:42] LABS: Appearance Urine Clear; Glucose Urine UA Negative (Negative); PH 7.5 (5.0-9.0); Specific Gravity - Urine <= 1.005 (1.005-1.025); UMIC TRIGGER UACC YES
--- NOTE | 2025-05-23 18:14 | PM.CCHP ---
History of Present Illness Date of Service: 05/23/25 Chief Complaint: weakness 69-year-old lady with past medical history of hypertension, hyperlipidemia, diabetes mellitus, hyperthyroidism was apparently normal until this afternoon. She was watching TV at 15:22PM when she had sudden tonic clonic movements of her all 4 extremities and she was unresponsive for about 10 minutes following which she had a weakness in her left upper and lower extremities. She was brought into the ED and she received TNK at 17:10PM, after which her left hemiparesis improved significantly. Admitted to MICU for monitoring Review of Systems Constitutional: Constitutional: Denies body ache(s) and Denies chills Eyes: Eyes: Denies exophthalmos and Denies change in vision ENT: Reports Normal hearing present and Denies bleeding gums Cardiovascular: Cardiovascular: Denies chest pain and Denies chest pain at rest Respiratory: Respiratory: Denies chest congestion and Denies cough Gastrointestinal: Gastrointestinal: Denies abdominal pain and Denies hematochezia Musculoskeletal: Musculoskeletal: Denies abnormal gait Neurologic: Reports Normal hearing present, Denies Neuro-related abnormal movements and Denies abnormal gait [facility] Past Medical History Medical History Muscle spasm Acute diarrhea Dysuria Urinary leakage Pre-op examination COVID-19 Gastritis Dyspnea Encounter for Medicare annual wellness exam Hyperlipidemia LDL goal <70 Cough Leukocytosis Osteoarthritis of right knee Hyperkalemia Adult general medical exam Screening for colon cancer Screening for diabetes mellitus Screening for breast cancer Epigastric pain Constipation Diabetes Osteoporosis Difficulty swallowing Bilateral knee pain Urge urinary incontinence Impaired glucose tolerance Hypothyroidism Autoimmune thyroiditis Pure hypercholesterolemia GERD (gastroesophageal reflux disease) Family History Family History Father Prostate cancer Mother Diabetes mellitus Sister Heart problem Surgical History Surgical History Status post total right knee replacement History of right knee surgery History of esophagogastroduodenoscopy (EGD) Hx of colonoscopy History of appendectomy History of partial hysterectomy Hx of tubal ligation HX: benign breast biopsy Hx of thyroidectomy Social History Social History Household Members: Children Housing: Apartment Are you a primary veterinarian laboratory animal care to a significant other at home: No Do you presently have visiting nurse or other home services: No Alcohol intake: never Patient Tobacco Use Status: Former Tobacco user Tobacco use type: Cigarette Cigarettes Per Day: 6 Years Smoked: 40 Smoked in Last 30 Days: No e-Cigarette/Vaping Use: Never Used Second Hand Smoke Exposure: Yes Use of substances other than those prescribed or required for medical reasons: No Advance Directives: Yes Advance Directives on File: Yes Advance Directives Date on File: 01/11/24 Do you have a plan to hurt others: No Plan service: No Current occupational status: unemployed Current occupational exposures/hazards: No Cognitive needs: No Hearing needs: No Vision needs: Yes Meds Allergies Allergy/AdvReac Type Severity Reaction Status Date / Time No Known Drug Allergies Allergy Unknown none Verified 05/23/25 16:27 Physical Exam Vital Signs: Vital Signs: Last Vital Signs Temp 97.8 F 05/23/25 16:29 Pulse 107 H 05/23/25 18:00 Resp 22 H 05/23/25 18:00 BP 135/77 05/23/25 18:00 Pulse Ox 97 05/23/25 18:00 O2 Del Method Nasal Cannula 05/23/25 18:00 O2 Flow Rate 2 05/23/25 18:00 BMI result Body Mass Index 33.3 General: Elderly lady not in any acute distress, ill appearing and tired appearing Nutritional Appearance: well nourished and overweight Eyes: appearance normal, both eyes and all related structures; Alignment and Position: alignment normal and position normal Neck: No lymphadenopathy, no thyromegaly Resp: bilateral air entry equal, occasional added sounds present Cardio: Regular rate, regular rhythm; Heart sounds: S1 normal heart sound present and S2 normal heart sound present GI: soft, nontender, no guarding, no hepatosplenomegaly : bladder normal to inspection, bladder normal to palpation, no renal angle tenderness Skin: no rashes or lesions noted and elasticity normal Neuro: oriented to person, oriented to place, oriented to time and moves all extremities, left upper and lower extremities power 4+/5 Neuro: Cranial nerves: Yes Normal hearing present Results Labs 05/23/25 16:36 05/23/25 16:36 Labs: Laboratory Results - last 24 hr 05/23/25 05/23/25 05/23/25 16:10 16:36 17:32 MCV 86.0 MCH 28.5 MCHC 33.2 RDW 13.9 Plt Count 185 MPV 12.3 Immature Gran % (Auto) 0.2 Neut % (Auto) 45.7 Lymph % (Auto) 38.4 [place] % (Auto) 12.1 H Eos % (Auto) 3.1 Baso % (Auto) 0.5 Lymph # (Auto) 3.5 [place] # (Auto) 1.1 Eos # (Auto) 0.3 Baso # (Auto) 0.1 Abs Immat Gran (auto) 0.02 Absolute Neuts (auto) 4.2 Absolute Nucleated RBC 0.000 Nucleated RBC % (auto) 0.0 PT 11.5 Whole Blood PT 11.9 INR 1.0 Whole Blood INR 1.0 APTT 27.5 Anion Gap 13 Estim Creat Clear Calc 61.8 Estimated GFR > 60 Random Glucose 90 Calcium 10.3 H Triglycerides 116 Cholesterol 118 LDL Cholesterol, Calc 45 HDL Cholesterol 50 Urine Color Yellow Urine Appearance Clear Urine pH 7.5 Ur Specific [place] <= 1.005 Urine Protein Negative Urine Glucose (UA) Negative Urine Ketones Negative Urine Blood Negative Urine Nitrite Negative Ur Leukocyte Esterase Trace H Urine RBC 0-2 Urine WBC 0-5 Ur Squamous Epith Cells 6-10 Urine Bacteria 1+ Hyaline Casts 0-2 Imaging Radiologist's Impressions: Impressions Head CT 05/23/25 16:10 IMPRESSION: No acute intracranial abnormality. Mild periventricular white matter hypodensities are nonspecific but probably related to small vessel angiopathy. Dr Noemi iVnson: message delivered via [employer] at 4:18 pm ET Electronically signed by: Cristiano Blevins MD 05/23/2025 04:20 PM EDT Head/Neck CTA 05/23/25 16:14 IMPRESSION: CTA NECK: 6 mm linear filling defect is noted in the anterior wall of the brachial cephalic artery at its origin. This could represent thrombus or soft plaque. It does not result in hemodynamically significant stenosis. There is apparent decreased opacification at the origin of the left common carotid artery. This is likely in part due to beam hardening artifact, but could also be related to decreased flow in that portion of the vessel. There is a focal 43% stenosis 9 mm from the origin which is not hemodynamically significant. More distal portions of the vessel are well-opacified. The right common carotid artery is tortuous of at the base of the neck. There is a kink in the vessel resulting in the short focal 43% narrowing of the lumen which is not hemodynamically significant. CTA HEAD: No hemodynamically significant stenosis. Notification of report delivered to Dr Vinson at 5:03 PM eastern time. 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 and CTA of the head was done which showed 6 mm linear filling defect in the anterior origin brachycephalic artery noted anteriorly unsure which side. We will closely monitor neurological status for in the ICU for another 24 hours Aspirin and statin as per Neurology We will load with [place] Diabetes mellitus: We will start on sliding scale insulin Hypertension: We will keep the blood pressure is below 180 mm systolic to maintain cerebral perfusion Hypothyroidism: We will continue home levothyroxine Prophylaxis: SCD, famotidine
[2025-05-23] MEDS: levETIRAcetam in NaCl (iso-os) 1,000 MG/100 ML PIGGYBACK 400 MG IV (19:31)
--- NOTE | 2025-05-23 19:52 | PC.NURSE ---
repot given verbally to Smitha HENRY. shortly after, around 1951, upon completion of keppra, patient started to complain of dizziness and nausea. suddenly became unresponsive, closing eyes, mumbling softly. MD Vinson at bedside immediately. HR and SpO2 stable, BP increased, CT ordered. after about 20 seconds patient opened eyes but appears more somnolent and slowly becoming more anxious, RR increasing into 30s, verbalizing she is hot but left hand was cold, warm on opposite side. stable PERRLA. strength bilaterally extremely weak but symmetrical. along with daughter at bedside becoming outwardly more anxious. then patient verbalizes presence of frontal headache. in CT at about 1999. upon completion of CT at approx 2005 patient moving mouth as if to talk but with no noise. upon departure to ICU around 2034 patient verbalizing and more calm. vitals stabilized.
--- NOTE | 2025-05-23 20:14 | ECG_ITS ---
Test Reason : CHEST PAIN Blood Pressure : */* mmHG Vent. Rate : 85 BPM Atrial Rate : 85 BPM P-R Int : 192 ms QRS Dur : 78 ms QT Int : 366 ms P-R-T Axes : 37 18 38 degrees QTcB Int : 435 ms Normal sinus rhythm with sinus arrhythmia Normal ECG When compared with ECG of 23-May-2025 16:59, No significant change was found Referred By: Antonio Grande Electronically Signed By: KIP MAK MD
[2025-05-23 20:22] LABS: Glucose, Whole Blood 102 mg/dL (60-115)
[2025-05-23 21:19] LABS: Glucose, Whole Blood 108 mg/dL (60-115)
--- NOTE | 2025-05-23 21:36 | PHA.MEDREC ---
Addendum entered by Jhonny Matthews PharmD 05/23/25 21:41: reviewed Original Note: Pharmacy Consult ? Medication Reconciliation Pharmacy has completed the medication reconciliation. Spoke to patient and family at bedside through dry wall installations mechanic service. Family was able to show picture of patient rx bottles. Patient confirmed Ozempic 0.25 mg every Tuesday, last dose 05/17/25. Patient had her morning medications today.
[2025-05-23 21:41] LABS: Magnesium 2.0 mg/dL (1.6-2.6)
[2025-05-24] VITALS (22 sets, daily range): BP systolic 112–144; BP diastolic 52–76; PULSE 68–94; RESP 12–19; TEMP 36.2–36.6; O2SAT 94–100; BMI 33.0
[2025-05-24 04:46] LABS: MANUAL DIFF FLAG NO
[2025-05-24 04:47] LABS: Hematocrit 37.4 % (37.0-47.0); Hemoglobin 12.7 g/dl (12.0-16.0); Imm Gran Abs Auto 0.02 X10*3/uL (0.00-0.03); Imm Gran Pct Auto 0.2 % (0.0-0.4); Lymphocytes Absolute Auto 3.7 X10*3/uL (1.2-4.9); Mean Corpuscular HGB Conc 34.0 g/dl (31.0-35.0); Mean Corpuscular Hemoglobin 28.7 pg (27.0-33.0); Mean Corpuscular Volume 84.6 fL (80.0-98.0); NRBC Abs Auto 0.000 X10*3/uL (0.0-0.012); NRBC Pct Auto 0.0 /100WBC (0.0-0.2); Platelet Count 177 X10*3/uL (160-400); Red Blood Count 4.42 X10*6/uL (4.20-5.50); White Blood Count 10.4 X10*3/uL (4.8-10.8)
[2025-05-24 05:04] LABS: Anion Gap 14 (12-20); Blood Urea Nitrogen 9 mg/dL (9-16); Calcium 9.9 mg/dL (8.4-10.2); Carbon Dioxide 27 mmol/L (22-29); Chloride 106 mmol/L (96-108); Creatinine Clr Calc Pharmacy 74.0; Estimated Glomerular Filt Rate > 60; Potassium 4.2 mmol/L (3.3-5.1); Sodium 143 mmol/L (135-145)
--- NOTE | 2025-05-24 05:46 | PC.NURSE ---
Patient arrived to 260 from ED via stretcher around 2100. She is mostly ugandan speaking, but able to speak some latvian. Pt drowsy, but arrousable. Alert and oriented x 3. Slight weakness in left side, but overall strong hand grasps, pedal pushes. Some slight drooping to left side of face. Q1H neuro checks maintained throughout the night. Sinus rhythm with 1st degree AV block on monitor.? Patient is on 1L NC, maintaining O2 saturation? 95-99%. Lungs dim in b/l bases. Respirations even and unlabored.External catheter in place, pt is voiding clear yellow urine. Reporting intermittent nausea. Zofran administered upon arrival to floor. Patient reports nausea improved after administration. Bed locked and in lowest position. Call dominguez within reach.
[2025-05-24] MEDS: levETIRAcetam in NaCl (iso-os) 1,000 MG/100 ML PIGGYBACK 400 MG IV (06:00)
--- NOTE | 2025-05-24 07:00 | CA_ITS ---
Transthoracic Echocardiogram Patient (Last, First, Middle): Diana Ortega, Gender: F Date of : 1955 Age: 69 Procedure Date: 05/24/2025 Procedure Type: Transthoracic Echocardiogram Location: ICU Height: 152.4 cm Weight: 76.2 kg BSA: 1.73 m2 Heart Rate: bpm BP: 114 / 58 mmHg Helper Teacher: Referring MD: Rayshawn HUBBARD Painter Airbrush: Fernando Fields MD Symptoms: stroke Study Quality: Good w Contrast ECG Rhythm: Sinus Conclusions: - 1. Normal LV ejection fraction of 60 65% with mild LVH with impaired relaxation filling pattern 2. Normal cardiac valvular Dopplers 3. No gross pericardial effusion Findings Procedure Information Contrast agent, definity, is being given per protocol without apparent complications. Left Ventricle Normal left ventricular size and systolic function. There is mildly increased left ventricular wall thickness. The visually estimated ejection fraction is between 60-65%. Spectral Doppler is indicative of an impaired relaxation filling pattern. E/E prime ratio is between 8 and 15 consistent with indeterminate filling pressures. Right Ventricle Normal right ventricular cavity size and systolic function. Atria Both atria are normal in size. There is no evidence of interatrial shunt. Aortic Valve The aortic valve structure and function is likely normal. There is no aortic valve stenosis. There is no aortic valve regurgitation. Mitral Valve There is mild anterior and posterior mitral leaflet thickening. There is trace mitral valve regurgitation. There is no mitral valve stenosis. Pulmonic Valve The pulmonic valve was not well visualized. Tricuspid Valve The tricuspid valve was not well visualized. Tricuspid regurgitation envelope is inadequate for calculation of right ventricular systolic pressure. Normal right atrial pressure. Great Vessels All visible segments of the aorta are normal in size. The pulmonary artery was not well visualized. There is no dilatation of the ascending aorta measuring 2.90 cm. Venous The inferior vena cava is normal in size and collapses greater than 50% with inspiration. Pericardium/Pleural There is no evidence of pericardial effusion. Prior Study Comparison No prior study available for comparison. Measurements 2D Linear Measurements IVSd: 1.23 0.6-0.9/0.6-1.0 cm LVIDd: 3.77 3.9-5.3/4.2-5.9 cm LVIDd Index: 2.18 2.4-3.2/2.2-3.1 cm/m2 LVIDs: 2.58 2.0-3.6 cm LVPWd: 1.26 0.7-1.1 cm Ao Root: 3.10 2.1-3.5 cm LA Diam: 3.80 2.7-3.8/3.0-4.0 cm LAIDs Index: 2.20 1.5-2.3 cm/m2 LV Mass: 199.40 67-162/88-224 g LV Mass Index: 115.26 43-95/49-115 g/m2 LVOT Diam: 2.00 3.0+(-)1.3 cm 2D Systolic Function EF 4C: 56.20 >55% EF 2C: 73.70 >55% EF BiP: 64.50 >55% Mitral Valve MV Pk E: 0.58 MV PK A: 0.71 MV Decel Time: 198.00 E/A: 0.80 E'Lateral: 5.00 E'Medial: 4.68 E/E' Med: 12.30 E/E' Lat: 11.50 PHT: 58.00 MVA PHT: 3.79 Decel Broome: 2.91 Aortic Valve AoV Pk Maurice: 1.24 AoV Mn Maurice: 0.80 AoV VTI: 0.26 AoV Pk Grad: 6.00 Aov Mn Grad: 3.00 TIANNA Cont.VTI: 2.09 LVOT LVOT Pk Maurice: 0.89 LVOT Mn Maurice: 0.51 LVOT VTI: 0.17 LVOT Pk Grad: 3.00 LVOT Mn Grad: 1.00 LVOT Diam: 2.00 LVOT Area: 3.14 Diastolic Function MV Pk E: 0.58 MV Pk A: 0.71 E/A: 0.80 E'Medial: 4.68 E/E' Med: 12.30 E' Laterial: 5.00 E/E' Lat: 11.50 Right Ventricle TAPSE (mm): 24.00 TVS' Maurice: 8.00 Tricuspid Valve TR Pk Maurice: 1.94 TR Pk Grad: 15.00 RA Press: 3.00 Great Vessels Aorta Ao Root-2D: 3.10 2.0-3.7 cm Ao Asc: 2.90 2.1-3.4 cm Pulmonary Valve PV Pk Maurice: 0.79 Peak PV Grad: 3.00 Updated in Other Vendor System with Status of Final Fernando Fields MD electronically signed on 05/24/2025 3:01:39 PM with status of Final
[2025-05-24 07:22] LABS: Glucose, Whole Blood 100 mg/dL (60-115)
--- NOTE | 2025-05-24 08:51 | PM.CCPN ---
Subjective Subjective Date of Service: 05/24/25 Interval History: Doing well, no new events Critical Care Time (minutes): 35 Physical Exam Vital Signs: Vital Signs: Last Vital Signs Temp 97.2 F 05/24/25 01:00 Pulse 78 05/24/25 07:00 Resp 12 05/24/25 07:00 BP 130/66 05/24/25 07:00 Pulse Ox 97 05/24/25 07:00 O2 Del Method Nasal Cannula 05/24/25 07:00 O2 Flow Rate 1 05/24/25 07:00 Oxygen Flow Rate 2 05/23/25 21:46 BMI result Body Mass Index 33.0 General: Elderly lady in no acute distress Nutritional Appearance: well nourished and overweight Eyes: appearance normal, both eyes and all related structures; Alignment and Position: alignment normal and position normal Neck: No lymphadenopathy, no thyromegaly Resp: bilateral air entry equal, occasional added sounds present Cardio: Regular rate, regular rhythm; Heart sounds: S1 normal heart sound present and S2 normal heart sound present GI: soft, nontender, no guarding, no hepatosplenomegaly : bladder normal to inspection, bladder normal to palpation, no renal angle tenderness Skin: no rashes or lesions noted and elasticity normal Neuro: oriented to person, oriented to place, oriented to time and moves all extremities, slight weakness in left upper or lower extremities 4+/5 Objective Data Labs 05/24/25 04:27 05/24/25 04:27 Labs: Laboratory Results - last 24 hr 05/23/25 05/23/25 05/23/25 16:10 16:36 17:32 WBC 9.1 RBC 4.49 Hgb 12.8 Hct 38.6 MCV 86.0 MCH 28.5 MCHC 33.2 RDW 13.9 Plt Count 185 MPV 12.3 Immature Gran % (Auto) 0.2 Neut % (Auto) 45.7 Lymph % (Auto) 38.4 Ball[place] % (Auto) 12.1 H Eos % (Auto) 3.1 Baso % (Auto) 0.5 Lymph # (Auto) 3.5 [place] # (Auto) 1.1 Eos # (Auto) 0.3 Baso # (Auto) 0.1 Abs Immat Gran (auto) 0.02 Absolute Neuts (auto) 4.2 Absolute Nucleated RBC 0.000 Nucleated RBC % (auto) 0.0 PT 11.5 Whole Blood PT 11.9 INR 1.0 Whole Blood INR 1.0 APTT 27.5 Sodium 140 Potassium 4.8 Chloride 104 Carbon Dioxide 28 Anion Gap 13 BUN 9 Creatinine 0.79 Estim Creat Clear Calc 61.8 Estimated GFR > 60 POC Glucose Random Glucose 90 Calcium 10.3 H Phosphorus 3.7 Magnesium 2.0 Troponin I High Sens < 2.7 Triglycerides 116 Cholesterol 118 LDL Cholesterol, Calc 45 HDL Cholesterol 50 Urine Color Yellow Urine Appearance Clear Urine pH 7.5 Ur Specific [place] <= 1.005 Urine Protein Negative Urine Glucose (UA) Negative Urine Ketones Negative Urine Blood Negative Urine Nitrite Negative Ur Leukocyte Esterase Trace H Urine RBC 0-2 Urine WBC 0-5 Ur Squamous Epith Cells 6-10 Urine Bacteria 1+ Hyaline Casts 0-2 05/23/25 05/23/25 05/24/25 19:54 21:15 04:27 WBC 10.4 RBC 4.42 Hgb 12.7 Hct 37.4 MCV 84.6 MCH 28.7 MCHC 34.0 RDW 14.0 Plt Count 177 MPV 12.5 H Immature Gran % (Auto) 0.2 Neut % (Auto) 50.5 Lymph % (Auto) 35.9 [place] % (Auto) 10.1 Eos % (Auto) 2.8 Baso % (Auto) 0.5 Lymph # (Auto) 3.7 [place] # (Auto) 1.1 Eos # (Auto) 0.3 Baso # (Auto) 0.1 Abs Immat Gran (auto) 0.02 Absolute Neuts (auto) 5.2 Absolute Nucleated RBC 0.000 Nucleated RBC % (auto) 0.0 PT Whole Blood PT INR Whole Blood INR APTT Sodium 143 Potassium 4.2 Chloride 106 Carbon Dioxide 27 Anion Gap 14 BUN 9 Creatinine 0.66 Estim Creat Clear Calc 74.0 Estimated GFR > 60 POC Glucose 102 108 Random Glucose 98 Calcium 9.9 Phosphorus Magnesium Troponin I High Sens Triglycerides Cholesterol LDL Cholesterol, Calc HDL Cholesterol Urine Color Urine Appearance Urine pH Ur Specific [place] Urine Protein Urine Glucose (UA) Urine Ketones Urine Blood Urine Nitrite Ur Leukocyte Esterase Urine RBC Urine WBC Ur Squamous Epith Cells Urine Bacteria Hyaline Casts 05/24/25 07:18 WBC RBC Hgb Hct MCV MCH MCHC RDW Plt Count MPV Immature Gran % (Auto) Neut % (Auto) Lymph % (Auto) [place] % (Auto) Eos % (Auto) Baso % (Auto) Lymph # (Auto) [place] # (Auto) Eos # (Auto) Baso # (Auto) Abs Immat Gran (auto) Absolute Neuts (auto) Absolute Nucleated RBC Nucleated RBC % (auto) PT Whole Blood PT INR Whole Blood INR APTT Sodium Potassium Chloride Carbon Dioxide Anion Gap BUN Creatinine Estim Creat Clear Calc Estimated GFR POC Glucose 100 Random Glucose Calcium Phosphorus Magnesium Troponin I High Sens Triglycerides Cholesterol LDL Cholesterol, Calc HDL Cholesterol Urine Color Urine Appearance Urine pH Ur Specific [place] Urine Protein Urine Glucose (UA) Urine Ketones Urine Blood Urine Nitrite Ur Leukocyte Esterase Urine RBC Urine WBC Ur Squamous Epith Cells Urine Bacteria Hyaline Casts Progress Note: A&P Assessment and plan (1) Hypertension: Status: Acute (2) Diabetes mellitus: Status: Acute (3) TIA (transient ischemic attack): Status: Acute Plan Left-sided hemiparesis: 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 and CTA of the head was done which showed 6 mm linear filling defect in the anterior origin brachycephalic artery noted anteriorly unsure which side. Needs a correction from radiology and vascular consult We will closely monitor neurological status for in the ICU until 17:00 today Aspirin and statin as per Neurology posibly had a neuropsych reaction to Keppra, will switch to valproate 500mg BID Diabetes mellitus: on sliding scale insulin Hypertension: We will keep the blood pressure is below 180 mm systolic to maintain cerebral perfusion Hypothyroidism: continue home levothyroxine Prophylaxis: SCD, famotidine oral diet OT/PT eval will transfer her to floor after 5PM Quality Stroke Does the patient have a stroke diagnosis?: Yes Reason for No Anti-thrombotic by Day Two: N/A - Med Ordered VTE Prior VTE?: No VTE Risk Level:: Medical - low VTE Device Contraindication: N/A - Device Ordered VTE Drug Contraindication: N/A - Med Ordered
--- NOTE | 2025-05-24 09:59 | MHC.CM.PN ---
Addendum entered by Kaylene Duran 05/24/25 10:06: PER [facility]: [facility]ARE 6 DAYS PER WEEK, V [facility] ADULT FOSTER CARE LEVEL 2 Original Note: [facility] DELIVERED LIVES WITH ADULT CHILDREN PT IS FUNCTIONALLY INDEPENDENT AT BASELINE, HAS A CANE BUT ONLY USES PRN. PT IS ACTIVE WITH [facility] AND DAUGHTER IS LIVE IN [facility]. + HCP ON FILE AND VERIFIED. PCP DR. SAENZ AT [facility] [place] DP: PT WILL BENEFIT FROM A P.T. EVAL TO DETERMINE DC DISPO, PT IS OPEN TO REHAB IF RECOMMENDED. PT'S FAMILY WILL TRANSPORT VS BLS. CM WILL CONTINUE TO FOLLOW FOR ANY CHANGE TO DC PLAN/NEEDS.
--- NOTE | 2025-05-24 10:10 | PM.NEUROCN ---
History of Present Illness Data of Consult Service Date: 05/24/25 Primary Care Provider: Christina Lara MD HPI Reason for consult: Possible stroke 69 years old woman who came to emergency room with new onset of left-sided weakness. Emergency room physician called me in stating that this happened urgently with an TNK time window and she still carried deficit with NIH stroke scale of about 8. With no other contraindication, patient was treated with TNK and admitted to ICU. I also noticed that a different note suggested that she might have a generalized convulsion type of activity before left-sided weakness including unresponsiveness. Now she was feeling better with no active symptoms. Review of Systems Review of Systems: No recent cold or flu-like illness or headache or trauma PMFSH Past Medical History Medical History Muscle spasm Acute diarrhea Dysuria Urinary leakage Pre-op examination COVID-19 Gastritis Dyspnea Encounter for Medicare annual wellness exam Hyperlipidemia LDL goal <70 Cough Leukocytosis Osteoarthritis of right knee Hyperkalemia Adult general medical exam Screening for colon cancer Screening for diabetes mellitus Screening for breast cancer Epigastric pain Constipation Diabetes Osteoporosis Difficulty swallowing Bilateral knee pain Urge urinary incontinence Impaired glucose tolerance Hypothyroidism Autoimmune thyroiditis Pure hypercholesterolemia GERD (gastroesophageal reflux disease) Family History Family History Father Prostate cancer Mother Diabetes mellitus Sister Heart problem Surgical History Surgical History Status post total right knee replacement History of right knee surgery History of esophagogastroduodenoscopy (EGD) Hx of colonoscopy History of appendectomy History of partial hysterectomy Hx of tubal ligation HX: benign breast biopsy Hx of thyroidectomy Social History Social History Household Members: Children Housing: Apartment Are you a primary medicare specialist to a significant other at home: No Do you presently have visiting nurse or other home services: No Alcohol intake: never Patient Tobacco Use Status: Former Tobacco user Tobacco use type: Cigarette Cigarettes Per Day: 6 Years Smoked: 40 Smoked in Last 30 Days: No e-Cigarette/Vaping Use: Never Used Second Hand Smoke Exposure: Yes Use of substances other than those prescribed or required for medical reasons: No Currently Displaying Signs/Symptoms of Drug Intoxication Withdrawal: No Have you been hit, kicked, punched, or otherwise hurt by someone within the past year? If so, by whom?: No Do you feel safe in your current relationship?: No Current Relationship Is there a partner from a previous relationship who is making you feel unsafe now?: No Are you made to feel afraid or neglected: No Advance Directives: Yes Advance Directives on File: Yes Advance Directives Date on File: 01/11/24 Do you have a plan to hurt others: No Plan Nutrition Risks: No Nutritional Risk Patient : No : No Poor oral hygiene: No service: No Current occupational status: unemployed Current occupational exposures/hazards: No Cognitive needs: No Hearing needs: No Vision needs: Yes Meds Allergies Allergy/AdvReac Type Severity Reaction Status Date / Time No Known Drug Allergies Allergy Unknown none Verified 05/23/25 16:27 Active Medications: Current Medications Atorvastatin Calcium (Atorvastatin Calcium 40 Mg Tablet) 40 mg PO DAILY [facility] Dextrose (Dextrose 50 % 25 Gm/50 Ml Syringe) 25 gm IVPUSH Q15M PRN; Protocol PRN Reason: per Hypoglycemia Standing Ord. Famotidine (Famotidine/Pf 20 Mg/2 Ml Vial) 20 mg IVPUSH BID [facility] Last Admin: 05/23/25 19:32 Dose: 20 mg Glucose (Glucose Gel 15 Gm Gel..Gram.) 15 gm PO Q15M PRN; Protocol PRN Reason: per Hypoglycemia Standing Ord. Insulin Human Lispro (Insulin Lispro 100 Unit/Ml 3 Ml Vial) 0 unit SUBCUT QIDACHS [facility]; Protocol Stop: 05/24/25 18:29 Last Admin: 05/24/25 07:29 Dose: Not Given Ondansetron HCl (Ondansetron Hcl 4 Mg/2 Ml Vial) 4 mg IVPUSH Q8H PRN PRN Reason: Nausea and Vomiting Valproic Acid (Valproic Acid 250 Mg Capsule) 500 mg PO BID [facility] Home Medications ?Medication ?Instructions ?Recorded ?Confirmed ?Last Taken ?Type levothyroxine 88 mcg tablet 88 mcg PO DAILY@0600 05/23/25 05/23/25 05/23/25 History rosuvastatin 20 mg tablet 20 mg PO DAILY@1400 05/23/25 05/23/25 05/22/25 History semaglutide 0.25 mg or 0.5 mg (2 2 mg subcut FR 05/23/25 05/23/25 05/17/25 History mg/3 mL) subcutaneous pen injector (Ozempic) Physical Exam Vital Signs: Vital Signs: Last Vital Signs Temp 97.2 F 05/24/25 01:00 Pulse 78 05/24/25 07:00 Resp 12 05/24/25 07:00 BP 130/66 05/24/25 07:00 Pulse Ox 97 05/24/25 07:00 O2 Del Method Nasal Cannula 05/24/25 07:00 O2 Flow Rate 1 05/24/25 07:00 Oxygen Flow Rate 2 05/23/25 21:46 BMI result Body Mass Index 33.0 Neuro: Other: She is alert and awake with normal spontaneity of speech fluency comprehension and flat affect. Face is symmetrical. Visual og are full. Extraocular muscles were intact. Pupils are about 3 mm round reactive. There was no focal arm or leg weakness. Plantars are flexor. Speech is normal. Results Labs 05/24/25 04:27 05/24/25 04:27 Labs: Short CBC 05/23/25 05/24/25 Range/Units 16:36 04:27 WBC 9.1 10.4 (4.8-10.8) X10*3/uL Hgb 12.8 12.7 (12.0-16.0) g/dl Hct 38.6 37.4 (37.0-47.0) % Plt Count 185 177 (160-400) X10*3/uL BMP 05/23/25 05/24/25 16:36 04:27 Sodium 140 143 Potassium 4.8 4.2 Chloride 104 106 Carbon Dioxide 28 27 BUN 9 9 Creatinine 0.79 0.66 Calcium 10.3 H 9.9 Urine 05/23/25 Range/Units 17:32 Urine Color Yellow Urine Appearance Clear Urine pH 7.5 (5.0-9.0) Ur Specific [place] <= 1.005 (1.005-1.025) Urine Protein Negative (Neg-Trace) mg/dL Urine Glucose (UA) Negative (Negative) mg/dL Head CT revealed [id number] cortical atrophy and CTA did not reveal any large vessel disease. EKG revealed normal sinus rhythm. Assessment and Plan (1) Left hemiparesis: Status: Acute 69 years old woman who was treated yesterday in emergency room for suspected ischemic infarct with TNK but her overall story, as far as it is documented in notes, was more complicated. I recommend a noncontrast MRI of brain to clarify the situation as this could also be presentation of postictal state. An EEG is also recommended. If this was a vascular event, I would expect some changes at least on DWI sequence. Procedures Date of Service Date of Service: 05/24/25
[2025-05-24 10:52] LABS: Glucose, Whole Blood 101 mg/dL (60-115)
[2025-05-24 11:15] LABS: Glucose, Whole Blood 138 mg/dL (60-115)
--- NOTE | 2025-05-24 13:38 | MHC.STROKE ---
Met with patient and family, motor vehicle parts interpreter utilized. Stroke Education provided, pamphlet given All questions answered. Medical history reviewed including medications, diet, activity, social history and details of events from son. Pt initially sleeping upon my arrival. Easily arousable to verbal stimuli. Speaking in clear sentences. tongue midline Left hand grasp slightly weaker than the right, same with left leg strength. smile symmetrical. Plan is for MRI later this afternoon. Tolerating po, swallowing without difficulty. Will continue to assist as needed.
--- NOTE | 2025-05-24 13:48 | MHC.SL.SWA ---
Speech Pathologist Impression: Risk of Aspiration Due to: Dysphasia Diet Status: Liquid Consistency and Strategies for Safe Swallow: Liquid Intake Recommendation: Thin Liquid Intake Strategies: Solid Food Consistency: Dietary Recommendations: Regular Additional Modifications to Solid Foods: Oral Medication Intake: Whole with Liquid Please contact the pharmacy regarding appropriate crushable or liquid drug formulations that are available whenever modified delivery is recommended. Compensatory Strategies and Precautions to be Taken for Safe Swallow: Supervision While Eating and Drinking for Safe Swallow: None Needed Foods to Avoid: Elect softer foods from the regular menu. Remain upright at least 30 minutes after meals. Swallowing Recommended Treatments: Recommendation for Speech: Inpatient Speech Therapy Comment: Patient presents with a mild oral phase dysphagia, secondary to dentures. All other aspects of oral motor function and swallow function was WFL, with patient presenting with clear and articulate speech and no evidence of difficulty with receptive or expressive language. Recommend continue on diet of REGULAR with THIN liquids pills whole with liquid. DISHCLOTH FOLDER will f/u X1 for toleration. MD/RD notified by secure text, discussed with RN in person. Frequency/Duration: Date Range for Service Req: Timeline to reassess: Systems Integration Analyst Clinican/Clinical Fellow: No Supervisory Statement: I have reviewed and agree with the student/clinical fellow's documentation: N/A Speech Language Pathologist: Maite Bowden M.A., [facility]DISHCLOTH FOLDER
[2025-05-24 16:40] LABS: Glucose, Whole Blood 92 mg/dL (60-115)
[2025-05-24 20:37] LABS: Glucose, Whole Blood 103 mg/dL (60-115)
--- NOTE | 2025-05-24 23:15 | PC.NURSE ---
I assumed the care of the patient, VSS, pt mohawk speaking, daughter providing translation. Pt on 1L NC and satting at 97%, I attempted to take pt off oxygen but pt desat to 88%. Daughter at bedside, informed and understand.
--- NOTE | 2025-05-25 | EEG_ITS ---
Performed: 1st floor lab Reason For EEG: R/O Stroke Medications: atorvastatin calcium, famotidine, glucose, insulin, ondansetron, valproic acid, keppra, rosuvastatin, ozempic History: H/O muscle spasm, acute diarrhea, dysuria, covid, gastritis. dyspnea, hyperlipidemia. cough, leukocytosis, hyperkalemia, diabetes, hypothyroidism, autoimmune thyroiditis- pt was admitted with new onset of left sided weakness- pt was treated with TNK- there was suggestion that seizure like activity was noted prior to the weakness- presently pt has no active symptoms Public Relations Director Comments: Photic stimulation: performed Hyperventilation: Omitted Behavioral state: cooperative- follows commands State of consciousness- awake Skull defect: no Sedation: no Handedness: Right Duration of study: 26 min 50 secs Description: This is a 16 channel EEG with an EKG lead. Patient is reported awake during the tracing. Background EEG rhythm is 16-20 hertz 5-20 microvolt posteriorly and lower amplitude fast anteriorly. Photic stimulation does not produce any significant abnormality. Hyperventilation is not performed. Cardiac lead does not reveal any significant abnormality. No sharp wave spikes or paroxysmal tendency noted. Some muscle artifacts are noted. Impression: No significant abnormality noted on this EEG. MTDD
[2025-05-25 03:11] VITALS: BP 100/53; PULSE 86; RESP 12; TEMP 36.4; O2SAT 96
[2025-05-25 06:00] VITALS: BMI 32.8
[2025-05-25 07:18] LABS: Glucose, Whole Blood 98 mg/dL (60-115)
[2025-05-25 07:50] VITALS: BP 117/67; PULSE 87; RESP 20; TEMP 36.1; O2SAT 100
[2025-05-25 11:42] LABS: Glucose, Whole Blood 118 mg/dL (60-115)
[2025-05-25 11:49] VITALS: BP 110/57; PULSE 77; RESP 20; TEMP 36.8; O2SAT 98
[2025-05-25 15:39] VITALS: BP 125/56; PULSE 73; RESP 18; TEMP 36.4; O2SAT 98
[2025-05-25 15:48] LABS: Glucose, Whole Blood 102 mg/dL (60-115)
--- NOTE | 2025-05-25 18:24 | P.PNIM_ITS ---
Subjective Subjective Date of Service: 05/25/25 Interval History: Seen and evaluated in room, resting comfortably in bed Downgrade from ICU last night after monitoring after TNK administration Seen by PT who recommended STR Denies hemiparesis No PROCTOR or acute vision changes No acute events overnight Review of Systems Review of Systems: Yes all other systems are reviewed and are negative Physical Exam 2 Exam: Exam: General: AOx3, no acute distress Resp: CTA bilaterally CVS: S1, S2, RRR GI: +BS, NT, no distention Skin: Warm, dry Neuro: Cranial nerves II-XII grossly intact bilaterally. Motor grossly intact bilaterally. Negative pronator drift. Preserved and symmetric strength bilaterally. Sensation to light touch of upper and lower extremities and face intact. Extremities: No edema Psych: Appropriate affect Vital Signs: Vital Signs: Last Vital Signs Temp 97.5 F 05/25/25 15:39 Pulse 73 05/25/25 15:39 Resp 18 05/25/25 15:39 BP 125/56 L 05/25/25 15:39 Pulse Ox 98 05/25/25 15:39 O2 Del Method Room Air 05/25/25 15:39 O2 Flow Rate 0.5 05/25/25 07:50 Oxygen Flow Rate 2 05/23/25 21:46 BMI result Body Mass Index 32.8 Objective Data Active Medications Albuterol Sulfate (Albuterol Sulfate 90 Mcg 8 Gm Inhaler) 2 puff INHALE Q6H PRN PRN Reason: shortness of breath or wheezing Aspirin (Aspirin 81 Mg Tab.Chew) 81 mg PO DAILY [facility] Last Admin: 05/25/25 08:16 Dose: 81 mg Documented By: EFREN Atorvastatin Calcium (Atorvastatin Calcium 40 Mg Tablet) 40 mg PO DAILY [facility] Last Admin: 05/25/25 08:17 Dose: 40 mg Documented By: EFREN Baclofen (Baclofen 10 Mg Tablet) 10 mg PO BID PRN PRN Reason: Muscle Spasm Celecoxib (Celecoxib 200 Mg Capsule) 200 mg PO BID [facility] Last Admin: 05/25/25 08:16 Dose: 200 mg Documented By: EFREN Dextrose (Dextrose 50 % 25 Gm/50 Ml Syringe) 25 gm IVPUSH Q15M PRN; Protocol PRN Reason: per Hypoglycemia Standing Ord. Dextrose (Dextrose 50 % 25 Gm/50 Ml Syringe) 25 gm IVPUSH Q15M PRN; Protocol PRN Reason: per Hypoglycemia Standing Ord. Famotidine (Famotidine/Pf 20 Mg/2 Ml Vial) 20 mg IVPUSH BID [facility] Last Admin: 05/25/25 08:17 Dose: 20 mg Documented By: EFREN Gabapentin (Gabapentin 100 Mg Capsule) 200 mg PO BEDTIME [facility] Glucose (Glucose Gel 15 Gm Gel..Gram.) 15 gm PO Q15M PRN; Protocol PRN Reason: per Hypoglycemia Standing Ord. Insulin Human Lispro (Insulin Lispro 100 Unit/Ml 3 Ml Vial) 0 unit SUBCUT QIDACHS [facility]; Protocol Last Admin: 05/25/25 15:49 Dose: Not Given Documented By: EFREN Non-Admin Reason: No Insulin Coverage Levothyroxine Sodium (Levothyroxine Sodium 88 Mcg Tablet) 88 mcg PO DAILY@0600 [facility] Last Admin: 05/25/25 08:16 Dose: 88 mcg Documented By: EFREN Omeprazole (Omeprazole 20 Mg Capsule.) 20 mg PO BID@0630,1630 [facility] Last Admin: 05/25/25 17:01 Dose: 20 mg Documented By: EFREN Ondansetron HCl (Ondansetron Hcl 4 Mg/2 Ml Vial) 4 mg IVPUSH Q8H PRN PRN Reason: Nausea and Vomiting Valproic Acid (Valproic Acid 250 Mg Capsule) 500 mg PO BID [facility] Last Admin: 05/25/25 08:16 Dose: 500 mg Documented By: EFREN Labs 05/24/25 04:27 05/24/25 04:27 Labs: Laboratory Results - last 24 hr 05/24/25 05/25/25 05/25/25 20:34 07:12 11:33 POC Glucose 103 98 118 H 05/25/25 15:45 POC Glucose 102 Assessment and Plan (1) Left hemiparesis: Status: Acute Plan 69-year-old lady with past medical history of hypertension, hyperlipidemia, diabetes mellitus, hyperthyroidism who had sudden-onset left hemiparesis followed by tonic clonic movements with subsequent unresponsiveness. Left-sided hemiparesis with possible tonic-clonic movements: Received TNK in the ED for possible acute CVA; symptoms resolved; monitored in ICU without complications MRI of brain negative Aspirin and statin as per Neurology EEG on Tuesday Possibly had a neuropsych reaction to Keppra, switched to valproate 500mg BID Monitor on telemetry Diabetes mellitus: on sliding scale insulin Hypothyroidism: continue home levothyroxine Prophylaxis: SCD, famotidine oral diet OT/PT eval, recommending STR Needs continued hospitalization for EEG prior to STR. Quality Stroke Does the patient have a stroke diagnosis?: Yes Reason for No Anti-thrombotic by Day Two: N/A - Med Ordered VTE Prior VTE?: No VTE Risk Level:: Medical - low VTE Device Contraindication: N/A - Device Ordered VTE Drug Contraindication: N/A - Med Ordered
[2025-05-25 19:21] VITALS: BP 117/56; PULSE 79; RESP 20; TEMP 36.4; O2SAT 90
[2025-05-25 20:52] LABS: Glucose, Whole Blood 86 mg/dL (60-115)
[2025-05-25 23:36] VITALS: BP 96/58; PULSE 77; RESP 16; TEMP 36.4; O2SAT 96
[2025-05-26] VITALS (9 sets, daily range): BP systolic 100–131; BP diastolic 58–86; PULSE 72–105; RESP 16–20; TEMP 36.1–36.4; O2SAT 91–99; BMI 33.0
[2025-05-26 07:32] LABS: Glucose, Whole Blood 104 mg/dL (60-115)
--- NOTE | 2025-05-26 08:54 | P.PNIM_ITS ---
Subjective Subjective Date of Service: 05/26/25 Interval History: Some lightheadedness when standing this morning Dysuria this morning No headache Denies hemiparesis Review of Systems Review of Systems: Yes all other systems are reviewed and are negative Physical Exam 2 Exam: Exam: General: AOx3, no acute distress Resp: CTA bilaterally CVS: S1, S2, RRR GI: +BS, NT, no distention Skin: Warm, dry Neuro: Cranial nerves II-XII grossly intact bilaterally. Motor grossly intact bilaterally. No focal deficits noted. Generalized but symmetric weakness Extremities: No edema Psych: Appropriate affect Vital Signs: Vital Signs: Last Vital Signs Temp 97.3 F 05/26/25 08:00 Pulse 72 05/26/25 08:49 Resp 20 05/26/25 08:00 BP 118/60 05/26/25 08:49 Pulse Ox 98 05/26/25 08:00 O2 Del Method Nasal Cannula 05/26/25 08:00 O2 Flow Rate 0.5 05/26/25 08:00 Oxygen Flow Rate 2 05/23/25 21:46 BMI result Body Mass Index 33.0 Objective Data Active Medications Albuterol Sulfate (Albuterol Sulfate 90 Mcg 8 Gm Inhaler) 2 puff INHALE Q6H PRN PRN Reason: shortness of breath or wheezing Aspirin (Aspirin 81 Mg Tab.Chew) 81 mg PO DAILY [facility] Last Admin: 05/26/25 08:01 Dose: 81 mg Documented By: EFREN Atorvastatin Calcium (Atorvastatin Calcium 40 Mg Tablet) 40 mg PO DAILY [facility] Last Admin: 05/26/25 08:00 Dose: 40 mg Documented By: EFREN Baclofen (Baclofen 10 Mg Tablet) 10 mg PO BID PRN PRN Reason: Muscle Spasm Celecoxib (Celecoxib 200 Mg Capsule) 200 mg PO BID [facility] Last Admin: 05/26/25 08:01 Dose: 200 mg Documented By: EFREN Dextrose (Dextrose 50 % 25 Gm/50 Ml Syringe) 25 gm IVPUSH Q15M PRN; Protocol PRN Reason: per Hypoglycemia Standing Ord. Dextrose (Dextrose 50 % 25 Gm/50 Ml Syringe) 25 gm IVPUSH Q15M PRN; Protocol PRN Reason: per Hypoglycemia Standing Ord. Famotidine (Famotidine/Pf 20 Mg/2 Ml Vial) 20 mg IVPUSH BID [facility] Last Admin: 05/26/25 08:01 Dose: 20 mg Documented By: EFREN Gabapentin (Gabapentin 100 Mg Capsule) 200 mg PO BEDTIME [facility] Last Admin: 05/25/25 19:52 Dose: 200 mg Documented By: [place] Glucose (Glucose Gel 15 Gm Gel..Gram.) 15 gm PO Q15M PRN; Protocol PRN Reason: per Hypoglycemia Standing Ord. Insulin Human Lispro (Insulin Lispro 100 Unit/Ml 3 Ml Vial) 0 unit SUBCUT QIDACHS [facility]; Protocol Last Admin: 05/26/25 07:41 Dose: Not Given Documented By: EFREN Non-Admin Reason: No Insulin Coverage Levothyroxine Sodium (Levothyroxine Sodium 88 Mcg Tablet) 88 mcg PO DAILY@0600 [facility] Last Admin: 05/26/25 05:55 Dose: 88 mcg Documented By: [place] Omeprazole (Omeprazole 20 Mg Capsule.) 20 mg PO BID@0630,1630 [facility] Last Admin: 05/26/25 05:55 Dose: 20 mg Documented By: [place] Ondansetron HCl (Ondansetron Hcl 4 Mg/2 Ml Vial) 4 mg IVPUSH Q8H PRN PRN Reason: Nausea and Vomiting Valproic Acid (Valproic Acid 250 Mg Capsule) 500 mg PO BID [facility] Last Admin: 05/26/25 08:01 Dose: 500 mg Documented By: EFREN Labs 05/24/25 04:27 05/24/25 04:27 Labs: Laboratory Results - last 24 hr 05/25/25 05/25/25 05/25/25 11:33 15:45 20:47 POC Glucose 118 H 102 86 05/26/25 07:18 POC Glucose 104 Assessment and Plan (1) Left hemiparesis: Status: Acute Plan 69-year-old lady with past medical history of hypertension, hyperlipidemia, diabetes mellitus, hyperthyroidism who had sudden-onset left hemiparesis followed by tonic clonic movements with subsequent unresponsiveness. Left-sided hemiparesis with possible tonic-clonic movements: Received TNK in the ED for possible acute CVA; symptoms resolved; monitored in ICU without complications Concern for CVA vs TIA vs seizure MRI of brain negative Aspirin and statin as per Neurology EEG on Tuesday Initially loaded with Keppra, switched to valproate 500mg BID due to possible neuropsych reaction to Keppra PT recommend STR Monitor on telemetry Lightheadedness Check orthostatics Dysuria Reports some dysuria this morning UA on 05/23 negative Will repeat UA Diabetes mellitus: on sliding scale insulin Diabetic diet Hypothyroidism: continue home levothyroxine Prophylaxis: SCD, famotidine oral diet OT/PT eval, recommending STR Needs continued hospitalization for EEG prior to STR. Quality Stroke Does the patient have a stroke diagnosis?: Yes Reason for No Anti-thrombotic by Day Two: N/A - Med Ordered VTE Prior VTE?: No VTE Risk Level:: Medical - low VTE Device Contraindication: N/A - Device Ordered VTE Drug Contraindication: N/A - Med Ordered
--- NOTE | 2025-05-26 09:09 | MHC.CM.PN ---
Addendum entered by Jocelin Torres 05/26/25 13:18: CM MET WITH PTS DAUGHTER/PRIMARY HCP SHE SAYS THE PT MAY WANT TO CHANGE HER HCP BEFORE DC, PER DISCUSSION, THIS WILL BE ADDRESSED TOMORROW WHEN PT IS ALONE AND AN COMPENSATION ADMINISTRATOR IS PRESENT. DTR REPORTS SHE FEELS THE PT MUST GO TO STR, ALTHOUGH OTHERS WOULD LIKE HER TO GO HOME, CM WILL ALSO DISCUSS THIS WITH PT AFTER SHE IS RE-EVALUATED BY PHYSICAL THERAPY. Original Note: CM MET WITH PT AND DAUGHTER/PRIMARY HCP, AT BEDSIDE PER DISCUSSION, THEY WOULD LIKE TO WAIT TO DECIDE ON A DCP PT WOULD PREFER TO DC HOME, HOWEVER IS OPEN TO STR IF NECESSARY THEY REPORT THE PT WAS SUPPOSED TO HAVE THERAPY AT HOME, HOWEVER IT WAS NOT GOING TO START UNTIL 05/28. THEY ARE UNSURE OF PREFERENCES REGARDING SNFS IF THE PLAN BECOMES STR
[2025-05-26 11:45] LABS: Glucose, Whole Blood 123 mg/dL (60-115)
[2025-05-26 15:08] LABS: Appearance Urine Clear; Glucose Urine UA Negative (Negative); PH 6.5 (5.0-9.0); Specific Gravity - Urine 1.010 (1.005-1.025)
[2025-05-26 15:56] LABS: Glucose, Whole Blood 67 mg/dL (60-115)
[2025-05-26 20:12] LABS: Glucose, Whole Blood 95 mg/dL (60-115)
[2025-05-27] VITALS: BP 104/60; PULSE 98; RESP 18; TEMP 36.6; O2SAT 96
[2025-05-27 03:42] VITALS: BP 122/60; PULSE 75; RESP 19; TEMP 36.7; O2SAT 97
[2025-05-27 05:26] VITALS: BMI 33.4
[2025-05-27 07:44] LABS: Glucose, Whole Blood 103 mg/dL (60-115)
[2025-05-27 07:50] VITALS: BP 96/58; PULSE 80; RESP 16; TEMP 36.2; O2SAT 100
--- NOTE | 2025-05-27 11:20 | MHC.CM.PN ---
Addendum entered by [facility] 05/27/25 15:35: [facility] auth received for STR. Addendum entered by [facility] 05/27/25 15:32: [facility] transport auth received (booking ID# [id number]). Addendum entered by [facility] 05/27/25 15:31: [facility] has requested this CM book pts ambulance for this evening, ambulance booked via [place] for 5pm. Second IMM given 05/27. Pt and her daughter aware and in agreement with the discharge plan. Addendum entered by [facility] 05/27/25 12:47: This CM spoke with pts daughter Mercedes, she states their choice for STR is [facility], this CM has requested for auth to be initiated. Original Note: This CM met with pt with her son present at bedside and language interpreter present to discuss STR options. Pt made aware that she has 3 STR bed offers, per sons request a written list of the facility options given to them. Per pts son, his sister/pts daughter will be in shortly, they will discuss the options and let me know what facility they select. Pt and her son are aware that we will need [facility] auth prior to discharge.
[2025-05-27 11:34] LABS: Glucose, Whole Blood 107 mg/dL (60-115)
[2025-05-27 11:42] VITALS: BP 107/61; PULSE 95; RESP 17; TEMP 36.3; O2SAT 96
--- NOTE | 2025-05-27 14:27 | MHC.SLORD ---
Speech Language Pathology Order Status: Pt and daughter seen for dysphagia follow up. Pt is tolerating regular diet with thin liquids, no persisting dysphagia. SHUTTLE BUS DRIVER signing off. notified.
[2025-05-27 15:45] VITALS: BP 119/55; PULSE 76; RESP 18; TEMP 36.2; O2SAT 99
[2025-05-27 16:21] LABS: Glucose, Whole Blood 91 mg/dL (60-115)
--- NOTE | 2025-05-27 16:28 | PM.DS ---
DS: Providers Provider Date of Service: 05/27/25 Date of admission: 05/23/25 18:11 Date of discharge: 05/27/25 Primary care physician: Christina Lara MD Consults: 05/24/25 10:08 Consult to Neurology Routine Consulting Provider: [facility] Reason for consultation: stroke Has provider been notified: Yes DS: Diagnosis Discharge Diagnosis (1) Left hemiparesis: Status: Acute DS: Summary Hospital Course Hospital Course: From admission HPI: Date of Service: 05/23/25 Chief Complaint: weakness 69-year-old lady with past medical history of hypertension, hyperlipidemia, diabetes mellitus, hyperthyroidism was apparently normal until this afternoon. She was watching TV at 15:22PM when she had sudden tonic clonic movements of her all 4 extremities and she was unresponsive for about 10 minutes following which she had a weakness in her left upper and lower extremities. She was brought into the ED and she received TNK at 17:10PM, after which her left hemiparesis improved significantly. Admitted to MICU for monitoring. Hospital course: Pt was admitted to the hospital for left hemiparesis and possible tonic-clonic movements concerning for CVA. Pt was administered TNK in the ED with resolution of symptoms. Per protocol pt was monitored in the ICU for 24 hours where ICU stay was unremarkable. For possible tonic-clonic seizure activity pt was started on Keppra, though had possible neuropsych reaction and was instead switched to valproic acid 500 mg b.i.d.. Pt was brought to the hospital floor and underwent EEG which is still pending. Pt was seen and evaluated by Physical therapy who suggested short-term rehab for strength conditioning. Pt will be discharged on empiric valproic acid 500 mg b.i.d. pt should follow-up with Dr. Quarles in Neurology for CVA follow up, as well as EEG results and consultation about whether to continue valproic acid longterm. Pt should resume all of her other home medications. Additional details concerning hospital stay listed below. Left-sided hemiparesis with possible tonic-clonic movements: Received TNK in the ED for possible acute CVA; symptoms resolved; monitored in ICU without complications Concern for CVA vs TIA vs seizure MRI of brain negative Aspirin and statin as per Neurology EEG on Tuesday, offical read pending Initially loaded with Keppra, switched to valproate 500mg BID due to possible neuropsych reaction to Keppra PT recommend STR Continue valproic acid 500 mg b.i.d. Follow up with Neurology Lightheadedness Orthostatics negatvie Dysuria Reports some dysuria on 05/26 UA on 05/23 negative; repeat UA negative Diabetes mellitus: Treated on sliding scale insulin Diabetic diet Hypothyroidism: continue home levothyroxine Time Attestation Discharge Coordination Time (in mins): 38 Quality: Safe Use of Opioids Does Pt have an Active Cancer Diagnosis on the Problem List?: No Quality: Stroke Does the patient have a stroke diagnosis?: No Physical Exam Exam: Exam: General: AOx3, no acute distress. Elderly Resp: CTA bilaterally CVS: S1, S2, RRR GI: +BS, NT, no distention Skin: Warm, dry Neuro: Cranial nerves II-XII grossly intact bilaterally. Motor grossly intact bilaterally. No focal deficits noted. Generalized symmetric weakness Extremities: No edema Psych: Appropriate affect Vital Signs: Vital Signs: Last Vital Signs Temp 97.2 F 05/27/25 15:45 Pulse 76 05/27/25 15:45 Resp 18 05/27/25 15:45 BP 119/55 L 05/27/25 15:45 Pulse Ox 99 05/27/25 15:45 O2 Del Method Room Air 05/27/25 15:45 O2 Flow Rate 2 05/27/25 03:42 Oxygen Flow Rate 2 05/23/25 21:46 BMI result Body Mass Index 33.4 DS: Data Data Completed and Pending Labs on day of discharge: Laboratory Results - last 24 hr 05/26/25 05/27/25 05/27/25 20:05 07:39 11:25 POC Glucose 95 103 107 05/27/25 16:12 POC Glucose 91 Discharge Plan Discharge Anticipated Discharge Date/Time: 05/27/25 16:12 Patient Disposition: Xfer SNF Discharge Diagnosis: Left hemiparesis Referrals: [facility] [Outside] - 1 Week Harini Quarles MD [Physician, Neurology] - 1 Week Referral Note: F/U for CVA vs seizure s/p TNK in the ED; EEG done inpatient, read still pending Christina Fischer MD [Primary Care Provider, Internal Medicine] - 1 Week Discharge Medications: New valproic acid 250 mg capsule 500 mg PO BID Qty: 60 0RF Rx Instructions: Take two capsules twice a day Continued (DME) walker Misc See Rx Instructions .MEDSUPPLY Qty: 1 0RF Rx Instructions: Folding Front wheeled walker (DME) blood-glucose meter Kit See Rx Instructions .Route Qty: 1 0RF Rx Instructions: As directed (DME) blood sugar diagnostic Strip See Rx Instructions .Route Qty: 100 2RF Rx Instructions: As directed Once per day (DME) blood-glucose meter [OneTouch Ultra2 Meter] Mis See Rx Instructions .Route Qty: 1 0RF Rx Instructions: test daily (DME) Grab bar Misc See Rx Instructions .Route Qty: 1 0RF Rx Instructions: As directed albuterol sulfate [Ventolin HFA] 90 mcg/actuation HFA aerosol inhaler 2 puff inhalation Q6H PRN (Reason: shortness of breath or wheezing) 30 Days Qty: 8.5 2RF (DME) OneTouch Ultra Test Strip See Rx Instructions .Route Qty: 100 3RF Rx Instructions: test daily (DME) lancets 33 gauge misc See Rx Instructions .Route Qty: 100 0RF Rx Instructions: As directed Once per day (DME) lancets [OneTouch UltraSoft 2 Lancet] 30 gauge misc See Rx Instructions .Route Qty: 100 3RF Rx Instructions: test daily gabapentin 100 mg capsule 200 mg PO BEDTIME 90 Days Qty: 180 1RF esomeprazole magnesium 40 mg capsule,delayed release(DR/EC) 40 mg PO BID Qty: 60 6RF metformin 850 mg tablet 850 mg PO BID 90 Days Qty: 180 2RF baclofen 10 mg tablet 10 mg PO BID PRN (Reason: muscle spasm) 30 Days Qty: 60 1RF Ozempic 0.25 mg or 0.5 mg (2 mg/3 mL) pen injector 2 mg SUBCUT FR levothyroxine 88 mcg tablet 88 mcg PO DAILY@0600 rosuvastatin 20 mg tablet 20 mg PO DAILY@1400 (DME) Shower Chair Misc See Rx Instructions .Route Qty: 1 0RF Rx Instructions: As directed celecoxib [Celebrex] 200 mg capsule 200 mg PO BID 30 Days Qty: 60 3RF Discharge Orders: Discharge Order (Routine); Ordered 05/27/25 Ordered By: Hannah Alvarado Activity on Discharge: As tolerated Stand Alone Forms: Patient Portal Discharge page Print Language: Japanese Care Plan Goals: See below Health Concerns: Acute stroke TIA Seizure disorder Left-sided hemiparesis Generalized weakness/deconditioning Plan of Treatment: You were admitted to the hospital after experiencing left-sided hemiparesis with possible tonic-clonic movements. You received TNK in the ED for concern for acute stroke. Your symptoms soon resolved. Per protocol you were monitored in the ICU for 24 hours without any complications. The other concern with possible tonic-clonic movements was for seizure activity. You underwent EEG that is still pending. You were started on valproic acid 500 mg twice a day. You should follow up with Neurology outpatient for both EEG results and whether or not to continue valproic acid. Was seen and evaluated by Physical therapy who recommended discharge to short-term rehab for strength and conditioning. You should resume all of your other home medications. -- take valproic acid 500mg twice a day; follow up with Dr. Quarles in Neurology as to whether to continue long-term Assessment: See discharge summary
== END 2025-05-27 17:36 | disposition skilled nursing facility (03) | DRG 62 ==
LOC: HO.ED 18:30 → HO.EDOVER 19:40 → HO.ICU 19:45 → HO.IMC 05-24 20:48
PROVIDERS: Physician Assistant Medical; Admitting Provider Internal Medicine Critical Care Medicine; Emergency Provider Student in an Organized Health Care Education/Training Program; PCP Internal Medicine; Visit Provider Student in an Organized Health Care Education/Training Program
DX: I63.9 Cerebral infarction, unspecified (principal); G45.9 Transient cerebral ischemic attack, unspecified; R20.0 Anesthesia of skin; E86.0 Dehydration; E83.52 Hypercalcemia; R29.710 NIHSS score 10; E11.9 Type 2 diabetes mellitus without complications; E03.9 Hypothyroidism, unspecified; I10 Essential (primary) hypertension; R30.0 Dysuria; G83.84 Todd's paralysis (postepileptic); Z87.891 Personal history of nicotine dependence; Z79.84 Long term (current) use of oral hypoglycemic drugs; Z79.890 Hormone replacement therapy; Z79.899 Other long term (current) drug therapy
CPT/HCPCS: 36415; 70450; 70496; 70498; 70551; 71045; 80048; 80061; 81001; 81003; 82947; 83735; 84100; 84484; 85025; 85610; 85730; 92610; 93005; 93306; 95816; 97162; 97166; 97530; 97535; 99285; J1171; J1308; J1953; J2405; J3101; Q9957; Q9967

== ENCOUNTER → 2025-05-23 16:09 | Outpatient (BNV) | payer OTHER, SELFPAY | PROVIDERS: Emergency Provider Student in an Organized Health Care Education/Training Program; PCP Internal Medicine; Visit Provider Radiology Diagnostic Radiology | DX: I65.22 Occlusion and stenosis of left carotid artery (principal); M48.02 Spinal stenosis, cervical region; I63.9 Cerebral infarction, unspecified; I62.9 Nontraumatic intracranial hemorrhage, unspecified | CPT/HCPCS: 70450; 70496; 70498 ==

== ENCOUNTER → 2025-05-23 16:10 | Outpatient (BNV) | payer OTHER, SELFPAY | PROVIDERS: Admitting Provider Internal Medicine Critical Care Medicine; Emergency Provider Student in an Organized Health Care Education/Training Program; PCP Internal Medicine; Visit Provider Internal Medicine Cardiovascular Disease | DX: R00.0 Tachycardia, unspecified (principal); R07.9 Chest pain, unspecified | CPT/HCPCS: 93010 ==

== ENCOUNTER → 2025-05-23 18:07 | Outpatient (BNV) | payer OTHER, SELFPAY | PROVIDERS: Emergency Provider Student in an Organized Health Care Education/Training Program; PCP Internal Medicine; Visit Provider Internal Medicine Critical Care Medicine | DX: G45.9 Transient cerebral ischemic attack, unspecified (principal); G81.94 Hemiplegia, unspecified affecting left nondominant side; I10 Essential (primary) hypertension | CPT/HCPCS: 99223 ==

== ENCOUNTER 2025-05-23 18:11 | Outpatient (BNV) | payer OTHER, SELFPAY | END 2025-05-24 07:00 | PROVIDERS: Admitting Provider Internal Medicine Critical Care Medicine; Emergency Provider Student in an Organized Health Care Education/Training Program; PCP Internal Medicine; Visit Provider Internal Medicine Cardiovascular Disease | DX: I63.9 Cerebral infarction, unspecified (principal) | CPT/HCPCS: 93306 ==

== ENCOUNTER 2025-05-23 18:11 | Outpatient (BNV) | payer OTHER, SELFPAY | END 2025-05-25 10:30 | PROVIDERS: Admitting Provider Internal Medicine Critical Care Medicine; Emergency Provider Student in an Organized Health Care Education/Training Program; PCP Internal Medicine; Visit Provider Psychiatry & Neurology Neurology | DX: R53.1 Weakness (principal) | CPT/HCPCS: 95816 ==

== ENCOUNTER 2025-05-23 18:11 | Outpatient (BNV) | payer OTHER, SELFPAY | END 2025-05-24 17:00 | PROVIDERS: Admitting Provider Internal Medicine Critical Care Medicine; Emergency Provider Student in an Organized Health Care Education/Training Program; PCP Internal Medicine; Visit Provider Radiology Diagnostic Radiology | DX: I63.9 Cerebral infarction, unspecified (principal) | CPT/HCPCS: 70551 ==

== ENCOUNTER 2025-05-23 18:11 | Outpatient (BNV) | payer OTHER, SELFPAY | END 2025-05-25 10:00 | PROVIDERS: Admitting Provider Internal Medicine Critical Care Medicine; Emergency Provider Student in an Organized Health Care Education/Training Program; PCP Internal Medicine; Visit Provider Radiology Diagnostic Radiology | DX: J98.11 Atelectasis (principal) | CPT/HCPCS: 71045 ==

== ENCOUNTER → 2025-05-23 18:11 | Outpatient (BNV) | payer OTHER, SELFPAY | PROVIDERS: Admitting Provider Internal Medicine Critical Care Medicine; Emergency Provider Student in an Organized Health Care Education/Training Program; PCP Internal Medicine; Visit Provider Psychiatry & Neurology Neurology | DX: G81.94 Hemiplegia, unspecified affecting left nondominant side (principal) | CPT/HCPCS: 99223 ==

== ENCOUNTER → 2025-05-23 18:11 | Outpatient (BNV) | payer OTHER, SELFPAY | PROVIDERS: Admitting Provider Internal Medicine Critical Care Medicine; Emergency Provider Student in an Organized Health Care Education/Training Program; PCP Internal Medicine; Visit Provider Student in an Organized Health Care Education/Training Program | DX: G81.94 Hemiplegia, unspecified affecting left nondominant side (principal) | CPT/HCPCS: 99233; 99239 ==

== ENCOUNTER 2025-05-31 12:32 | Outpatient (AMB) | payer OTHER, SELFPAY ==
--- NOTE | 2025-05-31 12:35 | MHC.OFFVIS ---
Vital Signs 05/31/25 12:41 Height 5 ft Weight 156 lb BMI 30.5 BP 106/76 Blood Pressure Location Lt brachial Position Sitting Pulse 103 H Intake Visit Reasons: 3 week follow up N/V/belchhing likely Ozempic Intake Note: Patient 3 week follow up N/V/belchhing likely Ozempic Patient cc: nauseas, abdominal discomfort, acid reflux, and also patient [place] [facility] [place] due a mini stroke. Denies any other GI issues. 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 Accompanied by: Self / Same As Patient Allergies No Known Drug Allergies Allergy (Unknown, Verified 05/31/25 12:35) none HPI HPI 3 week follow up N/V/belchhing likely Ozempic: Details: Assessment & Plan (1) Small intestinal bacterial overgrowth (SIBO), hydrogen subtype: Code(s): K63.8211 - Small intestinal bacterial overgrowth, hydrogen-subtype Category: Medical (2) GERD (gastroesophageal reflux disease): Code(s): K21.9 - Gastro-esophageal reflux disease without esophagitis Category: Medical Qualifiers: Esophagitis presence: esophagitis presence not specified Qualified Code(s): K21.9 - Gastro-esophageal reflux disease without esophagitis (3) Nausea and vomiting: Code(s): R11.2 - Nausea with vomiting, unspecified Category: Medical (4) Medication side effect: Comment: sx coincide with initiation of Ozempic Code(s): T88.7XXA - Unspecified adverse effect of drug or medicament, initial encounter Category: Medical Plan [place] #[place] Live She continues on her esomeprazole 40 mg daily. - The patient is a 69-year-old female presenting with adverse gastrointestinal symptoms potentially related to medication use (Ozempic). - The patient has experienced nausea and vomiting, primarily following meals at a daycare program, occurring over the past two months, which coincides with her start date of Ozempic. - Describes the symptoms as resembling morning sickness, with aversions to smells and unpleasant taste sensations. - Reports increased burping and belching without a change in medications or dose. - The onset of symptoms correlates with the use of Semaglutide (Ozempic) for the management of type 2 diabetes, initiated two months ago. - Experiences symptom relief with meals at home compared to food consumed at the program. -I advise her that she may need to contact her PCP to either lower/modify be Ozempic dose or consider alternative diabetes medications. What I propose is that we have a trial off of the medication to see if the symptoms resolve, if they do not then we need to do further testing to uncover any other pathologies. However, this symptom says extremely common with Ozempic and while some people can adjust over time there are some who never tolerate the medication. I have sent a workload note her primary care provider who is in our system to advise her of what is happening and to ask if we can do a trial cessation of the Ozempic. Return office visit in 3 weeks. After the patient leaves I receive a return workload as follows: On 05/10/25 @ 12:31 Crissy Lorenzo Wrote To ChemaDecember noted CHIQUITA Aaron Nurses removed from item. On 05/10/25 @ 12:28 Christina Fischer Wrote To Chema (2) Yes she can. On 05/10/25 @ 12:26 ChemaVelia Wrote To Christina Fischer I just saw Diana and she is c/o severer N/V and belching coinciding with the initiation of her Ozempic. Can she hold her next dose? I will get pancreatic enzymes to check. I advised her to stop her Ozempic in the short term. Orders: Orders TSH reflex Free T4 05/10/25 R11.2 - Nausea with vomiting, unspecified, T88.7XXA - Unspecified adverse effect of drug or medicament, initial encounter Amylase 05/10/25 R11.2 - Nausea with vomiting, unspecified, T88.7XXA - Unspecified adverse effect of drug or medicament, initial encounter Lipase 05/10/25 R11.2 - Nausea with vomiting, unspecified, T88.7XXA - Unspecified adverse effect of drug or medicament, initial encounter LABS: Not obtained TODAY'S VISIT MONGOLIAN # PFSH Medical History (Reviewed 05/10/25 @ 12:13 by Milla Garza [facility]) Muscle spasm Acute diarrhea Dysuria Urinary leakage Pre-op examination COVID-19 Gastritis Dyspnea Encounter for Medicare annual wellness exam Hyperlipidemia LDL goal <70 Cough Leukocytosis Osteoarthritis of right knee Hyperkalemia Adult general medical exam Screening for colon cancer Screening for diabetes mellitus Screening for breast cancer Epigastric pain Constipation Diabetes Osteoporosis Difficulty swallowing Bilateral knee pain Urge urinary incontinence Impaired glucose tolerance Hypothyroidism Autoimmune thyroiditis Pure hypercholesterolemia GERD (gastroesophageal reflux disease) Surgical History Status post total right knee replacement History of right knee surgery History of esophagogastroduodenoscopy (EGD) Hx of colonoscopy History of appendectomy History of partial hysterectomy Hx of tubal ligation HX: benign breast biopsy Hx of thyroidectomy Family History Father Prostate cancer Mother Diabetes mellitus Sister Heart problem Social History Household Members: Children Housing: Apartment Are you a primary urgent care to a significant other at home: No Do you presently have visiting nurse or other home services: No Alcohol intake: never Patient Tobacco Use Status: Former Tobacco user Tobacco use type: Cigarette Cigarettes Per Day: 6 Years Smoked: 40 e-Cigarette/Vaping Use: Never Used Second Hand Smoke Exposure: Yes Advance Directives Date on File: 01/11/24 service: No Current occupational status: unemployed Current occupational exposures/hazards: No Cognitive needs: No Hearing needs: No Vision needs: Yes Review of Systems Const Denies fatigue, Denies fever(s), Denies night sweats, Reports poor appetite and Denies weight loss Eyes Details: glasses Reports requires corrective lenses ENT Reports Normal hearing present, Denies dental pain, Denies dysphagia, Denies hearing loss, Denies mouth pain, Denies odynophagia, Denies throat swelling, Denies tongue swelling and Reports other (Dentition adequate) Card Reports no additional complaints Resp Reports no additional complaints GI Details: Denies abdominal pain, Denies melena, Denies bloating, Denies hematochezia, Denies constipation, Denies GI cramping, Denies dysphagia, Denies excessive flatus, Reports early satiety, Reports heartburn, Denies diarrhea, Reports nausea, Denies odynophagia, Reports vomiting and Denies hematemesis Musc Reports back pain, Reports myalgias and Reports arthralgias Skin/Breast Denies pruritus, Denies lesions, Denies rash and Denies jaundice Neuro Reports Normal hearing present, Denies Abnormal speech present, Reports focal weakness and Reports seizure-like activity Endo Denies fatigue Aller/Immun Denies throat swelling and Denies tongue swelling Physical Exam Vital Signs: Last Vital Signs Pulse 103 H 05/31/25 12:41 BP 106/76 05/31/25 12:41 BMI result Body Mass Index 30.5 Const General: cooperative, no acute distress, well developed and well groomed Nutritional Appearance: well nourished and obese Orientation/consciousness: oriented to person, oriented to place and oriented to time Limitations: language barrier HEENT Head: Yes normocephalic and Yes atraumatic Eyes General: appearance normal, both eyes and all related structures Pupils: Equal, round and reactive pupils present Neck Neck: Yes normal visual inspection and Yes no lymphadenopathy Thyroid: Thyroid normal Resp Effort & Inspection: normal respiratory effort and able to speak in complete sentences Auscultation: clear to auscultation bilaterally Cardio Rate: regular rate Rhythm: regular rhythm Heart sounds: Normal, physiologic split S2 sound present Peripheral pulses: radial pulses present and posterior tibial pulses present GI Inspection: No distended, No Abdominal panniculus present and Yes obesity Palpation (GI): Soft to palpation, nontender, no guarding, not rigid and No hepatosplenomegaly present Percussion: Yes normal to percussion Auscultation: normal bowel sounds Rectal Exam - Female: deferred Skin General skin exam: no rashes or lesions noted, turgor normal, skin not dry, no jaundice, No spider nevi and no striae Rashes: no rashes Nails: normal Neuro General: oriented to person, oriented to place and oriented to time Cranial nerves: Yes Equal, round and reactive pupils present and Yes Normal hearing present Speech: No Abnormal speech present Extrem General: Yes normal to inspection, No clubbing, No cyanosis and No edema Psych Appearance: grossly normal and well kempt Mental Status: mental status grossly normal Speech and movement: Normal speech and movement present Affect: normal affect Attitude: cooperative Thought process: Normal thought process present and not confabulating Thought content: Normal thought content present Insight: Fair insight present (Psych) and Limited insight present (Psych) Judgement: Fair judgement present (Psych) and Limited judgement present (Psych) Assessment & Plan Assessment & Plan (1) GERD (gastroesophageal reflux disease): Code(s): K21.9 - Gastro-esophageal reflux disease without esophagitis Category: Medical Qualifiers: Esophagitis presence: esophagitis presence not specified Qualified Code(s): K21.9 - Gastro-esophageal reflux disease without esophagitis (2) Medication side effect: Comment: sx coincide with initiation of Ozempic Code(s): T88.7XXA - Unspecified adverse effect of drug or medicament, initial encounter Category: Medical (3) Nausea and vomiting: Code(s): R11.2 - Nausea with vomiting, unspecified Category: Medical Plan Her current GI regimen consists of generic Nexium 40 mg twice a day. Lose says that her symptoms of nausea vomiting with severe heartburn have not changed since she stopped the Ozempic 2 weeks ago. However, in the meantime she has had a complex course of events presenting to the ER for sudden onset of unilateral weakness. Apparently in the ER she also had seizure-like activity so she was admitted. It was really unclear whether this was a TIA or seizure and a consult to neurology recommended an EEG and an MRI. She was disc charged on empiric valproic acid. She also was sent to a skilled we have facility for short period of time. I think that this is still part of the Ozempic as sometimes it takes quite awhile to clear and she is 69 years old! We are going to keep her off this medication, and I think we will do an empiric treatment with Reglan 5 mg 3 times a day and since her symptoms are worse in the evening we will continue with the esomeprazole in the morning and add famotidine 40 mg at night. In order to be complete I am going to get a barium swallow and a gastric emptying study. She had a normal gastric emptying study in 2020, but obviously this has changed dramatically since that time. Return office visit in 3 weeks Orders: Orders NM gastric emptying study Today K21.9 - Gastro-esophageal reflux disease without esophagitis, R11.2 - Nausea with vomiting, unspecified FL upper GI small bowel Today K21.9 - Gastro-esophageal reflux disease without esophagitis, R11.2 - Nausea with vomiting, unspecified Medications: New metoclopramide HCl (Reglan) 5 mg PO QIDACHS 120 tabs 3RF R11.2 - Nausea with vomiting, unspecified metoclopramide HCl (Reglan) 5 mg PO QIDACHS 120 tabs 3RF R11.2 - Nausea with vomiting, unspecified famotidine (Pepcid) 40 mg PO BEDTIME 30 tabs 6RF famotidine (Pepcid) 40 mg PO BEDTIME 30 tabs 6RF Refilled esomeprazole magnesium 40 mg PO BID 60 caps 6RF K21.9 - Gastro-esophageal reflux disease without esophagitis Coding Level of Care Code Est Pt Level 4 (20607) Diagnoses Gastroesophageal reflux disease, unspecified whether esophagitis present K21.9 Esophagitis presence: esophagitis presence not specified Medication side effect T88.7XXA Nausea and vomiting R11.2
--- OUTSIDE RECORDS SUMMARY | 2025-05-31 12:35 | XMS_ITS ---
Author Organization [facility] Care Team Providers Care Mender [employer] Name Role Phone Elder, Debora Segovia Unavailable Unavailable Andi JOSÉ, Fartun Barksdale Unavailable Unavailable Sandie Jones Unavailable Unavailable Allergies and adverse reactions No Known Allergies Care Team Name Role Address Phone Organization Dates Debora Chakraborty PCP [address] (Office): : [facility] 05/27/2025 - 05/29/2025 Fartun Escamilla NP [address] [facility] [address] (Office): [facility] 05/27/2025 - 05/29/2025 [place], [address], [place] (Office): [facility] 05/27/2025 - 05/29/2025 Encounters EncounterType Code CodeSystem Description Performer ServiceDe liveryLocation Date Ambulatory Encounter CPT Code = [id number] Cerebral infarction Fabian Garcia [facility] Address: [address], [place], [address], [facility]. 05/27 Ambulatory Encounter CPT Code = [address] Transient cerebral ischemia [facility] Address: [address] , [place], [address], [facility]. 05/27 Ambulatory Encounter CPT Code = [address] Epilepsy [facility] Address: [address] , [place], [address], [facility]. 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 05/27 Ambulatory Encounter CPT Code = [address] Type 2 diabetes mellitus without complication [facility] Address: [address], [place], [address], [facility]. 05/27 Ambulatory Encounter CPT Code = [address] Essential hypertension [facility] Address: [address], [place], [address], [facility]. 05/27 Ambulatory Encounter CPT Code = [address] Hypothyroidism [facility] Address: [facility] [address], [place], [address], [facility]. 05/27 Ambulatory Encounter CPT Code = [address] Gastroesophage al reflux disease without esophagitis [facility] Address: [address], [place], [address], [facility]. 05/27 Ambulatory Encounter CPT Code = [address] Asthenia [facility] Address: [address], [place], [address], [facility]. 05/27 Ambulatory Encounter CPT Code = [address] Hyperlipidemia [facility] Address: [address], [place], [address], [facility]. 05/27 Ambulatory Encounter CPT Code = [address] Osteoporosis [facility] Address: [address], [place], [address], [facility]. 05/27 Ambulatory Encounter CPT Code = [address] Osteoarthritis of knee [facility] Address: [address], [place], [address], [facility]. 05/27 Ambulatory Encounter CPT Code = [id number] Pain of knee region [facility] Address: [address], [place], [address], [facility]. 05/27 Goals Section Goals Description Status Target Date Diana wishes to return home wi th services in place by the next review date. Active 08/25/2025 Diana's Advanced Directives will be honored throug h next review Active 08/25/2025 Functional Status Code Name Recorded Time Value Entered By Chair/vdx-ns-yevcs transfer 05/29/2025 Not assessed LKennedy Does the resident use a wheelchair and/or scooter? 05/29/2025 Not assessed LKennedy Eating 05/28/2025 Setup or clean-up assistance skorir Indicate the type of wheelch air or scooter used 05/29/2025 Independent LKennedy Lower body dressing 05/29/2025 Not assessed LKennedy Lying to sitting on side of bed 05/29/2025 Independe nt LKennedy Oral hygiene 05/29/2025 Not assessed LKennedy Personal hygiene 05/29/2025 Not assessed LKennedy Putting on/taking off footwear 05/29/2025 Independen t LKennedy Roll left and right 05/29/2025 Independent LKennedy Shower/bathe self 05/29/2025 Not assessed LKennedy Sit to lying 05/29/2025 Independent LKennedy Sit to stand 05/29/2025 Independent LKennedy Toilet transfer 05/29/2025 Independent LKennedy Toileting hygiene 05/29/2025 Independent LKennedy Upper body dressing 05/29/2025 Not assessed LKennedy Walk 10 feet 05/29/2025 Independent LKennedy Walk 150 feet 05/29/2025 Not assessed LKennedy Walk 50 feet 05/29/2025 Not assessed LKennedy Wheel 150 feet 05/29/2025 Not assessed LKennedy Wheel 50 feet with two turns 05/29/2025 Not assessed LKennedy Immunizations Immunization Status Vaccine Details Vaccine Code CodeSystem Date Notes PPSV23 completed pneumococcal polysaccharide vaccine, 23 valent 33 CVX created date: 05/28/2025 administere d date: 08/13/2021 Influenza-High Dose(Fluzone) completed created date: 05/28/2025 administere d date: 07/12/2024 Medications Section Medication Name Status Code CodeSystem Dose Route Frequency Admin Type Sig Text Start Date End Date Indication Baclofen Oral Tablet 10 MG active 1 RXNORM 1 table t Oral as needed PRN Give 1 table t by mouth every 12 hours as neede d for muscl e spasm 2024 - muscle spasm Ventolin HFA Inhalation Aerosol Solution 108 (90 Base) MCG/ACT active 12148 8 RXNORM 2 puff Inhala tion as needed PRN 2 puff inhal e orall y every 6 hours as neede d for short ness of breat h/ wheez ing 2024 - shortness of breath/ wheezing Ozempic (0.25 or 0.5 MG/DOSE) Subcutaneou s Solution Pen-injecto r 2 MG/3ML active 56540 54 RXNORM 2 mg Subcut aneous one time a day Routin e Injec t 2 mg subcu taneo usly one time a day every Tue relat ed to TYPE 2 DIABE MARI MELLI TUS WITHO UT COMPL ICATI ONS (E11. 9) 2024 - - Levothyroxi ne Sodium Oral Tablet 88 MCG aborted 87116 3 RXNORM 1 table t Oral one time a day Routin e Give 1 table t by mouth one time a day relat ed to [facility] HYROI DISM, UNSPE CIFIE D (E03. 9) 05/29 - metFORMIN HCl Oral Tablet 850 MG active 66320 0 RXNORM 1 table t Oral two times a day Routin e Give 1 table t by mouth two times a day relat ed to TYPE 2 DIABE MARI GEOFFREYI TUS WITHO UT COMPL ICATI ONS (E11. 9) 2024 - - Esomeprazol e Magnesium Oral Capsule Delayed Release 40 MG active 23414 0 RXNORM 1 capsu le Oral two times a day Routin e Give 1 capsu le by mouth two times a day relat ed to GASTR O-ESO PHAGE AL REFLU X DISEA SE WITHO UT ESOPH AGITI S (K21. 9) 2024 - - Gabapentin Oral Tablet 100 MG active 22389 3 RXNORM 200 mg Oral at bedtime Routin e Give 200 mg by mouth at bedti me for neuro vickie 2024 - neuropathy Valproic Acid Oral Capsule 250 MG active 25373 81 RXNORM 500 mg Oral two times a day Routin e Give 500 mg by mouth two times a day for seizu re d/o 2024 - seizure d/o Rosuvastati n Calcium Oral Tablet 20 MG active 95651 1 RXNORM 1 table t Oral one time a day Routin e Give 1 table t by mouth one time a day relat ed to HYPER LIPID EMIA, UNSPE CIFIE D (E78. 5) 2024 - - Celecoxib Oral Capsule 200 MG active 94494 3 RXNORM 1 capsu le Oral two times a day Routin e Give 1 capsu le by mouth two times a day for infla mmati on 2024 - inflammatio n Fleet Enema Enema 7-19 GM/118ML active 39610 5 RXNORM 1 dose Rectal as needed PRN Inser t 1 dose recta lly as neede d for Const ipati on (Step 3) as neede d if no bowel movem ent for 8 hours after bisac odyl suppo sitor y. 2024 - Constipatio n Milk of Magnesia Suspension 400 MG/5ML active 47513 7 RXNORM 30 ml Oral as needed PRN Give 30 ml by mouth as neede d for Const ipati on (Step 1) As neede d if no bowel movem ent for three days. (Do not use for Hemod ialys is patie nts). 09/15/ 2025 - Constipatio n Acetaminoph en Tablet 325 MG active 83041 2 RXNORM 2 table t Oral as needed PRN Give 2 table t by mouth every 6 hours as neede d for Pain Pain Total dosag e for aceta minop hen and medic ation s that conta in aceta minop hen shoul d not excee d 3 grams / 24 hours . AND Give 2 table t by mouth every 6 hours as neede d for Fever great er than 100.0 F Total dosag e for aceta minop hen and medic ation s that conta in aceta minop hen shoul d not excee d 3 grams / 24 hours . 2024 - Pain 86652 2 RXNORM 2 table t Oral as needed PRN Give 2 table t by mouth every 6 hours as neede d for Pain Pain Total dosag e for aceta minop hen and medic ation s that conta in aceta minop hen shoul d not excee d 3 grams / 24 hours . AND Give 2 table t by mouth every 6 hours as neede d for Fever great er than 100.0 F Total dosag e for aceta minop hen and medic ation s that conta in aceta minop hen shoul d not excee d 3 grams / 24 hours . 2024 - Fever greater than 100.0F Bisacodyl Suppository 10 MG active RXNORM 1 suppo sitor y Rectal as needed PRN Inser t 1 suppo sitor y recta lly as neede d for If no bowel movem ent for 8 hours after Milk of Magne edgard 2024 - If no bowel movement for 8 hours after Milk of Magnesia Glutose 45 Gel 40 % active 79260 87 RXNORM 1 dose Oral as needed PRN Give 1 dose by mouth as neede d for hypog lycem ic boaz col Give one tube PO/SL if FSBS <50 and able to swall ow PRN. Reche ck FSBS 10 minut es after admin istra tion and call provi willy. 2024 - hypoglycemi c protocol GlucaGen HypoKit Solution Reconstitut ed 1 MG active 81976 5 RXNORM 1 mg Subcut aneous as needed PRN Injec t 1 mg subcu taneo usly as neede d for hypog lycem ic boaz col Speci al instr uctio ns: Gluca gen 1 mg hypok it subcu taneo us if FSBS below 60 and unabl e to xiang ow. R echec k FSBS in 10 minut es and updat e provi willy. 2024 - hypoglycemi c protocol Plan of Treatment Section Interventions Intervention Code Code System Display Name Proposed D ate Problems Problem # Description Date of onset Resolved Date Code CodeSystem Concern Status 1 AGE-RELATED OSTEOPOROSIS WITHOUT CURRENT PATHOLOGICAL FRACTURE [address] active 2 CEREBRAL INFARCTION, UNSPECIFIED [address] active 3 EPILEPSY, UNSPECIFIED, NOT INTRACTABLE, WITHOUT STATUS EPILEPTICUS [address] active 4 ESSENTIAL (PRIMARY) HYPERTENSION [address] active 5 GASTRO-ESOPHAGEAL REFLUX DISEASE WITHOUT ESOPHAGITIS [address] active 6 HEMIPLEGIA AND HEMIPARESIS FOLLOWING CEREBRAL INFARCTION AFFECTING LEFT NON-DOMINANT SIDE [address] active 7 HYPERLIPIDEMIA, UNSPECIFIED [address] active 8 HYPOTHYROIDISM, UNSPECIFIED [address] active 9 PAIN IN UNSPECIFIED KNEE [address] active 10 TRANSIENT CEREBRAL ISCHEMIC ATTACK, UNSPECIFIED [address] active 11 TRANSIENT CEREBRAL ISCHEMIC ATTACK, UNSPECIFIED 5 05/27/[address] completed 12 TYPE 2 DIABETES MELLITUS WITHOUT COMPLICATIONS [address] active 13 UNILATERAL PRIMARY OSTEOARTHRITIS, RIGHT KNEE [address] active 14 WEAKNESS [address] active Reason for Referral No Reasons for Referral Entered Social History Social History Observation Description Start Date End Date Code Code System Current Smoking Status Tobacco smoking consumption unknown 079219781 SNOMED CT Sex Assigned At Female 1955 77616-3 LOINC Gender Identity Sexual Orientation Vital Signs Code Code System Vitals Name Values and Units Timing Information 14546-4 LOINC Pain Level Value=0.0 05/29/2025 2339-0 LOINC Blood Sugar Value=88.0 Units=mg/dL 05/29/2025 9279-1 [facility] Respiratory Rate Value=18.0 Units=/m in 05/28/2025 8462-4 [facility] Blood Pressure-Diastolic Value=71 Un its=mmHg 05/28/2025 8480-6 [facility] Blood Pressure-Systolic Xdsku=095 Un its=mmHg 05/28/2025 8310-5 [facility] Body Temperature Value=97.9 Units= F 05/28/2025 8867-4 [facility] Heart rate Value=78.0 Units=/min 92624-7 [facility] O2 % BldC Oximetry Value=95.0 Units= % 05/28/2025 61848-0 [facility] Weight Scgyb=333.2 Units=Lbs 8302-2 [facility] Height Value=60.0 Units=Inches 05/28/2025
--- OUTSIDE RECORDS SUMMARY | 2025-05-31 12:35 | XMS_ITS | Clinical Summary ---
Author Organization [address] [facility] Address [address] [place] [address] Phone Care Team Providers Care Historical Site Guide Name Role Phone Debora Chakraborty MD Primary Care Provider + Encounters Date Type Department Care Team Description 05/28/2025 Lab Requisition [facility] - Main Lab [address] [facility] [place] [address] Debora Chakraborty MD Type 2 diabetes mellitus with unspecified complications (CMS/HCC V24, CMS/HCC V28); Hypothyroidism, unspecified from Last 3 Months Social History Tobacco Use Types Packs/Day Years Used Date Smoking Tobacco: Never Assessed Comments Unknown Sex and Gender Information Value Date Recorded Sex Assigned at Not on file Legal Sex Female 9:25 AM EST Gender Identity Not on file Sexual Orientation Not on file Plan of Treatment Health Maintenance Due Date Last Done Comments Breast Cancer Screening 1955 Diabetes: Annual Foot Exam 1965 Diabetes: Annual Retina Eye Exam 1965 DTaP,Tdap,and Td Vaccines (1 - Tdap) 1974 Pneumococcal Vaccine: 50+ Ye ars (1 of 2 - PCV) 1974 Zoster Vaccines (1 of 2) 2005 Depression Screening 09/12/2024 COVID-19 Vaccine (1 - 2023-2 5 season) 2025 Influenza Vaccine (#1) 2025 Cholesterol Screening (Lipid Panel) 05/28/2025 Colorectal Cancer Screening: Colonoscopy 05/28/2025 Diabetes: Annual Urine Albumin-Creatinine Ratio (uACR) 05/28/2025 Falls Risk Assessment 05/28/2025 Hepatitis C Screening 05/28/2025 Medicare Annual Wellness Visit 05/28/2025 Osteoporosis Screening (Bone Density Screening) 05/28/2025 Social Influencers of Health Screening 05/28/2025 Diabetes: Blood Sugar Contro l Test (HGBA1C) 11/25/2025 05/28/2025 Diabetes: Annual GFR (Glomer ular Filtration Rate) 05/28/2026 05/28/2025 RSV Immunization Adult Patie nts (1 - 1-dose 75+ series) 2030 HIB Vaccines Aged Out No longer eligi ble based on patient's age to complete this topic HPV Vaccines Aged Out No longer eligi ble based on patient's age to complete this topic Hepatitis A Vaccines Aged Out No long er eligible based on patient's age to complete this topic Hepatitis B Vaccines Aged Out No long er eligible based on patient's age to complete this topic IPV Vaccines Aged Out No longer eligi ble based on patient's age to complete this topic MMR Vaccines Aged Out No longer eligi ble based on patient's age to complete this topic Meningococcal ACWY Vaccine Aged Out N o longer eligible based on patient's age to complete this topic Meningococcal B Vaccine Aged Out No l onger eligible based on patient's age to complete this topic RSV Immunization Patients Un willy 20 months Aged Out No longer eligible b ased on patient's age to complete this topic Varicella Vaccines Aged Out No longer eligible based on patient's age to complete this topic Procedures Procedure Name Priority Date/Time Associated Diagnosis Comments THYROID STIMULATING HORMONE Routine 05/28/2025 5:41 AM EDT Type 2 diabetes mellitus with unspecified complications (CMS/HCC V24, CMS/HCC V28) Hypothyroidism, unspecified HEMOGLOBIN A1C Routine 05/28/2025 5:41 AM EDT Type 2 diabetes mellitus with unspecified complications (CMS/HCC V24, CMS/HCC V28) Hypothyroidism, unspecified COMPREHENSIVE METABOLIC PANEL Routine 05/28/2025 5:41 AM EDT Type 2 diabetes mellitus with unspecified complications (CMS/HCC V24, CMS/HCC V28) Hypothyroidism, unspecified COMPLETE BLOOD COUNT Routine 05/28/2025 5:41 AM EDT Type 2 diabetes mellitus with unspecified complications (CMS/HCC V24, CMS/HCC V28) Hypothyroidism, unspecified from Last 3 Months Results * (ABNORMAL) Complete blood count (05/28/2025 5:41 AM EDT) [facility] WBC 9.0 4.8 - 10.8 K/mcL LAB HEMETOLOGY METHOD 05/28/2025 10:13 AM [facility] RBC 4.40 3.80 - 4.80 M/mcL LAB HEMETOLOGY METHOD 05/28/2025 10:13 AM [facility] Hemoglobin 12.4 11.5 - 16.0 g/dL LAB HEMETOLOGY METHOD 05/28/2025 10:13 AM [facility] Hematocrit 39.0 35.0 - 47.0 % LAB HEMETOLOGY METHOD 05/28/2025 10:13 AM [facility] MCV 87.8 79.0 - 98.0 FL LAB HEMETOLOGY METHOD 05/28/2025 10:13 AM [facility] MCH 27.9 27.0 - 32.0 pcg LAB HEMETOLOGY METHOD 05/28/2025 10:13 AM [facility] MCHC 31.8(L) 32.0 - 37.0 g/dL LAB HEMETOLOGY METHOD 05/28/2025 10:13 AM [facility] RDW 14.2 11.0 - 15.0 % LAB HEMETOLOGY METHOD 05/28/2025 10:13 AM [facility] Platelets 172 130 - 400 K/mcL LAB HEMETOLOGY METHOD 05/28/2025 10:13 AM [facility] MPV 13.6(H) 7.0 - 11.0 FL LAB HEMETOLOGY METHOD 05/28/2025 10:13 AM [facility] NRBC 0.0 <1.0 % LAB HEMETOLOGY METHOD 05/28/2025 10:13 AM [facility] NRBC Absolute 0.00 <0.10 K/[facility] LAB HEMETOLOGY METHOD 05/28/2025 10:13 AM EDT [facility] Blood Venous blood specimen / Unknown Venipuncture / Unknown 05/28/2025 5:41 AM EDT 05/28/2025 9:35 AM EDT Debora Chakraborty MD LAB BLOOD ORDERABLES Fin al Result Performing Organization Address [facility] Co de Phone Number [facility] [address] [place] [address], [place] [phone] * (ABNORMAL) Thyroid stimulating hormone (05/28/2025 5:41 AM EDT) TSH 0.10(L) 0.40 - 4.00 mcIU/mL LAB CHEMISTRY METHOD 05/28/2025 12:47 PM EDT [facility] Blood Venous blood specimen / Unknown Venipuncture / Unknown 05/28/2025 5:41 AM EDT 05/28/2025 9:35 AM EDT Debora Chakraborty MD LAB BLOOD ORDERABLES Fin al Result Performing Organization Address [facility] de Phone Number [facility] [address] [place] [address], [place] [phone] * (ABNORMAL) Hemoglobin A1c (05/28/2025 5:41 AM EDT) Hemoglobin A1C 6.5(H) <6.5 % LAB CHEMISTRY METHOD 05/28/2025 1:11 PM EDT [facility] Mean Bld Glu Estim. 140 mg/dL LAB CHEMISTRY METHOD 05/28/2025 1:11 PM EDT [facility] Blood Venous blood specimen / Unknown Venipuncture / Unknown 05/28/2025 5:41 AM EDT 05/28/2025 9:35 AM EDT us Debora Chakraborty MD LAB BLOOD ORDERABLES Fin al Result [facility] [address] [place] [address], * Comprehensive metabolic panel (05/28/2025 5:41 AM EDT) Sodium 141 133 - 145 mmol/L LAB CHEMISTRY METHOD 05/28/2025 11:03 AM [facility] Potassium 4.0 3.5 - 5.5 mmol/L LAB CHEMISTRY METHOD 05/28/2025 11:03 AM [facility] Chloride 104 96 - 110 mmol/L LAB CHEMISTRY METHOD 05/28/2025 11:03 AM [facility] CO2 29 21 - 32 mmol/L LAB CHEMISTRY METHOD 05/28/2025 11:03 AM [facility] Anion Gap 8 3 - 11 LAB CHEMISTRY METHOD 05/28/2025 11:03 AM [facility] Glucose 85 70 - 100 mg/dL LAB CHEMISTRY METHOD 05/28/2025 11:03 AM [facility] BUN 15 5 - 25 mg/dL LAB CHEMISTRY METHOD 05/28/2025 11:03 AM [facility] Creatinine 0.69 0.50 - 1.10 mg/dL LAB CHEMISTRY METHOD 05/28/2025 11:03 AM [facility] eGFR 94 >=60 mL/min/1. 73m2 LAB CHEMISTRY METHOD 05/28/2025 11:03 AM [facility] Comment:Calculation based on the Chronic Kidney Disease Epidemiology Collaboration (CKD-EPI) equation refit without adjustment for race. BUN/Creatinine Ratio 21.7 LAB CHEMISTRY METHOD 05/28/2025 11:03 AM [facility] Calcium 9.8 8.5 - 10.5 mg/dL LAB CHEMISTRY METHOD 05/28/2025 11:03 AM EDT [facility] AST (SGOT) 28 10 - 42 unit/L LAB CHEMISTRY METHOD 05/28/2025 11:03 AM [facility] ALT (SGPT) 35 10 - 60 unit/L LAB CHEMISTRY METHOD 05/28/2025 11:03 AM [facility] Alkaline Phosphatase 69 42 - 121 unit/L LAB CHEMISTRY METHOD 05/28/2025 11:03 AM EDT [facility] Total Protein 6.8 6.0 - 8.0 g/dL LAB CHEMISTRY METHOD 05/28/2025 11:03 AM [facility] Albumin 3.7 3.2 - 5.0 g/dL LAB CHEMISTRY METHOD 05/28/2025 11:03 AM [facility] Total Bilirubin 0.3 0.0 - 1.4 mg/dL LAB CHEMISTRY METHOD 05/28/2025 11:03 AM T [facility] Blood Venous blood specimen / Unknown Venipuncture / Unknown 05/28/2025 5:41 AM EDT 05/28/2025 9:35 AM EDT us Debora Chakraborty MD LAB BLOOD ORDERABLES Fin al Result [facility] [address] [place] [address], from Last [address] [place] [address] MEDICAID - [place] [facility] OPT[employer] Member Subscriber Plan / Payer (Ef fective 2024-Present) Name:Diana Ortega Relation to Subscriber:Self Name:Diana Ortega Payer ID:[id number] Group ID:Not on file Type:Not on file Address: [address] [facility] [place] [phone] Care Teams Historical Site Guide Relationship Specialty Start Date End Date Debora Chakraborty MD [address] [place] [id number] PCP - General Family Medicine 05/28/25
--- OUTSIDE RECORDS SUMMARY | 2025-05-31 12:35 | XMS_ITS | Encounter Summary ---
Author Organization [employer] Address [address] [place] [address] Care Team Providers Care Labeler Name Role Phone Debora Chakraborty MD Primary Care Provider + Encounter Details Date Type Department Care Team (Late st Contact Info) Description 05/28/2025 Lab Requisition [facility] - Main Lab [address] [facility] [place] [address] Debora Chakraborty MD [address] [facility] [address] [place], [place] [id number] Type 2 diabetes mellitus with unspecified complications (CMS/HCC V24, CMS/HCC V28); Hypothyroidism, unspecified Social History Tobacco Use Types Packs/Day Years Used Date Smoking Tobacco: Never Assessed Comments Unknown Sex and Gender Information Value Date Recorded Sex Assigned at Not on file Legal Sex Female 9:25 AM EST Gender Identity Not on file Sexual Orientation Not on file documented as of this encounter Plan of Treatment Not on file documented as of this encounter Procedures Procedure Name Priority Date/Time Associated Diagnosis Comments COMPLETE BLOOD COUNT Routine 05/28/2025 5:41 AM EDT Type 2 diabetes mellitus with unspecified complications (CMS/HCC V24, CMS/HCC V28) Hypothyroidism, unspecified THYROID STIMULATING HORMONE Routine 05/28/2025 5:41 AM EDT Type 2 diabetes mellitus with unspecified complications (CMS/HCC V24, CMS/HCC V28) Hypothyroidism, unspecified HEMOGLOBIN A1C Routine 05/28/2025 5:41 AM EDT Type 2 diabetes mellitus with unspecified complications (CMS/HCC V24, CMS/HCC V28) Hypothyroidism, unspecified COMPREHENSIVE METABOLIC PANEL Routine 05/28/2025 5:41 AM EDT Type 2 diabetes mellitus with unspecified complications ([facility]/HCC V24, [facility] V28) Hypothyroidism, unspecified documented in this encounter Results * (ABNORMAL) Thyroid stimulating hormone (05/28/2025 5:41 AM EDT) Pathologist [facility] TSH 0.10(L) 0.40 - 4.00 mcIU/mL LAB CHEMISTRY METHOD 05/28/2025 12:[address] [facility] Blood Venous blood specimen / Unknown Venipuncture / Unknown 05/28/2025 5:41 AM EDT 05/28/2025 9:35 AM EDT Debora Chakraborty MD LAB BLOOD ORDERABLES Fin al Result Performing Organization Address [facility] Co de Phone Number [facility] [address] [place] [address], * (ABNORMAL) Hemoglobin A1c (05/28/2025 5:41 AM EDT) [facility] Hemoglobin A1C 6.5(H) <6.5 % LAB CHEMISTRY METHOD 05/28/2025 1:[address] [facility] Mean Bld Glu Estim. 140 mg/dL LAB CHEMISTRY METHOD 05/28/2025 1:[address] [facility] Blood Venous blood specimen / Unknown Venipuncture / Unknown 05/28/2025 5:41 AM EDT 05/28/2025 9:35 AM EDT Debora Chakraborty MD LAB BLOOD ORDERABLES Fin al Result Performing Organization Address [facility]/ZIP Co de Phone Number [facility] [address] [place] [address], [place] [phone] * Comprehensive metabolic panel (05/28/2025 5:41 AM EDT) [facility] Sodium 141 133 - 145 mmol/L LAB CHEMISTRY METHOD 05/28/2025 11:03 AM [facility] Potassium 4.0 3.5 - 5.5 mmol/L LAB CHEMISTRY METHOD 05/28/2025 11:03 AM [facility] Chloride 104 96 - 110 mmol/L LAB CHEMISTRY METHOD 05/28/2025 11:03 AM [facility] CO2 29 21 - 32 mmol/L LAB CHEMISTRY METHOD 05/28/2025 11:03 AM [facility] Anion Gap 8 3 - 11 LAB CHEMISTRY METHOD 05/28/2025 11:03 AM [facility] Glucose 85 70 - 100 mg/dL LAB CHEMISTRY METHOD 05/28/2025 11:03 AM [facility] BUN 15 5 - 25 mg/dL LAB CHEMISTRY METHOD 05/28/2025 11:03 AM [facility] Creatinine 0.69 0.50 - 1.10 mg/dL LAB CHEMISTRY METHOD 05/28/2025 11:03 AM [facility] eGFR 94 >=60 mL/min/1. 73m2 LAB CHEMISTRY METHOD 05/28/2025 11:03 AM [facility] Comment:Calculation based on the Chronic Kidney Disease Epidemiology Collaboration (CKD-EPI) equation refit without adjustment for race. BUN/Creatinine Ratio 21.7 LAB CHEMISTRY METHOD 05/28/2025 11:03 AM [facility] Calcium 9.8 8.5 - 10.5 mg/dL LAB CHEMISTRY METHOD 05/28/2025 11:03 AM [facility] AST (SGOT) 28 10 - 42 unit/L LAB CHEMISTRY METHOD 05/28/2025 11:03 AM [facility] ALT (SGPT) 35 10 - 60 unit/L LAB CHEMISTRY METHOD 05/28/2025 11:03 AM [facility] Alkaline Phosphatase 69 42 - 121 unit/L LAB CHEMISTRY METHOD [facility]/28[facility]25 [facility] Total Protein 6.8 6.0 - 8.0 g/dL LAB CHEMISTRY METHOD 05/28/2025 11:03 AM [facility] Albumin 3.7 3.2 - 5.0 g/dL LAB CHEMISTRY METHOD 05/28/2025 11:03 AM [facility] Total Bilirubin 0.3 0.0 - 1.4 mg/dL LAB CHEMISTRY METHOD 05/28/2025 11:03 AM [facility] Blood Venous blood specimen / Unknown Venipuncture / Unknown 05/28/2025 5:41 AM EDT 05/28/2025 9:35 AM EDT us Debora Chakraborty MD LAB BLOOD ORDERABLES Fin al Result [facility] [address] [place] [address], * (ABNORMAL) Complete blood count (05/28/2025 5:41 AM EDT) WBC 9.0 4.8 - 10.8 K/mcL LAB HEMETOLOGY METHOD 05/28/2025 10:13 AM [facility] RBC 4.40 3.80 - 4.80 M/mcL LAB HEMETOLOGY METHOD 05/28/2025 10:[address] [facility] Hemoglobin 12.4 11.5 - 16.0 g/dL LAB HEMETOLOGY METHOD 05/28/2025 10:13 AM [facility] Hematocrit 39.0 35.0 - 47.0 % LAB HEMETOLOGY METHOD 05/28/2025 10:13 AM [facility] MCV 87.8 79.0 - 98.0 FL LAB HEMETOLOGY METHOD 05/28/2025 10:[address] [facility] MCH 27.9 27.0 - 32.0 pcg LAB HEMETOLOGY METHOD 05/28/2025 10:[address] [facility] MCHC 31.8(L) 32.0 - 37.0 g/dL LAB HEMETOLOGY METHOD 05/28/2025 10:[address] [facility] RDW 14.2 11.0 - 15.0 % LAB HEMETOLOGY METHOD 05/28/2025 10:[address] [facility] Platelets 172 130 - 400 K/mcL LAB HEMETOLOGY METHOD 05/28/2025 10:[address] [facility] MPV 13.6(H) 7.0 - 11.0 FL LAB HEMETOLOGY METHOD 05/28/2025 10:[address] [facility] NRBC 0.0 <1.0 % LAB HEMETOLOGY METHOD 05/28/2025 10:[address] [facility] NRBC Absolute 0.00 <0.10 K/mcL LAB HEMETOLOGY METHOD 05/28/2025 10:[address] [facility] Blood Venous blood specimen / Unknown Venipuncture / Unknown 05/28/2025 5:41 AM EDT 05/28/2025 9:35 AM EDT us Debora Chakraborty MD LAB BLOOD ORDERABLES Fin al Result [facility] [address] [place] [address], documented in this encounter Visit Diagnoses Diagnosis Type 2 diabetes mellitus with unspecified complications (CMS/HCC V24, CMS/HCC V28) Hypothyroidism, unspecified documented in this encounter Care Teams Labeler Relationship Specialty Start Date End Date Debora Chakraborty MD [address] [place] [id number] PCP - General Family Medicine 05/28/25 documented as of this encounter
[2025-05-31 12:41] VITALS: BP 106/76; PULSE 103; BMI 30.5
== END 2025-05-31 13:14 | disposition home or self-care (01) ==
LOC: HO.HGI 12:33
PROVIDERS: PCP Internal Medicine; Visit Provider Nurse Practitioner
DX: R11.2 Nausea with vomiting, unspecified (principal); K63.8211 Small intestinal bacterial overgrowth, hydrogen-subtype; K21.9 Gastro-esophageal reflux disease without esophagitis
CPT/HCPCS: 99214

== ENCOUNTER → 2025-05-31 12:32 | Outpatient (BNVA) | payer OTHER, SELFPAY | PROVIDERS: PCP Internal Medicine; Visit Provider Nurse Practitioner | DX: R11.2 Nausea with vomiting, unspecified (principal); K63.8211 Small intestinal bacterial overgrowth, hydrogen-subtype; K21.9 Gastro-esophageal reflux disease without esophagitis | CPT/HCPCS: 99212 ==

== ENCOUNTER 2025-06-03 13:37 | Outpatient (AMB) | payer OTHER, SELFPAY ==
[2025-06-03 13:47] VITALS: BP 120/70; PULSE 81; RESP 18; TEMP 36.3; O2SAT 95; BMI 30.7
--- NOTE | 2025-06-03 13:47 | A.OFFPC_ITS ---
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 Accompanied by: Self / Same As Patient Allergies No Known Drug Allergies Allergy (Unknown, Verified 06/03/25 14:20) none Medication List - Last Reconciled 06/03/25 by Chrisitna Lara MD albuterol sulfate 90 mcg/actuation (Ventolin HFA) 2 puffs inhalation Q6H PRN 30 days baclofen 10 mg PO BID PRN 30 days blood sugar diagnostic As directed Once per day blood sugar diagnostic (That{img}Touch Ultra Test strips) test daily blood-glucose meter (That{img}Touch Ultra2 Meter) test daily blood-glucose meter As directed celecoxib (Celebrex) 200 mg PO BID 30 days esomeprazole magnesium 40 mg PO BID famotidine (Pepcid) 40 mg PO BEDTIME gabapentin 200 mg (2 x 100 mg) PO BEDTIME 90 days Grab bar As directed lancets (That{img}Touch UltraSoft 2 Lancet) test daily lancets As directed Once per day levothyroxine 88 mcg PO DAILY@0600 metformin 850 mg PO BID 90 days metoclopramide HCl (Reglan) 5 mg PO QIDACHS rosuvastatin 20 mg PO DAILY@1400 Shower Chair As directed valproic acid 500 mg (2 x 250 mg) PO BID walker Folding Front wheeled walker Tobacco use date assessed: 06/03/25 Fall risk assessment: No Falls in past year Last assessed Fall Risk: 06/03/25 Dental Screening Dental Screen Date: 06/03/25 Did you have a dental visit in the last 12 months?: No Did you have a dental problem in the last 6 months where you did not have access to dental care?: No Was dental information given to patient?: No HPI HPI Comments History of Present Illness Details The patient is a 69-year-old female presenting with follow-up after a recent hospitalization due to a seizure and left-sided weakness. The patient was hospitalized from May 23 to May 27 after experie ncing a seizure while watching television, during which she lost consciousness for a few minutes. She was taken to the emergency department where a CT scan of the head was performed, and she was administered tissue plasminogen activator (TPA) due to left-sided weakness. Following the administration of TPA, the patient's left-sided weakness improved. An MRI and electroencephalogram (EEG) were conducted, both of which returned normal results, with no evidence of thrombus or stroke. The patient reports feeling well currently, with resolution of weakness in the leg and arm. She denies any facial involvement during the episode. The patient has a history of hypertension, diabetes mellitus, and hyperlipidemia, which increase her risk for cardiovascular events. Her blood pressure is currently well-controlled. She is currently on multiple medications including baclofen, omeprazole, levothyroxine, metformin, rosuvastatin, and valproic acid. Valproic acid was prescribed due to the suspicion of seizures, and she is advised to continue it until her neurology follow-up. The patient has successfully quit smoking, which reduces her risk of cardiovascular and cerebrovascular events. [facility] Medical History (Updated 06/03/25 @ 14:33 by Christina Lara MD) Muscle spasm Acute diarrhea Dysuria Urinary leakage Pre-op examination COVID-19 Gastritis Dyspnea Encounter for Medicare annual wellness exam Hyperlipidemia LDL goal <70 Cough Leukocytosis Osteoarthritis of right knee Hyperkalemia Adult general medical exam Screening for colon cancer Screening for diabetes mellitus Screening for breast cancer Epigastric pain Constipation Diabetes Osteoporosis Difficulty swallowing Bilateral knee pain Urge urinary incontinence Impaired glucose tolerance Hypothyroidism Autoimmune thyroiditis Pure hypercholesterolemia GERD (gastroesophageal reflux disease) Surgical History Status post total right knee replacement History of right knee surgery History of esophagogastroduodenoscopy (EGD) Hx of colonoscopy History of appendectomy History of partial hysterectomy Hx of tubal ligation HX: benign breast biopsy Hx of thyroidectomy Family History Father Prostate cancer Mother Diabetes mellitus Sister Heart problem Social History Household Members: Children Housing: Apartment Are you a primary emergency care attendant to a significant other at home: No Do you presently have visiting nurse or other home services: No Alcohol intake: never Patient Tobacco Use Status: Former Tobacco user Tobacco use type: Cigarette Cigarettes Per Day: 6 Years Smoked: 40 e-Cigarette/Vaping Use: Never Used Second Hand Smoke Exposure: Yes Advance Directives Date on File: 01/11/24 service: No Current occupational status: unemployed Current occupational exposures/hazards: No Cognitive needs: No Hearing needs: No Vision needs: Yes Questionnaire Thrive Questionnaire Date Thrive assessed: 02/12/25 I am a: Patient What is your living situation today?: I have a steady place to live Within the past 12 months, did the food you bought not last and you didn't have the money to get more?: I choose not to answer this question Within the past 12 months, did you worry whether your food would run out before you got money to buy more?: I choose not to answer this question Do you have trouble paying for medicines?: I choose not to answer this question Do you have trouble getting transportation to medical appointments?: I choose not to answer this question Do you have trouble paying your heating and electricity bill?: I choose not to answer this question Do you have trouble taking care of your child, family member or friend?: I choose not to answer this question Do you have trouble with day-to-day activities such as bathing, preparing meals, shopping, managing finances, etc.?: I choose not to answer this question Are you currently unemployed and looking for a job?: I choose not to answer this question Are you interested in more education?: I choose not to answer this question Please select the resources that you would like help with: None Currently or been in a relationship where the following occur: I choose not to answer THRIVE Score: 0 JUAN-7 AMB Questionnaire JUAN-7 Date JUAN - 7 assessed: 02/12/25 Source: Developed by Drs. Jermaine Yanes, Xenia Monsivais, Pan Liu and colleagues, with an educational claude from [employer]. Review of Systems Const All systems reviewed & are unremarkable except as noted in HPI and below Card Denies chest pain at rest, Denies chest pain with activity, Denies edema, Denies irregular heart rhythm, Denies claudication, Denies dyspnea, Denies dyspnea on exertion, Denies orthopnea, Denies paroxysmal nocturnal dyspnea and Denies slow heart rate Resp Denies cough, Denies dyspnea and Denies dyspnea on exertion Physical exam (Primary Care) Vital Signs: Last Vital Signs Temp 97.3 F 06/03/25 13:47 Pulse 81 06/03/25 13:47 Resp 18 06/03/25 13:47 BP 120/70 06/03/25 13:47 Pulse Ox 95 06/03/25 13:47 Oxygen Delivery Method Room Air 06/03/25 13:47 BMI result Body Mass Index 30.7 BMI Assessment/Plan discussion: High BMI High, discussed plan: lifestyle, weight reduction, dietary and physical activity Tobacco/Smoking Status: Tobacco use Status Tobacco use date assessed 06/03/25 06/03/25 13:58 Patient Tobacco Use Status Former Tobacco user 06/03/25 13:58 Tobacco use type Cigarette 06/03/25 13:58 e-Cigarette/Vaping Use Never Used 06/03/25 13:58 Thrive Assessment: Date of Thrive Assessment Date Thrive assessed 02/12/25 06/03/25 13:58 Currently or been in a relationship where the following occur: I choose not to answer Resp Effort & Inspection: normal respiratory effort Auscultation: clear to auscultation bilaterally Cardio Jugular venous distension: no JVD Rate: regular rate Rhythm: regular rhythm Heart sounds: S1 normal heart sound present and S2 normal heart sound present Extrem General: Yes full ROM Results AMB Hemoglobin A1c AMB Hemoglobin A1c 6.1 % Last Edit by Siria Reddy CMA on 06/03/25 14:32 Coding Level of Care Code Est Pt Level 4 (66563) Complex EM visit Add On G2211 Diagnoses Type 2 diabetes mellitus with hyperglycemia, without long-term current use of insulin E11.65 Diabetes mellitus type: type 2 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 use: without welding process engineer use Diabetes mellitus complication status: with hyperglycemia Autoimmune thyroiditis E06.3 Pure hypercholesterolemia E78.00 Hypertension I10 Time Spent (min) 23 Assessment & Plan Assessment & Plan (1) Diabetes mellitus: Code(s): E11.9 - Type 2 diabetes mellitus without complications Category: Medical Qualifiers: Diabetes mellitus type: type 2 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 use: without correction use Diabetes mellitus complication status: with hyperglycemia Qualified Code(s): E11.65 - Type 2 diabetes mellitus with hyperglycemia (2) Autoimmune thyroiditis: Code(s): E06.3 - Autoimmune thyroiditis Category: Medical (3) Pure hypercholesterolemia: Code(s): E78.00 - Pure hypercholesterolemia, unspecified Category: Medical (4) Hypertension: Code(s): I10 - Essential (primary) hypertension Category: Medical Plan Plan Patient was informed and verbally consented to the use of an ambient scribe for clinic note documentation during this visit. 1. Unspecified convulsions R56.9 HCC 79 The patient experienced a seizure with subsequent left-sided weakness, for which she was hospitalized and treated with TPA. Imaging and EEG were normal, and valproic acid was prescribed to manage potential seizures. She is advised to continue valproic acid until her neurology follow-up. 2. Essential (primary) hypertension I10 The patient has a history of hypertension, which is currently well-controlled. Regular monitoring and adherence to prescribed antihypertensive medications are recommended. 3. Type 2 diabetes mellitus without complications E11.9 HCC 19 The patient has diabetes mellitus, managed with metformin 850 mg twice daily. Continued monitoring of blood glucose levels and adherence to medication are advised. 4. Hyperlipidemia, unspecified E78.5 The patient is on rosuvastatin for hyperlipidemia management. Regular lipid profile monitoring is recommended to assess treatment efficacy. 5. Hypothyroidism, unspecified E03.9 The patient is on levothyroxine 88 mcg for hypothyroidism. Regular thyroid function tests are advised to ensure appropriate dosing. Orders: Orders AMB Hemoglobin A1c Today Z13.9 - Encounter for screening, unspecified Vitamin D 25-OH Total Today E55.9 - Vitamin D deficiency, unspecified Lipid Panel Today E78.5 - Hyperlipidemia, unspecified Microalbumin, Random (w Creat) Today R80.9 - Proteinuria, unspecified Vitamin B12 and Folate Today E53.8 - Deficiency of other specified B group vitamins Comprehensive Avella. Panel Fast Today E11.65 - Type 2 diabetes mellitus with hyperglycemia Thyroid Stimulating Hormone Today E06.3 - Autoimmune thyroiditis
== END 2025-06-03 14:37 | disposition home or self-care (01) ==
PROVIDERS: PCP Internal Medicine; Visit Provider Internal Medicine
DX: E11.65 Type 2 diabetes mellitus with hyperglycemia (principal); E06.3 Autoimmune thyroiditis; E78.00 Pure hypercholesterolemia, unspecified; I10 Essential (primary) hypertension; Z13.9 Encounter for screening, unspecified

== ENCOUNTER → 2025-06-03 13:37 | Outpatient (BNVA) | payer OTHER, SELFPAY | PROVIDERS: PCP Internal Medicine; Visit Provider Internal Medicine | DX: E11.65 Type 2 diabetes mellitus with hyperglycemia (principal); I10 Essential (primary) hypertension; E06.3 Autoimmune thyroiditis; E78.00 Pure hypercholesterolemia, unspecified; E55.9 Vitamin D deficiency, unspecified; R80.9 Proteinuria, unspecified; E53.8 Deficiency of other specified B group vitamins; Z87.891 Personal history of nicotine dependence; Z79.899 Other long term (current) drug therapy | CPT/HCPCS: 83036; 99212 ==

== ENCOUNTER 2025-06-12 08:30 | Outpatient (REF) | payer OTHER, SELFPAY ==
--- OUTSIDE RECORDS SUMMARY | 2025-06-12 09:02 | XMS_ITS | Encounter Summary ---
Author Organization [employer] Address [address] [place] [address] Care Team Providers Care Replanting Machine Crewman Name Role Phone Debora Chakraborty MD Primary Care Provider + Encounter Details Date Type Department Care Team (Late st Contact Info) Description 05/28/2025 Lab Requisition [facility] - Main Lab [address] [facility] [place] [address] Debora Chakraborty MD 819 [facility] 1 [place], [place] [id number] Type 2 diabetes mellitus with unspecified complications [...] Type 2 diabetes mellitus with unspecified complications ([facility]/HCC V24, [facility] V28) Hypothyroidism, unspecified documented in this encounter Results * (ABNORMAL) Thyroid stimulating hormone (05/28/2025 5:41 AM EDT) Pathologist [facility] [place] TSH 0.10(L) 0.40 - 4.00 mcIU/mL LAB CHEMISTRY METHOD 05/28/2025 12:47 PM EDT [facility] Blood Venous blood specimen / Unknown Venipuncture / Unknown 05/28/2025 5:41 AM EDT 05/28/2025 9:35 AM EDT Debora Chakraborty MD LAB BLOOD ORDERABLES Fin al Result Performing Organization Address [facility]/[place] Co de Phone Number [facility] [address] [place] [address], * (ABNORMAL) Hemoglobin A1c (05/28/2025 5:41 AM EDT) [facility] Hemoglobin A1C 6.5(H) <6.5 % LAB [...] ORDERABLES Fin al Result Performing Organization Address [facility]/ZIP Co de Phone Number [facility] [address] [place] [address], [place] [phone] * Comprehensive metabolic panel (05/28/2025 5:41 AM EDT) [facility] Sodium 141 133 - 145 mmol/L LAB CHEMISTRY METHOD 05/28/2025 11:03 AM [facility] Potassium 4.0 3.5 - 5.5 mmol/L LAB CHEMISTRY METHOD 05/28/2025 11:03 AM [facility] Chloride 104 96 - 110 mmol/L LAB CHEMISTRY METHOD 05/28/2025 11:03 AM [facility] CO2 29 21 - 32 mmol/L LAB CHEMISTRY METHOD 05/28/2025 11:03 AM [facility] Anion Gap 8 3 - 11 LAB CHEMISTRY METHOD 05/28/2025 11:03 AM [facility] Glucose 85 70 - 100 mg/dL LAB CHEMISTRY METHOD 05/28/2025 11:03 AM [facility] BUN 15 5 - 25 mg/dL LAB CHEMISTRY METHOD 05/28/2025 11:03 AM [facility] Creatinine 0.69 0.50 - 1.10 mg/dL LAB CHEMISTRY METHOD 05/28/2025 11:03 AM [facility] eGFR 94 >=60 mL/min/1. 73m2 LAB CHEMISTRY METHOD 05/28/2025 11:03 AM [facility] Comment:Calculation based on the Chronic Kidney Disease Epidemiology Collaboration (CKD-EPI) equation refit without adjustment for race. BUN/Creatinine Ratio 21.7 LAB CHEMISTRY METHOD 05/28/2025 11:03 AM [facility] Calcium 9.8 8.5 - 10.5 mg/dL LAB CHEMISTRY METHOD 05/28/2025 11:03 AM [facility] AST (SGOT) 28 10 - 42 unit/L LAB CHEMISTRY METHOD 05/28/2025 11:03 AM [facility] ALT (SGPT) 35 10 - 60 unit/L LAB CHEMISTRY METHOD 05/28/2025 11:03 AM [facility] Alkaline Phosphatase 69 42 - 121 unit/L LAB CHEMISTR[facility] Total Protein 6.8 6.0 - 8.0 g/dL LAB CHEMISTRY METHOD 05/28/2025 11:03 AM [facility] Albumin 3.7 3.2 - 5.0 g/dL LAB CHEMISTRY METHOD 05/28/2025 11:03 AM [facility] Total Bilirubin 0.3 0.0 - 1.4 mg/dL LAB CHEMISTRY METHOD 05/28/2025 11:03 AM [facility] Blood Venous blood specimen / Unknown Venipuncture / Unknown 05/28/2025 5:41 AM EDT 05/28/2025 9:35 AM EDT us Debora Chakraborty MD LAB BLOOD ORDERABLES Fin al Result [facility] [address] [place] [address], * (ABNORMAL) Complete blood count (05/28/2025 5:41 AM EDT) WBC 9.0 4.8 - 10.8 K/mcL LAB HEMETOLOGY METHOD 05/28/2025 10:13 AM [facility] RBC 4.40 3.80 - 4.80 M/mcL LAB HEMETOLOGY METHOD 05/28/2025 10:13 AM EDT [facility] Hemoglobin 12.4 11.5 - 16.0 g/dL LAB HEMETOLOGY METHOD 05/28/2025 10:13 AM [facility] Hematocrit 39.0 35.0 - 47.0 % LAB HEMETOLOGY METHOD 05/28/2025 10:13 AM [facility] MCV 87.8 79.0 - 98.0 FL LAB HEMETOLOGY METHOD 05/28/2025 10:13 AM EDT [facility] MCH 27.9 27.0 - 32.0 pcg LAB HEMETOLOGY METHOD 05/28/2025 10:13 AM EDT [facility] MCHC 31.8(L) 32.0 - 37.0 g/dL LAB HEMETOLOGY METHOD 05/28/2025 10:13 AM EDT [facility] RDW 14.2 11.0 - 15.0 % LAB HEMETOLOGY METHOD 05/28/2025 10:13 AM EDT [facility] Platelets 172 130 - 400 K/mcL LAB HEMETOLOGY METHOD 05/28/2025 10:13 AM EDT [facility] MPV 13.6(H) 7.0 - 11.0 FL LAB HEMETOLOGY METHOD 05/28/2025 10:13 AM EDT [facility] NRBC 0.0 <1.0 % LAB HEMETOLOGY METHOD 05/28/2025 10:13 AM EDT [facility] NRBC Absolute 0.00 <0.10 K/mcL LAB HEMETOLOGY METHOD 05/28/2025 10:13 AM T [facility] Blood Venous blood specimen / Unknown Venipuncture / Unknown 05/28/2025 5:41 AM EDT 05/28/2025 9:35 AM EDT us Debora Chakraborty MD LAB BLOOD ORDERABLES Fin al Result [facility] [address] [place] [address], documented in this encounter Visit Diagnoses Diagnosis Type 2 diabetes mellitus with unspecified complications (CMS/HCC V24, CMS/HCC V28) Hypothyroidism, unspecified documented in this encounter Care Teams Replanting Machine Crewman Relationship Specialty Start Date End Date Debora Chakraborty MD [address] [place] [id number] PCP - General Family Medicine 05/28/25 documented as of this encounter
--- OUTSIDE RECORDS SUMMARY | 2025-06-12 09:02 | XMS_ITS | Clinical Summary ---
Author Organization [facility] Address [address] [place] [address] Phone Care Team Providers Care Hot Car Charger Name Role Phone Debora Chakraborty MD Primary Care Provider + Encounters Date Type Department Care Team Description 06/02/2025 Lab Requisition [facility] Lab [address] [place] [address] Debora Chakraborty MD Type 2 diabetes mellitus without complications (CMS/HCC V24, CMS/HCC V28); Hypothyroidism, unspecified 05/28/2025 Lab Requisition [facility] [address] [place] [address] Debora Chakraborty MD Type 2 [...] Last Done Comments Breast Cancer Screening 1955 Colorectal Cancer Screening: Colonoscopy 1955 Diabetes: Annual Foot Exam 1965 Diabetes: Annual Retina Eye Exam 1965 DTaP,Tdap,and Td Vaccines (1 - Tdap) 1974 Pneumococcal Vaccine: 50+ Ye ars (1 of 2 - PCV) 1974 Zoster Vaccines (1 of 2) 2005 Depression Screening 09/12/2024 COVID-19 Vaccine ( - 2023-2 5 season) 2025 Influenza Vaccine (#1) 2025 Cholesterol Screening (Lipid Panel) 05/28/2025 Diabetes: Annual Urine Albumin-Creatinine Ratio (uACR) [...] Type 2 diabetes mellitus with unspecified complications ([facility] V24, [facility] V28) Hypothyroidism, unspecified from Last 3 Months Results * (ABNORMAL) Complete blood count (05/28/2025 5:41 AM EDT) WBC 9.0 4.8 - 10.8 K/mcL LAB HEMETOLOGY METHOD 05/28/2025 10:[address] [facility] RBC 4.40 3.80 - 4.80 M/mcL LAB HEMETOLOGY METHOD 05/28/2025 10:[address] [facility] Hemoglobin 12.4 11.5 - 16.0 g/dL LAB HEMETOLOGY METHOD 05/28/2025 10:[address] [facility] Hematocrit 39.0 35.0 - 47.0 % LAB HEMETOLOGY METHOD 05/28/2025 10:[address] [facility] MCV 87.8 79.0 - 98.0 FL LAB HEMETOLOGY METHOD 05/28/2025 10:[address] [facility] MCH 27.9 27.0 - 32.0 pcg LAB HEMETOLOGY METHOD 05/28/2025 10:[address] [facility] MCHC 31.8(L) 32.0 - 37.0 g/dL LAB HEMETOLOGY METHOD 05/28/2025 10:[address] [facility] RDW 14.2 11.0 - 15.0 % LAB HEMETOLOGY METHOD 05/28/2025 10:[address] [facility] Platelets 172 130 - 400 K/mcL LAB HEMETOLOGY METHOD 05/28/2025 10:[address] [facility] MPV 13.6(H) 7.0 - 11.0 FL LAB HEMETOLOGY METHOD 05/28/2025 10:13 AM EDT [facility] NRBC 0.0 <1.0 % LAB HEMETOLOGY METHOD 05/28/2025 10:13 AM EDT [facility] NRBC Absolute 0.00 <0.10 K/mcL LAB HEMETOLOGY METHOD 05/28/2025 10:13 AM EDT [facility] Blood Venous blood specimen / Unknown Venipuncture / Unknown 05/28/2025 5:41 AM EDT 05/28/2025 9:35 AM EDT Debora Chakraborty MD LAB BLOOD ORDERABLES Fin al Result Performing Organization Address [facility]/ZIP Co de Phone Number [facility] [address] [place] [address], * (ABNORMAL) Thyroid stimulating hormone (05/28/2025 5:41 AM EDT) TSH 0.10(L) 0.40 - 4.00 mcIU/mL LAB CHEMISTRY METHOD 05/28/2025 12:47 PM EDT [facility] Blood Venous blood specimen / Unknown Venipuncture / Unknown 05/28/2025 5:41 AM EDT 05/28/2025 9:35 AM EDT Debora Chakraborty MD LAB BLOOD ORDERABLES Fin al Result Performing Organization Address City/[facility]/ZIP Co de Phone Number [facility] [address] [place] [address], [place] [phone] * (ABNORMAL) Hemoglobin A1c (05/28/2025 5:41 AM EDT) Hemoglobin A1C 6.5(H) <6.5 % LAB CHEMISTRY METHOD 05/28/2025 1:11 PM EDT [facility] Mean Bld Glu Estim. 140 mg/dL LAB CHEMISTRY METHOD 05/28/2025 1:[address] [facility] Blood Venous blood specimen / Unknown Venipuncture / Unknown 05/28/2025 5:41 AM EDT 05/28/2025 9:35 AM EDT us Debora Chakraborty MD LAB BLOOD ORDERABLES Fin al Result [facility] [address] [place] [address], [place] [phone] * Comprehensive metabolic panel (05/28/2025 5:41 AM EDT) Sodium 141 133 - 145 mmol/L LAB CHEMISTRY METHOD 05/28/2025 11:[address] [facility] Potassium 4.0 3.5 - 5.5 mmol/L LAB CHEMISTRY METHOD 05/28/2025 11:[address] [facility] Chloride 104 96 - 110 mmol/L LAB CHEMISTRY METHOD 05/28/2025 11:[address] [facility] CO2 29 21 - 32 mmol/L LAB CHEMISTRY METHOD 05/28/2025 11:[address] [facility] Anion Gap 8 3 - 11 LAB CHEMISTRY METHOD 05/28/2025 11:[address] [facility] Glucose 85 70 - 100 mg/dL LAB CHEMISTRY METHOD 05/28/2025 11:[address] [facility] BUN 15 5 - 25 mg/dL LAB CHEMISTRY METHOD 05/28/2025 11:[address] [facility] Creatinine 0.69 0.50 - 1.10 mg/dL LAB CHEMISTRY METHOD 05/28/2025 11:[address] [facility] eGFR 94 >=60 mL/min/1. 73m2 LAB CHEMISTRY METHOD 05/28/2025 11:[address] [facility] Comment:Calculation based on the Chronic Kidney Disease Epidemiology Collaboration (CKD-EPI) equation refit without adjustment for race. BUN/Creatinine Ratio 21.7 LAB CHEMISTRY METHOD 05/28/2025 11:[address] [facility] Calcium 9.8 8.5 - 10.5 mg/dL LAB CHEMISTRY METHOD 05/28/2025 11:[address] [facility] AST (SGOT) 28 10 - 42 unit/L LAB CHEMISTRY METHOD 05/28/2025 11:[address] [facility] ALT (SGPT) 35 10 - 60 unit/L LAB CHEMISTRY METHOD 05/28/2025 11:[address] [facility] Alkaline Phosphatase 69 42 - 121 unit/L LAB CHEMISTRY METHOD 05/28/2025 11:[address] [facility] Total Protein 6.8 6.0 - 8.0 g/dL LAB CHEMISTRY METHOD 05/28/2025 11:[address] [facility] Albumin 3.7 3.2 - 5.0 g/dL LAB CHEMISTRY METHOD 05/28/2025 11:[address] [facility] Total Bilirubin 0.3 0.0 - 1.4 mg/dL LAB CHEMISTRY METHOD 05/28/2025 11:[address] [facility] Blood Venous blood specimen / Unknown Venipuncture / Unknown 05/28/2025 5:41 AM EDT 05/28/2025 9:35 AM EDT us Debora Chakraborty MD LAB BLOOD ORDERABLES Fin al Result [facility] [address] [place] [address], from Last [address] [place] [id number] MEDICAID - [place] [facility] SKILLED NURSING OPTIONS Member Subscriber Plan / Payer ( fective 2024-Present) Name:Diana Ortega Relation to Subscriber:Self Name:Diana Ortega Payer ID:[id number] Group ID:Not on file Type:Not on file Address: [facility] [address] [id number] Care Teams Hot Car Charger Relationship Specialty Start Date End Date Debora Chakraborty MD [address] [address] PCP - General Family Medicine 05/28/25
--- OUTSIDE RECORDS SUMMARY | 2025-06-12 09:02 | XMS_ITS | Encounter Summary ---
Author Organization [employer] Address [address] [place] [address] Care Team Providers Care Cottrell Blower Name Role Phone Debora Chakraborty MD Primary Care Provider + Encounter Details Date Type Department Care Team (Late st Contact Info) Description 06/02/2025 Lab Requisition [facility] - Main Lab [address] [facility] [place] [address] Debora Chakraborty MD [address] [address] Type 2 diabetes mellitus without complications (CMS/HCC [...] on file documented as of this encounter Visit Diagnoses Diagnosis Type 2 diabetes mellitus without complications (CMS/HCC V24, CMS/HCC V28) Hypothyroidism, unspecified documented in this encounter Care Teams Cottrell Blower Relationship Specialty Start Date End Date Debora Chakraborty MD [address] [address] PCP - General Family Medicine 05/28/25 documented as of this encounter
[2025-06-12 09:55] LABS: Alanine Aminotransferase 28 U/L (0-31); Albumin Level 4.2 g/dL (3.5-5.0); Alkaline Phosphatase 76 U/L (39-117); Anion Gap 11 (12-20); Aspartate Amino Transferase 27 U/L (5-31); Blood Urea Nitrogen 18 mg/dL (9-16); Calcium 9.5 mg/dL (8.4-10.2); Carbon Dioxide 29 mmol/L (22-29); Chloride 109 mmol/L (96-108); Cholesterol 146 mg/dL (<200); Estimated Glomerular Filt Rate > 60; HDL Cholesterol 40 mg/dL (>40); Potassium 5.1 mmol/L (3.3-5.1); Sodium 144 mmol/L (135-145); Total Protein 7.0 g/dL (6.5-8.0); Triglycerides 166 mg/dL (<150)
[2025-06-12 10:12] LABS: Thyroid Stimulating Hormone 0.37 uIU/mL (0.32-4.0)
[2025-06-12 10:34] LABS: Folate 8.1 ng/mL (> or = 4.0); Vitamin B12 187 pg/mL (200-900)
[2025-06-12 11:20] LABS: Microalbum/Creatinine Ratio Ur 27.2 ug/mg cr (<30)
== END 2025-06-12 08:31 | disposition home or self-care (01) ==
LOC: HO.LAB 08:30
PROVIDERS: PCP Internal Medicine; Visit Provider Internal Medicine
DX: E11.65 Type 2 diabetes mellitus with hyperglycemia (principal); E53.8 Deficiency of other specified B group vitamins; E55.9 Vitamin D deficiency, unspecified; E78.5 Hyperlipidemia, unspecified; R80.9 Proteinuria, unspecified; E06.3 Autoimmune thyroiditis
CPT/HCPCS: 36415; 80053; 80061; 82043; 82306; 82570; 82607; 82746; 84443

== ENCOUNTER 2025-06-19 13:13 | Outpatient (AMB) | payer OTHER, SELFPAY ==
[2025-06-19 13:32] VITALS: BP 127/61; PULSE 67; O2SAT 96; BMI 32.0
--- NOTE | 2025-06-19 13:32 | MHC.OFFVIS ---
Vital Signs 06/19/25 13:32 Height 5 ft Weight 164 lb 0.383 oz BMI 32.0 BP 127/61 Blood Pressure Location Lt brachial Position Sitting Pulse 67 Pulse Source Pulse Oximeter Pulse Oximetry (%) 96 Oxygen Delivery Method Room Air Intake Visit Reasons: Follow up GERD, Nausea Intake Note: Patient in office today in follow up of GERD and nausea. CC: Patient reports having a hard time swallowing even saliva. [employer] Required: Yes [employer] Language: Tongan Accompanied by: Self / Same As Patient Allergies No Known Drug Allergies Allergy (Unknown, Verified 06/19/25 13:40) none HPI HPI Follow up GERD, Nausea: Details: Assessment & Plan (1) GERD (gastroesophageal reflux disease): Code(s): K21.9 - Gastro-esophageal reflux disease without esophagitis Category: Medical Qualifiers: Esophagitis presence: esophagitis presence not specified Qualified Code(s): K21.9 - Gastro-esophageal reflux disease without esophagitis (2) Medication side effect: Comment: sx coincide with initiation of Ozempic Code(s): T88.7XXA - Unspecified adverse effect of drug or medicament, initial encounter Category: Medical (3) Nausea and vomiting: Code(s): R11.2 - Nausea with vomiting, unspecified Category: Medical Plan Her current GI regimen consists of generic Nexium 40 mg twice a day. Lose says that her symptoms of nausea vomiting with severe heartburn have not changed since she stopped the Ozempic 2 weeks ago. However, in the meantime she has had a complex course of events presenting to the ER for sudden onset of unilateral weakness. Apparently in the ER she also had seizure-like activity so she was admitted. It was really unclear whether this was a TIA or seizure and a consult to neurology recommended an EEG and an MRI. She was disc charged on empiric valproic acid. She also was sent to a skilled we have facility for short period of time. I think that this is still part of the Ozempic as sometimes it takes quite awhile to clear and she is 69 years old! We are going to keep her off this medication, and I think we will do an empiric treatment with Reglan 5 mg 3 times a day and since her symptoms are worse in the evening we will continue with the esomeprazole in the morning and add famotidine 40 mg at night. In order to be complete I am going to get a barium swallow and a gastric emptying study. She had a normal gastric emptying study in 2020, but obviously this has changed dramatically since that time. Return office visit in 3 weeks Orders: Orders NM gastric emptying study Today K21.9 - Gastro-esophageal reflux disease without esophagitis, R11.2 - Nausea with vomiting, unspecified FL upper GI small bowel Today K21.9 - Gastro-esophageal reflux disease without esophagitis, R11.2 - Nausea with vomiting, unspecified Medications: New metoclopramide HCl (Reglan) 5 mg PO QIDACHS 120 tabs 3RF R11.2 - Nausea with vomiting, unspecified metoclopramide HCl (Reglan) 5 mg PO QIDACHS 120 tabs 3RF R11.2 - Nausea with vomiting, unspecified famotidine (Pepcid) 40 mg PO BEDTIME 30 tabs 6RF famotidine (Pepcid) 40 mg PO BEDTIME 30 tabs 6RF Refilled esomeprazole magnesium 40 mg PO BID 60 caps 6RF K21.9 - Gastro-esophageal reflux disease without esophagitis 8 BARIUM SWALLOW 07/03 GES 07/23 TODAYS VISIT Hebrew # [facility] Medical History Suspected cerebrovascular accident Hypertension TIA (transient ischemic attack) Diabetes mellitus Muscle spasm Acute diarrhea Dysuria Urinary leakage Pre-op examination COVID-19 Gastritis Dyspnea Encounter for Medicare annual wellness exam Hyperlipidemia LDL goal <70 Cough Leukocytosis Osteoarthritis of right knee Hyperkalemia Adult general medical exam Screening for colon cancer Screening for diabetes mellitus Screening for breast cancer Epigastric pain Constipation Diabetes Osteoporosis Difficulty swallowing Bilateral knee pain Urge urinary incontinence Impaired glucose tolerance Hypothyroidism Autoimmune thyroiditis Pure hypercholesterolemia GERD (gastroesophageal reflux disease) Surgical History Status post total right knee replacement History of right knee surgery History of esophagogastroduodenoscopy (EGD) Hx of colonoscopy History of appendectomy History of partial hysterectomy Hx of tubal ligation HX: benign breast biopsy Hx of thyroidectomy Family History Father Prostate cancer Mother Diabetes mellitus Sister Heart problem Social History Household Members: Children Housing: Apartment Are you a primary critical care rn to a significant other at home: No Do you presently have visiting nurse or other home services: No Alcohol intake: never Patient Tobacco Use Status: Former Tobacco user Tobacco use type: Cigarette Cigarettes Per Day: 6 Years Smoked: 40 e-Cigarette/Vaping Use: Never Used Second Hand Smoke Exposure: Yes Advance Directives Date on File: 01/11/24 service: No Current occupational status: unemployed Current occupational exposures/hazards: No Cognitive needs: No Hearing needs: No Vision needs: Yes Review of Systems Const Denies fatigue, Denies fever(s), Denies night sweats, Denies poor appetite, Reports weight gain and Denies weight loss Eyes Details: GLASSES Reports requires corrective lenses ENT Reports Normal hearing present, Denies dental pain, Denies dysphagia, Denies hearing loss, Denies mouth pain, Denies odynophagia, Denies throat swelling, Denies tongue swelling and Reports other (Dentition adequate) Card Reports no additional complaints Resp Reports no additional complaints GI Details: Denies abdominal pain, Denies melena, Denies bloating, Denies hematochezia, Denies constipation, Denies GI cramping, Denies dysphagia, Denies excessive flatus, Denies early satiety, Denies heartburn, Denies diarrhea, Denies nausea, Denies odynophagia, Denies vomiting and Denies hematemesis Skin/Breast Denies pruritus, Denies lesions, Denies rash and Denies jaundice Neuro Reports Normal hearing present and Denies Abnormal speech present Endo Denies fatigue Aller/Immun Denies throat swelling and Denies tongue swelling Physical Exam Vital Signs: Last Vital Signs Pulse 67 06/19/25 13:32 BP 127/61 06/19/25 13:32 Pulse Ox 96 06/19/25 13:32 Oxygen Delivery Method Room Air 06/19/25 13:32 BMI result Body Mass Index 32.0 Const General: cooperative, no acute distress, well developed and well groomed Nutritional Appearance: well nourished and obese Orientation/consciousness: oriented to person, oriented to place and oriented to time Limitations: No language barrier HEENT Head: Yes normocephalic and Yes atraumatic Eyes General: appearance normal, both eyes and all related structures Pupils: Equal, round and reactive pupils present Neck Neck: Yes normal visual inspection and Yes no lymphadenopathy Thyroid: Thyroid normal Resp Effort & Inspection: normal respiratory effort and able to speak in complete sentences Auscultation: clear to auscultation bilaterally Cardio Rate: regular rate Rhythm: regular rhythm Heart sounds: Normal, physiologic split S2 sound present Peripheral pulses: radial pulses present and posterior tibial pulses present GI Inspection: No distended, No Abdominal panniculus present and Yes obesity Palpation (GI): Soft to palpation, nontender, no guarding, not rigid and No hepatosplenomegaly present Percussion: Yes normal to percussion Auscultation: normal bowel sounds Rectal Exam - Female: deferred Skin General skin exam: no rashes or lesions noted, turgor normal, skin not dry, no jaundice, No spider nevi and no striae Rashes: no rashes Nails: normal Neuro General: oriented to person, oriented to place and oriented to time Cranial nerves: Yes Equal, round and reactive pupils present and Yes Normal hearing present Speech: No Abnormal speech present Extrem General: Yes normal to inspection, No clubbing, No cyanosis and No edema Psych Appearance: grossly normal and well kempt Mental Status: mental status grossly normal Speech and movement: Normal speech and movement present Affect: normal affect Attitude: cooperative Thought process: Normal thought process present and not confabulating Thought content: Normal thought content present Insight: Good insight present (Psych) Judgement: Good judgement present (Psych) Assessment & Plan Assessment & Plan (1) Nausea and vomiting: Code(s): R11.2 - Nausea with vomiting, unspecified Category: Medical (2) GERD (gastroesophageal reflux disease): Code(s): K21.9 - Gastro-esophageal reflux disease without esophagitis Category: Medical Qualifiers: Esophagitis presence: esophagitis presence not specified Qualified Code(s): K21.9 - Gastro-esophageal reflux disease without esophagitis Plan Her current GI regimen consists of esomeprazole 40 mg, famotidine, and now Reglan 5 mg 4 times a day. - The patient is a 69-year-old female presenting with gastroparesis management. - She has experienced significant weight loss attributed to gastroparesis. - Prior to initiating metoclopramide, she was unable to eat, impacting her nutritional intake. - Metoclopramide treatment has been effective, allowing her to resume eating. - Concerns were raised about the potential impact of Ozempic on delayed gastric emptying. - Scheduled for a gastric emptying study on 07/23; aware of not taking metoclopramide on the day of the test. - Plans to commence Ozempic post-test after reviewing the results for weight management Return office visit after her gastric emptying study Coding Level of Care Code Est Pt Level 3 (37432) Diagnoses Nausea and vomiting R11.2 Gastroesophageal reflux disease, unspecified whether esophagitis present K21.9 Esophagitis presence: esophagitis presence not specified
== END 2025-06-19 14:15 | disposition home or self-care (01) ==
LOC: HO.HGI 13:14
PROVIDERS: PCP Internal Medicine; Visit Provider Nurse Practitioner
DX: R11.2 Nausea with vomiting, unspecified (principal); K21.9 Gastro-esophageal reflux disease without esophagitis
CPT/HCPCS: 99213

== ENCOUNTER → 2025-06-19 13:13 | Outpatient (BNVA) | payer OTHER, SELFPAY | PROVIDERS: PCP Internal Medicine; Visit Provider Nurse Practitioner | DX: K21.9 Gastro-esophageal reflux disease without esophagitis (principal); R11.2 Nausea with vomiting, unspecified | CPT/HCPCS: 99212 ==

== ENCOUNTER 2025-07-03 07:45 | Outpatient (REF) | payer OTHER, SELFPAY ==
--- NOTE | ~2025-07-03 | FL_ITS ---
EXAMINATION: XR UPPER GI SERIES WITH SMALL BOWEL CLINICAL INFORMATION: R11.2 - Nausea with vomiting, unspecified COMPARISON: None available. TECHNIQUE: Patient was administered thin and thick barium and effervescent granules. Barium tablet was also administered. FINDINGS: There is mild aspiration seen with liquid barium. There is a prominent cricopharyngeus muscle and small Zenker's diverticulum. There is moderate gastroesophageal reflux. There is a small sliding-type hiatal hernia. Esophageal motility is normal. Barium tablet passes freely into the stomach. The stomach is normal. No full thickening, mass, ulcer or stricture. Oral contrast reaches the colon at 30 minutes. Small bowel mucosal pattern is normal. No dilatation, mass or fold thickening is appreciated. There was question of abnormal appearance of the terminal ileum on 30 minute overhead film. This was not redemonstrated on spot films and likely was due to underfilling of the distal small bowel with contrast. FLUOROSCOPY TIME: 3 minutes 1 second DOSE AREA PRODUCT: [id number] uGy-m2 (microgray-meter squared) FL/FL upper GI w air w SBFT IMPRESSION: Mild aspiration with liquid barium. Moderate gastroesophageal reflux. Small sliding type hiatal hernia. Prominent cricopharyngeus muscle and small Zenker's diverticulum. Normal-appearing stomach and small bowel. Electronically signed by: Nury Caldwell MD 07/03/2025 09:47 AM EDT
--- OUTSIDE RECORDS SUMMARY | 2025-07-03 07:48 | XMS_ITS | Clinical Summary ---
Author Organization [address] [facility] Address [address] [place] [address] Phone Care Team Providers Care Barrel Marker Name Role Phone Debora Chakraborty MD Primary Care Provider + Encounters Date Type Department Care Team Description 06/02/2025 Lab Requisition [facility] Lab [address] [place] [address] Debora Chakraborty MD Type 2 diabetes mellitus without complications (CMS/HCC V24, CMS/HCC V28); Hypothyroidism, unspecified 05/28/2025 Lab Requisition [facility] Lab [address] [place] [address] Debora Chakraborty MD Type 2 [...] Type 2 diabetes mellitus with unspecified complications ([facility] V24, [facility] V28) Hypothyroidism, unspecified from Last 3 Months Results * (ABNORMAL) Complete blood count (05/28/2025 5:41 AM EDT) WBC 9.0 4.8 - 10.8 K/mcL LAB HEMETOLOGY METHOD 05/28/2025 10:13 AM [facility] RBC 4.40 3.80 - 4.80 M/mcL LAB HEMETOLOGY METHOD 05/28/2025 10:13 AM [facility] Hemoglobin 12.4 11.5 - 16.0 g/dL LAB HEMETOLOGY METHOD 05/28/2025 10:13 AM [facility] Hematocrit 39.0 35.0 - 47.0 % LAB HEMETOLOGY METHOD 05/28/2025 10:13 AM [facility] MCV 87.8 79.0 - 98.0 FL LAB HEMETOLOGY METHOD 05/28/2025 10:13 AM [facility] MCH 27.9 27.0 - 32.0 pcg LAB HEMETOLOGY METHOD 05/28/2025 10:13 AM [facility] MCHC 31.8(L) 32.0 - 37.0 g/dL LAB HEMETOLOGY METHOD 05/28/2025 10:13 AM [facility] RDW 14.2 11.0 - 15.0 % LAB HEMETOLOGY METHOD 05/28/2025 10:13 AM [facility] Platelets 172 130 - 400 K/mcL LAB HEMETOLOGY METHOD 05/28/2025 10:13 AM [facility] MPV 13.6(H) 7.0 - 11.0 FL LAB HEMETOLOGY METHOD 05/28/2025 10:13 AM EDT [facility] NRBC 0.0 <1.0 % LAB HEMETOLOGY METHOD 05/28/2025 10:13 AM EDT [facility] NRBC Absolute 0.00 <0.10 K/mcL LAB HEMETOLOGY METHOD 05/28/2025 10:13 AM EDT [facility] Blood Venous blood specimen / Unknown Venipuncture / Unknown 05/28/2025 5:41 AM EDT 05/28/2025 9:35 AM EDT Debora Chakraborty MD LAB BLOOD ORDERABLES Fin al Result Performing Organization Address [facility]/ZIP Co de Phone Number [facility] [address] [place] [address], * (ABNORMAL) Thyroid stimulating hormone (05/28/2025 5:41 AM EDT) TSH 0.10(L) 0.40 - 4.00 mcIU/mL LAB CHEMISTRY METHOD 05/28/2025 12:47 PM EDT [facility] Blood Venous blood specimen / Unknown Venipuncture / Unknown 05/28/2025 5:41 AM EDT 05/28/2025 9:35 AM EDT Debora Chakraborty MD LAB BLOOD ORDERABLES Fin al Result Performing Organization Address City/[facility]/ZIP Co de Phone Number [facility] [address] [place] [address], [place] [phone] * (ABNORMAL) Hemoglobin A1c (05/28/2025 5:41 AM EDT) Hemoglobin A1C 6.5(H) <6.5 % LAB CHEMISTRY METHOD 05/28/2025 1:11 PM EDT [facility] Mean Bld Glu Estim. 140 mg/dL LAB CHEMISTRY METHOD 05/28/2025 1:11 PM [facility] Blood Venous blood specimen / Unknown Venipuncture / Unknown 05/28/2025 5:41 AM EDT 05/28/2025 9:35 AM EDT us Debora Chakraborty MD LAB BLOOD ORDERABLES Fin al Result [facility] [address] [place] [address], [place] [phone] * Comprehensive metabolic panel (05/28/2025 5:41 AM EDT) Sodium 141 133 - 145 mmol/L LAB CHEMISTRY METHOD 05/28/2025 11:03 AM [facility] Potassium 4.0 3.5 - 5.5 mmol/L LAB CHEMISTRY METHOD 05/28/2025 11:03 AM [facility] Chloride 104 96 - 110 mmol/L LAB CHEMISTRY METHOD 05/28/2025 11:03 AM [facility] CO2 29 21 - 32 mmol/L LAB CHEMISTRY METHOD 05/28/2025 11:03 AM [facility] Anion Gap 8 3 - 11 LAB CHEMISTRY METHOD 05/28/2025 11:03 AM [facility] Glucose 85 70 - 100 mg/dL LAB CHEMISTRY METHOD 05/28/2025 11:03 AM [facility] BUN 15 5 - 25 mg/dL LAB CHEMISTRY METHOD 05/28/2025 11:03 AM [facility] Creatinine 0.69 0.50 - 1.10 mg/dL LAB CHEMISTRY METHOD 05/28/2025 11:03 AM [facility] eGFR 94 >=60 mL/min/1. 73m2 LAB CHEMISTRY METHOD 05/28/2025 11:03 AM [facility] Comment:Calculation based on the Chronic Kidney Disease Epidemiology Collaboration (CKD-EPI) equation refit without adjustment for race. BUN/Creatinine Ratio 21.7 LAB CHEMISTRY METHOD 05/28/2025 11:03 AM [facility] Calcium 9.8 8.5 - 10.5 mg/dL LAB CHEMISTRY METHOD 05/28/2025 11:03 AM [facility] AST (SGOT) 28 10 - 42 unit/L LAB CHEMISTRY METHOD 05/28/2025 11:03 AM [facility] ALT (SGPT) 35 10 - 60 unit/L LAB CHEMISTRY METHOD 05/28/2025 11:03 AM [facility] Alkaline Phosphatase 69 42 - 121 unit/L LAB CHEMISTRY METHOD 05/28/2025 11:03 AM [facility] Total Protein 6.8 6.0 - 8.0 g/dL LAB CHEMISTRY METHOD 05/28/2025 11:03 AM [facility] Albumin 3.7 3.2 - 5.0 g/dL LAB CHEMISTRY METHOD 05/28/2025 11:03 AM [facility] Total Bilirubin 0.3 0.0 - 1.4 mg/dL LAB CHEMISTRY METHOD 05/28/2025 11:03 AM [facility] Blood Venous blood specimen / Unknown Venipuncture / Unknown 05/28/2025 5:41 AM EDT 05/28/2025 9:35 AM EDT us Debora Chakraborty MD LAB BLOOD ORDERABLES Fin al Result [facility] [address] [place] [address], from Last [address] [id number] MEDICAID - [place] [facility] [employer] Member Subscriber Plan / Payer ( fective 2024-Present) Name:Diana Ortega Relation to Subscriber:Self Name:Diana Ortega Payer ID:[id number] Group ID:Not on file Type:Not on file Address: [facility] [address] [phone] Care Teams Barrel Marker Relationship Specialty Start Date End Date Debora Chakraborty MD [address] [address] PCP - General Family Medicine 05/28/25
--- OUTSIDE RECORDS SUMMARY | 2025-07-03 07:48 | XMS_ITS | Encounter Summary ---
Author Organization [employer] Address [address] [place] [address] Care Team Providers Care Derrick Boat Runner Name Role Phone Debora Chakraborty MD Primary Care Provider + Encounter Details Date Type Department Care Team (Late st Contact Info) Description 05/28/2025 Lab Requisition [facility] - Main Lab [address] [facility] [place] [address] Debora Chakraborty MD [address] [facility] [address] [place], [place] [id number] Type 2 diabetes mellitus with unspecified complications [...] Type 2 diabetes mellitus with unspecified complications ([facility]/HCC V24, [facility] V28) Hypothyroidism, unspecified documented in this encounter Results * (ABNORMAL) Thyroid stimulating hormone (05/28/2025 5:41 AM EDT) Pathologist [facility] TSH 0.10(L) 0.40 - 4.00 mcIU/mL LAB CHEMISTRY METHOD 05/28/2025 12:47 PM EDT [facility] Blood Venous blood specimen / Unknown Venipuncture / Unknown 05/28/2025 5:41 AM EDT 05/28/2025 9:35 AM EDT Debora Chakraborty MD LAB BLOOD ORDERABLES Fin al Result Performing Organization Address [facility] Co de Phone Number [facility] [address] [place] [address], * (ABNORMAL) Hemoglobin A1c (05/28/2025 5:41 AM EDT) [facility] Hemoglobin A1C 6.5(H) <6.5 % LAB CHEMISTRY METHOD 05/28/2025 1:11 PM EDT [facility] Mean Bld Glu Estim. 140 mg/dL LAB CHEMISTRY METHOD 05/28/2025 1:11 PM EDT [facility] Blood Venous blood specimen / Unknown Venipuncture / Unknown 05/28/2025 5:41 AM EDT 05/28/2025 9:35 AM EDT Debora Chakraborty MD LAB BLOOD ORDERABLES Fin al Result Performing Organization Address [facility]/ZIP Co de Phone Number [facility] [address] [place] [address], [place] [phone] * Comprehensive metabolic panel (05/28/2025 5:41 AM EDT) [facility] Sodium 141 133 - 145 mmol/L LAB CHEMISTRY METHOD 05/28/2025 11:03 AM [facility] Potassium 4.0 3.5 - 5.5 mmol/L LAB CHEMISTRY METHOD 05/28/2025 11:03 AM [facility] Chloride 104 96 - 110 mmol/L LAB CHEMISTRY METHOD 05/28/2025 11:03 AM [facility] CO2 29 21 - 32 mmol/L LAB CHEMISTRY METHOD 05/28/2025 11:03 AM [facility] Anion Gap 8 3 - 11 LAB CHEMISTRY METHOD 05/28/2025 11:03 AM [facility] Glucose 85 70 - 100 mg/dL LAB CHEMISTRY METHOD 05/28/2025 11:03 AM [facility] BUN 15 5 - 25 mg/dL LAB CHEMISTRY METHOD 05/28/2025 11:03 AM [facility] Creatinine 0.69 0.50 - 1.10 mg/dL LAB CHEMISTRY METHOD 05/28/2025 11:03 AM [facility] eGFR 94 >=60 mL/min/1. 73m2 LAB CHEMISTRY METHOD 05/28/2025 11:03 AM [facility] Comment:Calculation based on the Chronic Kidney Disease Epidemiology Collaboration (CKD-EPI) equation refit without adjustment for race. BUN/Creatinine Ratio 21.7 LAB CHEMISTRY METHOD 05/28/2025 11:03 AM [facility] Calcium 9.8 8.5 - 10.5 mg/dL LAB CHEMISTRY METHOD 05/28/2025 11:03 AM [facility] AST (SGOT) 28 10 - 42 unit/L LAB CHEMISTRY METHOD 05/28/2025 11:03 AM [facility] ALT (SGPT) 35 10 - 60 unit/L LAB CHEMISTRY METHOD 05/28/2025 11:03 AM [facility] Alkaline Phosphatase 69 42 - 121 unit/L LAB [facility]STR[facility] Total Protein 6.8 6.0 - 8.0 g/dL LAB CHEMISTRY METHOD 05/28/2025 11:03 AM [facility] Albumin 3.7 3.2 - 5.0 g/dL LAB CHEMISTRY METHOD 05/28/2025 11:03 AM [facility] Total Bilirubin 0.3 0.0 - 1.4 mg/dL LAB CHEMISTRY METHOD 05/28/2025 11:03 AM [facility] Blood Venous blood specimen / Unknown Venipuncture / Unknown 05/28/2025 5:41 AM EDT 05/28/2025 9:35 AM EDT us Debora Chakraborty MD LAB BLOOD ORDERABLES Fin al Result [facility] [address] [place] [address], * (ABNORMAL) Complete blood count (05/28/2025 5:41 AM EDT) WBC 9.0 4.8 - 10.8 K/mcL LAB HEMETOLOGY METHOD 05/28/2025 10:13 AM [facility] RBC 4.40 3.80 - 4.80 M/mcL LAB HEMETOLOGY METHOD 05/28/2025 10:13 AM EDT [facility] Hemoglobin 12.4 11.5 - 16.0 g/dL LAB HEMETOLOGY METHOD 05/28/2025 10:13 AM [facility] Hematocrit 39.0 35.0 - 47.0 % LAB HEMETOLOGY METHOD 05/28/2025 10:13 AM [facility] MCV 87.8 79.0 - 98.0 FL LAB HEMETOLOGY METHOD 05/28/2025 10:13 AM EDT [facility] MCH 27.9 27.0 - 32.0 pcg LAB HEMETOLOGY METHOD 05/28/2025 10:13 AM EDT [facility] MCHC 31.8(L) 32.0 - 37.0 g/dL LAB HEMETOLOGY METHOD 05/28/2025 10:13 AM EDT [facility] RDW 14.2 11.0 - 15.0 % LAB HEMETOLOGY METHOD 05/28/2025 10:13 AM EDT [facility] Platelets 172 130 - 400 K/mcL LAB HEMETOLOGY METHOD 05/28/2025 10:13 AM EDT [facility] MPV 13.6(H) 7.0 - 11.0 FL LAB HEMETOLOGY METHOD 05/28/2025 10:13 AM EDT [facility] NRBC 0.0 <1.0 % LAB HEMETOLOGY METHOD 05/28/2025 10:13 AM EDT [facility] NRBC Absolute 0.00 <0.10 K/mcL LAB HEMETOLOGY METHOD 05/28/2025 10:13 AM T [facility] Blood Venous blood specimen / Unknown Venipuncture / Unknown 05/28/2025 5:41 AM EDT 05/28/2025 9:35 AM EDT us Debora Chakraborty MD LAB BLOOD ORDERABLES Fin al Result [facility] [address] [place] [address], documented in this encounter Visit Diagnoses Diagnosis Type 2 diabetes mellitus with unspecified complications (CMS/HCC V24, CMS/HCC V28) Hypothyroidism, unspecified documented in this encounter Care Teams Derrick Boat Runner Relationship Specialty Start Date End Date Debora Chakraborty MD [address] [place] [id number] PCP - General Family Medicine 05/28/25 documented as of this encounter
--- OUTSIDE RECORDS SUMMARY | 2025-07-03 07:48 | XMS_ITS | Encounter Summary ---
Author Organization [employer] Address [address] [place] [address] Care Team Providers Care [facility] Name Role Phone Debora Chakraborty MD Primary Care Provider + Encounter Details Date Type Department Care Team (Late st Contact Info) Description 06/02/2025 Lab Requisition [facility] - Main Lab [address] [facility] [place] [address] Debora Chakraborty MD [address] [address] Type 2 diabetes mellitus without complications (CMS/HCC [...] unspecified documented in this encounter Care Teams [facility] Relationship Specialty Start Date End Date Debora Chakraborty MD [address] [address] PCP - General Family Medicine 05/28/25 documented as of this encounter
== END 2025-07-03 07:46 | disposition home or self-care (01) ==
LOC: HO.XRAY 07:45
PROVIDERS: PCP Internal Medicine; Visit Provider Nurse Practitioner
DX: K21.9 Gastro-esophageal reflux disease without esophagitis (principal); R11.2 Nausea with vomiting, unspecified
CPT/HCPCS: 74246; 74248

== ENCOUNTER → 2025-07-03 07:47 | Outpatient (BNV) | payer OTHER, SELFPAY | PROVIDERS: PCP Internal Medicine; Visit Provider Radiology Diagnostic Radiology | DX: K21.9 Gastro-esophageal reflux disease without esophagitis (principal); K44.9 Diaphragmatic hernia without obstruction or gangrene | CPT/HCPCS: 74246 ==

== ENCOUNTER 2025-07-10 10:09 | Outpatient (AMB) | payer OTHER, SELFPAY ==
[2025-07-10 10:12] VITALS: BP 122/70; PULSE 80; O2SAT 98; BMI 32.1
--- NOTE | 2025-07-10 10:12 | MHC.PC.OV ---
Vital Signs 07/10/25 10:12 Height 5 ft Weight 164 lb 4 oz BMI 32.1 BP 122/70 Blood Pressure Location Lt brachial Position Sitting Pulse 80 Pulse Source Pulse Oximeter Pulse Oximetry (%) 98 Oxygen Delivery Method Room Air Intake Visit Reasons: [facility] 06/27 minor stroke Drug Safety Physician Required: No Accompanied by: Self / Same As Patient Allergies No Known Drug Allergies Allergy (Unknown, Verified 07/10/25 10:30) none Medication List - Last Reconciled 07/10/25 by Christina Lara MD albuterol sulfate 90 mcg/actuation (Ventolin HFA) 2 puffs inhalation Q6H PRN 30 days baclofen 10 mg PO BID PRN 30 days blood sugar diagnostic As directed Once per day blood sugar diagnostic (X-BOLT OrthapaedicsTouch Ultra Test strips) test daily blood-glucose meter (X-BOLT OrthapaedicsTouch Ultra2 Meter) test daily blood-glucose meter As directed celecoxib (Celebrex) 200 mg PO BID 30 days esomeprazole magnesium 40 mg PO BID famotidine (Pepcid) 40 mg PO BEDTIME gabapentin 200 mg (2 x 100 mg) PO BEDTIME 90 days Grab bar As directed lancets (X-BOLT OrthapaedicsTouch UltraSoft 2 Lancet) test daily lancets As directed Once per day levothyroxine 88 mcg PO DAILY 90 days metformin 850 mg PO BID 90 days metoclopramide HCl (Reglan) 5 mg PO QIDACHS rosuvastatin 20 mg PO DAILY@1400 Shower Chair As directed valproic acid 500 mg (2 x 250 mg) PO BID walker Folding Front wheeled walker Tobacco use date assessed: 07/10/25 Fall risk assessment: No Falls in past year Last assessed Fall Risk: 07/10/25 Dental Screening Dental Screen Date: 07/10/25 Did you have a dental visit in the last 12 months?: No Did you have a dental problem in the last 6 months where you did not have access to dental care?: No Was dental information given to patient?: Patient has dentist HPI HPI Comments History of Present Illness Details The patient is a 69-year-old female presenting for a follow-up visit for chronic condition management and review of lab results. She has a history of suspected seizures and takes valproic acid. An electroencephalogram performed on May 25 was negative for seizure activity. The patient reports headaches every other day, associated with dizziness, blurred vision, and seeing stars, which occur 1-2 times daily and about 3 times per week without provocation. No neurological deficit. Will be referred to Neurology. Had history of TIA last month in which she was hospitalized and received TNK which resolution of her left hemiparesis. Her chronic conditions include type 2 diabetes managed with metformin 850 mg twice daily, with a recent HbA1c of 6.1% and a recent blood sugar of 125 mg/dL. She also has hypothyroidism, stable on levothyroxine 88 mcg, and hyperlipidemia managed with rosuvastatin 20 mg, with a recent LDL of 73 mg/dL. Her blood pressure is well-controlled at less than 130/80 mmHg. Recent lab work revealed a very low vitamin B12 level and vitamin D of 28.1. The patient reports having stopped her vitamin supplements over six months ago after being told her levels were normal. She endorses symptoms of daytime sleepiness and fatigue. Vitamin B12 can cause paresthesias and can be secondary to metformin. Will rule out pernicious anemia with antibodies. Due to being less than 200 I will start her in injections once a month. Her current medications include a PRN inhaler, baclofen, Celebrex, omeprazole, Pepcid, gabapentin, and Reglan. She has no known medication allergies. [facility] Medical History (Updated 07/10/25 @ 10:54 by Christina Lara MD) Suspected cerebrovascular accident Hypertension TIA (transient ischemic attack) Diabetes mellitus Muscle spasm Acute diarrhea Dysuria Urinary leakage Pre-op examination COVID-19 Gastritis Dyspnea Encounter for Medicare annual wellness exam Hyperlipidemia LDL goal <70 Cough Leukocytosis Osteoarthritis of right knee Hyperkalemia Adult general medical exam Screening for colon cancer Screening for diabetes mellitus Screening for breast cancer Epigastric pain Constipation Diabetes Osteoporosis Difficulty swallowing Bilateral knee pain Urge urinary incontinence Hypothyroidism Autoimmune thyroiditis Pure hypercholesterolemia GERD (gastroesophageal reflux disease) Surgical History Status post total right knee replacement History of right knee surgery History of esophagogastroduodenoscopy (EGD) Hx of colonoscopy History of appendectomy History of partial hysterectomy Hx of tubal ligation HX: benign breast biopsy Hx of thyroidectomy Family History Father Prostate cancer Mother Diabetes mellitus Sister Heart problem Social History Household Members: Children Housing: Apartment Are you a primary long term care administrator to a significant other at home: No Do you presently have visiting nurse or other home services: No Alcohol intake: never Patient Tobacco Use Status: Former Tobacco user Tobacco use type: Cigarette Cigarettes Per Day: 6 Years Smoked: 40 Packs per year/per ci.00 e-Cigarette/Vaping Use: Never Used Second Hand Smoke Exposure: Yes Advance Directives Date on File: 01/11/24 service: No Current occupational status: unemployed Current occupational exposures/hazards: No Cognitive needs: No Hearing needs: No Vision needs: Yes Questionnaire Thrive Questionnaire Date Thrive assessed: 02/12/25 I am a: Patient What is your living situation today?: I have a steady place to live Within the past 12 months, did the food you bought not last and you didn't have the money to get more?: I choose not to answer this question Within the past 12 months, did you worry whether your food would run out before you got money to buy more?: I choose not to answer this question Do you have trouble paying for medicines?: I choose not to answer this question Do you have trouble getting transportation to medical appointments?: I choose not to answer this question Do you have trouble paying your heating and electricity bill?: I choose not to answer this question Do you have trouble taking care of your child, family member or friend?: I choose not to answer this question Do you have trouble with day-to-day activities such as bathing, preparing meals, shopping, managing finances, etc.?: I choose not to answer this question Are you currently unemployed and looking for a job?: I choose not to answer this question Are you interested in more education?: I choose not to answer this question Please select the resources that you would like help with: None Currently or been in a relationship where the following occur: I choose not to answer THRIVE Score: 0 AUDIT C Alcohol Use Questionnaire (AUDIT-C) 1. How often do you have a drink containing alcohol?: Never 3. How often do you have six or more drinks on one occasion?: Never Total Score: 0 Score Reviewed/Action Taken: No JUAN-7 AMB Questionnaire JUAN-7 Date JUAN - 7 assessed: 02/12/25 Source: Developed by Drs. Jermaine Yanes, Xenia Monsivais, Pan Liu and colleagues, with an educational claude from [employer]. Review of Systems Const All systems reviewed & are unremarkable except as noted in HPI and below Card Denies chest pain at rest, Denies chest pain with activity, Denies edema, Denies irregular heart rhythm, Denies claudication, Denies dyspnea, Denies dyspnea on exertion, Denies orthopnea, Denies paroxysmal nocturnal dyspnea and Denies slow heart rate Resp Denies cough, Denies dyspnea and Denies dyspnea on exertion Musc Denies abnormal gait, Denies atrophy, Denies deformity and Denies limited range of motion Skin/Breast Denies bleeding lesions, Denies changing lesions and Denies rash Neuro Denies abnormal gait, Denies confusion and Denies lack of coordination Psych Denies confusion Physical exam (Primary Care) Vital Signs: Last Vital Signs Pulse 80 07/10/25 10:12 BP 122/70 07/10/25 10:12 Pulse Ox 98 07/10/25 10:12 Oxygen Delivery Method Room Air 07/10/25 10:12 BMI result Body Mass Index 32.1 BMI Assessment/Plan discussion: High BMI High, discussed plan: lifestyle, weight reduction, dietary and physical activity Tobacco/Smoking Status: Tobacco use Status Tobacco use date assessed 07/10/25 07/10/25 10:18 Patient Tobacco Use Status Former Tobacco user 07/10/25 10:18 Tobacco use type Cigarette 07/10/25 10:18 e-Cigarette/Vaping Use Never Used 07/10/25 10:18 Thrive Assessment: Date of Thrive Assessment Date Thrive assessed 02/12/25 07/10/25 10:18 Currently or been in a relationship where the following occur: I choose not to answer Const General: No confusion Orientation/consciousness: patient oriented x3 and No confusion Resp Effort & Inspection: normal respiratory effort Auscultation: clear to auscultation bilaterally Cardio Jugular venous distension: no JVD Rate: regular rate Rhythm: regular rhythm Heart sounds: S1 normal heart sound present and S2 normal heart sound present Neuro General: patient oriented x3, no focal motor deficits and No confusion Extrem General: Yes full ROM Coding Level of Care Code Est Pt Level 4 (38134) Complex EM visit Add On G2211 Diagnoses Diabetes E11.9 Pure hypercholesterolemia E78.00 B12 deficiency E53.8 Persistent headaches R51.9 Time Spent (min) 23 Assessment & Plan Assessment & Plan (1) Diabetes: Code(s): E11.9 - Type 2 diabetes mellitus without complications Category: Medical (2) Pure hypercholesterolemia: Code(s): E78.00 - Pure hypercholesterolemia, unspecified Category: Medical (3) B12 deficiency: Code(s): E53.8 - Deficiency of other specified B group vitamins Category: Medical (4) Persistent headaches: Code(s): R51.9 - Headache, unspecified Category: Medical Plan Plan 1. Vitamin B12 Deficiency The patient's low vitamin B12 level is likely contributing to her symptoms of fatigue and sleepiness. A prescription for a vitamin B12 injection will be sent to the pharmacy. The patient is instructed to call the office to schedule administration of the injection once she obtains it. Vitamin B12 levels will be rechecked with fasting labs in September. 2. Headache With Dizziness Despite a recent EEG being negative for seizures, the patient has been prescribed Divalproex. Further evaluation by her neurologist may be considered. 3. Hypothyroidism The patient's thyroid function is stable on her current medication. Continue levothyroxine 88 mcg daily. Thyroid function will be rechecked in September. 4. Hyperlipidemia LDL cholesterol is 73 mg/dL, which is considered well-controlled near her goal. Continue rosuvastatin 20 mg daily. Cholesterol levels will be rechecked in September. 5. Type 2 Diabetes Mellitus The patient's recent HbA1c was 6.1%. Continue metformin 850 mg twice daily. Fasting blood sugar will be checked at the follow-up appointment in September. Orders: Orders Lipid Panel Today E78.5 - Hyperlipidemia, unspecified Microalbumin, Random (w Creat) Today R80.9 - Proteinuria, unspecified Vitamin B12 and Folate Today E53.8 - Deficiency of other specified B group vitamins Parietal Cell Antibody Today E53.8 - Deficiency of other specified B group vitamins Thyroid Stimulating Hormone Today E06.3 - Autoimmune thyroiditis Vitamin D 25-OH Total Today E55.9 - Vitamin D deficiency, unspecified Intrinsic Factor Antibodies Today E53.8 - Deficiency of other specified B group vitamins Comprehensive [place]. Panel Fast Today E11.9 - Type 2 diabetes mellitus without complications Referrals Neurology Referral R51.9 - Headache, unspecified Medications: New cyanocobalamin (vitamin B-12) 1,000 mcg IM QMONTH 1 mL 4RF 4 weeks E53.8 - Deficiency of other specified B group vitamins syringe with needle ([facility] Luer Lock Syringe with needle) Use 1 needle once a month 1 ea 4RF b12 injection E53.8 - Deficiency of other specified B group vitamins Changed From valproic acid Take two capsules twice a day 500 mg (2 x 250 mg) PO BID 60 caps 0RF To valproic acid Take two capsules twice a day 500 mg (2 x 250 mg) PO BID 360 caps 1RF 90 days
--- OUTSIDE RECORDS SUMMARY | 2025-07-10 12:22 | XMS_ITS | Clinical Summary ---
Author Organization [address] [facility] Address [address] [place] [address] Phone Care Team Providers Care Pulmonary Disease Specialist Name Role Phone Debora Chakraborty MD Primary Care Provider + Encounters Date Type Department Care Team Description 06/02/2025 Lab Requisition [facility] Lab [address] [place] [address] Debora Chakraborty MD Type 2 diabetes mellitus without complications (CMS/HCC V24, CMS/HCC V28); Hypothyroidism, unspecified 05/28/2025 Lab Requisition [facility] Lab [address] [place] [address] Debora Chakraborty MD Type 2 [...] Type 2 diabetes mellitus with unspecified complications ([facility] V24, [facility] V28) Hypothyroidism, unspecified from Last [...] LAB HEMETOLOGY METHOD 05/28/2025 10:13 AM EDT [facility] NRBC 0.0 <1.0 % LAB HEMETOLOGY METHOD 05/28/2025 10:13 AM EDT [facility] NRBC Absolute 0.00 <0.10 K/mcL LAB HEMETOLOGY METHOD 05/28/2025 10:13 AM EDT [facility] Blood Venous blood specimen / Unknown Venipuncture / Unknown 05/28/2025 5:41 AM EDT 05/28/2025 9:35 AM EDT Debora Chakraborty MD LAB BLOOD ORDERABLES Fin al Result Performing Organization Address [facility]/ZIP Co de Phone Number [facility] [address] [place] [address], * (ABNORMAL) Thyroid stimulating hormone (05/28/2025 5:41 AM EDT) TSH 0.10(L) 0.40 - 4.00 mcIU/mL LAB CHEMISTRY METHOD 05/28/2025 12:47 PM EDT [facility] Blood Venous blood specimen / Unknown Venipuncture / Unknown 05/28/2025 5:41 AM EDT 05/28/2025 9:35 AM EDT Debora Chakraborty MD LAB BLOOD ORDERABLES Fin al Result Performing Organization Address City/[facility]/ZIP Co de Phone Number [facility] [address] [place] [address], [place] [phone] * (ABNORMAL) Hemoglobin A1c (05/28/2025 5:41 AM EDT) Hemoglobin A1C 6.5(H) <6.5 % LAB CHEMISTRY METHOD 05/28/2025 1:11 PM EDT [facility] Mean Bld Glu Estim. 140 mg/dL LAB CHEMISTRY METHOD 05/28/2025 1:[address] [facility] Blood Venous blood specimen / Unknown Venipuncture / Unknown 05/28/2025 5:41 AM EDT 05/28/2025 9:35 AM EDT us Debora Chakraborty MD LAB BLOOD ORDERABLES Fin al Result [facility] [address] [place] [address], [place] [phone] * Comprehensive metabolic panel (05/28/2025 5:41 AM [...] MD LAB BLOOD ORDERABLES Fin al Result [facility] [address] [place] [address], from [place] [address] [id number] MEDICAID - [place] [facility] INTERMEDIATE OPTIONS Member Subscriber Plan / Payer ( fective 2024-Present) Name:Diana Ortega Relation to Subscriber:Self Name:Diana Ortega Payer ID:[id number] Group ID:Not on file Type:Not on file Address: [facility] [address] [id number] Care Teams Pulmonary Disease Specialist Relationship Specialty Start Date End Date Debora Chakraborty MD [address] [address] PCP - General Family Medicine 05/28/25
--- OUTSIDE RECORDS SUMMARY | 2025-07-10 12:22 | XMS_ITS | Encounter Summary ---
Author Organization [facility] Address [address] [place] [address] Care Team Providers Care Family Services Manager Name Role Phone Debora Chakraborty MD Primary Care Provider + Encounter Details Date Type Department Care Team (Late st Contact Info) Description 06/02/2025 Lab Requisition [facility] - Main Lab [address] [facility] [place] [address] Debora Chakraborty MD [address] [address] Type 2 diabetes mellitus without complications (CMS/HCC [...] unspecified documented in this encounter Care Teams Family Services Manager Relationship Specialty Start Date End Date Debora Chakraborty MD [address] [address] PCP - General Family Medicine 05/28/25 documented as of this encounter
--- OUTSIDE RECORDS SUMMARY | 2025-07-10 12:22 | XMS_ITS | Encounter Summary ---
Author Organization [facility] Address [address] [place] [address] Care Team Providers Care Call Center Nurse Name Role Phone Debora Chakraborty MD Primary Care Provider + Encounter Details Date Type Department Care Team (Late st Contact Info) Description 05/28/2025 Lab Requisition [facility] - Main Lab [address] [facility] [place] [address] Debora Chakraborty MD [address] [facility] [address] [place], [place] [id number] Type 2 diabetes mellitus with unspecified complications [...] Type 2 diabetes mellitus with unspecified complications ([facility]/HCC V24, [facility] V28) Hypothyroidism, unspecified documented in this encounter Results * (ABNORMAL) Thyroid stimulating hormone (05/28/2025 5:41 AM EDT) Pathologist [facility] TSH 0.10(L) 0.40 - 4.00 mcIU/mL LAB CHEMISTRY METHOD 05/28/2025 12:47 PM EDT [facility] Blood Venous blood specimen / Unknown Venipuncture / Unknown 05/28/2025 5:41 AM EDT 05/28/2025 9:35 AM EDT Debora Chakraborty MD LAB BLOOD ORDERABLES Fin al Result Performing Organization Address [facility] Co de Phone Number [facility] [address] [place] [address], * (ABNORMAL) Hemoglobin A1c (05/28/2025 5:41 AM EDT) [facility] Hemoglobin A1C 6.5(H) <6.5 % LAB CHEMISTRY METHOD 05/28/2025 1:11 PM EDT [facility] Mean Bld Glu Estim. 140 mg/dL LAB CHEMISTRY METHOD 05/28/2025 1:11 PM EDT [facility] Blood Venous blood specimen / Unknown Venipuncture / Unknown 05/28/2025 5:41 AM EDT 05/28/2025 9:35 AM EDT Debora Chakraborty MD LAB BLOOD ORDERABLES Fin al Result Performing Organization Address [facility]/ZIP Co de Phone Number [facility] [address] [place] [address], [place] [phone] * Comprehensive metabolic panel (05/28/2025 5:41 AM EDT) [facility] Sodium 141 133 - 145 mmol/L LAB CHEMISTRY METHOD 05/28/2025 11:03 AM [facility] Potassium 4.0 3.5 - 5.5 mmol/L LAB CHEMISTRY METHOD 05/28/2025 11:03 AM [facility] Chloride 104 96 - 110 mmol/L LAB CHEMISTRY METHOD 05/28/2025 11:03 AM [facility] CO2 29 21 - 32 mmol/L LAB CHEMISTRY METHOD 05/28/2025 11:03 AM [facility] Anion Gap 8 3 - 11 LAB CHEMISTRY METHOD 05/28/2025 11:03 AM [facility] Glucose 85 70 - 100 mg/dL LAB CHEMISTRY METHOD 05/28/2025 11:03 AM [facility] BUN 15 5 - 25 mg/dL LAB CHEMISTRY METHOD 05/28/2025 11:03 AM [facility] Creatinine 0.69 0.50 - 1.10 mg/dL LAB CHEMISTRY METHOD 05/28/2025 11:03 AM [facility] eGFR 94 >=60 mL/min/1. 73m2 LAB CHEMISTRY METHOD 05/28/2025 11:03 AM [facility] Comment:Calculation based on the Chronic Kidney Disease Epidemiology Collaboration (CKD-EPI) equation refit without adjustment for race. BUN/Creatinine Ratio 21.7 LAB CHEMISTRY METHOD 05/28/2025 11:03 AM [facility] Calcium 9.8 8.5 - 10.5 mg/dL LAB CHEMISTRY METHOD 05/28/2025 11:03 AM [facility] AST (SGOT) 28 10 - 42 unit/L LAB CHEMISTRY METHOD 05/28/2025 11:03 AM [facility] ALT (SGPT) 35 10 - 60 unit/L LAB CHEMISTRY METHOD 05/28/2025 11:03 AM [facility] Alkaline Phosphatase 69 42 - 121 unit/L LAB CHEMISTRY [facility]/28[facility] Total Protein 6.8 6.0 - 8.0 g/dL LAB CHEMISTRY METHOD 05/28/2025 11:03 AM [facility] Albumin 3.7 3.2 - 5.0 g/dL LAB CHEMISTRY METHOD 05/28/2025 11:03 AM [facility] Total Bilirubin 0.3 0.0 - 1.4 mg/dL LAB CHEMISTRY METHOD 05/28/2025 11:03 AM [facility] Blood Venous blood specimen / Unknown Venipuncture / Unknown 05/28/2025 5:41 AM EDT 05/28/2025 9:35 AM EDT us Debora Chakraborty MD LAB BLOOD ORDERABLES Fin al Result [facility] [address] [place] [address], * (ABNORMAL) Complete blood count (05/28/2025 5:41 AM EDT) WBC 9.0 4.8 - 10.8 K/mcL LAB HEMETOLOGY METHOD 05/28/2025 10:13 AM [facility] RBC 4.40 3.80 - 4.80 M/mcL LAB HEMETOLOGY METHOD 05/28/2025 10:13 AM EDT [facility] Hemoglobin 12.4 11.5 - 16.0 g/dL LAB HEMETOLOGY METHOD 05/28/2025 10:13 AM [facility] Hematocrit 39.0 35.0 - 47.0 % LAB HEMETOLOGY METHOD 05/28/2025 10:13 AM [facility] MCV 87.8 79.0 - 98.0 FL LAB HEMETOLOGY METHOD 05/28/2025 10:13 AM EDT [facility] MCH 27.9 27.0 - 32.0 pcg LAB HEMETOLOGY METHOD 05/28/2025 10:13 AM EDT [facility] MCHC 31.8(L) 32.0 - 37.0 g/dL LAB HEMETOLOGY METHOD 05/28/2025 10:13 AM EDT [facility] RDW 14.2 11.0 - 15.0 % LAB HEMETOLOGY METHOD 05/28/2025 10:13 AM EDT [facility] Platelets 172 130 - 400 K/mcL LAB HEMETOLOGY METHOD 05/28/2025 10:13 AM EDT [facility] MPV 13.6(H) 7.0 - 11.0 FL LAB HEMETOLOGY METHOD 05/28/2025 10:13 AM EDT [facility] NRBC 0.0 <1.0 % LAB HEMETOLOGY METHOD 05/28/2025 10:13 AM EDT [facility] NRBC Absolute 0.00 <0.10 K/mcL LAB HEMETOLOGY METHOD 05/28/2025 10:13 AM T [facility] Blood Venous blood specimen / Unknown Venipuncture / Unknown 05/28/2025 5:41 AM EDT 05/28/2025 9:35 AM EDT us Debora Chakraborty MD LAB BLOOD ORDERABLES Fin al Result [facility] [address] [place] [address], documented in this encounter Visit Diagnoses Diagnosis Type 2 diabetes mellitus with unspecified complications (CMS/HCC V24, CMS/HCC V28) Hypothyroidism, unspecified documented in this encounter Care Teams Call Center Nurse Relationship Specialty Start Date End Date Debora Chakraborty MD [address] [place] [id number] PCP - General Family Medicine 05/28/25 documented as of this encounter
== END 2025-07-10 10:46 | disposition home or self-care (01) ==
LOC: HO.HMCH 10:10
PROVIDERS: PCP Internal Medicine; Visit Provider Internal Medicine
DX: E11.9 Type 2 diabetes mellitus without complications (principal); E78.00 Pure hypercholesterolemia, unspecified; E53.8 Deficiency of other specified B group vitamins; R51.9 Headache, unspecified

== ENCOUNTER → 2025-07-10 10:09 | Outpatient (BNVA) | payer OTHER, SELFPAY | PROVIDERS: PCP Internal Medicine; Visit Provider Internal Medicine | DX: E11.9 Type 2 diabetes mellitus without complications (principal); E53.8 Deficiency of other specified B group vitamins; E55.9 Vitamin D deficiency, unspecified; E78.00 Pure hypercholesterolemia, unspecified; E51.9 Thiamine deficiency, unspecified; Z86.73 Personal history of transient ischemic attack (TIA), and cerebral infarction without residual deficits; Z79.84 Long term (current) use of oral hypoglycemic drugs | CPT/HCPCS: 99212 ==

== ENCOUNTER 2025-07-18 20:50 | Emergency (ER) | payer OTHER, SELFPAY ==
--- NOTE | ~2025-07-18 | CT_ITS ---
CLINICAL HISTORY: L hip pelvic pain. No fall. Tender hip CT pelvis without contrast Comparison: CR/SR - XR HIP RT MIN 2V - 09/29/24 08:56 EST Findings: No dilated loops of bowel or evidence for bowel obstruction. Tiny, fat containing umbilical hernia. No bladder wall thickening. The uterus is surgically absent. Focal area of increased attenuation measuring up to approximately 2.2 cm in maximum axial dimension identified along the left lateral margin of the lower vagina. No acute fracture or dislocation injury identified. The bilateral hips appear intact. Degenerative disc disease/vacuum disc phenomenon present at the lower lumbar spine. Incomplete visualization of the inferior sacrum and coccyx, which appears chronic and/or congenital in etiology. IMPRESSION: 1. No acute fracture or dislocation injury of the bony pelvis or bilateral hips identified. 2. 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 This document has been electronically signed by: Rey Orozco MD on 07/19/2025 02:31:35
[2025-07-18 21:07] VITALS: BP 180/81; PULSE 71; RESP 18; TEMP 36.8; O2SAT 94; BMI 34.0
--- OUTSIDE RECORDS SUMMARY | 2025-07-18 21:54 | XMS_ITS | Data Portability ---
Author Organization [employer] [facility], [employer] [facility] Address [address] [place] [address] Care Team Providers Care Prizer Hand Name Role Phone HIM CCA OTHER Assessment No assessment recorded. Plan of Treatment Reminders Order Date Submit Date Provider Last Modified By Organization Details Last Modified Time Details Appointments None recorded. Lab None recorded. Referral None recorded. Procedures None recorded. Surgeries None recorded. Imaging None recorded. Medication Orders ketorolac 15 mg/mL injection solution [address] [place] [address] , [address] [place] [address], [id number], 16:33:12 Patient TargetsNo targets recorded. Patient InstructionsNo instructions recorded. Reason for Referral None Reported. Medical Equipment None Reported. Allergies No known drug allergies Medications Name Sig Start Date Stop Date Status Note LastModified by Organization Details LastModified Time famotidine 40 mg tablet TOME 1 TABLETA POR V A ORAL TODOS LOS D AL ACOSTARSE active Not Available Not Available No t Available metoclopram bandar 5 mg tablet TOME BRADEN TABLETA POR V A ORAL 4 TIMES A DAY BEFORE MEAL/BED active Not Available Not Available No t Available amoxicillin 875 mg-héctoru m clavulanate 125 mg tablet TOME 1 TABLETA POR V A ORAL DOS VECES AL D A POR 10 D 07/17 completed Not Available Not Available Not Available Vitals Date Recorded Oxygen saturation Oxygen saturation in Arterial blood by Pulse oximetry Heart rate Body height Respiratory rate Body temperature Body weight Systolic And Diastolic Provider Name and Address Organization Details Last Updated DateTime 98 % 98 % 78 /min 157.48 cm 14 /min 98 [degF] 88429.8 g 166/84 mm[Hg] Not Available [facility] - production 16:23:21 Social History None recorded. Functional Status None recorded. Mental Status None recorded. Family History Nothing Reported. Medical History No medical history recorded. Gynecological HistoryNo gynecological history recorded. Obstetrics History GPAL:G 0 P 0 0 0 0 Past Encounters Encounter ID Performer Location Encounter Start Date Encounter Closed Date Diagnosis/Indication Diagnosis SNOMED-CT Code Diagnosis ICD10 Code Diagnosis IMO Codes Diagnosis Note [id number] LEIDY ROJO MD [facility] ED Medical [address] [address] 07/17/2025 16:21:22 07/18/2025 09:49:31 Pain of hip region 82207842 M25.551 [id number] Evaluation in the field was performed by my plant engineering supervisor colleague, as noted above, I provided real-time direction and supervisio n for this visit. The evaluation revealed 69-year-ol d female with a history of osteoarthr itis, osteoporos is, and type 2 diabetes mellitus (no known kidney disease, no history of GI bleed, not on anticoagul ation) presents with 2 days of left hip and upper leg pain. She denies trauma, numbness, or weakness but reports stiffness and difficulty with ambulation due to pain, though she is able to bear weight. She takes gabapentin 100 mg at bedtime, which did not provide relief last night. She has not tried acetaminop hen or ibuprofen. Denies urinary symptoms, back pain, or recent injury. Pain radiates intermitte ntly along the upper thigh. Vital Signs:BP 166/84 , Pulse 78 , RR 14 , SpO 98% on room airPhysica l Exam:Gener al: Alert, oriented, in no acute distress.L ungs: Clear to auscultati on bilaterall y.Abdomen: Soft, non-tender , non-disten ded.Muscul oskeletal: Left hip: No erythema, swelling, or deformity. Full range of motion but painful with movement.T enderness to palpation over the left hip joint and inguinal crease.No tenderness over the trochanter ic bursa.No leg length discrepanc y.Extremit ies: No edema.Neur o: Sensation intact, strength 5/5 in bilateral lower extremitie s.Allergie s: Reviewed. Impression :Left hip pain, likely musculoske letal strain or early osteoarthr itic flare, without evidence of fracture or acute joint inflammati on. Able to bear weight, making fracture less likely. No signs of infection or radiculopa thy. Plan:Ketor olac 15 mg IM x1 administer ed. Advised to avoid additional NSAIDs today.May take Acetaminop hen up to 1 gram PO every 8 hours as needed for pain.Almaz nue gabapentin 100 mg nightly.Ma y use OTC Salonpas patch or diclofenac (Voltaren) gel topically to affected area.Apply warm compresses or heating pad to hip.Perfor m gentle stretching and range-of-m otion exercises. Avoid prolonged standing or overexerti on.If no improvemen t within 2 3 days, obtain hip X-ray to rule out occult fracture or joint pathology. Red flags reviewed: severe or worsening pain, inability to bear weight, new swelling, redness, fever, or neurologic deficits advised to seek prompt medical attention if any occur. Primary care, consider__ _ Dispositio n: We discussed the diagnostic uncertaint y of home visits and the risk associated with this. In this case, the patient and I felt this to be an acceptable and reasonable amount of risk given the benefit of avoiding an ED visit. We discussed the need to seek care urgently/e mergently in the setting of any new or worsening serious symptoms, particular ly severe or worsening pain, inability to bear weight, new swelling, redness, fever, or neurologic deficits Health Concerns Section Related Observation LastModified by Organization Detai ls LastModified Time None Recorded Concern Status LastModified by Organization Details LastModified Time None Recorded Advance Directives Directive None Recorded Payers Insurance Date Sequence Insurance Name Policy Number Policy Stoll Covered Member ID Stoll Member ID Guarantor Name 07/17/2025 1 [facility] - DOS ON OR AFTER 2022 - DUAL ELIGIBLE - SKILLED NURSING OPTIONS AND ONE CARE (MEDICARE REPLACEMENT/ADV ANTAGE - HMO) Diana Ortega [id number] Diana Ortega Notes Date Note Type Note Provider Name and Address Organization Details Recorded Time 07/17/2025 text/html ROS as noted in the [facility] CRC Nurse Triage Notes (Phoebe Buckley - RN): Reason For Request: Pt's son Ginna reporting left hip tightness, pain, pressure, either walking standing, cramps>keeping her up at night Denies: Falls with head strike and LOC Falls from a standing position, no LOC, patient is amnestic to the event Falls with isolated injury and deformity noted to limb Falls with inability to move post fall Cool extremities after fall or injury Chief Complaints: Extremity Pain PMH: Osteoarthritis, Osteoporosis, Diabetes Mellitus Type 2 PMH Reviewed at 07/17/2025: Allergies Reviewed at 07/17/2025:43 Comments: 69 y.o female complains of Extremity Pain Per son, patient developed pain to left thigh 3 days ago. No falls or injuries reported. Denies swelling or discoloration. History of arthritis. No aggravating factors. Patient to able to bear weight but is painful. Did not take anything for pain today. I provided information on the mobile health provider response time and advised the patient and/or caregiver to monitor reported signs and symptoms. I discussed the warning signs of when to seek emergency care. ................... ................... ................... ................... ................... ................... ................... ........ [employer] Note From Karel Emmanuel: Patient alert and oriented and seated on chair. Patient complains of left hip and upper left leg pain started two days ago, noticed after she woke up. Pain increase on movement, walking. Patient denies numbness or tingling. Patient denies trauma or falls. Patient takes gabapentin daily. Patient denies kidney Disease, blood thinners, or recent ibuprofen use. Patient pink warm dry left hip slightly tender no redness or swelling noted. Positive CSM in the left leg negative increase worker breathing positive full sentences. Abdomen soft on tender extremities unremarkable no edema noted. Medication administered as ordered without complication using five rights. Red flags patient education discussed. Patient demonstrates understanding of care and plan. Caregiver on scene as supply chain engineer, strong language barrier. [facility] Medication Orders: ketorolac 15 mg/mL injection solution: Administered ................... ................... ................... ................... ................... ................... ................... ........ [facility] Consulted: Leidy Rojo ................... ................... ................... ................... ................... ................... ................... ........ Disposition: Fulfilled LEIDY ROJO MD [address] [place] [address],[address] [facility], [place], [address], [facility] AL COOK 07/17/2025 16:58:58 OBGyn Episode No OBEpisode recorded.
--- OUTSIDE RECORDS SUMMARY | 2025-07-18 21:54 | XMS_ITS | Encounter Summary ---
Author Organization [facility] Address [address] [place] [address] Encounters * CPT with [facility] on 2025-07-17 { reasonForRequest : Pt's son Ginna reporting left hip tightness, pain, pressure, either walking standing, cramps>keeping her up at night , patientReports : , denies :[ Falls with head strike and LOC , Falls from a standing position, no LOC, patient is amnesticto the event , Falls with isolated injury and deformity noted to limb , Falls with inability to move post fall , Cool extremities after fall or injury ], chiefComplaints : Extremity Pain , pmh : Osteoarthritis, Osteoporosis, Diabetes Mellitus Type 2 , allergies : No Known Drug Allergies , otherAller gies : , painAssessment : , visitOutcome : ", additionalComments : 69 y.o female complains of Extremity Pain\nPer son, patient developed pain to left thigh 3 days ago. No falls or injuries reported. Denies swelling or discolorat ion. History of arthritis. No aggravating factors. Patient to able to bear weight but is painful. Did not take anything for pain today. \nI provided information on the mobile health provider responsetime and advised the patient and/or caregiver to monitor reported signs and symptoms. I discussed the warning signs of when to seek emergency care. } Patient alert and oriented and seated on [...] care and plan. Caregiver on scene as distribution driver, strong language barrier. IV_(FLUIDS_AND/OR_MEDICATION), MEDICATION_IM, ORAL_MEDICATION, WOUND_CARE, ORTHOSTATIC_VITAL_SIGNS Written by Medical [facility] on 2025-07-17
--- OUTSIDE RECORDS SUMMARY | 2025-07-18 21:54 | XMS_ITS | Encounter Summary ---
Author Organization [facility] Address [address] [place] [address] Care Team Providers Care Road Machine Runner Name Role Phone Debora Chakraborty MD Primary Care Provider + Encounter Details Date Type Department Care Team (Late st Contact Info) Description 06/02/[address] [facility] - Main Lab [address] [facility] [place] [address] Debora Chakraborty MD [address] [address] Type 2 diabetes mellitus without complications (CMS/HCC [...] unspecified documented in this encounter Care Teams Road Machine Runner Relationship Specialty Start Date End Date Debora Chakraborty MD [address] [address] PCP - General Family Medicine 05/28/25 documented as of this encounter
--- OUTSIDE RECORDS SUMMARY | 2025-07-18 21:54 | XMS_ITS | Continuity of Care Document ---
Author Name [facility], Medical Address [address] [place] [address] Organization Unknown Address [address] [place] [address] Medications No known medications Problems No known problems
--- OUTSIDE RECORDS SUMMARY | 2025-07-18 21:54 | XMS_ITS | Clinical Summary ---
Author Organization [address] [facility] Address [address] [place] [address] Phone Care Team Providers Care Toll Test Worker Name Role Phone Debora Chakrabotry MD Primary Care Provider + Encounters Date Type Department Care Team Description 06/02/2025 Lab Requisition [facility] Lab [address] [place] [address] Debora Chakraborty MD Type 2 diabetes mellitus without complications (CMS/HCC V24, CMS/HCC V28); Hypothyroidism, unspecified 05/28/2025 Lab Requisition [facility] Lab [address] [place] [address] Debora Chakraborty MD Type 2 [...] Type 2 diabetes mellitus with unspecified complications ([facility] V24, [facility] V28) Hypothyroidism, unspecified from Last 3 Months Results * (ABNORMAL) Complete blood count (05/28/2025 5:41 AM EDT) WBC 9.0 4.8 - 10.8 K/mcL LAB HEMETOLOGY METHOD 05/28/2025 10:13 AM [facility] LAB RBC 4.40 3.80 - 4.80 M/mcL LAB HEMETOLOGY METHOD 05/28/2025 10:13 AM [facility] LAB Hemoglobin 12.4 11.5 - 16.0 g/dL LAB HEMETOLOGY METHOD 05/28/2025 10:13 AM [facility] LAB Hematocrit 39.0 35.0 - 47.0 % LAB HEMETOLOGY METHOD 05/28/2025 10:13 AM [facility] LAB MCV 87.8 79.0 - 98.0 FL LAB HEMETOLOGY METHOD 05/28/2025 10:13 AM [facility] LAB MCH 27.9 27.0 - 32.0 pcg LAB HEMETOLOGY METHOD 05/28/2025 10:13 AM [facility] LAB MCHC 31.8(L) 32.0 - 37.0 g/dL LAB HEMETOLOGY METHOD 05/28/2025 10:13 AM [facility] LAB RDW 14.2 11.0 - 15.0 % LAB HEMETOLOGY METHOD 05/28/2025 10:13 AM [facility] LAB Platelets 172 130 - 400 K/mcL LAB HEMETOLOGY METHOD 05/28/2025 10:13 AM [facility] LAB MPV 13.6(H) 7.0 - 11.0 FL LAB HEMETOLOGY METHOD 05/28/2025 10:13 AM EDT [facility] LAB NRBC 0.0 <1.0 % LAB HEMETOLOGY METHOD 05/28/2025 10:13 AM EDT [facility] LAB NRBC Absolute 0.00 <0.10 K/mcL LAB HEMETOLOGY METHOD 05/28/2025 10:13 AM EDT [facility] LAB Blood Venous blood specimen / Unknown Venipuncture / Unknown 05/28/2025 5:41 AM EDT 05/28/2025 9:35 AM EDT Debora Chakraborty MD LAB BLOOD ORDERABLES Fin al Result Performing Organization Address [facility]/ZIP Co de Phone Number [facility] [address] [place] [address], * (ABNORMAL) Thyroid stimulating hormone (05/28/2025 5:41 AM EDT) TSH 0.10(L) 0.40 - 4.00 mcIU/mL LAB CHEMISTRY METHOD 05/28/2025 12:47 PM EDT [facility] LAB Blood Venous blood specimen / Unknown Venipuncture / Unknown 05/28/2025 5:41 AM EDT 05/28/2025 9:35 AM EDT Debora Chakraborty MD LAB BLOOD ORDERABLES Fin al Result Performing Organization Address City/[facility]/ZIP Co de Phone Number [facility] [address] [place] [address], [place] [phone] * (ABNORMAL) Hemoglobin A1c (05/28/2025 5:41 AM EDT) Hemoglobin A1C 6.5(H) <6.5 % LAB CHEMISTRY METHOD 05/28/2025 1:11 PM EDT [facility] Mean Bld Glu Estim. 140 mg/dL LAB CHEMISTRY METHOD 05/28/2025 1:11 PM [facility] LAB Blood Venous blood specimen / Unknown Venipuncture / Unknown 05/28/2025 5:41 AM EDT 05/28/2025 9:35 AM EDT us Debora Chakraborty MD LAB BLOOD ORDERABLES Fin al Result [facility] [address] [place] [address], [place] [phone] * Comprehensive metabolic panel (05/28/2025 5:41 AM EDT) Sodium 141 133 - 145 mmol/L LAB CHEMISTRY METHOD 05/28/2025 11:03 AM [facility] LAB Potassium 4.0 3.5 - 5.5 mmol/L LAB CHEMISTRY METHOD 05/28/2025 11:03 AM [facility] Chloride 104 96 - 110 mmol/L LAB CHEMISTRY METHOD 05/28/2025 11:03 AM [facility] CO2 29 21 - 32 mmol/L LAB CHEMISTRY METHOD 05/28/2025 11:03 AM [facility] Anion Gap 8 3 - 11 LAB CHEMISTRY METHOD 05/28/2025 11:03 AM [facility] LAB Glucose 85 70 - 100 mg/dL LAB CHEMISTRY METHOD 05/28/2025 11:03 AM [facility] LAB BUN 15 5 - 25 mg/dL LAB CHEMISTRY METHOD 05/28/2025 11:03 AM [facility] LAB Creatinine 0.69 0.50 - 1.10 mg/dL LAB CHEMISTRY METHOD 05/28/2025 11:03 AM [facility] LAB eGFR 94 >=60 mL/min/1. 73m2 LAB CHEMISTRY METHOD 05/28/2025 11:03 AM [facility] LAB Comment:Calculation based on the Chronic Kidney Disease Epidemiology Collaboration (CKD-EPI) equation refit without adjustment for race. BUN/Creatinine Ratio 21.7 LAB CHEMISTRY METHOD 05/28/2025 11:03 AM [facility] LAB Calcium 9.8 8.5 - 10.5 mg/dL LAB CHEMISTRY METHOD 05/28/2025 11:03 AM [facility] LAB AST (SGOT) 28 10 - 42 unit/L LAB CHEMISTRY METHOD 05/28/2025 11:03 AM [facility] LAB ALT (SGPT) 35 10 - 60 unit/L LAB CHEMISTRY METHOD 05/28/2025 11:03 AM [facility] Alkaline Phosphatase 69 42 - 121 unit/L LAB CHEMISTRY METHOD 05/28/2025 11:03 AM [facility] Total Protein 6.8 6.0 - 8.0 g/dL LAB CHEMISTRY METHOD 05/28/2025 11:03 AM [facility] Albumin 3.7 3.2 - 5.0 g/dL LAB CHEMISTRY METHOD 05/28/2025 11:03 AM [facility] Total Bilirubin 0.3 0.0 - 1.4 mg/dL LAB CHEMISTRY METHOD 05/28/2025 11:03 AM [facility] LAB Blood Venous blood specimen / Unknown Venipuncture / Unknown 05/28/2025 5:41 AM EDT 05/28/2025 9:35 AM EDT us Debora Chakraborty MD LAB BLOOD ORDERABLES Fin al Result [facility] [address] [place] [address], from [place] [address] [place] [id number] MEDICAID - [place] [facility] OPTIONS Member Subscriber Plan / Payer ( fective 2024-Present) Name:Diana Ortega Relation to Subscriber:Self Name:Diana Ortega Payer ID:[id number] Group ID:Not on file Type:Not on file Address: [facility] [address] [phone] Care Teams Toll Test Worker Relationship Specialty Start Date End Date Debora Chakraborty MD [address] [address] PCP - General Family Medicine 05/28/25
--- OUTSIDE RECORDS SUMMARY | 2025-07-18 21:54 | XMS_ITS | Continuity of Care Document ---
Author Organization [place] [facility], [facility] Address [address] [place] [phone] Care Team Providers Care Fbi Special Agent Name Role Phone HIM CCA OTHER Assessment No assessment recorded. Plan of Treatment Reminders Order Date Submit Date Provider Last Modified By Organization Details Last Modified Time Details Appointments None recorded. Lab None recorded. Referral None recorded. Procedures None recorded. Surgeries None recorded. Imaging None recorded. Medication Orders ketorolac 15 mg/mL injection solution [address] [place] [address] , [address] [place] [address], [id number], 16:33:12 Patient TargetsNo targets recorded. Patient InstructionsNo [...] /min 157.48 cm 14 /min 98 [degF] 39494.8 g 166/84 mm[Hg] Not Available [facility] - [...] ICD10 Code Diagnosis IMO Codes Diagnosis Note [id number] LEIDY ROJO MD [facility] ED Medical [address] [address] 07/17/2025 16:21:22 07/18/2025 09:49:31 Pain of hip region [id number] M25.551 [id number] Evaluation in the field was performed by my 911 emergency dispatcher colleague, as noted above, I provided real-time [...] by Organization Details LastModified Time None Recorded Payers Encounter Date Sequence Insurance Name Policy Number Policy Stoll Covered Member ID Stoll Member ID Guarantor Name 07/17/2025 1 [facility] - DOS ON OR AFTER 2022 - DUAL ELIGIBLE - ASSISTED OPTIONS AND ONE CARE (MEDICARE REPLACEMENT/ADV ANTAGE - HMO) Diana Ortega [id number] Diana Ortega Notes Date Note Type Note Provider Name and Address Organization Details Recorded Time 07/17/2025 text/html ROS as noted in the [facility] CRC Nurse Triage Notes (Phoebe Buckley - [...] ................... ................... ................... ................... ................... ................... ........ Metal Die Finisher Note From Karel Emmanuel: Patient alert and [...] care and plan. Caregiver on scene as showplace manager, strong language barrier. [facility] Medication Orders: ketorolac 15 mg/mL injection solution: Administered ................... ................... ................... ................... ................... ................... ................... ........ [facility] Consulted: Leidy Rojo ................... ................... ................... ................... ................... ................... ................... ........ Disposition: Fulfilled LEIDY ROJO MD [address] [facility],[address] [facility], [place], [address], [employer] [facility] [place] [place] 07/17/2025 16:58:58 OBGyn Episode No OBEpisode recorded.
--- OUTSIDE RECORDS SUMMARY | 2025-07-18 21:54 | XMS_ITS | Encounter Summary ---
Author Organization [facility] Address [address] [place] [address] Care Team Providers Care Sql Ssrs Developer Name Role Phone Debora Chakraborty MD Primary Care Provider + Encounter Details Date Type Department Care Team (Late st Contact Info) Description 05/28/2025 Lab Requisition [facility] - Main Lab [address] [facility] [place] [address] Debora Chakraborty MD [address] [facility] [address] [place], [place] [id number] Type 2 diabetes mellitus with unspecified complications [...] Type 2 diabetes mellitus with unspecified complications ([facility]/HCC V24, [facility] V28) Hypothyroidism, unspecified documented in this encounter Results * (ABNORMAL) Thyroid stimulating hormone (05/28/2025 5:41 AM EDT) Pathologist [facility] TSH 0.10(L) 0.40 - 4.00 mcIU/mL LAB CHEMISTRY METHOD 05/28/2025 12:47 PM EDT [facility] Blood Venous blood specimen / Unknown Venipuncture / Unknown 05/28/2025 5:41 AM EDT 05/28/2025 9:35 AM EDT Debora Chakraborty MD LAB BLOOD ORDERABLES Fin al Result Performing Organization Address [facility] Co de Phone Number [facility] [address] [place] [address], * (ABNORMAL) Hemoglobin A1c (05/28/2025 5:41 AM EDT) [facility] Hemoglobin A1C 6.5(H) <6.5 % LAB CHEMISTRY METHOD 05/28/2025 1:11 PM EDT [facility] Mean Bld Glu Estim. 140 mg/dL LAB CHEMISTRY METHOD 05/28/2025 1:11 PM EDT [facility] Blood Venous blood specimen / Unknown Venipuncture / Unknown 05/28/2025 5:41 AM EDT 05/28/2025 9:35 AM EDT Debora Chakraborty MD LAB BLOOD ORDERABLES Fin al Result Performing Organization Address [facility]/ZIP Co de Phone Number [facility] [address] [place] [address], [place] [phone] * Comprehensive metabolic panel (05/28/2025 5:41 AM EDT) [facility] Sodium 141 133 - 145 mmol/L LAB [...] unit/L LAB [facility] Total Protein 6.8 6.0 [...] MD LAB BLOOD ORDERABLES Fin al Result [facility] [address] [place] [address], * (ABNORMAL) Complete blood count (05/28/2025 5:41 AM EDT) WBC 9.0 4.8 - 10.8 K/mcL LAB HEMETOLOGY METHOD 05/28/2025 10:13 AM [facility] RBC 4.40 3.80 - 4.80 M/mcL LAB HEMETOLOGY METHOD 05/28/2025 10:13 AM EDT [facility] Hemoglobin 12.4 11.5 - 16.0 g/dL LAB HEMETOLOGY METHOD 05/28/2025 10:13 AM [facility] Hematocrit 39.0 35.0 - 47.0 % LAB HEMETOLOGY METHOD 05/28/2025 10:13 AM [facility] MCV 87.8 79.0 - 98.0 FL LAB HEMETOLOGY METHOD 05/28/2025 10:13 AM EDT [facility] MCH 27.9 27.0 - 32.0 pcg LAB HEMETOLOGY METHOD 05/28/2025 10:13 AM EDT [facility] MCHC 31.8(L) 32.0 - 37.0 g/dL LAB HEMETOLOGY METHOD 05/28/2025 10:13 AM EDT [facility] RDW 14.2 11.0 - 15.0 % LAB HEMETOLOGY METHOD 05/28/2025 10:13 AM EDT [facility] Platelets 172 130 - 400 K/mcL LAB HEMETOLOGY METHOD 05/28/2025 10:13 AM EDT [facility] MPV 13.6(H) 7.0 - 11.0 FL LAB HEMETOLOGY METHOD 05/28/2025 10:13 AM EDT [facility] NRBC 0.0 <1.0 % LAB HEMETOLOGY METHOD 05/28/2025 10:13 AM EDT [facility] NRBC Absolute 0.00 <0.10 K/mcL LAB HEMETOLOGY METHOD 05/28/2025 10:13 AM T [facility] Blood Venous blood specimen / Unknown Venipuncture / Unknown 05/28/2025 5:41 AM EDT 05/28/2025 9:35 AM EDT us Debora Chakraborty MD LAB BLOOD ORDERABLES Fin al Result [facility] [address] [place] [address], documented in this encounter Visit Diagnoses Diagnosis Type 2 diabetes mellitus with unspecified complications (CMS/HCC V24, CMS/HCC V28) Hypothyroidism, unspecified documented in this encounter Care Teams Sql Ssrs Developer Relationship Specialty Start Date End Date Debora Chakraborty MD [address] [place] [id number] PCP - General Family Medicine 05/28/25 documented as of this encounter
[2025-07-18 23:15] VITALS: BP 157/61; PULSE 77; TEMP 36.4; O2SAT 96
--- NOTE | 2025-07-18 23:15 | PC.NURSE ---
Assumed care of pt, presents with left hip that is non-traumatic, pt stated that she has been having a hard time walking for the last couple of days, denies falls or hip pain, aaox4, pt resting in the bed nad
[2025-07-18 23:17] VITALS: BP 160/61; PULSE 74; RESP 18; TEMP 36.7; O2SAT 97
--- NOTE | 2025-07-18 23:39 | ED.EXTPRO ---
HPI - Extremity Problem General Chief complaint: Extremity Problem Stated complaint: left leg pain Time Seen by Provider: 07/18/25 21:59 History of Present Illness ED Provider: thaddeus HPI Narrative: 69 F presents with atraumatic left hip and pelvic pain. She is having trouble walking over the past 1-2 days. No prior surgeries. Denies fever or chills rash tick bite or previous hip pain. She denies numbness tingling weakness in the leg. Related Data Home Medications ?Medication ?Instructions ?Recorded ?Confirmed rosuvastatin 20 mg tablet 20 mg PO DAILY@1400 05/23/25 07/10/25 Previous Rx's ?Medication ?Instructions ?Recorded walker #1 ea 01/06/23 Shower Chair #1 ea 01/12/23 blood sugar diagnostic #100 ea 02/25/23 blood-glucose meter #1 ea 02/25/23 Grab bar #1 ea 11/29/23 blood-glucose meter (OneTouch #1 ea 11/29/23 Ultra2 Meter) albuterol sulfate 90 mcg/actuation 2 puff inhalation Q6H PRN 02/09/24 aerosol inhaler (Ventolin HFA) shortness of breath or wheezing 30 days #8.5 grams blood sugar diagnostic (OneTouch #100 ea 06/04/24 Ultra Test strips) lancets 30 gauge (OneTouch #100 ea 10/22/24 UltraSoft 2 Lancet) lancets 33 gauge #100 ea 10/22/24 metformin 850 mg tablet 850 mg PO BID 90 days #180 tabs 03/20/25 celecoxib 200 mg capsule (Celebrex) 200 mg PO BID 30 days #60 caps 05/09/25 esomeprazole magnesium 40 mg 40 mg PO BID #60 caps 05/31/25 capsule,delayed release famotidine 40 mg tablet (Pepcid) 40 mg PO BEDTIME #30 tabs 05/31/25 metoclopramide HCl 5 mg tablet 5 mg PO QIDACHS #120 tabs 05/31/25 (Reglan) levothyroxine 88 mcg tablet 88 mcg PO DAILY 90 days #90 tabs 06/19/25 gabapentin 100 mg capsule 200 mg (2 x 100 mg) PO BEDTIME 90 07/02/25 days #180 caps cyanocobalamin (vitamin B-12) 1,000 mcg IM QMONTH 4 weeks #1 mL 07/10/25 1,000 mcg/mL injection solution syringe with needle 3 mL 25 gauge #1 ea 07/10/25 x 1 (PetroDE Luer Lock Syringe with needle) valproic acid 250 mg capsule 500 mg (2 x 250 mg) PO BID 90 days 07/10/25 #360 caps baclofen 10 mg tablet 10 mg PO BID PRN muscle spasm 30 07/12/25 days #60 tabs cyclobenzaprine 10 mg tablet 10 mg PO TID PRN muscle spasm #14 07/19/25 tabs Allergies Allergy/AdvReac Type Severity Reaction Status Date / Time No Known Drug Allergies Allergy Unknown none Verified 07/18/25 21:10 [facility] Past Medical History Medical History (Updated 07/20/25 @ 00:01 by Aparna Hewitt) Suspected cerebrovascular accident Hypertension TIA (transient ischemic attack) Diabetes mellitus Muscle spasm Acute diarrhea Dysuria Urinary leakage Pre-op examination COVID-19 Gastritis Dyspnea Encounter for Medicare annual wellness exam Hyperlipidemia LDL goal <70 Cough Leukocytosis Osteoarthritis of right knee Hyperkalemia Adult general medical exam Screening for colon cancer Screening for diabetes mellitus Screening for breast cancer Epigastric pain Constipation Diabetes Osteoporosis Difficulty swallowing Bilateral knee pain Urge urinary incontinence Hypothyroidism Autoimmune thyroiditis Pure hypercholesterolemia GERD (gastroesophageal reflux disease) Surgical History Status post total right knee replacement History of right knee surgery History of esophagogastroduodenoscopy (EGD) Hx of colonoscopy History of appendectomy History of partial hysterectomy Hx of tubal ligation HX: benign breast biopsy Hx of thyroidectomy Family History Family History Father Prostate cancer Mother Diabetes mellitus Sister Heart problem Social History Social History Household Members: Children Housing: Apartment Are you a primary health care legal assistant to a significant other at home: No Do you presently have visiting nurse or other home services: No Alcohol intake: never Patient Tobacco Use Status: Former Tobacco user Tobacco use type: Cigarette Cigarettes Per Day: 6 Years Smoked: 40 e-Cigarette/Vaping Use: Never Used Second Hand Smoke Exposure: Yes Advance Directives Date on File: 01/11/24 service: No Current occupational status: unemployed Current occupational exposures/hazards: No Cognitive needs: No Hearing needs: No Vision needs: Yes Physical Exam Exam: Exam: GENERAL: Well appearing. No apparent distress. Alert. HEAD/NECK: No visual trauma. EYES: Normal to inspection. No conjunctival erythema. No discharge. ENMT: Hearing grossly normal. External nose normal. RESPIRATORY: Respiratory effort normal. CARDIOVASCULAR: Additional details (Grossly well perfused). SKIN: No jaundice. NEUROLOGICAL: Alert. Moving all extremities x4. Additional details (No gross motor deficits. Normal tone. ). PSYCHIATRIC: Alert. Appearance appropriate for situation. Abdomen: Nontender. MSK: Tender with palpation over the medial left groin/hip. Painful extension and flexion at the hip joint. No palpable effusion or warmth no overlying skin changes. Left lower extremity neurovascularly intact with soft compartments painless flexion-extension of the knee and ankle. Vital Signs: Vital Signs: Last Vital Signs Temp 97.6 F 07/19/25 03:11 Pulse 76 07/19/25 03:11 Resp 16 07/19/25 03:11 BP 148/75 H 07/19/25 03:11 Pulse Ox 96 07/19/25 03:11 O2 Del Method Room Air 07/19/25 03:11 BMI result Body Mass Index 34.0 Medications Administered Discontinued Medications Generic Name Dose Route Start Last Admin Trade Name Freq PRN Reason Stop Dose Admin Acetaminophen 975 mg 07/19/25 00:21 07/19/25 00:49 Acetaminophen 325 Mg Tablet PO 07/19/25 00:22 975 mg ONCE ONE Administration Ibuprofen 400 mg 07/19/25 00:21 07/19/25 00:51 Ibuprofen 400 Mg Tablet PO 07/19/25 00:22 400 mg ONCE ONE Administration Medical Decision Making Medical Decision Making [facility] Narrative: Medical Decision Makin-year-old female with atraumatic left hip pain. Extensive medical history. Initial considerations occult hip or pelvic/rami fractures, pathologic fracture, plan for CT. Pain control as needed. CT did not show any acute bony pathology patient able to ambulate well. Tylenol ice close follow up with PCP as needed Preliminary Favored Differential Diagnosis: Left hip fracture, pelvic rami fracture, ligamentous or other soft tissue injury of the hip or thigh among additional considered etiologies Testing Interpreted Independently: ?See below for details Radiology or Lab testing Results Reviewed: ?See below for details Consults: ?See below for details Independent Historians/External Chart Reviews: ?See below for details Social Determinants of Health Impacting MDM/Planning: ?See below for details Discharge Plan Discharge Clinical Impression: Hip strain Patient Disposition: Home, Self-Care Instructions: Groin Strain (ED) Additional Instructions: Marla we evaluated you in the emergency department for left groin/hip pain. You had not fallen or injured yourself but develop pain CT scan showed: Please call your primary doctor for follow up. We do not feel you need opioid pain medications but we have prescribed some mild muscle relaxants which you can take with or without Tylenol or anti-inflammatory medication like ibuprofen sparingly only as needed Prescriptions: New cyclobenzaprine 10 mg tablet 10 mg PO TID PRN (Reason: muscle spasm) Qty: 14 0RF No Action (DME) walker Misc See Rx Instructions .MEDSUPPLY Qty: 1 0RF Rx Instructions: Folding Front wheeled walker (DME) blood-glucose meter Kit See Rx Instructions .Route Qty: 1 0RF Rx Instructions: As directed (DME) blood sugar diagnostic Strip See Rx Instructions .Route Qty: 100 2RF Rx Instructions: As directed Once per day (DME) blood-glucose meter [OneTouch Ultra2 Meter] Misc See Rx Instructions .Route Qty: 1 0RF Rx Instructions: test daily (DME) Grab bar Misc See Rx Instructions .Route Qty: 1 0RF Rx Instructions: As directed albuterol sulfate [Ventolin HFA] 90 mcg/actuation HFA aerosol inhaler 2 puff inhalation Q6H PRN (Reason: shortness of breath or wheezing) 30 Days Qty: 8.5 2RF (DME) OneTouch Ultra Test Strip See Rx Instructions .Route Qty: 100 3RF Rx Instructions: test daily (DME) lancets 33 gauge misc See Rx Instructions .Route Qty: 100 0RF Rx Instructions: As directed Once per day (DME) lancets [OneTouch UltraSoft 2 Lancet] 30 gauge misc See Rx Instructions .Route Qty: 100 3RF Rx Instructions: test daily metformin 850 mg tablet 850 mg PO BID 90 Days Qty: 180 2RF levothyroxine 88 mcg tablet 88 mcg PO DAILY 90 Days Qty: 90 0RF gabapentin 100 mg capsule 200 mg PO BEDTIME 90 Days Qty: 180 1RF baclofen 10 mg tablet 10 mg PO BID PRN (Reason: muscle spasm) 30 Days Qty: 60 1RF rosuvastatin 20 mg tablet 20 mg PO DAILY@1400 (DME) Shower Chair Misc See Rx Instructions .Route Qty: 1 0RF Rx Instructions: As directed metoclopramide HCl [Reglan] 5 mg tablet 5 mg PO QIDACHS Qty: 120 3RF esomeprazole magnesium 40 mg capsule,delayed release(DR/EC) 40 mg PO BID Qty: 60 6RF famotidine [Pepcid] 40 mg tablet 40 mg PO BEDTIME Qty: 30 6RF celecoxib [Celebrex] 200 mg capsule 200 mg PO BID 30 Days Qty: 60 3RF valproic acid 250 mg capsule 500 mg PO BID 90 Days Qty: 360 1RF Rx Instructions: Take two capsules twice a day cyanocobalamin (vitamin B-12) 1,000 mcg/mL solution 1,000 mcg IM QMONTH 28 Days Qty: 1 4RF (DME) PetroDE Luer Lock Syr-needle 3 mL 25 gauge x 1 syringe See Rx Instructions .Route Qty: 1 4RF Rx Instructions: Use 1 needle once a month Interventions: ED Discharge Assessment Last Done: 07/19/25 03:11 Discharge Date/Time: 07/19/25 03:14 Print Language: Scottish
[2025-07-18 23:56] VITALS: BP 157/61; PULSE 77; TEMP 36.4; O2SAT 96
[2025-07-19 03:11] VITALS: BP 148/75; PULSE 76; RESP 16; TEMP 36.4; O2SAT 96
== END 2025-07-19 03:14 | disposition home or self-care (01) ==
PROVIDERS: Emergency Provider Emergency Medicine; PCP Internal Medicine
DX: S76.012A Strain of muscle, fascia and tendon of left hip, initial encounter (principal); X58.XXXA Exposure to other specified factors, initial encounter; Y93.9 Activity, unspecified; Y92.9 Unspecified place or not applicable; Y99.9 Unspecified external cause status; R10.20 Pelvic and perineal pain unspecified side; M25.552 Pain in left hip
CPT/HCPCS: 72192; 99284

== ENCOUNTER → 2025-07-19 00:21 | Outpatient (BNV) | payer OTHER, SELFPAY | PROVIDERS: Emergency Provider Emergency Medicine; PCP Internal Medicine; Visit Provider Radiology Diagnostic Radiology | DX: M25.552 Pain in left hip (principal); R10.22 Pelvic and perineal pain left side | CPT/HCPCS: 72192 ==

== ENCOUNTER → 2025-07-23 08:15 | Outpatient (REF) | payer OTHER, SELFPAY ==
--- NOTE | ~2025-07-23 | NM_ITS ---
EXAMINATION: OK RADIONUCLIDE SOLID FOOD GASTRIC EMPTYING 4-HOUR STUDY CLINICAL INFORMATION: R11.2 - Nausea with vomiting, unspecified, Ozempic, diabetic COMPARISON: 04/13/2021 TECHNIQUE: A standard meal consisting of 4 oz of egg whites tagged with 1.0 microcuries Tc-99m Sulfur Colloid, 6 oz water and 2 slices of toast with jelly was administered orally to the patient. Images were obtained using a dual head gamma camera in the anterior and posterior projections over of the stomach immediately post ingestion and at hourly intervals up to 4 hours post ingestion. The anterior and posterior counts at each time interval were averaged using the geometric mean and expressed as percentage of the immediate post ingestion counts. FINDINGS: There is good visualization of activity in the stomach immediately post ingestion. As the study progresses, there is good clearance of activity from the stomach and visualization of progressively increasing small bowel activity. By the end of the study, there is almost no retention noted in the stomach. Retention in the stomach at each time interval was: 1 hour 84% (normal 37%-90%) 2 hours 68% (normal 30%-60%) 3 hours 45% 4 hours 26% (normal 0%-10%) OK/OK gastric emptying study IMPRESSION: Delayed gastric emptying with moderate retention at 4 hours. For solid meal, rapid gastric emptying is less than 30% at 60 minutes. Delayed gastric emptying criteria is more than 60% remaining at 120 minutes or more than 10% at 240 minutes. The 4-hour value is the best discriminator of a normal or abnormal result). Gastric emptying study grading per JNMT Consensus Recommendations in 2008 (https://tech.snmjournals.org/content/36/44) Grade 1 (mild retention): 11-20% at 4h Grade 2 (moderate retention): 21-35% at 4h Grade 3 (severe retention): 36-50% at 4h Grade 4 (very severe retention): >50% retention at 4h Electronically signed by: Cristiano Blevins MD 07/23/2025 01:17 PM [facility]
--- OUTSIDE RECORDS SUMMARY | 2025-07-23 08:17 | XMS_ITS | Clinical Summary ---
Author Organization [address] [facility] Address [address] [place] [address] Phone Care Team Providers Care Brake Repairer Bus Name Role Phone Debora Chakraborty MD Primary Care Provider + Encounters Date Type Department Care Team Description 06/02/2025 Lab Requisition [facility] [address] [place] [address] Debora Chakraborty MD Type 2 diabetes mellitus without complications (CMS/HCC V24, CMS/HCC V28); Hypothyroidism, unspecified 05/28/2025 Lab Requisition [facility] [address] [place] [address] Debora Chakraborty MD Type 2 [...] Depression Screening 09/12/2024 COVID-19 Vaccine (1 - 2024-2 6 season) 2025 Influenza Vaccine (#1) 2025 Cholesterol [...] 2 diabetes mellitus with unspecified complications ([facility] V24, [facility] V28) Hypothyroidism, unspecified from Last 3 Months Results * (ABNORMAL) Complete blood count (05/28/2025 5:41 AM EDT) WBC 9.0 4.8 - 10.8 K/mcL LAB HEMETOLOGY METHOD 05/28/2025 10:13 AM [facility] RBC 4.40 3.80 - 4.80 M/mcL LAB HEMETOLOGY METHOD 05/28/2025 10:13 AM [facility] Hemoglobin 12.4 11.5 - 16.0 g/dL LAB HEMETOLOGY METHOD 05/28/2025 10:13 AM [facility] Hematocrit 39.0 35.0 - 47.0 % LAB HEMETOLOGY METHOD 05/28/2025 10:13 AM [facility] MCV 87.8 79.0 - 98.0 FL LAB HEMETOLOGY METHOD 05/28/2025 10:13 AM [facility] MCH 27.9 27.0 - 32.0 pcg LAB HEMETOLOGY METHOD 05/28/2025 10:13 AM [facility] MCHC 31.8(L) 32.0 - 37.0 g/dL LAB HEMETOLOGY METHOD 05/28/2025 10:13 AM [facility] RDW 14.2 11.0 - 15.0 % LAB HEMETOLOGY METHOD 05/28/2025 10:13 AM [facility] Platelets 172 130 - 400 K/mcL LAB HEMETOLOGY METHOD 05/28/2025 10:13 AM [facility] MPV 13.6(H) 7.0 - 11.0 FL LAB HEMETOLOGY METHOD 05/28/2025 10:13 AM EDT [facility] NRBC 0.0 <1.0 % LAB HEMETOLOGY METHOD 05/28/2025 10:13 AM EDT [facility] NRBC Absolute 0.00 <0.10 K/mcL LAB HEMETOLOGY METHOD 05/28/2025 10:13 AM EDT [facility] Blood Venous blood specimen / Unknown Venipuncture / Unknown 05/28/2025 5:41 AM EDT 05/28/2025 9:35 AM EDT Debora Chakraborty MD LAB BLOOD ORDERABLES Fin al Result Performing Organization Address [facility]/ZIP Co de Phone Number [facility] [address] [place] [address], * (ABNORMAL) Thyroid stimulating hormone (05/28/2025 5:41 AM EDT) TSH 0.10(L) 0.40 - 4.00 mcIU/mL LAB CHEMISTRY METHOD 05/28/2025 12:47 PM EDT [facility] Blood Venous blood specimen / Unknown Venipuncture / Unknown 05/28/2025 5:41 AM EDT 05/28/2025 9:35 AM EDT Debora Chakraborty MD LAB BLOOD ORDERABLES Fin al Result Performing Organization Address City/[facility]/ZIP Co de Phone Number [facility] [address] [place] [address], [place] [phone] * (ABNORMAL) Hemoglobin A1c (05/28/2025 5:41 AM EDT) Hemoglobin A1C 6.5(H) <6.5 % LAB CHEMISTRY METHOD 05/28/2025 1:11 PM EDT [facility] Mean Bld Glu Estim. 140 mg/dL LAB CHEMISTRY METHOD 05/28/2025 1:11 PM [facility] Blood Venous blood specimen / Unknown Venipuncture / Unknown 05/28/2025 5:41 AM EDT 05/28/2025 9:35 AM EDT us Debora Chakraborty MD LAB BLOOD ORDERABLES Fin al Result [facility] [address] [place] [address], [place] [phone] * Comprehensive metabolic panel (05/28/2025 5:41 AM EDT) Sodium 141 133 - 145 mmol/L LAB CHEMISTRY METHOD 05/28/2025 11:03 AM [facility] Potassium 4.0 3.5 - 5.5 mmol/L LAB CHEMISTRY METHOD 05/28/2025 11:03 AM [facility] Chloride 104 96 - 110 mmol/L LAB CHEMISTRY METHOD 05/28/2025 11:03 AM [facility] CO2 29 21 - 32 mmol/L LAB CHEMISTRY METHOD 05/28/2025 11:03 AM [facility] Anion Gap 8 3 - 11 LAB CHEMISTRY METHOD 05/28/2025 11:03 AM [facility] Glucose 85 70 - 100 mg/dL LAB CHEMISTRY METHOD 05/28/2025 11:03 AM [facility] BUN 15 5 - 25 mg/dL LAB CHEMISTRY METHOD 05/28/2025 11:03 AM [facility] Creatinine 0.69 0.50 - 1.10 mg/dL LAB CHEMISTRY METHOD 05/28/2025 11:03 AM [facility] eGFR 94 >=60 mL/min/1. 73m2 LAB CHEMISTRY METHOD 05/28/2025 11:03 AM [facility] Comment:Calculation based on the Chronic Kidney Disease Epidemiology Collaboration (CKD-EPI) equation refit without adjustment for race. BUN/Creatinine Ratio 21.7 LAB CHEMISTRY METHOD 05/28/2025 11:03 AM [facility] Calcium 9.8 8.5 - 10.5 mg/dL LAB CHEMISTRY METHOD 05/28/2025 11:03 AM [facility] AST (SGOT) 28 10 - 42 unit/L LAB CHEMISTRY METHOD 05/28/2025 11:03 AM [facility] ALT (SGPT) 35 10 - 60 unit/L LAB CHEMISTRY METHOD 05/28/2025 11:03 AM [facility] Alkaline Phosphatase 69 42 - 121 unit/L LAB CHEMISTRY METHOD 05/28/2025 11:03 AM [facility] Total Protein 6.8 6.0 - 8.0 g/dL LAB CHEMISTRY METHOD 05/28/2025 11:03 AM [facility] Albumin 3.7 3.2 - 5.0 g/dL LAB CHEMISTRY METHOD 05/28/2025 11:03 AM [facility] Total Bilirubin 0.3 0.0 - 1.4 mg/dL LAB CHEMISTRY METHOD 05/28/2025 11:03 AM [facility] Blood Venous blood specimen / Unknown Venipuncture / Unknown 05/28/2025 5:41 AM EDT 05/28/2025 9:35 AM EDT us Debora Chakraborty MD LAB BLOOD ORDERABLES Fin al Result [facility] [address] [place] [address], from Last [address] [place] [id number] MEDICAID - [place] [facility] [employer] Member Subscriber Plan / Payer ( fective 2024-Present) Name:Diana Ortega Relation to Subscriber:Self Name:Diana Ortega Payer ID:[id number] Group ID:Not on file Type:Not on file Address: [facility] [address] [id number] Care Teams Brake Repairer Bus Relationship Specialty Start Date End Date Debora Chakraborty MD [address] [address] PCP - General Family Medicine 05/28/25
--- OUTSIDE RECORDS SUMMARY | 2025-07-23 08:17 | XMS_ITS | Encounter Summary ---
Author Organization [facility] Address [address] [place] [address] Care Team Providers Care Release Of Information Specialist Name Role Phone Debora Chakraborty MD Primary Care Provider + Encounter Details Date Type Department Care Team (Late st Contact Info) Description 06/02/2025 Lab Requisition [facility] - Main Lab [address] [facility] [place] [address] Debora Chakraborty MD [address] [address] Type 2 diabetes mellitus without complications (CMS/HCC [...] unspecified documented in this encounter Care Teams Release Of Information Specialist Relationship Specialty Start Date End Date Debora Chakraborty MD [address] [address] PCP - General Family Medicine 05/28/25 documented as of this encounter
--- OUTSIDE RECORDS SUMMARY | 2025-07-23 08:17 | XMS_ITS | Data Portability ---
Author Organization IWT - [employer]io [facility], [employer] [facility] Address [address] [place] [id number] Care Team Providers Care Test Design Engineer Name Role Phone HIM CCA OTHER Assessment No assessment recorded. Plan of Treatment Reminders Order Date Submit Date Provider Last Modified By Organization Details Last Modified Time Details Appointments None recorded. Lab None recorded. Referral None recorded. Procedures None recorded. Surgeries None recorded. Imaging None recorded. Medication Orders ketorolac 15 mg/mL injection solution [address] [place] [address] , [address] [place] [address], [id number], 16:33:12 Patient TargetsNo targets recorded. Patient InstructionsNo [...] /min 157.48 cm 14 /min 98 [degF] 13857.8 g 166/84 mm[Hg] Not Available InstEDNow - [...] ICD10 Code Diagnosis IMO Codes Diagnosis Note [id number] LEIDY ROJO MD [facility] ED Medical [address] [phone] 07/17/2025 16:21:22 07/18/2025 09:49:31 Pain of hip region [id number] M25.551 [id number] Evaluation in the field was performed by my automotive instructor colleague, as noted above, I provided real-time [...] Stoll Member ID Guarantor Name 07/17/2025 1 [facility] - DOS ON OR AFTER 2022 - DUAL ELIGIBLE - SKILLED NURSING OPTIONS AND ONE CARE (MEDICARE REPLACEMENT/ADV ANTAGE - HMO) Diana Ortega [id number] Diana Ortega Notes Date Note Type Note Provider Name and Address Organization Details Recorded Time 07/17/2025 text/html ROS as noted in the [facility] CRC Nurse Triage Notes (Phoebe Buckley [...] ................... ................... ................... ................... ................... ................... ........ Credit Risk Management Director Note From Karel Emmanuel: Patient alert and [...] care and plan. Caregiver on scene as holiday detector operator, strong language barrier. [facility] Medication Orders: ketorolac 15 mg/mL injection solution: Administered ................... ................... ................... ................... ................... ................... ................... ........ [facility] Consulted: Leidy Rojo ................... ................... ................... ................... ................... ................... ................... ........ Disposition: Fulfilled LEIDY ROJO MD [address] [place] [address],[facility], [place], [address], [facility] AL COOK 07/17/2025 16:58:58 OBGyn Episode No OBEpisode recorded.
--- OUTSIDE RECORDS SUMMARY | 2025-07-23 08:17 | XMS_ITS | Encounter Summary ---
Author Organization [employer] Address [address] [place] [address] Care Team Providers Care Philosophy Instructor Name Role Phone Debora Chakraborty MD Primary Care Provider + Encounter Details Date Type Department Care Team (Late st Contact Info) Description 05/28/2025 Lab Requisition [facility] - Main Lab [address] [facility] [place] [address] Debora Chakraborty MD 819 [facility] 1 [place], [place] [id number] Type 2 diabetes mellitus with unspecified complications [...] Type 2 diabetes mellitus with unspecified complications ([facility]/HCC V24, [facility] V28) Hypothyroidism, unspecified documented in this encounter Results * (ABNORMAL) Thyroid stimulating hormone (05/28/2025 5:41 AM EDT) Pathologist [facility] TSH 0.10(L) 0.40 - 4.00 mcIU/mL LAB CHEMISTRY METHOD 05/28/2025 12:47 PM EDT [facility] Blood Venous blood specimen / Unknown Venipuncture / Unknown 05/28/2025 5:41 AM EDT 05/28/2025 9:35 AM EDT Debora Chakraborty MD LAB BLOOD ORDERABLES Fin al Result Performing Organization Address [facility] Co de Phone Number [facility] [address] [place] [address], * (ABNORMAL) Hemoglobin A1c (05/28/2025 5:41 AM EDT) [facility] Hemoglobin A1C 6.5(H) <6.5 % LAB CHEMISTRY METHOD 05/28/2025 1:11 PM EDT [facility] Mean Bld Glu Estim. 140 mg/dL LAB CHEMISTRY METHOD 05/28/2025 1:11 PM EDT [facility] Blood Venous blood specimen / Unknown Venipuncture / Unknown 05/28/2025 5:41 AM EDT 05/28/2025 9:35 AM EDT Debora Chakraborty MD LAB BLOOD ORDERABLES Fin al Result Performing Organization Address [facility]/ZIP Co de Phone Number [facility] [address] [place] [address], [place] [phone] * Comprehensive metabolic panel (05/28/2025 5:41 AM EDT) [facility] Sodium 141 133 - 145 mmol/L LAB [...] unit/L LAB CHEMISTRY METHOD 05/28[facility]2025 11:[facility] Total Protein 6.8 6.0 [...] MD LAB BLOOD ORDERABLES Fin al Result [facility] [address] [place] [address], * (ABNORMAL) Complete blood count (05/28/2025 5:41 AM EDT) WBC 9.0 4.8 - 10.8 K/mcL LAB HEMETOLOGY METHOD 05/28/2025 10:13 AM [facility] RBC 4.40 3.80 - 4.80 M/mcL LAB HEMETOLOGY METHOD 05/28/2025 10:13 AM EDT [facility] Hemoglobin 12.4 11.5 - 16.0 g/dL LAB HEMETOLOGY METHOD 05/28/2025 10:13 AM [facility] Hematocrit 39.0 35.0 - 47.0 % LAB HEMETOLOGY METHOD 05/28/2025 10:13 AM [facility] MCV 87.8 79.0 - 98.0 FL LAB HEMETOLOGY METHOD 05/28/2025 10:13 AM EDT [facility] MCH 27.9 27.0 - 32.0 pcg LAB HEMETOLOGY METHOD 05/28/2025 10:13 AM EDT [facility] MCHC 31.8(L) 32.0 - 37.0 g/dL LAB HEMETOLOGY METHOD 05/28/2025 10:13 AM EDT [facility] RDW 14.2 11.0 - 15.0 % LAB HEMETOLOGY METHOD 05/28/2025 10:13 AM EDT [facility] Platelets 172 130 - 400 K/mcL LAB HEMETOLOGY METHOD 05/28/2025 10:13 AM EDT [facility] MPV 13.6(H) 7.0 - 11.0 FL LAB HEMETOLOGY METHOD 05/28/2025 10:13 AM EDT [facility] NRBC 0.0 <1.0 % LAB HEMETOLOGY METHOD 05/28/2025 10:13 AM EDT [facility] NRBC Absolute 0.00 <0.10 K/mcL LAB HEMETOLOGY METHOD 05/28/2025 10:13 AM T [facility] Blood Venous blood specimen / Unknown Venipuncture / Unknown 05/28/2025 5:41 AM EDT 05/28/2025 9:35 AM EDT us Debora Chakraborty MD LAB BLOOD ORDERABLES Fin al Result [facility] [address] [place] [address], documented in this encounter Visit Diagnoses Diagnosis Type 2 diabetes mellitus with unspecified complications (CMS/HCC V24, CMS/HCC V28) Hypothyroidism, unspecified documented in this encounter Care Teams Philosophy Instructor Relationship Specialty Start Date End Date Debora Chakraborty MD [address] [place] [id number] PCP - General Family Medicine 05/28/25 documented as of this encounter
== END ==
LOC: HO.NUCMED 08:15
PROVIDERS: PCP Internal Medicine; Visit Provider Nurse Practitioner
DX: R11.2 Nausea with vomiting, unspecified (principal); K21.9 Gastro-esophageal reflux disease without esophagitis
CPT/HCPCS: 78264; A9541

== ENCOUNTER → 2025-07-23 08:16 | Outpatient (BNV) | payer OTHER, SELFPAY | PROVIDERS: PCP Internal Medicine; Visit Provider Radiology Diagnostic Radiology | DX: R11.2 Nausea with vomiting, unspecified (principal) | CPT/HCPCS: 78264 ==

== ENCOUNTER 2025-08-14 12:11 | Outpatient (AMB) | payer OTHER, SELFPAY ==
--- NOTE | 2025-08-14 12:15 | A.OFFVIS_ITS ---
Vital Signs 08/14/25 12:17 Height 5 ft Weight 163 lb 2.273 oz BMI 31.9 BP 102/61 Blood Pressure Location Lt brachial Position Sitting Pulse 91 Intake Visit Reasons: f/u nm study Intake Note: Diana presents in the office as a follow up. CC: States she is here for results. She states that she has issues when she swallows like she has a lump in her throat. She also complains of dry mouth and pains in her left leg and was seen in the ED for that. 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 Allergies No Known Drug Allergies Allergy (Unknown, Verified 08/14/25 12:19) none HPI HPI f/u nm study: Details: Assessment & Plan (1) Nausea and vomiting: Code(s): R11.2 - Nausea with vomiting, unspecified Category: Medical (2) GERD (gastroesophageal reflux disease): Code(s): K21.9 - Gastro-esophageal reflux disease without esophagitis Category: Medical Qualifiers: Esophagitis presence: esophagitis presence not specified Qualified Code(s): K21.9 - Gastro-esophageal reflux disease without esophagitis Plan Her current GI regimen consists of esomeprazole 40 mg, famotidine, and now Reglan 5 mg 4 times a day. - The patient is a 69-year-old female presenting with gastroparesis management. - She has experienced significant weight loss attributed to gastroparesis. - Prior to initiating metoclopramide, she was unable to eat, impacting her nutritional intake. - Metoclopramide treatment has been effective, allowing her to resume eating. - Concerns were raised about the potential impact of Ozempic on delayed gastric emptying. - Scheduled for a gastric emptying study on 07/23; aware of not taking metoclopramide on the day of the test. - Plans to commence Ozempic post-test after reviewing the results for weight management Return office visit after her gastric emptying study TODAY'S VISIT [employer] # PFSH Medical History (Updated 07/23/25 @ 14:56 by GABE Haddad) Suspected cerebrovascular accident Hypertension TIA (transient ischemic attack) Diabetes mellitus Muscle spasm Acute diarrhea Dysuria Urinary leakage Pre-op examination COVID-19 Gastritis Dyspnea Encounter for Medicare annual wellness exam Hyperlipidemia LDL goal <70 Cough Leukocytosis Osteoarthritis of right knee Hyperkalemia Adult general medical exam Screening for colon cancer Screening for diabetes mellitus Screening for breast cancer Epigastric pain Constipation Diabetes Osteoporosis Difficulty swallowing Bilateral knee pain Urge urinary incontinence Hypothyroidism Autoimmune thyroiditis Pure hypercholesterolemia GERD (gastroesophageal reflux disease) Surgical History Status post total right knee replacement History of right knee surgery History of esophagogastroduodenoscopy (EGD) Hx of colonoscopy History of appendectomy History of partial hysterectomy Hx of tubal ligation HX: benign breast biopsy Hx of thyroidectomy Family History Father Prostate cancer Mother Diabetes mellitus Sister Heart problem Social History Household Members: Children Housing: Apartment Are you a primary urgent care to a significant other at home: No Do you presently have visiting nurse or other home services: No Alcohol intake: never Patient Tobacco Use Status: Former Tobacco user Tobacco use type: Cigarette Cigarettes Per Day: 6 Years Smoked: 40 e-Cigarette/Vaping Use: Never Used Second Hand Smoke Exposure: Yes Advance Directives Date on File: 01/11/24 service: No Current occupational status: unemployed Current occupational exposures/hazards: No Cognitive needs: No Hearing needs: No Vision needs: Yes Review of Systems Eyes Details: glasses Physical Exam Vital Signs: Last Vital Signs Pulse 91 08/14/25 12:17 BP 102/61 08/14/25 12:17 BMI result Body Mass Index 31.9 Results Reviewed Results Reviewed: Gastric emptying study 07/23/2025 FINDINGS: There is good visualization of activity in the stomach immediately post ingestion. As the study progresses, there is good clearance of activity from the stomach and visualization of progressively increasing small bowel activity. By the end of the study, there is almost no retention noted in the stomach. Retention in the stomach at each time interval was: 1 hour 84% (normal 37%-90%) 2 hours 68% (normal 30%-60%) 3 hours 45% 4 hours 26% (normal 0%-10%) NM/NM gastric emptying study IMPRESSION: Delayed gastric emptying with moderate retention at 4 hours. Assessment & Plan Assessment & Plan (1) Gastroparesis: Comment: 07/23/2025 GES IMPRESSION: Delayed gastric emptying with moderate retention at 4 hours. Code(s): K31.84 - Gastroparesis Category: Medical (2) GERD (gastroesophageal reflux disease): Code(s): K21.9 - Gastro-esophageal reflux disease without esophagitis Category: Medical Qualifiers: Esophagitis presence: esophagitis presence not specified Qualified Code(s): K21.9 - Gastro-esophageal reflux disease without esophagitis (3) Tubular adenoma of colon: Comment: 2023 SCOPE= SESSILE SERRATED POLYP REPEAT IN 2-3 YEARS DUE TO FAIR PREP Code(s): D12.6 - Benign neoplasm of colon, unspecified Category: Medical Plan [employer] #[id number] Her current GI regimen consists of esomeprazole 40 mg, famotidine, and now Reglan 10 mg 4 times a day Subjective Patient reports that for about one week, every time she swallows she feels as if there is a ?ball? in her throat, consistent with a globus-type sensation. She also reports very dry mouth. She notes intermittent heartburn/reflux that at times rises up to her throat. Symptoms can occur at any time of day. She is taking esomeprazole in the morning, famotidine at night, and metoclopramide four times daily. No recent medication changes (including no Ozempic dose change) and no recent illness or travel. Objective - Prior gastric emptying study demonstrated significant delay in gastric emptying. Assessment & Plan Globus sensation and gastroesophageal reflux in the setting of delayed gastric emptying (gastroparesis): Symptoms of globus sensation and intermittent reflux are likely exacerbated by delayed gastric emptying as shown on prior gastric emptying study. - Increase metoclopramide to 10 mg by mouth four times daily (breakfast, lunch, supper, and bedtime). - May use two tablets of the lower-dose metoclopramide until supply is finished, or reserve remaining lower-dose tablets for future use if needed. - Continue current acid suppression regimen as previously prescribed. - Discussed that dry indoor air in winter may worsen throat/mouth dryness; supportive measures as needed. - Follow up in approximately 8 weeks after the holidays to reassess response to the dose increase. Medications: New metoclopramide HCl (Reglan) 10 mg PO QIDACHS 120 tabs 6RF K31.84 - Gastroparesis Refilled famotidine (Pepcid) 40 mg PO BEDTIME 30 tabs 6RF esomeprazole magnesium 40 mg PO BID 60 caps 6RF K21.9 - Gastro-esophageal reflux disease without esophagitis Discontinued metoclopramide HCl (Reglan) Discontinued Reason: Doctor's Order 5 mg PO QIDACHS 120 tabs 3RF R11.2 - Nausea with vomiting, unspecified Coding Level of Care Code Est Pt Level 3 (01811) Diagnoses Gastroparesis K31.84 Gastroesophageal reflux disease, unspecified whether esophagitis present K21.9 Esophagitis presence: esophagitis presence not specified Tubular adenoma of colon D12.6
[2025-08-14 12:17] VITALS: BP 102/61; PULSE 91; BMI 31.9
--- OUTSIDE RECORDS SUMMARY | 2025-08-14 14:30 | XMS_ITS | Encounter Summary ---
Author Organization [employer] Address [address] [place] [address] Care Team Providers Care Equip Maint Eng Name Role Phone Debora Chakraborty MD Primary Care Provider + Encounter Details Date Type Department Care Team (Late st Contact Info) Description 06/02/2025 Lab Requisition [facility] - Main Lab [address] [facility] [place] [address] Debora Chakraborty MD [address] [address] Type 2 diabetes mellitus without complications (CMS/HCC [...] unspecified documented in this encounter Care Teams Equip Maint Eng Relationship Specialty Start Date End Date Debora Chakraborty MD [address] [address] PCP - General Family Medicine 05/28/25 documented as of this encounter
--- OUTSIDE RECORDS SUMMARY | 2025-08-14 14:30 | XMS_ITS | Encounter Summary ---
Author Organization [employer] Address [address] [place] [address] Care Team Providers Care Gun Examiner Name Role Phone Debora Chakraborty MD Primary Care Provider + Encounter Details Date Type Department Care Team (Late st Contact Info) Description 05/28/2025 Lab Requisition [facility] - Main Lab [address] [facility] [place] [address] Debora Chakraborty MD [address] [facility] 1 [place], [place] [id number] Type 2 diabetes mellitus with unspecified complications [...] Type 2 diabetes mellitus with unspecified complications ([facility]/HCC V24, [facility] V28) Hypothyroidism, unspecified documented in this encounter Results * (ABNORMAL) Thyroid stimulating hormone (05/28/2025 5:41 AM EDT) Pathologist [facility] TSH 0.10(L) 0.40 - 4.00 mcIU/mL LAB CHEMISTRY METHOD 05/28/2025 12:47 PM EDT [facility] Blood Venous blood specimen / Unknown Venipuncture / Unknown 05/28/2025 5:41 AM EDT 05/28/2025 9:35 AM EDT Debora Chakraborty MD LAB BLOOD ORDERABLES Fin al Result Performing Organization Address [facility] Co de Phone Number [facility] [address] [place] [address], * (ABNORMAL) Hemoglobin A1c (05/28/2025 5:41 AM EDT) [facility] Hemoglobin A1C 6.5(H) <6.5 % LAB [...] ORDERABLES Fin al Result Performing Organization Address [facility]/ZIP Co de Phone Number [facility] [address] [place] [address], [place] [phone] * Comprehensive metabolic panel (05/28/2025 5:41 AM EDT) [facility] Sodium 141 133 - 145 mmol/L [...] unit/L LAB CHEMISTRY METHOD [facility]2025 11[facility] Total Protein 6.8 6.0 [...] Result [facility] [address] [place] [address], * (ABNORMAL) Complete blood count (05/28/2025 5:41 [...] [facility] [address] [place] [address], documented in this encounter Visit Diagnoses Diagnosis Type 2 diabetes mellitus with unspecified complications (CMS/HCC V24, CMS/HCC V28) Hypothyroidism, unspecified documented in this encounter Care Teams Gun Examiner Relationship Specialty Start Date End Date Debora Chakraborty MD [address] [place] [phone] PCP - General Family Medicine 05/28/25 documented as of this encounter
--- OUTSIDE RECORDS SUMMARY | 2025-08-14 14:30 | XMS_ITS | Clinical Summary ---
Author Organization 299 [facility] Address [address] [place] [address] Phone Care Team Providers Care Vault Installer Name Role Phone Debora Chakraborty MD Primary Care Provider + Encounters Date Type Department Care Team Description 06/02/2025 Lab Requisition [facility] [address] [place] [address] Debora Chakraborty MD Type 2 diabetes mellitus without complications (CMS/HCC V24, CMS/HCC V28); Hypothyroidism, unspecified 05/28/2025 Lab Requisition [facility] Lab [address] [place] [address] Debora Chakraborty MD Type 2 [...] Type 2 diabetes mellitus with unspecified complications ([facility] V24, [facility] V28) Hypothyroidism, unspecified from Last 3 Months Results * (ABNORMAL) Complete blood count (05/28/2025 5:41 AM EDT) WBC 9.0 4.8 - 10.8 K/mcL LAB HEMETOLOGY METHOD 05/28/2025 10:13 AM [facility] RBC 4.40 3.80 - 4.80 M/mcL LAB HEMETOLOGY METHOD 05/28/2025 10:13 AM [facility] LAB Hemoglobin 12.4 11.5 - 16.0 g/dL LAB HEMETOLOGY METHOD 05/28/2025 10:13 AM [facility] LAB Hematocrit 39.0 35.0 - 47.0 % LAB HEMETOLOGY METHOD 05/28/2025 10:13 AM [facility] LAB MCV 87.8 79.0 - 98.0 FL LAB HEMETOLOGY METHOD 05/28/2025 10:13 AM [facility] MCH 27.9 27.0 - 32.0 pcg LAB HEMETOLOGY METHOD 05/28/2025 10:13 AM [facility] LAB MCHC 31.8(L) 32.0 - 37.0 g/dL LAB HEMETOLOGY METHOD 05/28/2025 10:13 AM [facility] RDW 14.2 11.0 - 15.0 % LAB HEMETOLOGY METHOD 05/28/2025 10:13 AM [facility] Platelets 172 130 - 400 K/mcL LAB HEMETOLOGY METHOD 05/28/2025 10:13 AM [facility] LAB MPV 13.6(H) 7.0 - 11.0 FL LAB HEMETOLOGY METHOD 05/28/2025 10:13 AM EDT [facility] LAB NRBC 0.0 <1.0 % LAB HEMETOLOGY METHOD 05/28/2025 10:13 AM EDT [facility] LAB NRBC Absolute 0.00 <0.10 K/mcL LAB HEMETOLOGY METHOD 05/28/2025 10:13 AM EDT [facility] Blood Venous blood specimen / Unknown Venipuncture / Unknown 05/28/2025 5:41 AM EDT 05/28/2025 9:35 AM EDT Debora Chakraborty MD LAB BLOOD ORDERABLES Fin al Result Performing Organization Address [facility]/ZIP Co de Phone Number [facility] [address] [place] [address], * (ABNORMAL) Thyroid stimulating hormone (05/28/2025 5:41 AM EDT) TSH 0.10(L) 0.40 - 4.00 mcIU/mL LAB CHEMISTRY METHOD 05/28/2025 12:47 PM EDT [facility] Blood Venous blood specimen / Unknown Venipuncture / Unknown 05/28/2025 5:41 AM EDT 05/28/2025 9:35 AM EDT Debora Chakraborty MD LAB BLOOD ORDERABLES Fin al Result Performing Organization Address City/[facility]/ZIP Co de Phone Number [facility] [address] [place] [address], [place] [phone] * (ABNORMAL) Hemoglobin A1c (05/28/2025 5:41 AM EDT) Hemoglobin A1C 6.5(H) <6.5 % LAB CHEMISTRY METHOD 05/28/2025 1:11 PM EDT [facility] Mean Bld Glu Estim. 140 mg/dL LAB CHEMISTRY METHOD 05/28/2025 1:11 PM [facility] Blood Venous blood specimen / Unknown Venipuncture / Unknown 05/28/2025 5:41 AM EDT 05/28/2025 9:35 AM EDT us Debora Chakraborty MD LAB BLOOD ORDERABLES Fin al Result [facility] [address] [place] [address], [place] [phone] * Comprehensive metabolic panel (05/28/2025 5:41 AM EDT) Sodium 141 133 - 145 mmol/L LAB CHEMISTRY METHOD 05/28/2025 11:03 AM [facility] Potassium 4.0 3.5 - 5.5 mmol/L LAB CHEMISTRY METHOD 05/28/2025 11:03 AM [facility] Chloride 104 96 - 110 mmol/L LAB CHEMISTRY METHOD 05/28/2025 11:03 AM [facility] CO2 29 21 - 32 mmol/L LAB CHEMISTRY METHOD 05/28/2025 11:03 AM [facility] Anion Gap 8 3 - 11 LAB CHEMISTRY METHOD 05/28/2025 11:03 AM [facility] Glucose 85 70 - 100 mg/dL LAB CHEMISTRY METHOD 05/28/2025 11:03 AM [facility] BUN 15 5 - 25 mg/dL LAB CHEMISTRY METHOD 05/28/2025 11:03 AM [facility] Creatinine 0.69 0.50 - 1.10 mg/dL LAB CHEMISTRY METHOD 05/28/2025 11:03 AM [facility] eGFR 94 >=60 mL/min/1. 73m2 LAB CHEMISTRY METHOD 05/28/2025 11:03 AM [facility] Comment:Calculation based on the Chronic Kidney Disease Epidemiology Collaboration (CKD-EPI) equation refit without adjustment for race. BUN/Creatinine Ratio 21.7 LAB CHEMISTRY METHOD 05/28/2025 11:03 AM [facility] Calcium 9.8 8.5 - 10.5 mg/dL LAB CHEMISTRY METHOD 05/28/2025 11:03 AM [facility] AST (SGOT) 28 10 - 42 unit/L LAB CHEMISTRY METHOD 05/28/2025 11:03 AM [facility] ALT (SGPT) 35 10 - 60 unit/L LAB CHEMISTRY METHOD 05/28/2025 11:03 AM [facility] Alkaline Phosphatase 69 42 - 121 unit/L LAB CHEMISTRY METHOD 05/28/2025 11:03 AM [facility] Total Protein 6.8 6.0 - 8.0 g/dL LAB CHEMISTRY METHOD 05/28/2025 11:03 AM [facility] Albumin 3.7 3.2 - 5.0 g/dL LAB CHEMISTRY METHOD 05/28/2025 11:03 AM [facility] Total Bilirubin 0.3 0.0 - 1.4 mg/dL LAB CHEMISTRY METHOD 05/28/2025 11:03 AM [facility] Blood Venous blood specimen / Unknown Venipuncture / Unknown 05/28/2025 5:41 AM EDT 05/28/2025 9:35 AM EDT us Debora Chakraborty MD LAB BLOOD ORDERABLES Fin al Result [facility] [address] [place] [address], from Last [address] [place] [id number] MEDICAID - [place] [facility] ASSISTED OPTIONS Member Subscriber Plan / Payer ( fective 2024-Present) Name:Diana Ortega Relation to Subscriber:Self Name:Diana Ortega Payer ID:[id number] Group ID:Not on file Type:Not on file Address: [facility] [address] [id number] Care Teams Vault Installer Relationship Specialty Start Date End Date Debora Chakraborty MD [address] [address] PCP - General Family Medicine 05/28/25
== END 2025-08-14 15:19 | disposition home or self-care (01) ==
LOC: HO.HGI 12:12
PROVIDERS: PCP Internal Medicine; Visit Provider Nurse Practitioner
DX: K31.84 Gastroparesis (principal); K21.9 Gastro-esophageal reflux disease without esophagitis; D12.6 Benign neoplasm of colon, unspecified
CPT/HCPCS: 99213

== ENCOUNTER → 2025-08-14 12:11 | Outpatient (BNVA) | payer OTHER, SELFPAY | PROVIDERS: PCP Internal Medicine; Visit Provider Nurse Practitioner | DX: K31.84 Gastroparesis (principal); K21.9 Gastro-esophageal reflux disease without esophagitis; D12.6 Benign neoplasm of colon, unspecified; Z79.899 Other long term (current) drug therapy | CPT/HCPCS: 99212 ==

== ENCOUNTER 2025-08-15 15:28 | Outpatient (AMB) | payer OTHER, SELFPAY ==
[2025-08-15 15:34] VITALS: BP 126/66; PULSE 84; TEMP 36.2; O2SAT 96; BMI 32.2
--- NOTE | 2025-08-15 15:34 | A.OFFPC_ITS ---
Vital Signs 08/15/25 15:34 Height 5 ft Weight 165 lb 2 oz BMI 32.2 BP 126/66 Blood Pressure Location Rt brachial Position Sitting Pulse 84 Pulse Source Pulse Oximeter Temp 97.1 F Temp Source Temporal Artery Scan Pulse Oximetry (%) 96 Oxygen Delivery Method Room Air Intake Visit Reasons: LT leg pain Market Master Required: No Market Master Name: Provider speaks british virgin islander Accompanied by: Self / Same As Patient Allergies No Known Drug Allergies Allergy (Unknown, Verified 08/15/25 15:48) none Medication List - Last Reconciled 08/15/25 by Christina Lara MD albuterol sulfate 90 mcg/actuation (Ventolin HFA) 2 puffs inhalation Q6H PRN 30 days baclofen 10 mg PO BID PRN 30 days blood sugar diagnostic As directed Once per day blood sugar diagnostic ([employer] Ultra Test strips) test daily blood-glucose meter ([employer] Ultra2 Meter) test daily blood-glucose meter As directed celecoxib (Celebrex) 200 mg PO BID 30 days cyanocobalamin (vitamin B-12) 1,000 mcg IM QMONTH 4 weeks cyclobenzaprine 10 mg PO TID PRN esomeprazole magnesium 40 mg PO BID famotidine (Pepcid) 40 mg PO BEDTIME gabapentin 200 mg (2 x 100 mg) PO BEDTIME 90 days Grab bar As directed lancets ([employer] UltraSoft 2 Lancet) test daily lancets As directed Once per day levothyroxine 88 mcg PO DAILY 90 days metformin 850 mg PO BID 90 days metoclopramide HCl (Reglan) 10 mg PO QIDACHS rosuvastatin 20 mg PO DAILY@1400 Shower Chair As directed syringe with needle ([employer] Luer Lock Syringe with needle) Use 1 needle once a month valproic acid 500 mg (2 x 250 mg) PO BID 90 days walker Folding Front wheeled walker Tobacco use date assessed: 08/15/25 Fall risk assessment: No Falls in past year Last assessed Fall Risk: 08/15/25 Dental Screening Dental Screen Date: 08/15/25 Did you have a dental visit in the last 12 months?: No Did you have a dental problem in the last 6 months where you did not have access to dental care?: No Was dental information given to patient?: Patient has dentist HPI HPI Comments History of Present Illness Details The patient is a 69-year-old female presenting for evaluation of left leg pain. She reports that she went to the emergency room on the 7th of the month for severe pain in her left leg, which was so debilitating she could not drag it and required assistance. She denies any preceding fall. In the ER, a CT scan of the pelvis was performed. She was diagnosed with sciatica and was prescribed cyclobenzaprine. Her medical history is significant for well-controlled type 2 diabetes mellitus, with her last A1C being 6.1% in May. She also has hypothyroidism with a normal last TSH. Her blood pressure today was noted to be within goal at 126/66 mmHg. Her current medications include albuterol, baclofen, celecoxib, vitamin B12, cyclobenzaprine, esomeprazole, famotidine, gabapentin, levothyroxine 88 mcg, metformin 850 mg, metoclopramide for gastroparesis, rosuvastatin, and valproic acid. She quit smoking one year ago and denies alcohol use. [facility] Medical History (Updated 08/15/25 @ 15:59 by Christina Lara MD) Suspected cerebrovascular accident Hypertension TIA (transient ischemic attack) Diabetes mellitus Muscle spasm Acute diarrhea Dysuria Urinary leakage Pre-op examination COVID-19 Gastritis Dyspnea Encounter for Medicare annual wellness exam Hyperlipidemia LDL goal <70 Cough Leukocytosis Osteoarthritis of right knee Hyperkalemia Adult general medical exam Screening for colon cancer Screening for diabetes mellitus Screening for breast cancer Epigastric pain Constipation Diabetes Osteoporosis Difficulty swallowing Bilateral knee pain Urge urinary incontinence Hypothyroidism Autoimmune thyroiditis Pure hypercholesterolemia GERD (gastroesophageal reflux disease) Surgical History Status post total right knee replacement History of right knee surgery History of esophagogastroduodenoscopy (EGD) Hx of colonoscopy History of appendectomy History of partial hysterectomy Hx of tubal ligation HX: benign breast biopsy Hx of thyroidectomy Family History Father Prostate cancer Mother Diabetes mellitus Sister Heart problem Social History Household Members: Children Housing: Apartment Are you a primary career and guidance counselor to a significant other at home: No Do you presently have visiting nurse or other home services: No Alcohol intake: never Patient Tobacco Use Status: Former Tobacco user Tobacco use type: Cigarette Cigarettes Per Day: 6 Years Smoked: 40 Packs per year/per ci.00 e-Cigarette/Vaping Use: Never Used Second Hand Smoke Exposure: Yes Advance Directives Date on File: 01/11/24 service: No Current occupational status: unemployed Current occupational exposures/hazards: No Cognitive needs: No Hearing needs: No Vision needs: Yes Questionnaire PHQ-9 Over the last 2 weeks, how often have you been bothered by any of the following problems? 1. Little interest or pleasure in doing things: several days 2. Feeling down, depressed, or hopeless: not at all 3. Trouble falling or staying asleep, or sleeping too much: not at all 4. Feeling tired or having little energy: not at all 5. Poor appetite or overeating: not at all 6. Feeling bad about yourself - or that you are a failure or have let yourself or your family down: not at all 7. Trouble concentrating on things, such as reading the newspaper or watching television: not at all 8. Moving or speaking so slowly that other people could have noticed. Or the opposite - being so fidgety or restless that you have been moving around a lot more than usual: not at all 9. Thoughts that you would be better off or of hurting yourself in some way: not at all Total score: 1 Depression Screening Interpretation: Negative Depression Screening Done: Yes 01985 - PHQ-9 Billing: Yes Source: Developed by Drs. Jermaine Yanes, Xenia Monsivais, Pan Liu and colleagues, with an educational claude from [employer]. Thrive Questionnaire Date Thrive assessed: 08/15/25 I am a: Patient What is your living situation today?: I have a steady place to live Within the past 12 months, did the food you bought not last and you didn't have the money to get more?: I choose not to answer this question Within the past 12 months, did you worry whether your food would run out before you got money to buy more?: I choose not to answer this question Do you have trouble paying for medicines?: I choose not to answer this question Do you have trouble getting transportation to medical appointments?: I choose not to answer this question Do you have trouble paying your heating and electricity bill?: I choose not to answer this question Do you have trouble taking care of your child, family member or friend?: I choose not to answer this question Do you have trouble with day-to-day activities such as bathing, preparing meals, shopping, managing finances, etc.?: I choose not to answer this question Are you currently unemployed and looking for a job?: I choose not to answer this question Are you interested in more education?: I choose not to answer this question Please select the resources that you would like help with: None Currently or been in a relationship where the following occur: I choose not to answer THRIVE Score: 0 AUDIT C Alcohol Use Questionnaire (AUDIT-C) 1. How often do you have a drink containing alcohol?: Never 3. How often do you have six or more drinks on one occasion?: Never Total Score: 0 Score Reviewed/Action Taken: No JUAN-7 AMB Questionnaire JUAN-7 Date JUAN - 7 assessed: 08/15/25 Feeling nervous, anxious, or on edge: 0 = Not at all Not being able to stop or control worryin = Not at all Worrying too much about different things: 0 = Not at all Trouble relaxin = Not at all Being so restless that it is hard to sit still: 0 = Not at all Becoming easily annoyed or irritable: 0 = Not at all Feeling afraid as if something awful might happen: 0 = Not at all Total JUAN-7 score (0-4 normal; 5-9 mild; 10-14 moderate; 15-21 severe): 0 Source: Developed by Drs. Jermaine Yanes, Xenia Monsivais, Pan Liu and colleagues, with an educational claude from [employer]. JUAN-7 Assessment Billing JUAN-7 Assessment Tool: JUAN-7 Assessment 40542 Review of Systems Const All systems reviewed & are unremarkable except as noted in HPI and below Card Denies chest pain at rest, Denies chest pain with activity, Denies edema, Denies irregular heart rhythm, Denies claudication, Denies dyspnea, Denies dyspnea on exertion, Denies orthopnea, Denies paroxysmal nocturnal dyspnea and Denies slow heart rate Resp Denies cough, Denies dyspnea and Denies dyspnea on exertion Physical exam (Primary Care) Vital Signs: Last Vital Signs Temp 97.1 F 08/15/25 15:34 Pulse 84 08/15/25 15:34 BP 126/66 08/15/25 15:34 Pulse Ox 96 08/15/25 15:34 Oxygen Delivery Method Room Air 08/15/25 15:34 BMI result Body Mass Index 32.2 BMI Assessment/Plan discussion: High BMI High, discussed plan: lifestyle, weight reduction, dietary and physical activity Tobacco/Smoking Status: Tobacco use Status Tobacco use date assessed 08/15/25 08/15/25 15:35 Patient Tobacco Use Status Former Tobacco user 08/15/25 15:35 Tobacco use type Cigarette 08/15/25 15:35 e-Cigarette/Vaping Use Never Used 08/15/25 15:35 PHQ-9: PHQ-9 Score PHQ-9: Total score 1 08/15/25 16:33 Depression Screening Interpretation: Negative Thrive Assessment: Date of Thrive Assessment Date Thrive assessed 08/15/25 08/15/25 15:35 Currently or been in a relationship where the following occur: I choose not to answer Resp Effort & Inspection: normal respiratory effort Auscultation: clear to auscultation bilaterally Cardio Jugular venous distension: no JVD Rate: regular rate Rhythm: regular rhythm Heart sounds: S1 normal heart sound present and S2 normal heart sound present Extrem General: Yes full ROM Office Procedures Flu Questionnaire Does the patient have a severe egg allergy?: No Does the patient have severe life threatening allergies?: No Does the patient have a fever or illness today?: No Has the patient ever had Guillain-[place] Syndrome?: No Has the patient ever had any past reaction to a flu shot?: No Immunizations Fluarix [id number] (PF) 45 mcg (15 mcg x 3)/0.5 mL IM syringe Performing Provider: Christina Lara MD Performing Location: [facility] Documented (not given) by: Kaylene Ortega CMA on 08/15/25 16:33 Reason Not Given: Patient Refused Coding Level of Care Code Complex visit Add On G2211 Diagnoses Diabetes E11.9 Pure hypercholesterolemia E78.00 Autoimmune thyroiditis E06.3 Left sided sciatica M54.32 Additional Codes JUAN-7 Assessment Billing - JUAN-7 Assessment Tool: JUAN-7 Assessment 27628 ([id number]) PHQ-9 - 04642 - PHQ-9 Billing: Yes ([id number]) Time Spent (min) 22 Assessment & Plan Assessment & Plan (1) Diabetes: Code(s): E11.9 - Type 2 diabetes mellitus without complications Category: Medical (2) Pure hypercholesterolemia: Code(s): E78.00 - Pure hypercholesterolemia, unspecified Category: Medical (3) Autoimmune thyroiditis: Code(s): E06.3 - Autoimmune thyroiditis Category: Medical (4) Left sided sciatica: Code(s): M54.32 - Sciatica, left side Category: Medical Plan Plan 1. Sciatica, Left Side The patient presents with left-sided sciatica, which was diagnosed in the emergency room after a CT scan of the pelvis. She is currently taking gabapentin three times a day for the pain. The plan is to increase her gabapentin dose to 400 mg three times per day. The patient was advised to monitor for drowsiness. A referral will be placed for physical therapy. Follow-up is scheduled for September. 2. Type 2 Diabetes Mellitus The patient's type 2 diabetes mellitus is well-controlled with metformin, with the last A1c being 6.1%. The plan is to continue the current management. 3. Hypothyroidism The patient's hypothyroidism is stable on levothyroxine, with her last TSH being normal. She will continue her current medication. 4. Essential Hypertension The patient's blood pressure is well controlled at 126/66 mmHg, which is within the goal. She will continue her current management. Orders: Orders Influenza [id number] Immunization Today Z23 - Encounter for immunization PT Evaluation and Treatment Today M54.32 - Sciatica, left side Microalbumin, Random (w Creat) Today R80.9 - Proteinuria, unspecified Vitamin D 25-OH Total Today E55.9 - Vitamin D deficiency, unspecified Comprehensive [place]. Panel Fast Today E11.9 - Type 2 diabetes mellitus without complications Lipid Panel Today E78.5 - Hyperlipidemia, unspecified Vitamin B12 and Folate Today E53.8 - Deficiency of other specified B group vitamins Thyroid Stimulating Hormone Today E06.3 - Autoimmune thyroiditis Medications: New gabapentin 400 mg PO TID 90 caps 1RF 30 days Discontinued gabapentin Discontinued Reason: Order 200 mg (2 x 100 mg) PO BEDTIME 90 days 180 caps 1RF
--- OUTSIDE RECORDS SUMMARY | 2025-08-15 21:38 | XMS_ITS | Data Portability ---
Author Organization [facility] [facility] [facility], [facility] Address [address] [place] [phone] Care Team Providers Care Insurance Follow Up Specialist Name Role Phone HIM CCA OTHER Assessment No assessment recorded. Plan of Treatment Reminders Order Date Submit Date Provider Last Modified By Organization Details Last Modified Time Details Appointments None recorded. Lab None recorded. Referral None recorded. Procedures None recorded. Surgeries None recorded. Imaging None recorded. Medication Orders ketorolac 15 mg/mL injection solution [address] [place] [address] , [address] [place] [address], [id number], 16:33:12 Patient TargetsNo targets recorded. Patient InstructionsNo [...] Not Available No t Available amox[facility] clavulanate 125 mg tablet TOME 1 TABLETA POR V A ORAL DOS VECES AL D A POR 10 D 07/17 completed Not Available Not Available Not Available Vitals Date Recorded Oxygen saturation Heart rate Body height Respiratory rate Body temperature Body weight Systolic And Diastolic Provider Name and Address Organization Details Last Updated DateTime 98 % 78 /min 157.48 cm 14 /min 98 [degF] 71083.8 g 166/84 mm[Hg] Not Available [employer] - [...] ICD10 Code Diagnosis IMO Codes Diagnosis Note [id number] LEIDY ROJO MD [facility] ED Medical [facility] [address] [place] [address] 07/17/2025 16:21:22 07/18/2025 09:49:31 Pain of hip region [id number] M25.551 [id number] Evaluation in the field was performed by my life insurance underwriter colleague, as noted above, I provided real-time [...] Stoll Member ID Guarantor Name 07/17/2025 1 [facility] - DOS ON OR AFTER 2022 - DUAL ELIGIBLE - [facility] OPTIONS AND ONE CARE (MEDICARE REPLACEMENT/ADV ANTAGE - HMO) Diana Ortega [id number] Diana Ortega Notes Date Note Type Note Provider Name and Address Organization Details Recorded Time 07/17/2025 text/html ROS as noted in the [facility] Nurse Triage Notes (Phoebe uBckley - RN): Reason For Request: Pt's son [...] ................... ................... ................... ................... ................... ................... ........ Business Development Director Note From Karel Emmanuel: Patient alert [...] care and plan. Caregiver on scene as seismic interpreter, strong language barrier. [facility] Orders: ketorolac 15 mg/mL injection solution: Administered ................... ................... ................... ................... ................... ................... ................... ........ [facility] [place] Consulted: Leidy Rojo ................... ................... ................... ................... ................... ................... ................... ........ Disposition: Fulfilled LEIDY ROJO MD [address] [place] [address],[address] [facility], [place], [phone], [employer] 07/17/2025 16:58:58 OBGyn Episode No OBEpisode recorded.
--- OUTSIDE RECORDS SUMMARY | 2025-08-15 21:38 | XMS_ITS | Continuity of Care Document ---
Author Organization [place] - [facility], [facility] Address [address] [place] [phone] Care Team Providers Care Front Office Representative Name Role Phone HIM CCA OTHER Assessment No assessment recorded. Plan of Treatment Reminders Order Date Submit Date Provider Last Modified By Organization Details Last Modified Time Details Appointments None recorded. Lab None recorded. Referral None recorded. Procedures None recorded. Surgeries None recorded. Imaging None recorded. Medication Orders ketorolac 15 mg/mL injection solution [address] [place] [address] , [address] [place] [address], [id number], 16:33:12 Patient TargetsNo targets recorded. Patient InstructionsNo [...] Not Available No t Available amoxicillin 875 mg-paulieiu m clavulanate 125 mg tablet TOME 1 TABLETA POR V A ORAL DOS VECES AL D A POR 10 D 07/17 completed Not Available Not Available Not Available Vitals Date Recorded Oxygen saturation Heart rate Body height Respiratory rate Body temperature Body weight Systolic And Diastolic Provider Name and Address Organization Details Last Updated DateTime 5 98 % 78 /min 157.48 cm 14 /min 98 [degF] 41011.8 g 166/84 mm[Hg] Not Available InstEDNow - [...] ICD10 Code Diagnosis IMO Codes Diagnosis Note [id number] LEIDY ROJO MD [facility] ED Medical [facility] [address] [place] [address] 07/17/2025 16:21:22 07/18/2025 09:49:31 Pain of hip region [id number] M25.551 [id number] Evaluation in the field was performed by my musical string maker colleague, as noted above, I provided real-time [...] Stoll Member ID Guarantor Name 07/17/2025 1 [facility] - DOS ON OR AFTER 2022 - DUAL ELIGIBLE - LONGTERM OPTIONS AND ONE CARE (MEDICARE REPLACEMENT/ADV ANTAGE - HMO) Diana Ortega [id number] Diana Ortega Notes Date Note Type Note Provider Name and Address Organization Details Recorded Time 07/17/2025 text/html ROS as noted in the [facility] CRC Nurse Triage Notes (Phoebe Buckley - [...] ................... ................... ................... ................... ................... ................... ........ Master Fire Control Technician Note From Karel Emmanuel: Patient alert and [...] care and plan. Caregiver on scene as translator and interpreter, strong language barrier. [facility] [place] Orders: ketorolac 15 mg/mL injection solution: Administered ................... ................... ................... ................... ................... ................... ................... ........ [facility] [place] Consulted: Leidy Rojo ................... ................... ................... ................... ................... ................... ................... ........ Disposition: Quincy ROJO MD 30 [facility],[address] [facility], [place], [address], [employer] 07/17/2025 16:58:58 OBGyn Episode No OBEpisode recorded.
--- OUTSIDE RECORDS SUMMARY | 2025-08-15 21:38 | XMS_ITS | Encounter Summary ---
Author Organization [employer] Address [address] [place] [address] Care Team Providers Care Exchange Floor Manager Name Role Phone Debora Chakraborty MD Primary Care Provider + Encounter Details Date Type Department Care Team (Late st Contact Info) Description 06/02/2025 Lab Requisition [facility] - Main Lab 299 [facility] [place] [address] Debora Chakraborty MD [address] [address] Type 2 diabetes mellitus without complications (CMS/HCC [...] unspecified documented in this encounter Care Teams Exchange Floor Manager Relationship Specialty Start Date End Date Debora Chakraborty MD [address] [address] PCP - General Family Medicine 05/28/25 documented as of this encounter
--- OUTSIDE RECORDS SUMMARY | 2025-08-15 21:38 | XMS_ITS | Encounter Summary ---
Author Organization [employer] Address [address] [place] [address] Care Team Providers Care Vibrator Equipment Tester Name Role Phone Debora Chakraborty MD Primary Care Provider + Encounter Details Date Type Department Care Team (Late st Contact Info) Description 05/28/2025 Lab Requisition [facility] - Main Lab 299 [facility] [place] [address] Debora Chakraborty MD 819 [facility] 1 [place], [place] [id number] Type 2 diabetes mellitus with unspecified complications [...] Type 2 diabetes mellitus with unspecified complications ([facility]/HCC V24, [facility] V28) Hypothyroidism, unspecified documented in this encounter Results * (ABNORMAL) Thyroid stimulating hormone (05/28/2025 5:41 AM EDT) Pathologist [facility] TSH 0.10(L) 0.40 - 4.00 mcIU/mL LAB CHEMISTRY METHOD 05/28/2025 12:47 PM EDT [facility] LAB Blood Venous blood specimen / Unknown Venipuncture / Unknown 05/28/2025 5:41 AM EDT 05/28/2025 9:35 AM EDT Debora Chakraborty MD LAB BLOOD ORDERABLES Fin al Result Performing Organization Address [facility] Co de Phone Number [facility] [address] [place] [address], * (ABNORMAL) Hemoglobin A1c (05/28/2025 5:41 AM EDT) [facility] Hemoglobin A1C 6.5(H) <6.5 % LAB CHEMISTRY METHOD 05/28/2025 1:11 PM EDT [facility] Mean Bld Glu Estim. 140 mg/dL LAB CHEMISTRY METHOD 05/28/2025 1:11 PM EDT [facility] Blood Venous blood specimen / Unknown Venipuncture / Unknown 05/28/2025 5:41 AM EDT 05/28/2025 9:35 AM EDT Debora Chakraborty MD LAB BLOOD ORDERABLES Fin al Result Performing Organization Address [facility]/ZIP Co de Phone Number [facility] [address] [place] [address], [place] [phone] * Comprehensive metabolic panel (05/28/2025 5:41 AM EDT) [facility] Sodium 141 133 - 145 mmol/L [...] MD LAB BLOOD ORDERABLES Fin al Result [facility] [address] [place] [address], * (ABNORMAL) Complete blood count (05/28/2025 5:41 AM EDT) WBC 9.0 4.8 - 10.8 K/mcL LAB HEMETOLOGY METHOD 05/28/2025 10:13 AM [facility] RBC 4.40 3.80 - 4.80 M/mcL LAB HEMETOLOGY METHOD 05/28/2025 10:13 AM EDT [facility] Hemoglobin 12.4 11.5 - 16.0 g/dL LAB HEMETOLOGY METHOD 05/28/2025 10:13 AM [facility] LAB Hematocrit 39.0 35.0 - 47.0 % LAB HEMETOLOGY METHOD 05/28/2025 10:13 AM [facility] LAB MCV 87.8 79.0 - 98.0 FL LAB HEMETOLOGY METHOD 05/28/2025 10:13 AM EDT [facility] MCH 27.9 27.0 - 32.0 pcg LAB HEMETOLOGY METHOD 05/28/2025 10:13 AM EDT [facility] LAB MCHC 31.8(L) 32.0 - 37.0 g/dL LAB HEMETOLOGY METHOD 05/28/2025 10:13 AM EDT [facility] RDW 14.2 11.0 - 15.0 % LAB HEMETOLOGY METHOD 05/28/2025 10:13 AM EDT [facility] Platelets 172 130 - 400 K/mcL LAB HEMETOLOGY METHOD 05/28/2025 10:13 AM EDT [facility] MPV 13.6(H) 7.0 - 11.0 FL LAB HEMETOLOGY METHOD 05/28/2025 10:13 AM EDT [facility] NRBC 0.0 <1.0 % LAB HEMETOLOGY METHOD 05/28/2025 10:13 AM EDT [facility] LAB NRBC Absolute 0.00 <0.10 K/mcL LAB HEMETOLOGY METHOD 05/28/2025 10:13 AM T [facility] LAB Blood Venous blood specimen / Unknown Venipuncture / Unknown 05/28/2025 5:41 AM EDT 05/28/2025 9:35 AM EDT us Debora Chakraborty MD LAB BLOOD ORDERABLES Fin al Result [facility] [address] [place] [address], documented in this encounter Visit Diagnoses Diagnosis Type 2 diabetes mellitus with unspecified complications (CMS/HCC V24, CMS/HCC V28) Hypothyroidism, unspecified documented in this encounter Care Teams Vibrator Equipment Tester Relationship Specialty Start Date End Date Debora Chakraborty MD [address] [place] [address] PCP - General Family Medicine 05/28/25 documented as of this encounter
--- OUTSIDE RECORDS SUMMARY | 2025-08-15 21:38 | XMS_ITS | Clinical Summary ---
Author Organization 299 [facility] Address [address] [place] [address] Phone Care Team Providers Care Header Up Name Role Phone Debora Chakraborty MD Primary Care Provider + Encounters Date Type Department Care Team Description 06/02/2025 Lab Requisition [facility] Lab [address] [place] [address] Debora Chakraborty MD Type 2 diabetes mellitus without complications (CMS/HCC V24, CMS/HCC V28); Hypothyroidism, unspecified 05/28/2025 Lab Requisition [facility] Lab [address] [place] [address] Debora Chakraborty MD Type 2 [...] Type 2 diabetes mellitus with unspecified complications ([facility] V24, [facility] V28) Hypothyroidism, unspecified from Last 3 Months Results * (ABNORMAL) Complete blood count (05/28/2025 5:41 AM EDT) WBC 9.0 4.8 - 10.8 K/mcL LAB HEMETOLOGY METHOD 05/28/2025 10:13 AM [facility] LAB RBC 4.40 3.80 - 4.80 M/mcL LAB HEMETOLOGY METHOD 05/28/2025 10:13 AM [facility] LAB Hemoglobin 12.4 11.5 - 16.0 g/dL LAB HEMETOLOGY METHOD 05/28/2025 10:13 AM [facility] LAB Hematocrit 39.0 35.0 - 47.0 % LAB HEMETOLOGY METHOD 05/28/2025 10:13 AM [facility] LAB MCV 87.8 79.0 - 98.0 FL LAB HEMETOLOGY METHOD 05/28/2025 10:13 AM [facility] LAB MCH 27.9 27.0 - 32.0 pcg LAB HEMETOLOGY METHOD 05/28/2025 10:13 AM [facility] LAB MCHC 31.8(L) 32.0 - 37.0 g/dL LAB HEMETOLOGY METHOD 05/28/2025 10:13 AM [facility] LAB RDW 14.2 11.0 - 15.0 % LAB HEMETOLOGY METHOD 05/28/2025 10:13 AM [facility] LAB Platelets 172 130 - 400 K/mcL LAB HEMETOLOGY METHOD 05/28/2025 10:13 AM [facility] LAB MPV 13.6(H) 7.0 - 11.0 FL LAB HEMETOLOGY METHOD 05/28/2025 10:13 AM EDT [facility] NRBC 0.0 <1.0 % LAB HEMETOLOGY METHOD 05/28/2025 10:13 AM EDT [facility] NRBC Absolute 0.00 <0.10 K/mcL LAB HEMETOLOGY METHOD 05/28/2025 10:13 AM EDT [facility] Blood Venous blood specimen / Unknown Venipuncture / Unknown 05/28/2025 5:41 AM EDT 05/28/2025 9:35 AM EDT Debora Chakraborty MD LAB BLOOD ORDERABLES Fin al Result Performing Organization Address [facility]/ZIP Co de Phone Number [facility] [address] [place] [address], * (ABNORMAL) Thyroid stimulating hormone (05/28/2025 5:41 AM EDT) TSH 0.10(L) 0.40 - 4.00 mcIU/mL LAB CHEMISTRY METHOD 05/28/2025 12:47 PM EDT [facility] Blood Venous blood specimen / Unknown Venipuncture / Unknown 05/28/2025 5:41 AM EDT 05/28/2025 9:35 AM EDT Debora Chakraborty MD LAB BLOOD ORDERABLES Fin al Result Performing Organization Address City/[facility]/ZIP Co de Phone Number [facility] [address] [place] [address], [place] [phone] * (ABNORMAL) Hemoglobin A1c (05/28/2025 5:41 AM EDT) Hemoglobin A1C 6.5(H) <6.5 % LAB CHEMISTRY METHOD 05/28/2025 1:11 PM EDT [facility] Mean Bld Glu Estim. 140 mg/dL LAB CHEMISTRY METHOD 05/28/2025 1:11 PM [facility] Blood Venous blood specimen / Unknown Venipuncture / Unknown 05/28/2025 5:41 AM EDT 05/28/2025 9:35 AM EDT us Debora Chakraborty MD LAB BLOOD ORDERABLES Fin al Result [facility] [address] [place] [address], [place] [phone] * Comprehensive metabolic panel (05/28/2025 5:41 AM EDT) Sodium 141 133 - 145 mmol/L LAB CHEMISTRY METHOD 05/28/2025 11:03 AM [facility] Potassium 4.0 3.5 - 5.5 mmol/L LAB CHEMISTRY METHOD 05/28/2025 11:03 AM [facility] Chloride 104 96 - 110 mmol/L LAB CHEMISTRY METHOD 05/28/2025 11:03 AM [facility] CO2 29 21 - 32 mmol/L LAB CHEMISTRY METHOD 05/28/2025 11:03 AM [facility] Anion Gap 8 3 - 11 LAB CHEMISTRY METHOD 05/28/2025 11:03 AM [facility] Glucose 85 70 - 100 mg/dL LAB CHEMISTRY METHOD 05/28/2025 11:03 AM [facility] BUN 15 5 - 25 mg/dL LAB CHEMISTRY METHOD 05/28/2025 11:03 AM [facility] Creatinine 0.69 0.50 - 1.10 mg/dL LAB CHEMISTRY METHOD 05/28/2025 11:03 AM [facility] LAB eGFR 94 >=60 mL/min/1. 73m2 LAB CHEMISTRY METHOD 05/28/2025 11:03 AM [facility] Comment:Calculation based on the Chronic Kidney Disease Epidemiology Collaboration (CKD-EPI) equation refit without adjustment for race. BUN/Creatinine Ratio 21.7 LAB CHEMISTRY METHOD 05/28/2025 11:03 AM [facility] Calcium 9.8 8.5 - 10.5 mg/dL LAB CHEMISTRY METHOD 05/28/2025 11:03 AM [facility] AST (SGOT) 28 10 - 42 unit/L LAB CHEMISTRY METHOD 05/28/2025 11:03 AM [facility] ALT (SGPT) 35 10 - 60 unit/L LAB CHEMISTRY METHOD 05/28/2025 11:03 AM [facility] Alkaline Phosphatase 69 42 - 121 unit/L LAB CHEMISTRY METHOD 05/28/2025 11:03 AM [facility] Total Protein 6.8 6.0 - 8.0 g/dL LAB CHEMISTRY METHOD 05/28/2025 11:03 AM [facility] Albumin 3.7 3.2 - 5.0 g/dL LAB CHEMISTRY METHOD 05/28/2025 11:03 AM [facility] Total Bilirubin 0.3 0.0 - 1.4 mg/dL LAB CHEMISTRY METHOD 05/28/2025 11:03 AM [facility] Blood Venous blood specimen / Unknown Venipuncture / Unknown 05/28/2025 5:41 AM EDT 05/28/2025 9:35 AM EDT us Debora Chakraborty MD LAB BLOOD ORDERABLES Fin al Result [facility] [address] [place] [address], from Last [address] [id number] MEDICAID - [place] [facility] RESIDENTIAL OPTIONS Member Subscriber Plan / Payer ( fective 2024-Present) Name:Diana Ortega Relation to Subscriber:Self Name:Diana Ortega Payer ID:[id number] Group ID:Not on file Type:Not on file Address: [facility] [address] [id number] Care Teams Header Up Relationship Specialty Start Date End Date Debora Chakraborty MD [address] [address] PCP - General Family Medicine 05/28/25
== END 2025-08-15 16:00 | disposition home or self-care (01) ==
LOC: HO.HMCH 15:29
PROVIDERS: PCP Internal Medicine; Visit Provider Internal Medicine
DX: E11.9 Type 2 diabetes mellitus without complications (principal); E78.00 Pure hypercholesterolemia, unspecified; E06.3 Autoimmune thyroiditis; M54.32 Sciatica, left side; Z23 Encounter for immunization

== ENCOUNTER → 2025-08-15 15:28 | Outpatient (BNVA) | payer OTHER, SELFPAY | PROVIDERS: PCP Internal Medicine; Visit Provider Internal Medicine | DX: Z28.21 Immunization not carried out because of patient refusal (principal); E11.9 Type 2 diabetes mellitus without complications; E78.00 Pure hypercholesterolemia, unspecified; E06.3 Autoimmune thyroiditis; M54.32 Sciatica, left side | CPT/HCPCS: 90471; 96127; 99212 ==

== ENCOUNTER 2025-08-22 10:11 | Outpatient (REF) | payer OTHER, SELFPAY | END 2025-08-22 10:12 | disposition home or self-care (01) | LOC: HO.HKASLDS 10:11 | PROVIDERS: Absent Provider Psychiatry & Neurology Neurology; PCP Internal Medicine; Visit Provider Psychiatry & Neurology Neurology | DX: G44.039 Episodic paroxysmal hemicrania, not intractable (principal) | CPT/HCPCS: 36415; 85652; 99202 ==

== ENCOUNTER 2025-08-22 10:11 | Outpatient (AMB) | payer OTHER, SELFPAY ==
--- NOTE | 2025-08-22 10:24 | A.OFFVIS_ITS ---
Vital Signs 08/22/25 10:25 Height 5 ft Weight 167 lb 8 oz BMI 32.7 BP 138/80 Blood Pressure Location Rt brachial Position Sitting Pulse 88 Pulse Source Pulse Oximeter Pulse Oximetry (%) 95 Oxygen Delivery Method Room Air Intake Visit Reasons: INP-Headache Intake Note: Headache Senior Product Designer Required: Yes Senior Product Designer Name: IPad Accompanied by: Self / Same As Patient Allergies No Known Drug Allergies Allergy (Unknown, Verified 08/22/25 10:24) none Medication List - Last Reconciled 08/22/25 by Daja Meyer MD albuterol sulfate 90 mcg/actuation (Ventolin HFA) 2 puffs inhalation Q6H PRN 30 days baclofen 10 mg PO BID PRN 30 days blood sugar diagnostic As directed Once per day blood sugar diagnostic (The Veteran Advantageuch Ultra Test strips) test daily blood-glucose meter (XOR.MOTORSTouch Ultra2 Meter) test daily blood-glucose meter As directed celecoxib (Celebrex) 200 mg PO BID 30 days cyanocobalamin (vitamin B-12) 1,000 mcg IM QMONTH 4 weeks cyclobenzaprine 10 mg PO TID PRN esomeprazole magnesium 40 mg PO BID famotidine (Pepcid) 40 mg PO BEDTIME gabapentin 400 mg PO TID 30 days Grab bar As directed lancets (The Veteran Advantageuch UltraSoft 2 Lancet) test daily lancets As directed Once per day levothyroxine 88 mcg PO DAILY 90 days metformin 850 mg PO BID 90 days metoclopramide HCl (Reglan) 10 mg PO QIDACHS rosuvastatin 20 mg PO DAILY@1400 Shower Chair As directed syringe with needle (GoGuide Luer Lock Syringe with needle) Use 1 needle once a month valproic acid 500 mg (2 x 250 mg) PO BID 90 days walker Folding Front wheeled walker HPI Comments Details: Maria Ines [id number]- [employer] 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 she denies nausea or light sensitivity.The headaches lasts 5- 10 min.she has daily headaches -2-3 times a day . She denies * Red, tearing eye (conjunctival injection, lacrimation)? * Stuffy or runny nose (nasal congestion, rhinorrhea)? * Eyelid swelling (ptosis, eyelid edema)? * Sweating on the forehead/face? she does not take any medications. No neck pain. In May 2025 - she had a TIA -right UE LE numbness treated with TNK-- no residual PFSH Medical History Suspected cerebrovascular accident Hypertension TIA (transient ischemic attack) Diabetes mellitus Muscle spasm Acute diarrhea Dysuria Urinary leakage Pre-op examination COVID-19 Gastritis Dyspnea Encounter for Medicare annual wellness exam Hyperlipidemia LDL goal <70 Cough Leukocytosis Osteoarthritis of right knee Hyperkalemia Adult general medical exam Screening for colon cancer Screening for diabetes mellitus Screening for breast cancer Epigastric pain Constipation Diabetes Osteoporosis Difficulty swallowing Bilateral knee pain Urge urinary incontinence Hypothyroidism Autoimmune thyroiditis Pure hypercholesterolemia GERD (gastroesophageal reflux disease) Surgical History Status post total right knee replacement History of right knee surgery History of esophagogastroduodenoscopy (EGD) Hx of colonoscopy History of appendectomy History of partial hysterectomy Hx of tubal ligation HX: benign breast biopsy Hx of thyroidectomy Family History Father Prostate cancer Mother Diabetes mellitus Sister Heart problem Social History Household Members: Children Housing: Apartment Are you a primary caretaker resort to a significant other at home: No Do you presently have visiting nurse or other home services: No Alcohol intake: never Patient Tobacco Use Status: Former Tobacco user Tobacco use type: Cigarette Cigarettes Per Day: 6 Years Smoked: 40 e-Cigarette/Vaping Use: Never Used Second Hand Smoke Exposure: Yes Advance Directives Date on File: 01/11/24 service: No Current occupational status: unemployed Current occupational exposures/hazards: No Cognitive needs: No Hearing needs: No Vision needs: Yes Physical Exam Vital Signs: Last Vital Signs Pulse 88 08/22/25 10:25 BP 138/80 08/22/25 10:25 Pulse Ox 95 08/22/25 10:25 Oxygen Delivery Method Room Air 08/22/25 10:25 BMI result Body Mass Index 32.7 Const General: cooperative, healthy appearing, comfortable and no acute distress Nutritional Appearance: overweight Orientation/consciousness: patient oriented x3 Eyes Pupils: Equal, round and reactive pupils present Neuro General: patient oriented x3, tone normal, moves all extremities and no focal motor deficits Cranial nerves: Yes Facial sensation intact/muscles of mastication intact, Yes Equal, round and reactive pupils present, Yes Bilaterally intact EOM present, Yes Nystagmus not present, Yes Normal facial strength present, Yes Midline tongue present, Yes Symmetric palate elevation present and Yes Ability to bilaterally elevate shoulders present Cognition (Neuro): normal cognition Gait exam (Neuro): Antalgic gait present Deep tendon reflexes (DTR's): Right triceps reflex intensity grade: 1+, Left triceps reflex intensity grade: 1+, Rt Biceps (C5, C6): 1+, Left biceps reflex intensity grade: 1+, Right brachioradialis reflex intensity grade: 1+, Left brachioradialis reflex intensity grade: 1+ and Right patellar reflex intensity grade: 1+ Coordination: [id number]-colg test normal Assessment & Plan Assessment & Plan (1) 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 Orders: Orders Erythrocyte Sedimentation Rate Today G44.039 - Episodic paroxysmal hemicrania, not intractable Medications: New verapamil ER 120 mg PO DAILY 30 caps 1RF Coding Level of Care Code New Pt Level 4 (80630) Add On Problem Visit Only Diagnoses Paroxysmal hemicrania G44.039
[2025-08-22 10:25] VITALS: BP 138/80; PULSE 88; O2SAT 95; BMI 32.7
== END 2025-08-22 11:13 | disposition home or self-care (01) ==
LOC: HO.HSMS 10:12
PROVIDERS: Absent Provider Psychiatry & Neurology Neurology; PCP Internal Medicine; Visit Provider Psychiatry & Neurology Neurology
DX: G44.039 Episodic paroxysmal hemicrania, not intractable (principal)
CPT/HCPCS: 99204; G2211

== ENCOUNTER 2025-09-11 08:25 | Outpatient (AMB) | payer OTHER, SELFPAY ==
--- OUTSIDE RECORDS SUMMARY | 2025-09-11 08:31 | XMS_ITS | Data Portability ---
Author Organization [employer] [facility] Address [address] [place] [phone] Care Team Providers Care Elementary Librarian Name Role Phone HIM CCA OTHER Assessment No assessment recorded. Plan of Treatment Reminders Order Date Submit Date Provider Last Modified By Organization Details Last Modified Time Details Appointments None recorded. Lab None recorded. Referral None recorded. Procedures None recorded. Surgeries None recorded. Imaging None recorded. Medication Orders ketorolac 15 mg/mL injection solution [address] [place] [address] , [address] [place] [address], [id number], 16:33:12 Patient TargetsNo targets recorded. Patient InstructionsNo [...] Not Available No t Available amoxicillin 875 mg-[facility] m clavulanate 125 mg tablet TOME 1 [...] /min 157.48 cm 14 /min 98 [degF] 93316.8 g 166/84 mm[Hg] Not Available InstEDNow - [...] ICD10 Code Diagnosis IMO Codes Diagnosis Note [id number] LEIDY ROJO MD [facility] ED Medical [facility] [address] [place] [address] 07/17/2025 16:21:22 07/18/2025 09:49:31 Pain of hip region [id number] M25.551 [id number] Evaluation in the field was performed by my ice cream vault worker colleague, as noted above, I provided real-time [...] Stoll Member ID Guarantor Name 07/17/2025 1 [facility] - DOS ON OR AFTER 2022 - DUAL ELIGIBLE - RESIDENTIAL OPTIONS AND ONE CARE (MEDICARE REPLACEMENT/ADV ANTAGE - HMO) Diana Ortega [id number] Diana Ortega Notes Date Note Type Note Provider Name and Address Organization Details Recorded Time 07/17/2025 text/html ROS as noted in the [facility] CRC Nurse Triage Notes (Phoebe Buckley - [...] ................... ................... ................... ................... ................... ................... ........ Senior Wealth Advisor Note From Karel Emmanuel: Patient alert and [...] care and plan. Caregiver on scene as ignition expert, strong language barrier. [facility] Medication Orders: ketorolac 15 mg/mL injection solution: Administered ................... ................... ................... ................... ................... ................... ................... ........ [facility] Consulted: Leidy Rojo ................... ................... ................... ................... ................... ................... ................... ........ Disposition: Fulfilled LEIDY ROJO MD [address] [place] [address],[address] [facility], [place], [address], Videdressing 07/17/2025 16:58:58 OBGyn Episode No OBEpisode recorded.
--- OUTSIDE RECORDS SUMMARY | 2025-09-11 08:31 | XMS_ITS | Encounter Summary ---
Author Organization [employer] Address [address] [place] [address] Care Team Providers Care Lvn Lpn Name Role Phone Debora Chakraborty MD Primary Care Provider + Encounter Details Date Type Department Care Team (Late st Contact Info) Description 05/28/2025 Lab Requisition [facility] - Main Lab [address] [facility] [place] [address] Debora Chakraborty MD [address] [facility] 1 [place], [place] [id number] Type 2 diabetes mellitus with unspecified complications [...] Type 2 diabetes mellitus with unspecified complications ([facility]/HCC V24, [facility] V28) Hypothyroidism, unspecified documented in this encounter Results * (ABNORMAL) Thyroid stimulating hormone (05/28/2025 5:41 AM EDT) Pathologist [facility] TSH 0.10(L) 0.40 - 4.00 mcIU/mL LAB CHEMISTRY METHOD 05/28/2025 12:[address] [facility] Blood Venous blood specimen / Unknown Venipuncture / Unknown 05/28/2025 5:41 AM EDT 05/28/2025 9:35 AM EDT Debora Chakraborty MD LAB BLOOD ORDERABLES Fin al Result Performing Organization Address [facility] Co de Phone Number [facility] [address] [place] [address], * (ABNORMAL) Hemoglobin A1c (05/28/2025 5:41 AM EDT) [facility] Hemoglobin A1C 6.5(H) <6.5 % LAB CHEMISTRY METHOD 05/28/2025 1:[address] [facility] Mean Bld Glu Estim. 140 mg/dL LAB CHEMISTRY METHOD 05/28/2025 1:[address] [facility] Blood Venous blood specimen / Unknown Venipuncture / Unknown 05/28/2025 5:41 AM EDT 05/28/2025 9:35 AM EDT Debora Chakraborty MD LAB BLOOD ORDERABLES Fin al Result Performing Organization Address [facility]/ZIP Co de Phone Number [facility] [address] [place] [address], [place] [phone] * Comprehensive metabolic panel (05/28/2025 5:41 AM EDT) [facility] Sodium 141 133 - 145 mmol/L LAB CHEMISTRY METHOD 05/28/2025 11:03 AM [facility] Potassium 4.0 3.5 - 5.5 mmol/L LAB CHEMISTRY METHOD 05/28/2025 11:03 AM [facility] Chloride 104 96 - 110 mmol/L LAB CHEMISTRY METHOD 05/28/2025 11:03 AM [facility] CO2 29 21 - 32 mmol/L LAB CHEMISTRY METHOD 05/28/2025 11:03 AM [facility] Anion Gap 8 3 - 11 LAB CHEMISTRY METHOD 05/28/2025 11:03 AM [facility] Glucose 85 70 - 100 mg/dL LAB CHEMISTRY METHOD 05/28/2025 11:03 AM [facility] BUN 15 5 - 25 mg/dL LAB CHEMISTRY METHOD 05/28/2025 11:03 AM [facility] Creatinine 0.69 0.50 - 1.10 mg/dL LAB CHEMISTRY METHOD 05/28/2025 11:03 AM [facility] eGFR 94 >=60 mL/min/1. 73m2 LAB CHEMISTRY METHOD 05/28/2025 11:03 AM [facility] Comment:Calculation based on the Chronic Kidney Disease Epidemiology Collaboration (CKD-EPI) equation refit without adjustment for race. BUN/Creatinine Ratio 21.7 LAB CHEMISTRY METHOD 05/28/2025 11:03 AM [facility] Calcium 9.8 8.5 - 10.5 mg/dL LAB CHEMISTRY METHOD 05/28/2025 11:03 AM [facility] AST (SGOT) 28 10 - 42 unit/L LAB CHEMISTRY METHOD 05/28/2025 11:03 AM [facility] ALT (SGPT) 35 10 - 60 unit/L LAB CHEMISTRY METHOD 05/28/2025 11:03 AM [facility] Alkaline Phosphatase 69 42 - 121 unit/L LAB CHE[facility]STR[facility] Total Protein 6.8 6.0 - 8.0 g/dL LAB CHEMISTRY METHOD 05/28/2025 11:03 AM [facility] Albumin 3.7 3.2 - 5.0 g/dL LAB CHEMISTRY METHOD 05/28/2025 11:03 AM [facility] Total Bilirubin 0.3 0.0 - 1.4 mg/dL LAB CHEMISTRY METHOD 05/28/2025 11:03 AM [facility] Blood Venous blood specimen / Unknown Venipuncture / Unknown 05/28/2025 5:41 AM EDT 05/28/2025 9:35 AM EDT us Debora Chakraborty MD LAB BLOOD ORDERABLES Fin al Result [facility] [address] [place] [address], * (ABNORMAL) Complete blood count (05/28/2025 5:41 AM EDT) WBC 9.0 4.8 - 10.8 K/mcL LAB HEMETOLOGY METHOD 05/28/2025 10:13 AM [facility] RBC 4.40 3.80 - 4.80 M/mcL LAB HEMETOLOGY METHOD 05/28/2025 10:[address] [facility] Hemoglobin 12.4 11.5 - 16.0 g/dL LAB HEMETOLOGY METHOD 05/28/2025 10:13 AM [facility] Hematocrit 39.0 35.0 - 47.0 % LAB HEMETOLOGY METHOD 05/28/2025 10:13 AM [facility] MCV 87.8 79.0 - 98.0 FL LAB HEMETOLOGY METHOD 05/28/2025 10:[address] [facility] MCH 27.9 27.0 - 32.0 pcg LAB HEMETOLOGY METHOD 05/28/2025 10:[address] [facility] MCHC 31.8(L) 32.0 - 37.0 g/dL LAB HEMETOLOGY METHOD 05/28/2025 10:[address] [facility] RDW 14.2 11.0 - 15.0 % LAB HEMETOLOGY METHOD 05/28/2025 10:[address] [facility] Platelets 172 130 - 400 K/mcL LAB HEMETOLOGY METHOD 05/28/2025 10:[address] [facility] MPV 13.6(H) 7.0 - 11.0 FL LAB HEMETOLOGY METHOD 05/28/2025 10:[address] [facility] NRBC 0.0 <1.0 % LAB HEMETOLOGY METHOD 05/28/2025 10:[address] [facility] NRBC Absolute 0.00 <0.10 K/mcL LAB HEMETOLOGY METHOD 05/28/2025 10:[address] [facility] Blood Venous blood specimen / Unknown Venipuncture / Unknown 05/28/2025 5:41 AM EDT 05/28/2025 9:35 AM EDT us Debora Chakraborty MD LAB BLOOD ORDERABLES Fin al Result [facility] [address] [place] [address], documented in this encounter Visit Diagnoses Diagnosis Type 2 diabetes mellitus with unspecified complications (CMS/HCC V24, CMS/HCC V28) Hypothyroidism, unspecified documented in this encounter Care Teams Lvn Lpn Relationship Specialty Start Date End Date Debora Chakraborty MD [address] [place] [address] PCP - General Family Medicine 05/28/25 documented as of this encounter
--- OUTSIDE RECORDS SUMMARY | 2025-09-11 08:31 | XMS_ITS | Continuity of Care Document ---
Author Organization [place] - [employer] [facility], [facility] [employer] Medical [facility] Address [address] [place] [address] Care Team Providers Care Filling And Stapling Machine Operator Name Role Phone HIM CCA OTHER Assessment No assessment recorded. Plan of Treatment Reminders Order Date Submit Date Provider Last Modified By Organization Details Last Modified Time Details Appointments None recorded. Lab None recorded. Referral None recorded. Procedures None recorded. Surgeries None recorded. Imaging None recorded. Medication Orders ketorolac 15 mg/mL injection solution [address] [place] [address] , [address] [place] [address], [id number], 16:33:12 Patient TargetsNo targets recorded. Patient InstructionsNo [...] /min 157.48 cm 14 /min 98 [degF] 97182.8 g 166/84 mm[Hg] Not Available [employer] - [...] ICD10 Code Diagnosis IMO Codes Diagnosis Note [id number] LEIDY ROJO MD [facility] ED Medical [facility] [address] [place] [address] 07/17/2025 16:21:22 07/18/2025 09:49:31 Pain of hip region [id number] M25.551 [id number] Evaluation in the field was performed by my scouring train operator colleague, as noted above, I provided real-time [...] Stoll Member ID Guarantor Name 07/17/2025 1 [facility] - DOS ON OR AFTER 2022 - DUAL ELIGIBLE - LONGTERM OPTIONS AND ONE CARE (MEDICARE REPLACEMENT/ADV ANTAGE - HMO) Diana Ortega [id number] Diana Ortega Notes Date Note Type Note Provider Name and Address Organization Details Recorded Time 07/17/2025 text/html ROS as noted in the [facility] CRC Nurse Triage Notes (Phoebe Buckley - [...] ................... ................... ................... ................... ................... ................... ........ Half Backer Note From Karel Emmanuel: Patient alert and [...] care and plan. 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 [facility] Medication Orders: ketorolac 15 mg/mL injection solution: Administered ................... ................... ................... ................... ................... ................... ................... ........ [facility] Consulted: Leidy Rojo ................... ................... ................... ................... ................... ................... ................... ........ Disposition: Quincy ROJO MD 30 [facility],[address] [facility], [place], [address], [employer] 07/17/2025 16:58:58 OBGyn Episode No OBEpisode recorded.
--- OUTSIDE RECORDS SUMMARY | 2025-09-11 08:31 | XMS_ITS | Clinical Summary ---
Author Organization 299 [facility] Address [address] [place] [address] Phone Care Team Providers Care Payment Rep Name Role Phone Elder, Debora Pelaez MD Primary Care Provider + Social History Tobacco Use Types Packs/Day Years Used Date Smoking Tobacco: Never Assessed Comments Unknown Sex and Gender Information Value Date Recorded Sex Assigned at Not on file Legal Sex Female 9:25 AM EST Gender Identity Not on file Sexual Orientation Not on file Plan of Treatment Health Maintenance Due Date Last Done Comments Breast Cancer Screening 1955 Colorectal Cancer Screening: Colonoscopy 1955 DTaP,Tdap,and Td Vaccines (1 - Tdap) 1974 Pneumococcal Vaccine: 50+ Ye ars (1 of 2 - PCV) 1974 Zoster Vaccines (1 of 2) 2005 Depression Screening 09/12/2024 COVID-19 Vaccine ( - 2024-2 6 season) 2025 Influenza Vaccine (#1) 2025 Falls Risk Assessment 05/28/2025 Hepatitis C Screening 05/28/2025 Medicare Annual Wellness Visit 05/28/2025 Osteoporosis Screening (Bone Density Screening) 05/28/2025 Social Influencers of Health Screening 05/28/2025 RSV Immunization Adult Patie nts (1 [...] on patient's age to complete [place] [address] [place] [address] MEDICAID - [place] [facility] OPTIONS Member Subscriber Plan / Payer ( fective 2024-Present) Name:Tyler Ortegaz Relation to Subscriber:Self Name:Diana Ortega Payer ID:[id number] Group ID:Not on file Type:Not on file Address: [address] [phone] Care Teams Payment Rep Relationship Specialty Start Date End Date Debora Chakraborty MD [address] [place] [address] PCP - General Family Medicine 05/28/25
--- OUTSIDE RECORDS SUMMARY | 2025-09-11 08:31 | XMS_ITS | Encounter Summary ---
Author Organization [employer] Address [address] [place] [address] Care Team Providers Care Supervisor Brooder Farm Name Role Phone Debora Chakraborty MD Primary Care Provider + Encounter Details Date Type Department Care Team (Late st Contact Info) Description 06/02/2025 Lab Requisition [facility] - Main Lab [address] [facility] [place] [address] Debora Chakraborty MD [address] [address] Type 2 diabetes mellitus without complications (CMS/HCC [...] unspecified documented in this encounter Care Teams Supervisor Brooder Farm Relationship Specialty Start Date End Date Debora Chakraborty MD [address] [address] PCP - General Family Medicine 05/28/25 documented as of this encounter
--- NOTE | 2025-09-11 08:32 | A.OFFVIS_ITS ---
Vital Signs 09/11/25 08:39 Height 5 ft Weight 167 lb BMI 32.6 Intake Visit Reasons: New Prob- Left Hip Pain Intake Note: Diana is a 69 year old female who presents today for a new problem visit to evaluate left hip pain. Patient was recently seen at [facility] with complaints of pelvic and groin pain. A pelvis CT was obtained. Today patient reports her pain presented after a minor stroke in May. Her pain is located at the lateral side of hip that travels down her leg to her bazan. States pain in her bone. No numbness or tingling. Denies injury. No previous treatments. 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 Services: 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 Offered & Declined Accompanied by: Daughter Allergies No Known Drug Allergies Allergy (Unknown, Verified 09/11/25 08:39) none Medication List - Last Reconciled 09/11/25 by Shital Rdz PA-C albuterol sulfate 90 mcg/actuation (Ventolin HFA) 2 puffs inhalation Q6H PRN 30 days baclofen 10 mg PO BID PRN 30 days blood sugar diagnostic As directed Once per day blood sugar diagnostic ([employer] HealthTouch Ultra Test strips) test daily blood-glucose meter ([employer] HealthTouch Ultra2 Meter) test daily blood-glucose meter As directed celecoxib (Celebrex) 200 mg PO BID 30 days cyanocobalamin (vitamin B-12) 1,000 mcg IM QMONTH 4 weeks cyclobenzaprine 10 mg PO TID PRN esomeprazole magnesium 40 mg PO BID famotidine (Pepcid) 40 mg PO BEDTIME gabapentin 400 mg PO TID 30 days Grab bar As directed lancets ([employer] HealthTouch UltraSoft 2 Lancet) test daily lancets As directed Once per day levothyroxine 88 mcg PO DAILY 90 days metformin 850 mg PO BID 90 days metoclopramide HCl (Reglan) 10 mg PO QIDACHS rosuvastatin 20 mg PO DAILY@1400 Shower Chair As directed syringe with needle ([employer] Luer Lock Syringe with needle) Use 1 needle once a month valproic acid 500 mg (2 x 250 mg) PO BID 90 days verapamil ER 120 mg PO DAILY walker Folding Front wheeled walker HPI Comments Details: History of Present Illness The patient is a 69 year old female presenting with left hip pain. The pain beg an after a mini-stroke in May. She describes the pain as being deep in the bone on the lateral aspect of the hip, which radiates down the entire leg to the baazn. She also reports associated groin pain, but denies pain in the buttock. The patient's symptoms are exacerbated by prolonged standing or walking and she is unable to sleep on her left side. At times, her hip feels as if it is stuck . The pain was recently severe enough to warrant a visit to the emergency room. Recent X-rays showed mild arthritis but were otherwise unremarkable. Her medical history is significant for a mini-stroke in May with no residual weakness or paralysis, and she is no longer taking blood thinners. She has type 2 diabetes with well-controlled blood sugars, a history of left knee replacement, and no known kidney disease. She previously used Celebrex, which provided some minor relief. Social History [facility] Medical History (Updated 09/11/25 @ 08:49 by Shital Rdz PA-C) Paroxysmal hemicrania Suspected cerebrovascular accident Hypertension TIA (transient ischemic attack) Diabetes mellitus Muscle spasm Acute diarrhea Dysuria Urinary leakage Pre-op examination COVID-19 Gastritis Dyspnea Encounter for Medicare annual wellness exam Hyperlipidemia LDL goal <70 Cough Leukocytosis Osteoarthritis of right knee Hyperkalemia Adult general medical exam Screening for colon cancer Screening for diabetes mellitus Screening for breast cancer Epigastric pain Constipation Diabetes Osteoporosis Difficulty swallowing Bilateral knee pain Urge urinary incontinence Hypothyroidism Autoimmune thyroiditis Pure hypercholesterolemia GERD (gastroesophageal reflux disease) Surgical History Status post total right knee replacement History of right knee surgery History of esophagogastroduodenoscopy (EGD) Hx of colonoscopy History of appendectomy History of partial hysterectomy Hx of tubal ligation HX: benign breast biopsy Hx of thyroidectomy Family History Father Prostate cancer Mother Diabetes mellitus Sister Heart problem Social History Household Members: Children Housing: Apartment Are you a primary interior plant caretaker to a significant other at home: No Do you presently have visiting nurse or other home services: No Alcohol intake: never Patient Tobacco Use Status: Former Tobacco user Tobacco use type: Cigarette Cigarettes Per Day: 6 Years Smoked: 40 e-Cigarette/Vaping Use: Never Used Second Hand Smoke Exposure: Yes Advance Directives Date on File: 01/11/24 service: No Current occupational status: unemployed Current occupational exposures/hazards: No Cognitive needs: No Hearing needs: No Vision needs: Yes Review of Systems Narrative Review of Systems - Musculoskeletal: Reports deep, lateral left hip pain that radiates down the leg to the bazan. Reports associated groin pain and a sensation of the hip feeling stuck. Denies buttock pain. - Neurological: Reports tingling in the lower back and occasional numbness and tingling in her hands. Denies leg numbness, tingling, weakness, or paralysis. Const All systems reviewed & are unremarkable except as noted in HPI and below Physical Exam Exam Exam: Physical Exam - General: The patient is alert and oriented. - Musculoskeletal - Left Hip: There is point tenderness to palpation over the greater trochanter. No pain is elicited with passive range of motion. Active leg lift is non-painful. Pain is elicited in the knee with resisted abduction. Vital Signs: BMI result Body Mass Index 32.6 Office Procedures AMB Joint Injection/Aspiration Joint Injection/Aspiration Primary Site: Left Trochanteric Bursa Prep: site was prepped using aseptic technique, ethochloride spray was applied and injection warnings given Injected: 40 mg of, Decadron, with 3 mL of, 1% plain Lidocaine and 0.25% Bupivacaine Procedure: The patient tolerated the procedure well and there was some relief with the local anesthesia Coding 80487 - Glenohumeral/Tronchanteric Bursa/Intraarticular Procedure code (CPT) selection complete Results Reviewed Results Reviewed: Xrays were obtained in the office today and personally reviewed by me show mild oa Assessment & Plan Assessment & Plan (1) Greater trochanteric bursitis of left hip: Code(s): M70.62 - Trochanteric bursitis, left hip Category: Medical (2) Diabetes: Code(s): E11.9 - Type 2 diabetes mellitus without complications Category: Medical Plan Plan 1. Left Greater Trochanteric Pain Syndrome (Bursitis) The patient's presentation of lateral hip pain, tenderness over the greater trochanter is consistent with greater trochanteric bursitis or tendinitis, likely resulting from weak and tight hip muscles. A left hip cortisone injection will be administered today to alleviate pain and inflammation. A referral will be provided for physical therapy to strengthen the hip musculature. A prescription for celecoxib 200 mg will be sent to [facility], with instructions to take one tablet twice daily for two weeks to manage symptoms until the injection takes effect. 2. Type 2 Diabetes Mellitus Without Complications The patient has a history of type 2 diabetes with good baseline glycemic control. She has been counseled that the cortisone injection may cause a temporary elevation in her blood sugar levels and was instructed to monitor her sugars over the next few days. Consent The risks, benefits, and alternatives of a left hip cortisone injection were discussed, including the plan for physical therapy. Specific risks, including temporary hyperglycemia due to her history of diabetes, were reviewed. The patient was instructed to monitor her blood sugars for the next few days. The patient verbalized understanding and agreed to proceed with the injection. Patient was informed and verbally consented to the use of an ambient scribe for clinic note documentation during this visit. Orders: Orders XR pelvis 1-2V Today M25.559 - Pain in unspecified hip PT Evaluation and Treatment Today M70.62 - Trochanteric bursitis, left hip Medications: Refilled celecoxib (Celebrex) 200 mg PO BID 60 caps 3RF 30 days Coding Level of Care Code Est Pt Level 3 (46001) Add On Problem Visit Only Diagnoses Greater trochanteric bursitis of left hip M70.62 Diabetes E11.9 CPT Codes Coding - Joint 7: 14314 - Glenohumeral/Tronchanteric Bursa/Intraarticular ([id number])
[2025-09-11 08:39] VITALS: BMI 32.6
== END 2025-09-11 09:21 | disposition home or self-care (01) ==
LOC: HO.HOS 08:26
PROVIDERS: PCP Internal Medicine; Visit Provider Physician Assistant
DX: M70.62 Trochanteric bursitis, left hip (principal); E11.9 Type 2 diabetes mellitus without complications
CPT/HCPCS: 20610; 99214

== ENCOUNTER → 2025-09-11 08:27 | Outpatient (BNV) | payer OTHER, SELFPAY | PROVIDERS: Visit Provider Radiology Diagnostic Radiology | DX: M85.35 Osteitis condensans, thigh (principal) | CPT/HCPCS: 72170 ==

== ENCOUNTER 2025-09-11 10:47 | Outpatient (REF) | payer OTHER, SELFPAY ==
--- NOTE | ~2025-09-11 | XR_ITS ---
EXAMINATION: XR PELVIS 1-2 VIEWS HISTORY: M25.559 - Pain in unspecified hip COMPARISON: Comparison is made with the prior examination dated 01/29/2022. FINDINGS: A single AP view of the pelvis is submitted. Osseous mineralization is normal. There is no fracture or dislocation. There is mild narrowing of the bilateral hip joints. There is moderate degenerative change of the lower lumbar spine. There is osteitis pubis. The soft tissues are unremarkable. XR/XR pelvis 1-2V IMPRESSION: Mild narrowing of both hip joints. Electronically signed by: Jermaine Sweeney MD 09/11/2025 08:43 AM EST
--- OUTSIDE RECORDS SUMMARY | 2025-09-13 11:29 | XMS_ITS | Continuity of Care Document ---
Author Organization [place] - [facility], [facility] Address [address] [place] [address] Care Team Providers Care Round Boner Name Role Phone HIM CCA OTHER Assessment No assessment recorded. Plan of Treatment Reminders Order Date Submit Date Provider Last Modified By Organization Details Last Modified Time Details Appointments None recorded. Lab None recorded. Referral None recorded. Procedures None recorded. Surgeries None recorded. Imaging None recorded. Medication Orders ketorolac 15 mg/mL injection solution [address] [place] [address] , [address] [place] [address], [id number], 16:33:12 Patient TargetsNo targets recorded. Patient InstructionsNo [...] /min 157.48 cm 14 /min 98 [degF] 02526.8 g 166/84 mm[Hg] Not Available InstEDNow - [...] ICD10 Code Diagnosis IMO Codes Diagnosis Note [id number] LEIDY ROJO MD [facility] ED Medical [facility] [address] [place] [address] 07/17/2025 16:21:22 07/18/2025 09:49:31 Pain of hip region [id number] M25.551 [id number] Evaluation in the field was performed by my learning technologist colleague, as noted above, I provided real-time [...] Stoll Member ID Guarantor Name 07/17/2025 1 [facility] - DOS ON OR AFTER 2022 - DUAL ELIGIBLE - INTERMEDIATE OPTIONS AND ONE CARE (MEDICARE REPLACEMENT/ADV ANTAGE - HMO) Diana Ortega [id number] Diana Ortega Notes Date Note Type Note Provider Name and Address Organization Details Recorded Time 07/17/2025 text/html ROS as noted in the [facility] CRC Nurse Triage Notes (Phoebe [...] ................... ................... ................... ................... ................... ................... ........ Repair Clerk Note From Karel Emmanuel: Patient alert and [...] care and plan. 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 [facility] Medication Orders: ketorolac 15 mg/mL injection solution: Administered ................... ................... ................... ................... ................... ................... ................... ........ [facility] Consulted: Leidy Rojo ................... ................... ................... ................... ................... ................... ................... ........ Disposition: Quincy ROJO MD 30 [facility],[address] [facility], [place], [address], [employer] 07/17/2025 16:58:58 OBGyn Episode No OBEpisode recorded.
--- OUTSIDE RECORDS SUMMARY | 2025-09-13 11:29 | XMS_ITS | Clinical Summary ---
Author Organization 299 [facility] Address [address] [place] [address] Phone Care Team Providers Care Management Professor Name Role Phone Elder, Debora Pelaez MD [...] to [place] [address] MEDICAID - [place] [facility] OPTIONS Member Subscriber Plan / Payer ( fective 2024-Present) Name:Tyler Ortegaz Relation to Subscriber:Self Name:Diana Ortega Payer ID:[id number] Group ID:Not on file Type:Not on file Address: [address] [address] Care Teams Management Professor Relationship Specialty Start Date End Date Debora Chakraborty MD [address] [place] [address] PCP - General Family Medicine 05/28/25
--- OUTSIDE RECORDS SUMMARY | 2025-09-13 11:29 | XMS_ITS | Encounter Summary ---
Author Organization [employer] Address [address] [place] [address] Care Team Providers Care Manager Transportation Name Role Phone Debora Chakraborty MD Primary Care Provider + Encounter Details Date Type Department Care Team (Late st Contact Info) Description 06/02/2025 Lab Requisition [facility] - Main Lab [address] [facility] [place] [address] Debora Chakraborty MD [address] [address] Type 2 diabetes mellitus without complications (CMS/HCC [...] unspecified documented in this encounter Care Teams Manager Transportation Relationship Specialty Start Date End Date Debora Chakraborty MD [address] [address] PCP - General Family Medicine 05/28/25 documented as of this encounter
--- OUTSIDE RECORDS SUMMARY | 2025-09-13 11:29 | XMS_ITS | Encounter Summary ---
Author Organization [employer] Address [address] [place] [address] Care Team Providers Care Informal Waiter/Waitress Name Role Phone Debora Chakraborty MD Primary Care Provider + Encounter Details Date Type Department Care Team (Late st Contact Info) Description 05/28/2025 Lab Requisition [facility] - Main Lab [address] [facility] [place] [address] Debora Chakraborty MD [address] [phone] Type 2 diabetes mellitus with unspecified complications [...] Type 2 diabetes mellitus with unspecified complications ([facility]/HCC V24, [facility] V28) Hypothyroidism, unspecified documented in this encounter Results * (ABNORMAL) Thyroid stimulating hormone (05/28/2025 5:41 AM EDT) Pathologist [facility] TSH 0.10(L) 0.40 - 4.00 mcIU/mL LAB CHEMISTRY METHOD 05/28/2025 12:47 PM EDT [facility] Blood Venous blood specimen / Unknown Venipuncture / Unknown 05/28/2025 5:41 AM EDT 05/28/2025 9:35 AM EDT Debora Chakraborty MD LAB BLOOD ORDERABLES Fin al Result Performing Organization Address [facility] Co de Phone Number [facility] [address] [place] [address], * (ABNORMAL) Hemoglobin A1c (05/28/2025 5:41 AM EDT) [facility] Hemoglobin A1C 6.5(H) <6.5 % LAB CHEMISTRY METHOD 05/28/2025 1:11 PM EDT [facility] Mean Bld Glu Estim. 140 mg/dL LAB CHEMISTRY METHOD 05/28/2025 1:11 PM EDT [facility] Blood Venous blood specimen / Unknown Venipuncture / Unknown 05/28/2025 5:41 AM EDT 05/28/2025 9:35 AM EDT Debora Chakraborty MD LAB BLOOD ORDERABLES Fin al Result Performing Organization Address [facility]/ZIP Co de Phone Number [facility] [address] [place] [address], [place] [phone] * Comprehensive metabolic panel (05/28/2025 5:41 AM EDT) [facility] Sodium 141 133 - 145 mmol/L LAB [...] Fin al Result [facility] [address] [place] [address], * (ABNORMAL) Complete blood count (05/28/2025 5:41 AM EDT) WBC 9.0 4.8 - 10.8 K/mcL LAB HEMETOLOGY METHOD 05/28/2025 10:13 AM [facility] RBC 4.40 3.80 - 4.80 M/mcL LAB HEMETOLOGY METHOD 05/28/2025 10:13 AM EDT [facility] Hemoglobin 12.4 11.5 - 16.0 g/dL LAB HEMETOLOGY METHOD 05/28/2025 10:13 AM [facility] Hematocrit 39.0 35.0 - 47.0 % LAB HEMETOLOGY METHOD 05/28/2025 10:13 AM [facility] MCV 87.8 79.0 - 98.0 FL LAB HEMETOLOGY METHOD 05/28/2025 10:13 AM EDT [facility] MCH 27.9 27.0 - 32.0 pcg LAB HEMETOLOGY METHOD 05/28/2025 10:13 AM EDT [facility] MCHC 31.8(L) 32.0 - 37.0 g/dL LAB HEMETOLOGY METHOD 05/28/2025 10:13 AM EDT [facility] RDW 14.2 11.0 - 15.0 % LAB HEMETOLOGY METHOD 05/28/2025 10:13 AM EDT [facility] Platelets 172 130 - 400 K/mcL LAB HEMETOLOGY METHOD 05/28/2025 10:13 AM EDT [facility] MPV 13.6(H) 7.0 - 11.0 FL LAB HEMETOLOGY METHOD 05/28/2025 10:13 AM EDT [facility] NRBC 0.0 <1.0 % LAB HEMETOLOGY METHOD 05/28/2025 10:13 AM EDT [facility] NRBC Absolute 0.00 <0.10 K/mcL LAB HEMETOLOGY METHOD 05/28/2025 10:13 AM T [facility] Blood Venous blood specimen / Unknown Venipuncture / Unknown 05/28/2025 5:41 AM EDT 05/28/2025 9:35 AM EDT us Debora Chakraborty MD LAB BLOOD ORDERABLES Fin al Result [facility] [address] [place] [address], documented in this encounter Visit Diagnoses Diagnosis Type 2 diabetes mellitus with unspecified complications (CMS/HCC V24, CMS/HCC V28) Hypothyroidism, unspecified documented in this encounter Care Teams Informal Waiter/Waitress Relationship Specialty Start Date End Date Debora Chakraborty MD [address] [place] [id number] PCP - General Family Medicine 05/28/25 documented as of this encounter
--- OUTSIDE RECORDS SUMMARY | 2025-09-13 11:29 | XMS_ITS | Data Portability ---
Author Organization [employer], [facility] Address [address] [place] [phone] Care Team Providers Care Petroleum Plant Operator Name Role Phone HIM CCA OTHER Assessment No assessment recorded. Plan of Treatment Reminders Order Date Submit Date Provider Last Modified By Organization Details Last Modified Time Details Appointments None recorded. Lab None recorded. Referral None recorded. Procedures None recorded. Surgeries None recorded. Imaging None recorded. Medication Orders ketorolac 15 mg/mL injection solution [address] [place] [address] , [address] [place] [address], [phone], 16:33:12 Patient TargetsNo targets recorded. Patient InstructionsNo [...] Not Available No t Available amoxicillin [address] [facility] [facility] clavulanate 125 mg tablet TOME [...] /min 157.48 cm 14 /min 98 [degF] 01034.8 g 166/84 mm[Hg] Not Available [employer] - [...] ICD10 Code Diagnosis IMO Codes Diagnosis Note [id number] LEIDY ROJO MD [facility] ED Medical [facility] [address] [place] [address] 07/17/2025 16:21:22 07/18/2025 09:49:31 Pain of hip region [id number] M25.551 [id number] Evaluation in the field was performed by my medical clinic manager colleague, as noted above, I provided real-time [...] Stoll Member ID Guarantor Name 07/17/2025 1 [facility] - DOS ON OR AFTER 2022 - DUAL ELIGIBLE - CARE HOME OPTIONS AND ONE CARE (MEDICARE REPLACEMENT/ADV ANTAGE - HMO) Diana Ortega [id number] Diana Ortega Notes Date Note Type Note Provider Name and Address Organization Details Recorded Time 07/17/2025 text/html ROS as noted in the [facility] Nurse Triage Notes (Phoebe [...] ................... ................... ................... ................... ................... ................... ........ Patron Attendant Note From Karel Emmanuel: Patient alert and [...] care and plan. 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 [facility] Medication Orders: ketorolac 15 mg/mL injection solution: Administered ................... ................... ................... ................... ................... ................... ................... ........ [facility] Consulted: Leidy Rojo ................... ................... ................... ................... ................... ................... ................... ........ Disposition: Fulfilled LEIDY ROJO MD [address] [place] [address],[address] [facility], [place], [address], [employer] 07/17/2025 16:58:58 OBGyn Episode No OBEpisode recorded.
== END 2025-09-11 10:48 | disposition home or self-care (01) ==
LOC: HO.HOSX 10:47
PROVIDERS: Visit Provider Physician Assistant
DX: M70.62 Trochanteric bursitis, left hip (principal); E11.9 Type 2 diabetes mellitus without complications
CPT/HCPCS: 20610; 72170; 99212; J0665; J1100; J2003